=== PATIENT | female | born 1960 | race Caucasian/White ===

== ENCOUNTER → 2017-04-20 08:18 | Outpatient (CLI) | payer OTHER, SELFPAY ==
[2017-04-20 09:20] LABS: Cholesterol 154 mg/dL (200); High Density Lipoprotein 33 mg/dL; Thyroid Stim Hormone (TSH) 1.99 uIU/mL (0.358-3.74); Triglycerides 222 mg/dL; Very Low Density Lipoprotein 44 mg/dL (5-40)
[2017-04-20 10:40] LABS: Vitamin D,25 Hydroxy 49.1 ng/mL (29.95-100.01)
== END ==
DX: E55.9 Vitamin D deficiency, unspecified (principal); Z13.0 Encounter for screening for diseases of the blood and blood-forming organs and certain disorders involving the immune mechanism; Z13.29 Encounter for screening for other suspected endocrine disorder; Z13.228 Encounter for screening for other metabolic disorders
CPT/HCPCS: 36415; 80061; 82306; 84443

== ENCOUNTER → 2017-05-01 13:14 | Outpatient (CLI) | payer OTHER, SELFPAY ==
--- NOTE | 2017-05-01 13:17 | RAD_ITS ---
STUDY: X-RAY CHEST REASON FOR EXAM: Female, 56 years old. COUGH X 4 WKS W/ CLEAR D/C SOMETIMES TECHNIQUE: PA and lateral views of the chest. COMPARISON: None. FINDINGS: The lungs are clear and expanded. There is no demonstrated pleural abnormality. Normal size heart. Normal mediastinum and janet. Normal visualized pulmonary arteries. Normal visualized aortic arch and descending thoracic aorta. Normal visualized thoracic spine. Normal visualized ribs, clavicles, and shoulders. There is no demonstrated abnormality of the visualized soft tissue structures of the upper abdomen. RAD/Chest PA and Lateral IMPRESSION: Normal x-ray examination of the chest. Electronically Signed: Aleah Cohen MD at 23:59 EDT Tel , Service support ,
== END ==
DX: Z12.31 Encounter for screening mammogram for malignant neoplasm of breast (principal)
CPT/HCPCS: 71046

== ENCOUNTER → 2017-06-02 16:09 | Outpatient (CLI) | payer OTHER, SELFPAY ==
--- NOTE | 2017-06-02 16:34 | BI_ITS ---
MAMMOGRAPHY - BILATERAL SCREENING 3-D ERIC SYNTHESIS REASON FOR EXAM: Female, 56 years old. Bilateral Screening 3-D tomosynthesis PERTINENT HISTORY: No significant family history. TECHNIQUE: 2-D mammograms and 3-D Eric synthesis of the breast (s) were performed. CAD was performed. COMPARISON: May 02, 2016. FINDINGS: The breast composition is composed of scattered fibroglandular density. There is a 12 mm nodule within the right breast 6:00 position located 8.7 cm from the nipple base. Recommend further evaluation with sonographic characterization. There are no suspicious clustered calcifications. There are no secondary signs of malignancy. BI/SCREENING MAMM (CAD), BILAT IMPRESSION: 12 mm right breast nodule. ASSESSMENT CATEGORY: BIRADS Category 0: Incomplete. Need additional imaging evaluation as above. A letter regarding these results will be sent to the patient by the facility within 30 days. FOLLOW UP RECOMMENDATION: Yearly follow up mammogram recommended. (A) Approximately 10% of breast cancers are not detected by mammography. A normal mammogram should not delay biopsy of a clinically suspicious abnormality. Electronically Signed: Hernandez Dai MD at 8:14 EDT , Service support ,
== END ==
DX: Z12.31 Encounter for screening mammogram for malignant neoplasm of breast (principal)
CPT/HCPCS: 77063; 77067

== ENCOUNTER → 2017-06-12 16:42 | Outpatient (CLI) | payer OTHER, SELFPAY ==
--- NOTE | 2017-06-12 08:27 | COLBX_PTH ---
PATIENT: BABAK HSIEH LOC: [facility] U#:[id number] AGE/SX: 64/F ROOM: RE06/12/[address]: Dr. Jay Riley MD : 1960 BED: DIS: SPEC #: [id number] RECD: 06/12/17 15:31 STATUS: AUREA ZOFIA #: [id number] DARNELL: 06/12/17 08:[address]: Jay Riley DEPT: SURGICAL PATHOLOGY RECD BY: Regan Jane ENTERED: 06/15/17 12:11 SP TYPE: COLON BX OTHR DR: SHLOMO Tissues: Ileum, NOS Procedures: Surgery Specimen Level IV HEADER OPERATION: Colonoscopy with biopsies PRE-OP DIAGNOSIS: Crohn?s status post ileocolectomy TISSUE SUBMITTED: Neoterminal ileum, rule out active Crohn?s MICROSCOPIC DIAGNOSIS Neoterminal ileum, biopsy: Fragments of small intestinal mucosa with focal mild active inflammation. See microscopic description and comment. SJ:gail 06/16/17 COMMENT Correlation with clinical, endoscopic findings and appropriate follow up are necessary. MICROSCOPIC DESCRIPTION Slides are reviewed. The specimen shows fragments of small intestinal mucosa with acute and chronic inflammatory cells in the lamina propria and focal mild cryptitis. Crypt abscess and granulomas are not seen. No evidence of dysplasia in the submitted specimen. GROSS DESCRIPTION Received in fixative is one container labeled with the patient's name and designated neoterminal ileum. The specimen consists of multiple irregular fragments of light henao soft tissue that in aggregate measure 0.5 x o.5 x 0.1 cm. The specimen is totally submitted in one cassette. / SJ:gail 06/15/17 TC:2 CPT: 43993
== END ==
PROVIDERS: Visit Provider Internal Medicine Gastroenterology
DX: K50.90 Crohn's disease, unspecified, without complications (principal); Z93.2 Ileostomy status
CPT/HCPCS: 88305

== ENCOUNTER → 2017-06-15 13:46 | Outpatient (CLI) | payer OTHER, SELFPAY ==
--- NOTE | 2017-06-15 15:29 | US_ITS ---
STUDY: ULTRASOUND BREAST - RIGHT REASON FOR EXAM: Female, 56 years old. Abnormal screening mammogram. TECHNIQUE: Axial and longitudinal images of the RIGHT breast were performed with a high resolution ultrasound transducer. COMPARISON: Comparison is made with prior mammogram dated June 02, 2017. FINDINGS: RIGHT Breast: There is a 1 cm x 1.2 cm x 0.8 cm slightly lobulated solid nodule of mixed echotexture at the 6:00 position breast at 5 cm from nipple. A biopsy is recommended for further evaluation. US/Breast Limited Unilateral IMPRESSION: 1 cm x 1.2 cm x 0.8 cm lobulated solid nodule at the 6:00 position breast at 5 cm from nipple. Correlation with biopsy is recommended. ASSESSMENT CATEGORY: BIRADS Category 4: Suspicious - Biopsy Should Be Considered. A letter regarding these results will be sent to the patient by the facility within 30 days. Electronically Signed: Bishop Pitts MD at 8:54 EDT Tel [phone], Service support ,
== END ==
DX: R92.8 Other abnormal and inconclusive findings on diagnostic imaging of breast (principal)
CPT/HCPCS: 76642

== ENCOUNTER → 2017-06-18 11:23 | Outpatient (CLI) | payer OTHER, SELFPAY ==
--- NOTE | 2017-06-18 | IMM_PTH ---
PATIENT: BABAK HSIEH LOC: [facility] U#:[id number] AGE/SX: 64/F ROOM: RE06/18/[address]: Dr. Brenden Webster MD : 1960 BED: DIS: SPEC #: [id number] RECD: 06/19/17 10:42 STATUS: AUREA REQ #: [id number] DARNELL: 06/18/17 00:[address]: Brenden Webster DEPT: IMMUNOHISTOCHEMISTRY RECD BY: Page Ford ENTERED: 06/19/17 10:44 SP TYPE: IMMUNO OTHR DR: Dr. Estrellita Bear, Tissues: Right breast, NOS Procedures: Synapto (add) CALPONIN-1 (add) CD56 (add) CHROMO (add) CK5-6 (add) CK8 (add) E-CAD (add) HER2 TISH (add) KI-67 (add) P53 (add) SC (add) IN SITU HYBRIDIZATION P40 (add) ER (initial) PHYSICIAN & INSTITUTION [address] [address] SPECIMEN INFORMATION: Tissue Source: Right breast tissue Clinical Info: Abnormal breast ultrasound, right Specimen Number: [id number] CPT code: 80005, 49188 x9, 26195 x3 METHODOLOGY: Deparaffinized sections of prefer/formalin-fixed tissue or PAP/DQ stained slides are incubated with monoclonal/polyclonal antibodies/oligonucleotide probes. Localization is made via biotin free immunoperoxidase method. Appropriate controls are performed and reacted as expected. Results on target cell population are indicated in the following table: RESULTS: ANTIBODY / CLONE RESULT P53 (DO-7) positive, a few cells Ki-67 (30-9) positive, high CK8 (67kpccT48) positive CK5-6 (D5 & 1684) negative Calponin-1 (ZD407N) negative P40 (BC28) negative E-Cad (ECH-6) positive CD56 (123C3.D5) negative Chromo (LK2H10) negative Synapto (polyclonal) positive, focal MORPHOMETRIC ANALYSIS ER (clone 6F11) >95%, strong SC (clone 16/1E2) 26%, strong Her-2Neu (clone CB11) 2+ The prognostic test for HER2 is performed on formalin-fixed paraffin embedded tissue. A 3+ (positive) staining pattern is defined as intense, homogeneous, complete, circumferential membranous staining in >10% of contiguous tumor cells. A similar weak (2+) staining pattern is interpreted as equivocal. AGUTSIN follow-up testing is recommended for all equivocal cases. Positivity/negativity for ER/SC is reported if > or < 1% of the tumor cells are immuno- reactive, respectively. The ASCO/CAP criteria is used for scoring. Reference: Journal of Clinical Oncology, 2013; 31:4568-6551 & 2010; 16:3353-2946. Duration of fixation: 10 Hrs; Sample Adequate: Yes. These assays have not been validated on decalcified tissues. Results should be interpreted with caution given the likelihood of false negativity on decalcified specimens. These tests were developed and their performance characteristics determined by [facility]. They may not have been cleared or approved by the U.S. Food and Drug Administration. The FDA has determined that such clearance or approval is not necessary. 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 Positive for estrogen receptors (favorable prognostic indicator). Positive for progesterone receptors (favorable prognostic indicator). Equivocal for overexpression of HNH6mft. 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 Interpretative Information: The INFORM HER2 Dual AGUSTIN DNA Probe Cocktail assay is performed on formalin-fixed paraffin embedded tissue and determines HER2 gene status by detecting HER2 copies via silver in situ hybridization (SISH) and Chromosome 17 copies via chromogenic red in situ hybridization on tumor cells. A minimum of 20 cells representing > 10% of contiguous and homogeneous invasive tumor cells were analyzed. HER2 gene status is classified as Non-amplified (HER2/Chr17 ratio < 2.0) or Amplified (HER2/Chr17 ratio greater than or equal to 2.0). If the resulting HER2/Chr17 ratio falls within 1.8 - 2.2 (Borderline), retesting by FISH is recommended. Reference: Alexx AC, Viviana CARNES, Andres DG, et al: Recommendations for Human Epidermal Growth Factor Receptor 2 Testing in Breast Cancer: [place] Society of Clinical Oncology / College of [place] [employer] Clinical Practice Guideline Update. J Clin Oncol 31:1633-1943, 2013.
--- NOTE | 2017-06-18 | BRBX_PTH ---
PATIENT: BABAK HSIEH LOC: [facility] U#:[id number] AGE/SX: 64/F ROOM: RE06/18/[address]: Dr. Brenden Webster MD : 1960 BED: DIS: SPEC #: [id number] RECD: 06/18/17 12:17 STATUS: AUREA ZOFIA #: [id number] DARNELL: 06/18/17 00:[address]: Brenden Webster DEPT: SURGICAL PATHOLOGY RECD BY: Laci Arroyo ENTERED: 06/18/17 12:18 SP TYPE: BREAST BX OTHR DR: Dr. Estrellita Bear, Tissues: Right breast, NOS Procedures: Surgery Specimen Level IV Comments: @ Specimen number changed from to [id number] @ on 06/18/17 at 1409 by RGOOD. HEADER OPERATION: Right breast core biopsy PRE-OP DIAGNOSIS: Abnormal breast ultrasound, right TISSUE SUBMITTED: Right breast tissue ISCHEMIC TIME: 1 minute FIXATION TIME: 10 hours MICROSCOPIC DIAGNOSIS Right breast, ultrasound-guided core biopsy: Invasive ductal carcinoma with focal neuroendocrine features: Maximal length ? 8.5 mm Nuclear grade ? 3 AM:gail 06/19/17 COMMENT Immunohistochemistry ([id number]) supports the above diagnosis. ER/AR/Kmf7ruj studies are being performed on sections of tumor and the results from this study will be reported separately ([id number]). Case has been reviewed in consultation with Dr. Spencer who concurs with the above diagnosis. IDC:SJ MICROSCOPIC DESCRIPTION Slides are reviewed. GROSS DESCRIPTION Received in fixative is one container labeled with the patient's name and designated right breast tissue. The specimen consists of two elongated fragments of henao tissue. Each fragment has an average length of 1.2 cm and maximal diameter of 0.1 cm. The specimen is totally submitted in one cassette. / AM:gail 06/18/17 TC:0 CPT: 35879
== END ==
PROVIDERS: Visit Provider Surgery
DX: R92.8 Other abnormal and inconclusive findings on diagnostic imaging of breast (principal)
CPT/HCPCS: 88305; 88341; 88342; 88368

== ENCOUNTER → 2017-06-19 13:44 | Outpatient (CLI) | payer OTHER, SELFPAY ==
[2017-06-19 14:52] LABS: Homocysteine 8.7 umol/L (3.2-10.7)
[2017-06-24 11:08] LABS: Activated Protein C Resistance 2.7 ratio (2.2-3.5); Antithrombin 3 Function 113 % (75-135); Protein S, Free 89 % (57-157); Protein S, Funtional 100 % (63-140); Protein S, Total 153 % (60-150)
== END ==
DX: I82.409 Acute embolism and thrombosis of unspecified deep veins of unspecified lower extremity (principal)
CPT/HCPCS: 36415; 81241; 83090; 85300; 85305; 85306; 85307

== ENCOUNTER → 2017-07-01 06:41 | Outpatient (CLI) | payer OTHER, SELFPAY ==
--- NOTE | 2017-07-01 11:35 | PFT ---
INTRODUCTION: The patient is a 57-year-old female currently under the care of Dr. Zamorano the presents for pulmonary function testing secondary to a diagnosis of cough. Respiratory therapy reports good patient effort. Bronchodilators were used during testing. INTERPRETATION: Forced expiration spirometry demonstrates the presence of a mild large airways obstructive ventilatory defect. There was no significant response to aerosolized bronchodilators, based upon strict ATS criteria. Spirograms are of good quality and plateau gradually. Body plethysmography was performed and reveals lung volumes to be within normal limits. Diffusing capacity by single breath CO is within normal limits. IMPRESSION: These pulmonary function studies demonstrate the presence of an irreversible mild large airways obstructive ventilatory defect, with preserved lung volumes and diffusing capacity. There are no previous pulmonary function studies available for comparison.
== END ==
PROVIDERS: Visit Provider Otolaryngology Otolaryngology/Facial Plastic Surgery
DX: R05 Cough (principal)
CPT/HCPCS: 94060; 94726; 94729

== ENCOUNTER → 2017-07-15 10:45 | Outpatient (CLI) | payer OTHER, SELFPAY ==
--- NOTE | 2017-07-15 10:45 | MRI_ITS ---
STUDY: BILATERAL BREAST MR WITHOUT AND WITH CONTRAST REASON FOR EXAM: Female, 57 years old. Right breast cancer. Biopsy 2 weeks ago. TECHNIQUE: Multi-sequence multi-echo imaging of both breasts was performed with a dedicated breast coil. T1-weighted and T2-weighted images were performed before the administration of contrast. T1-weighted images were also performed after the administration of 6 mL of Gadavist contrast intravenously without complications. COMPARISON: Mammograms dated June 02, 2017, breast ultrasound dated June 15, 2017 and diagnostic left mammogram dated June 15, 2017. FINDINGS: RIGHT BREAST: The breast tissue is fatty with minimal background enhancement. At the 6:00 position of the right breast approximately 7 cm behind the nipple there are 2 lobular enhancing masses. The most posterior mass measures approximately 1.2 cm x 8 mm and the anterior lobulated mass measures approximately 6 mm x 5 mm. There is a tissue clip metallic artifact projected between the 2 masses. LEFT BREAST: The breast tissue is fatty with minimal background enhancement. There are no abnormal enhancing masses or areas of non-mass enhancement in the left breast. There are no enlarged or abnormal lymph nodes. There is no abnormality in the visualized regions of the chest or liver. MRI/Breast w/o and/or W Cont Bilat IMPRESSION: 2 small enhancing masses at the 6:00 position of the right breast as described above. See discussion above. CATEGORY: BIRADS Category 6: Known Biopsy-Proven Malignancy - Appropriate Action Should Be Taken. A letter regarding these results will be sent to the patient by the facility within 30 days. Electronically Signed: Waldo Gay MD at 13:34 EDT , Service support ,
--- NOTE | 2017-07-15 10:45 | DT_ITS ---
This patient was seen during an EMR downtime July 13, 2017 - July 20, 2017. This patient may have a combination of paper and electronic documentation or all paper documentation. All documentation is viewable within the e-chart portion of [facility] for each patient visit.
== END ==
PROVIDERS: Visit Provider Surgery
DX: C50.919 Malignant neoplasm of unspecified site of unspecified female breast (principal)
CPT/HCPCS: 77059; A9585; A4216; C8908

== ENCOUNTER 2017-07-22 08:49 | Day surgery (SDC) | payer OTHER, SELFPAY ==
--- NOTE | 2017-07-17 15:31 | RAD_ITS ---
STUDY: X-RAY CHEST REASON FOR EXAM: Female, 57 years old. Breast cancer. Preop exam TECHNIQUE: PA and lateral views of the chest. COMPARISON: May 01, 2017 FINDINGS: Stable right lower lung 0.5 cm nodule. There is no demonstrated pleural abnormality. Normal size heart. Normal mediastinum and janet. Normal visualized pulmonary arteries. Normal visualized aortic arch and descending thoracic aorta. Normal visualized thoracic spine. Normal visualized ribs, clavicles, and shoulders. There is no demonstrated abnormality of the visualized soft tissue structures of the upper abdomen. RAD/Chest PA and Lateral IMPRESSION: Stable nodular density in the right lower lung. Electronically Signed: Kike Aponte MD at 17:34 EDT , Service support ,
--- NOTE | 2017-07-17 15:34 | EKG12_ITS ---
Test Reason : PREOP Blood Pressure : / mmHG Vent. Rate : 085 BPM Atrial Rate : 085 BPM P-R Int : 114 ms QRS Dur : 084 ms QT Int : 364 ms P-R-T Axes : 058 019 048 degrees QTc Int : 433 ms Normal sinus rhythm Possible Left atrial enlargement Borderline ECG Confirmed by ARTHUR HOLCOMB, ALDAIR ([id number]), pictures editor DANIEL CARVAJAL ([id number]) on 07/22/2017 5:25:50 PM Referred By: Brenden Webster Confirmed By:ALDAIR GIBSON MD
[2017-07-17 18:38] LABS: Hemoglobin 12.3 g/dl (12.0-15.0); Mean Corp Hgb Conc 31.5 g/gl (32-36); Mean Corpuscular Hgb 26.8 pg (27.0-32.0); Platelet Count 386 K/mm3 (150-450); RBC Distribution Width CV 16.2 % (11.6-14.6); RBC Distribution Width SD 49.8 fl (35.1-43.9); Red Blood Count 4.59 M/mm3 (4.2-5.4); White Blood Count 8.9 K/mm3 (4.4-11.0)
[2017-07-17 18:39] LABS: Mean Platelet Vol. 9.6 fl (6.2-12.0); Scan Indicated on CBC? Y/N NO
[2017-07-18 06:13] LABS: Anion Gap 11 (5-15); BUN 18 mg/dL (7-18); BUN/Creat Ratio 31.6 RATIO (10-20); Chloride 104 mmol/L (98-107); Creatinine, Serum 0.57 mg/dL (0.55-1.02); EST Glomerular Filtration Rate 117 mL/min (>60); Est Glom Filt Rate - Afr Amer 142 mL/min (>60); Glucose 84 mg/dL (74-106); Potassium 3.9 mmol/L (3.5-5.1); Sodium Level 141 mmol/L (136-145)
[2017-07-22] VITALS (7 sets, daily range): BP systolic 107–150; BP diastolic 72–93; PULSE 87–99; RESP 15–16; TEMP 36.3–37.1; O2SAT 92–98; BMI 24.6
--- NOTE | 2017-07-22 | IMM_PTH ---
PATIENT: BABAK HSIEH LOC: [facility] U#:[id number] AGE/SX: 57/F ROOM: RE07/22/[address]: Dr. Brenden Webster MD : 1960 BED: DIS: 07/22/2017 SPEC #: [id number] RECD: 07/27/17 11:33 STATUS: AUREA REQ #: [id number] DARNELL: 07/22/17 00:[address]: Brenden Webster DEPT: IMMUNOHISTOCHEMISTRY RECD BY: Page Ford ENTERED: 07/27/17 11:37 SP TYPE: IMMUNO OTHR DR: Dr. Estrellita Bear, Tissues: A - Axillary lymph node, NOS B - Right breast, NOS Procedures: Calponin-1(initial) CALPONIN-1 (add) CK7 (add) Pankeratin (initial) Pankeratin (add) P40 (add) PHYSICIAN & INSTITUTION [place] [address] SPECIMEN INFORMATION: Tissue Source: A ? Right sentinel lymph node, B ? Right breast, lumpectomy Clinical Info: Malignant neoplasm of right breast Specimen Number: [id number] A1-6, A8, B2, B4 CPT code: 36223 x2, 47289 x16 METHODOLOGY: Deparaffinized sections of prefer/formalin-fixed tissue or PAP/DQ stained slides are incubated with monoclonal/polyclonal antibodies/oligonucleotide probes. Localization is made via biotin free immunoperoxidase method. Appropriate controls are performed and reacted as expected. Results on target cell population are indicated in the following table: RESULTS: ANTIBODY / CLONE RESULT Block A1 AE1-3 (AE1/AE3/PCK26) negative CK7 (OV-TL12/30) negative Block A2 AE1-3 (AE1/AE3/PCK26) negative CK7 (OV-TL12/30) negative Block A3 AE1-3 (AE1/AE3/PCK26) negative CK7 (OV-TL12/30) negative Block A4 AE1-3 (AE1/AE3/PCK26) negative CK7 (OV-TL12/30) negative Block A5 AE1-3 (AE1/AE3/PCK26) negative CK7 (OV-TL12/30) negative Block A6 AE1-3 (AE1/AE3/PCK26) negative CK7 (OV-TL12/30) negative Block A8 AE1-3 (AE1/AE3/PCK26) negative CK7 (OV-TL12/30) negative Block B2 P40 (BC28) positive Calponin-1 (XQ739D) positive Block B4 P40 (BC28) negative Calponin-1 (KU468E) negative These tests were developed and their performance characteristics determined by [facility]. They may not have been cleared or approved by the U.S. Food and Drug Administration. The FDA has determined that such clearance or approval is not necessary. INTERPRETATION: A. Right sentinel lymph node, biopsy: Ten out of ten lymph nodes, negative for metastatic carcinoma. See comment. B. Right breast, lumpectomy: Consistent with adenosis and intraductal hyperplasia without atypia, negative for carcinoma (B2). Invasive ductal carcinoma (B4). Comment: One of the smaller lymph node in block was exhausted during frozen section diagnosis. SJ:gail 07/28/17
--- NOTE | 2017-07-22 | AXNB_PTH ---
PATIENT: BABAK HSIEH [place] [facility] [place][id number] AGE/SX: 57/F ROOM: RE07/22/[address]: Dr. Brenden Webster MD : 1960 BED: DIS: 07/22/2017 SPEC #: [id number] RECD: 07/22/17 11:58 STATUS: AUREA ZOFIA #: [id number] DARNELL: 07/22/17 00:[address]: Brenden Webster DEPT: SURGICAL PATHOLOGY RECD BY: Page Ford ENTERED: 07/22/17 13:19 SP TYPE: AX NODE BX OTHR DR: Dr. Estrellita Bear, DO Tissues: A - Axillary lymph node, NOS B - Right breast, NOS Procedures: Frozen Section (charge) Frozen Section Add'l ([facility]) Surgery Specimen Level V Frozen (no charge) HEADER OPERATION: Breast lumpectomy, sentinel node, NL, ultrasound-guided in OR PRE-OP DIAGNOSIS: Malignant neoplasm of right breast; ER positive TISSUE SUBMITTED: A ? Right sentinel node, FS, B ? Vertical elliptical excision 6 o?clock right breast (wire exiting at 7 o?clock, short suture superior, long suture lateral) FROZEN SECTION DIAGNOSIS A. Right sentinel lymph nodes, biopsy: Eleven out of eleven lymph nodes negative for carcinoma. AM:gail 07/22/17 Case has been reviewed in consultation with Dr. Spencer who concurs with the above diagnosis. IDC:SJ MICROSCOPIC DIAGNOSIS A. Right sentinel lymph nodes, biopsy: Eleven out of eleven lymph nodes negative for metastatic carcinoma. See comment. B. 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 See cancer summary below. INVASIVE BREAST CANCER SUMMARY: Specimen ? partial breast Procedure ? excision with wire-guided localization Lymph node sampling ? sentinel lymph nodes Specimen integrity ? single intact specimen Specimen size ? 8 x 6 x 3 cm Specimen laterality - right Tumor site ? not specified Tumor size ? 1.8 x 1 x 0.7 cm. See comment. Tumor focality ? single focus of invasive carcinoma. Macroscopic and Microscopic extent of tumor: Skin ? invasive carcinoma does not invade into the dermis or epidermis Nipple ? not applicable Skeletal muscle ? 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 Extensive intraductal component (EIC) - negative Estimated size (extent) of DCIS - Number of blocks with DCIS - 1 Number of blocks examined - 10 Architectural patterns - solid Nuclear grade ? 3 (high) Necrosis ? not identified Lobular carcinoma in situ (LCIS) - not identified Histologic type of invasive carcinoma ? invasive ductal carcinoma with focal neuroendocrine features. See comment. Histologic Grade ([place] grade): Glandular/tubular differentiation - score 3 Nuclear pleomorphism - score 3 Mitotic count ? score 2 Overall grade - 3 (score of 8) Margins - Margins uninvolved by invasive carcinoma and ductal carcinoma in situ. The invasive carcinoma is 0.1 cm away from the closest inferior margin and 0.5 cm away from the next closest anterior margin. Ductal carcinoma in situ 0.1 cm away from the closest inferior margin and 0.9 cm away for next closest anterior margin. Treatment effect: Response to presurgical (neoadjuvant) therapy - no known presurgical therapy. Lymph-Vascular invasion ? not identified Dermal lymph-vascular invasion - not identified Lymph nodes: Number of sentinel lymph nodes examined - 11 Total number of lymph nodes examined (sentinel and nonsentinel) - 11 Number of lymph nodes with macrometastases, micrometastases and isolated tumor cells - 0 Method of evaluation of sentinel lymph nodes - H & E, multiple levels and IHC. Distance metastasis ? not applicable Additional pathologic findings ? adenosis and intraductal hyperplasia without atypia. See comment. Ancillary studies - previously performed on section of tumor ([id number] / [id number]). ER ? positive (>95%, strong) SD ? positive (26%, strong) Her2 jeff ? equivocal (2+) Her2 by dual AGUSTIN ? 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 synaptophysin for neuroendocrine marker is positive focal. Microcalcifications ? present in DCIS. Clinical history - Please make reference to previous specimen ([id number]) right breast, ultrasound-guided core biopsy with diagnosis of invasive ductal carcinoma with focal neuroendocrine features. PATHOLOGIC STAGE: pT1c pN0 Mx The above summary is in compliance with [employer] (CAP) Cancer Protocols Checklist and [place] Joint Committee on Cancer (AJCC), Staging Manual, 8th Ed. SJ:gail 07/27/17 COMMENT A. The lymph nodes are negative for metastatic carcinoma on multiple H & E levels and immunohisto-chemical stains for cytokeratins ([id number]). The smaller lymph node in block 1 was exhausted during frozen section diagnosis. B. Invasive tumor is larger in dimension than measured grossly. Neuroendocrine features are confirmed on biopsy specimen by immunohistochemistry. Immunohistochemistry ([id number]) supports the above diagnosis of adenosis and negative for malignancy in block B2 and diagnosis of invasive carcinoma in Block B4.. Case has been reviewed in consultation with Dr. Duong who concurs with the above diagnosis. IDC:AM MICROSCOPIC DESCRIPTION Slides are reviewed. GROSS DESCRIPTION A - Received fresh for frozen section diagnosis labeled with the patient's name is a specimen designated right sentinel node. The specimen consists of a piece of adipose tissue containing multiple nodules consistent with lymph nodes measuring 6 x 4 x 2 cm. Multiple lymph nodes are identified measuring 0.2 to 2 cm in greatest dimension. The entire specimen is submitted in eight cassettes as follows: 1 ? frozen section, two lymph nodes, one lymph node inked black, 2 - frozen section, two lymph nodes, one lymph node inked black, 3 - frozen section, two lymph nodes, one lymph node inked black, 4 - frozen section, one lymph node, 5 - frozen section, three lymph nodes, one lymph node inked blue and one lymph node inked black, 6 - frozen section, one bisected lymph node, 7 & 8 ? rest of the specimen. / SJ:gail 07/22/17 B - Received fresh for intraoperative consultation labeled with the patient's name is a specimen designated right breast. The specimen consists of a piece of fibroadipose tissue with needle localization measuring 8 x 6 x 3 cm. A vertical skin ellipse is noted oriented as vertical ellipse measuring 4.5 x 1 cm. The specimen is oriented as follows: wire exiting at 7 o?clock, short suture superior, long suture lateral. The specimen is inked as follows: anterior ? yellow, posterior ? blue, superior ? black, inferior ? green, medial ? red and lateral ? orange. Serial sections reveal a henao, indurated mass measuring 1 x 1 x 0.7 cm. This mass is 1 cm away from the anterior and inferior margins. This information is conveyed to the surgeon intraoperatively. Sections of the rest of the specimen reveal henao-yellow adipose cut surfaces with scant fibrous areas. Administrative Dietitian sections are submitted in ten cassettes as follows: 1 ? perpendicular medial and lateral margins, 2 ? perpendicular superior and posterior margins, 3 & 4 ? tumor with closest anterior and inferior margins, 5 ? rest of the tumor, 6 & 7 ? inside outside sales representative sections and skin piece adjacent to the tumor, 8-10 - inside outside sales representative sections away from the tumor. Sections will be submitted after infusion cycle. / SJ:rg 07/23/17 TC:0 CPT: 02324 x2, 41923, 47204, 70246 x5 ADDENDUM ADDENDUM ADDENDUM ADDENDUM ADDENDUM ADDENDUM ADDENDUM ADDENDUM 08/10/2017 12:03 ADDENDUM 08/10/2017 12:03 ADDENDUM 08/10/2017 12:03 ADDENDUM 08/10/2017 12:03 ADDENDUM 08/10/2017 12:03 An order for Oncotype testing was received from Dr. Pete Paez. This necessitated case review, block and slide selection by pathologist at [facility]. Breast Cancer Recurrence Score = 27 Results of the complete Oncotype testing ([facility] report) are viewable in EMR under: Reports - Pathology - Lab Pathology Report, Scanned.
--- NOTE | 2017-07-22 10:49 | PCM.DC.BS ---
Discharge Diet: No Restrictions Discharge Activity: May Not Drive - for 2-3 days or while taking narcotic pain meds. May shower in (days): 1 Lifting Restrictions: 10 pounds for 1 week. Call your doctor if your incision/area has: Continuous Slow Oozing, Sudden Increased Bleeding Call your doctor if you observe: Fever of 101 or Higher Suture Line Care: Avoid Pulling/Pushing, Avoid Pinching/Bending Remove Dressing in (days):: 1 - Remove bulky dressing tomorrow. May leave any opsite dressing for 3-4 days. Keep dressing in place until your follow-up appointment. Additional Dressing/Incision Instructions:: Remove bulky dressing tomorrow. May leave any opsite dressing for 3-4 days. You may leave any Steri-Strips on for 1 week after surgery Allergies/Adverse Reactions: Allergies No Known Allergies Allergy (Verified 07/02/17 16:07) Medications to take at Discharge Calcium Carbonate [Calcium] 600 mg PO DAILY 11/20/15 Folic Acid 1 mg PO DAILY@0800 11/20/15 citalopram 10 mg tablet 20 mg PO DAILY tab 06/18/17 loperamide 2 mg capsule 2 mg PO Q1-4H PRN 06/18/17 melatonin 3 mg tablet 3 mg PO HS PRN 06/18/17 methotrexate sodium 2.5 mg tablet 2.5 mg PO QWEEK tab 06/18/17 multivitamin capsule 1 cap PO QDAY 06/18/17 prednisone 20 mg tablet 5 mg PO DAILY tab 06/18/17 Acetaminophen/Codeine #3 [Tylenol#3] 1 tablet PO Q6H PRN PRN 3 Days #10 tablet 07/22/17 The following prescriptions were given: Acetaminophen/Codeine #3 [Tylenol#3] 1 tablet PO Q6H PRN PRN 3 Days #10 tablet PRN Reason: Pain Primary Care Physician: Estrellita Bear DO [Primary Care Provider] - Please Follow Up With: Brenden Webster MD When: [phone] Office appt approximately 10 days please
[2017-07-22] MEDS: Isosulfan Blue 1% 5 ML Vial (11:38)
--- NOTE | 2017-07-22 12:07 | BI_ITS ---
SURGICAL BREAST SPECIMEN RADIOGRAPH CLINICAL: Document presence of mass in biopsy specimen. FINDINGS: Specimen shows presence of mass. Pathology is pending and an addendum to the biopsy report will be performed after the final pathologic diagnosis is rendered. Electronically Signed: Moses Whitt MD at 13:02 EDT Tel , Service support , BI/Breast Biopsy Specimen
[2017-07-22] MEDS: Bupivacaine Mpf 0.5% 30 ML VIAL (12:23)
--- NOTE | 2017-07-22 12:30 | OP.PCM_ITS ---
Problem List (1) Breast cancer, right Status: Acute Qualifiers: Breast location: lower inner quadrant of breast Estrogen receptor status: positive Patient sex: female Qualified Code(s): C50.311 - Malignant neoplasm of lower-inner quadrant of right female breast; Z17.0 - Estrogen receptor positive status [ER+] Report of Operation Date of Procedure: 07/22/17 Pre-Operative Diagnosis: Invasive ductal carcinoma lower mid right breast Post-Operative Diagnosis: Same Surgery/Procedure Performed:: Ultrasound-guided wire localization right breast 6 :00 lesion with wire localized lumpectomy and right axillary blue dye sentinel lymph node biopsy Description of Surgical Findings:: Timeout and informed consent was obtained. 57-year-old female was taken to the operating room. She was placed supine on the table. She underwent general anesthesia. The right arm was carefully wrapped with soft roll and placed at right angles the table. The right breast was prepped at the areola with alcohol. 2 cc of isosulfan blue dye was injected retroareolar massage was performed for 3 minutes. The right breast and axilla were sterilely prepped and draped. A transverse slightly oblique incision was made in the right axilla sharp dissection carried down through the subcu tissue and upon dissecting there were no <4 or 5 lymphatic tracts to a conglomerate of lymph nodes. The vast majority of the lymph nodes had blue dye staining them. I carefully and tediously dissected around this conglomerate packet of lymph nodes which were adherent to each other. Dissected that free with electrocautery hemostasis was intact. Each lymphatic channel feeding this area was secured with hemoclips. Electrocautery was utilized as well. That specimen was sent for analysis. The cavity was inspected there was no evidence any residual disease no palpable disease. FloSeal was eventually placed in the cavity and then the wound was closed with deep layer of interrupted 3-0 Vicryl in a running septic or 4 Monocryl subdermal suture. Attention was drawn to the wire localized site so the right breast 6:00 area had been prepped I used gel I looked with ultrasound inserted a Kopan's needle into the lesion displaces the wire. Then because of the lesion and some retraction of the skin I made a vertical elliptical excision at the 6 o'clock position encompassing the skin with the lesion dissection was then performed down to the chest wall and again very nice circumferential dissection was performed. The MRI had suggested that there were 2 lesions [id number] so I made my incision margin to have to incorporate this area. Having completely released the tissue the wire exited at 7:00 a short suture was placed superiorly and long suture laterally. Palpation of the cavity failed to reveal any residual disease there is no additional secondary nodule. I mobilized the breast tissue off the pectoralis major to allow for an uncle plastic closure and did a deep layer of interrupted 3-0 Vicryl. More superficial layer of interrupted 3-0 Vicryl and then the skin was closed with running subcuticular 4-0 Monocryl. Steri-Strips Telfa OpSite dressings followed by bulky dry dressings were applied. Frozen section suggested that there were actually of 11 lymph nodes submitted from the axilla. This was that all containing conglomerate could not dissect them separately out. The mass itself was felt to be a solitary mass with clear margins by 1 cm. Sponge instrument and needle counts were reported surgical correct. Blood loss was minimal. The fadia-incisional areas anesthetized with 0.5% Marcaine. Total 30 cc was used. No apparent complication she was taken to the recovery or insect condition. Brenden Webster M.D., F.A.C.S. Type of Anesthesia:: General Anesthesiologist: Rubin Chong
== END 2017-07-22 15:36 | disposition home or self-care (01) ==
LOC: SDC 08:49 → AC 08:50
PROVIDERS: Visit Provider Surgery
PROC: (CPT 19301; principal; 2017-07-22 10:45)
DX: D05.11 Intraductal carcinoma in situ of right breast (principal); K50.90 Crohn's disease, unspecified, without complications; M06.9 Rheumatoid arthritis, unspecified; R05 Cough; Z17.0 Estrogen receptor positive status [ER+]; Z86.718 Personal history of other venous thrombosis and embolism; Z87.891 Personal history of nicotine dependence; Z79.52 Long term (current) use of systemic steroids
CPT/HCPCS: 01610; 19301; 38500; 38900; 36415; 71046; 76098; 80048; 85027; 88305; 88307; 88331; 88332; 88341; 88342; 93005; J7120; J2405; Q9968

== ENCOUNTER → 2017-07-29 08:17 | Outpatient (CLI) | payer OTHER, SELFPAY ==
--- NOTE | 2017-07-29 08:18 | CT_ITS ---
STUDY: CT CHEST WITHOUT CONTRAST REASON FOR EXAM: Female, 57 years old. Follow-up lung nodule, newly diagnosed breast cancer with right lumpectomy, cough x6 months RADIATION DOSAGE (If Supplied By Facility): CTDIvol = ( 8.71 ) mGy, DLP = ( 291.58 ) mGycm TECHNIQUE: Transaxial imaging was performed without the administration of intravenous contrast material. Individualized dose optimization techniques were used for this CT. COMPARISON: None. FINDINGS: There is a pleural-based 3 mm nodule of the posterior left lower lobe axial image 61. There is an additional pleural-based 3 mm nodule of the superior segment of the left lower lobe, axial image 41. There is a pleural-based 2 mm nodule of the right upper lobe axial image 29. There is a pleural-based 4 mm nodule of the right upper lobe axial image 34. There is a 4 mm right middle lobe nodule axial image 60. There is no pleural effusion. The heart size is within normal limits. There is a trace pericardial effusion. No pathologically enlarged mediastinal nodes are evident. Hilar areas are difficult to assess on this noncontrast study. There is no obvious hilar mass or adenopathy. Normal unenhanced pulmonary arteries. There are several small calcified plaques of the thoracic aorta. There is an old right-sided rib fracture. There is mild diffuse endplate spondylosis of the visualized thoracolumbar spine. There is no evidence of osseous metastatic disease. There are 2 masses of the right breast, one located in the mid lateral right breast measuring 3.0 x 3.3 cm. This mass contains some central gas consistent with history of recent surgery. There is a second mass containing multiple surgical clips adjacent to the lateral right chest wall measuring 4.3 x 2.5 cm. No pathologically enlarged right axillary nodes are seen. CT/Chest without Contrast IMPRESSION: Bilateral pulmonary nodules as detailed above. Appropriate follow-up using Fleischner Society criteria is recommended. Trace pericardial effusion. Right breast masses as detailed above. These masses may represent focal hematomas/inflammatory process associated with recent surgery. Electronically Signed: Manuel Perla MD at 17:18 EDT , Service support ,
== END ==
PROVIDERS: Visit Provider Surgery
DX: R91.1 Solitary pulmonary nodule (principal); C50.911 Malignant neoplasm of unspecified site of right female breast
CPT/HCPCS: 71250

== ENCOUNTER → 2017-09-01 15:57 | Outpatient (CLI) | payer SELFPAY ==
[2017-08-24 07:55] VITALS: BMI 25.1
--- NOTE | 2017-09-01 16:00 | BD_ITS ---
STUDY: DUAL ENERGY X-RAY ABSORPTIOMETRY / DXA REASON FOR EXAM: Female, 57 years old. Postmenopausal screening TECHNIQUE: Bone Mineral Density (BMD) measurements of lumbar spine and bilateral hips were obtained. COMPARISON: 2008 FINDINGS: Lumbar Spine (L1-L4): g/cm2 (1.092) / T-score (-0.6) / Z-score (0.3) Findings are suggestive of normal bone density with a low fracture risk. Left Femur Total: g/cm2 (0.785) / T-score (-1.8) / Z-score (-1.1) Left Femoral Neck: g/cm2 (0.725) / T-score (-2.3) / Z-score (-1.2) Right Femur Total: g/cm2 (0.782) / T-score (-1.8) / Z-score (-1.1) Right Femoral Neck: g/cm2 (0.730) / T-score (-2.2) / Z-score (-1.2) The T-Scores on the most recent prior examination were: Lumbar Spine (L1-L4): There has been worsening of bone density since the previous examination. BD/Dexa Bone Density Study IMPRESSION: The patient is considered osteopenic as outlined below according to World [place]eb Organization (WHO) criteria with a moderate fracture risk. There has been worsening of bone density since the previous examination. Reference Information: The T-score is the number of standard deviations above or below the standard which is normal for young adults at their peak bone mineral density. The World Health Organization (WHO) interprets the T-scores as follows: Above -1 Normal bone density Between -1 and -2.5 Osteopenia Equal to / or below -2.5 Osteoporosis As a practical clinical guideline, osteopenia may be graded as follows: Mild -1 through -1.5 Moderate -1.6 through -2.0 Severe -2.1 through -2.4 The Z-score is the number of standard deviations above or below age-matched controls. A Z-score of less than -1.5 would be considered abnormal. References: 1. NIH Osteoporosis and Related Bone Diseases http://www.osteo.org 2. International Society for Clinical Densitometry http://www.iscd.org 3. National Osteoporosis Foundation http://www.nof.org Electronically Signed: David Milian MD at 7:56 EDT , Service support ,
== END ==
PROVIDERS: Visit Provider Internal Medicine Medical Oncology
DX: Z78.0 Asymptomatic menopausal state (principal); C50.312 Malignant neoplasm of lower-inner quadrant of left female breast
CPT/HCPCS: 77080; 77412

== ENCOUNTER → 2017-10-15 09:06 | Outpatient (CLI) | payer OTHER, SELFPAY ==
[2017-08-24 07:55] VITALS: BMI 25.1
[2017-10-15 09:26] LABS: Absolute Lymphocyte Count 0.97 X10^3/ul (0.83-4.51); Absolute Neutrophil Count 7.1 X10^3/uL (2.0-7.7); Basophil# 0.02 X10^3/uL; Basophil% 0.2 % (0-1); Eosinophil# 0.08 X10^3/uL; Eosinophils% 0.9 % (0-5); Hematocrit 42.3 % (37-47); Hemoglobin 13.7 g/dl (12.0-15.0); Lymphocyte # 0.97 X10^3/ul (4.0); Lymphocyte % 11.1 % (19-41); Mean Corp Hgb Conc 32.4 g/gl (32-36); Mean Corpuscular Hgb 27.5 pg (27.0-32.0); Mean Corpuscular Volume 84.9 fL (81-99); Mean Platelet Vol. 9.2 fl (6.2-12.0); Monocyte# 0.56 X10^3/uL; Monocyte% 6.4 % (0-10); Neutrophil # 7.05 X10^3/uL (2.7-7.7); Neutrophil % 81.2 % (47-70); Platelet Count 328 K/mm3 (150-450); RBC Distribution Width CV 14.9 % (11.6-14.6); RBC Distribution Width SD 45.8 fl (35.1-43.9); Red Blood Count 4.98 M/mm3 (4.2-5.4); White Blood Count 8.7 K/mm3 (4.4-11.0)
[2017-10-15 09:34] LABS: POSITIVE COUNT NO; POSITIVE DIFFERENTIAL NO; POSITIVE MORPHOLOGY NO
[2017-10-15 09:40] LABS: AST(SGOT) 16 U/L (15-37); Alanine Aminotransfer ALT/SGPT 27 U/L (13-56); Albumin, Serum 3.4 g/dL (3.2-5.0); Alkaline Phosphatase 152 U/L (45-117); Bilirubin, Direct 0.09 mg/dL (0.00-0.30); Creatinine, Serum 0.62 mg/dL (0.55-1.02); EST Glomerular Filtration Rate 107 mL/min (>60); Est Glom Filt Rate - Afr Amer 129 mL/min (>60); Globulin 4.7 g/dL (2.2-4.2); Protein, Total 8.1 g/dL (6.4-8.2)
== END ==
PROVIDERS: Visit Provider Internal Medicine Rheumatology
DX: M05.79 Rheumatoid arthritis with rheumatoid factor of multiple sites without organ or systems involvement (principal); Z79.899 Other long term (current) drug therapy
CPT/HCPCS: 36415; 80076; 82565; 85025

== ENCOUNTER → 2017-11-13 08:13 | Outpatient (CLI) | payer OTHER, SELFPAY ==
[2017-08-24 07:55] VITALS: BMI 25.1
[2017-11-13 08:37] LABS: Absolute Lymphocyte Count 1.04 X10^3/ul (0.83-4.51); Absolute Neutrophil Count 6.7 X10^3/uL (2.0-7.7); Basophil# 0.01 X10^3/uL; Basophil% 0.1 % (0-1); Eosinophil# 0.08 X10^3/uL; Eosinophils% 0.9 % (0-5); Hematocrit 43.2 % (37-47); Hemoglobin 13.8 g/dl (12.0-15.0); Lymphocyte # 1.04 X10^3/ul (4.0); Lymphocyte % 12.3 % (19-41); Mean Corp Hgb Conc 31.9 g/gl (32-36); Mean Corpuscular Hgb 27.5 pg (27.0-32.0); Mean Corpuscular Volume 86.2 fL (81-99); Monocyte# 0.63 X10^3/uL; Monocyte% 7.4 % (0-10); Neutrophil % 79.2 % (47-70); Platelet Count 325 K/mm3 (150-450); RBC Distribution Width SD 47.5 fl (35.1-43.9); Red Blood Count 5.01 M/mm3 (4.2-5.4); White Blood Count 8.5 K/mm3 (4.4-11.0)
[2017-11-13 08:38] LABS: POSITIVE COUNT NO; POSITIVE DIFFERENTIAL NO; POSITIVE MORPHOLOGY NO
[2017-11-13 08:57] LABS: AST(SGOT) 20 U/L (15-37); Alanine Aminotransfer ALT/SGPT 30 U/L (13-56); Albumin, Serum 3.4 g/dL (3.2-5.0); Alkaline Phosphatase 128 U/L (45-117); Bilirubin, Direct 0.12 mg/dL (0.00-0.30); Creatinine, Serum 0.68 mg/dL (0.55-1.02); EST Glomerular Filtration Rate 96 mL/min (>60); Est Glom Filt Rate - Afr Amer 116 mL/min (>60); Globulin 4.5 g/dL (2.2-4.2); Protein, Total 7.9 g/dL (6.4-8.2)
== END ==
PROVIDERS: Visit Provider Internal Medicine Rheumatology
DX: Z79.899 Other long term (current) drug therapy (principal)
CPT/HCPCS: 36415; 80076; 82565; 85025

== ENCOUNTER → 2017-11-13 12:59 | Outpatient (CLI) | payer OTHER, SELFPAY ==
[2017-08-24 07:55] VITALS: BMI 25.1
[2017-11-13 13:12] VITALS: BP 105/67; PULSE 91; RESP 16; TEMP 37.2; O2SAT 97; BMI 27.8
[2017-11-13 14:57] VITALS: BP 107/67; PULSE 86; RESP 16; O2SAT 98
== END ==
PROVIDERS: Referring Provider Internal Medicine Gastroenterology; Visit Provider Internal Medicine Gastroenterology
DX: K50.90 Crohn's disease, unspecified, without complications (principal)
CPT/HCPCS: 96365; 96366; J7050; A4216; J3358

== ENCOUNTER → 2017-11-20 14:47 | Outpatient (CLI) | payer OTHER, SELFPAY ==
[2017-08-24 07:55] VITALS: BMI 25.1
[2017-11-24 03:07] LABS: Alternaria alternata <0.10 kU/L (Class 0); Aspirgillus flavus Negative (Neg:<1:1); Aspirgillus fumigatus Negative (Neg:<1:1); Aspirgillus niger Negative (Neg:<1:1); Bermuda Grass <0.10 kU/L (Class 0); Bluegrass, Kentucky <0.10 kU/L (Class 0); Cat Hair/Dander, Standard <0.10 kU/L (Class 0); D farinae Mite <0.10 kU/L (Class 0); D pteronyssinus <0.10 kU/L (Class 0); Dog Epithelia <0.10 kU/L (Class 0); Elm, American White <0.10 kU/L (Class 0); Oak, White <0.10 kU/L (Class 0); Plantain, English <0.10 kU/L (Class 0); Ragweed, Short/Common <0.10 kU/L (Class 0)
[2017-11-24 11:41] LABS: Immunoglobulin E 8 IU/mL (0-100)
[2017-11-24 11:43] LABS: Mouse Urine <0.10 kU/L (Class 0)
== END ==
PROVIDERS: Referring Provider Nurse Practitioner Acute Care; Visit Provider Nurse Practitioner Acute Care
DX: R05 Cough (principal)
CPT/HCPCS: 36415; 82785; 86003; 86606

== ENCOUNTER → 2018-06-30 | Outpatient (CLI) | payer OTHER, SELFPAY ==
[2017-08-24 07:55] VITALS: BMI 25.1
[2018-02-08 06:47] VITALS: BMI 23.9
[2018-05-11 07:02] VITALS: BMI 24.1
--- NOTE | 2018-06-30 07:12 | BI_ITS ---
MAMMOGRAPHY - BILATERAL SCREENING REASON FOR EXAM: Female, 58 years old. Routine annual screening examination. PERTINENT HISTORY: Personal history of breast cancer. Prior right lumpectomy with radiation treatment. History of mother with breast cancer. TECHNIQUE: Digital bilateral breast tasia (3D mammographic acquisition) in the CC and MLO projections. 2-D mediolateral oblique (MLO) and craniocaudad (CC) views of both breasts were obtained. CAD: Full Field Digital Mammography with Computer Added Detection was performed. COMPARISON: Comparison is made with prior study dated June 02, 2017 and May 02, 2016. FINDINGS: Breast Composition: The breasts are heterogeneously dense, which may obscure small masses. There are no dominant masses or suspicious calcifications. Since prior examination, the patient underwent resection of a nodular density in the deep slightly inferior central aspect of the right breast. Postsurgical changes are seen. Surgical clips are also seen in the right axillary region. No other significant abnormalities are identified. BI/SCREENING MAMM (CAD), BILAT IMPRESSION: Status post lumpectomy in the slightly inferior central aspect of the right breast. Yearly follow-up mammogram recommended. (A) ASSESSMENT CATEGORY: BIRADS Category 2: Benign. A letter regarding these results will be sent to the patient by the facility within 30 days. Approximately 10% of breast cancers are not detected by mammography. A normal mammogram should not delay biopsy of a clinically suspicious abnormality. [id number] Electronically Signed: Bishop Pitts, at 9:24 EDT , Service support ,
== END | disposition home or self-care (01) ==
LOC: OPBI 07:08
DX: Z12.31 Encounter for screening mammogram for malignant neoplasm of breast (principal)
CPT/HCPCS: 77063; 77067

== ENCOUNTER → 2018-08-30 | Outpatient (CLI) | payer OTHER, SELFPAY ==
[2017-08-24 07:55] VITALS: BMI 25.1
[2018-07-16 13:42] VITALS: BMI 24.1
[2018-08-30 08:33] LABS: Hematocrit 42.2 % (37-47); Hemoglobin 13.4 g/dL (12.0-15.0); Mean Corp Hgb Conc 31.8 g/dL (32-36); Mean Corpuscular Hgb 28.6 pg (27.0-32.0); Mean Corpuscular Volume 90.2 fL (81-99); Mean Platelet Vol. 9.2 fl (6.2-12.0); Platelet Count 297 K/mm3 (150-450); RBC Distribution Width CV 13.9 % (11.6-14.6); RBC Distribution Width SD 45.4 fl (35.1-43.9); Red Blood Count 4.68 M/mm3 (4.2-5.4); White Blood Count 10.9 K/mm3 (4.4-11.0)
[2018-08-30 09:16] LABS: Vitamin D,25 Hydroxy 28.8 ng/mL (29.95-100.01)
== END | disposition home or self-care (01) ==
LOC: PAVLAB 07:57
DX: E55.9 Vitamin D deficiency, unspecified (principal); R23.8 Other skin changes
CPT/HCPCS: 36415; 82306; 85027

== ENCOUNTER → 2019-01-10 10:33 | Outpatient (CLI) | payer OTHER, SELFPAY ==
[2017-08-24 07:55] VITALS: BMI 25.1
[2018-11-23 06:38] VITALS: BMI 25.4
[2019-01-10 11:12] LABS: Absolute Lymphocyte Count 1.28 X10^3/uL (0.83-4.51); Absolute Neutrophil Count 6.2 X10^3/uL (2.0-7.7); Basophil# 0.04 X10^3/uL; Basophil% 0.5 % (0-1); Eosinophil# 0.12 X10^3/uL; Eosinophils% 1.4 % (0-5); Hemoglobin 12.9 g/dL (12.0-15.0); Lymphocyte # 1.28 X10^3/ul (4.0); Lymphocyte % 15.3 % (19-41); Mean Corp Hgb Conc 32.3 g/dL (32-36); Mean Corpuscular Hgb 29.6 pg (27.0-32.0); Mean Corpuscular Volume 91.7 fL (81-99); Mean Platelet Vol. 9.4 fl (6.2-12.0); Monocyte# 0.71 X10^3/uL; Monocyte% 8.5 % (0-10); NRBC Flagged by Analyzer 0 % (0-5); Neutrophil # 6.19 X10^3/uL (2.7-7.7); Neutrophil % 73.9 % (47-70); Platelet Count 298 K/mm3 (150-450); RBC Distribution Width CV 13.8 % (11.6-14.6); RBC Distribution Width SD 46.3 fl (35.1-43.9); Red Blood Count 4.36 M/mm3 (4.2-5.4); White Blood Count 8.4 K/mm3 (4.4-11.0)
[2019-01-10 11:27] LABS: AST(SGOT) 15 U/L (15-37); Alanine Aminotransfer ALT/SGPT 22 U/L (13-56); Albumin, Serum 3.2 g/dL (3.2-5.0); Alkaline Phosphatase 83 U/L (45-117); Bilirubin, Direct 0.08 mg/dL (0.00-0.30); Creatinine, Serum 0.64 mg/dL (0.55-1.02); EST Glomerular Filtration Rate 102 mL/min (>60); Est Glom Filt Rate - Afr Amer 124 mL/min (>60); Globulin 3.9 g/dL (2.2-4.2); Protein, Total 7.1 g/dL (6.4-8.2)
== END ==
PROVIDERS: Referring Provider Internal Medicine Rheumatology; Visit Provider Internal Medicine Rheumatology
DX: M05.79 Rheumatoid arthritis with rheumatoid factor of multiple sites without organ or systems involvement (principal); Z79.899 Other long term (current) drug therapy
CPT/HCPCS: 36415; 80076; 82565; 85025

== ENCOUNTER → 2019-07-05 07:00 | Outpatient (CLI) | payer OTHER, SELFPAY ==
[2017-08-24 07:55] VITALS: BMI 25.1
[2018-11-23 06:38] VITALS: BMI 25.4
--- NOTE | 2019-07-05 07:01 | BI_ITS ---
MAMMOGRAPHY - BILATERAL SCREENING REASON FOR EXAM: Female, 59 years old. Routine annual screening examination. PERTINENT HISTORY: Personal history of breast cancer. Prior right lumpectomy and radiation treatment. Mother with breast cancer. TECHNIQUE: Digital bilateral breast eric (3D mammographic acquisition) in the CC and MLO projections. 2-D mediolateral oblique (MLO) and craniocaudad (CC) views of both breasts were obtained. CAD: Full Field Digital Mammography with Computer Added Detection was performed. COMPARISON: Comparison is made with prior examination dated June 30, 2018 and June 02, 2017. FINDINGS: Breast Composition: The breasts are heterogeneously dense, which may obscure small masses. There are no dominant masses or suspicious calcifications. Stable architectural distortion in the deep upper lateral aspect of the right breast in keeping with a prior lumpectomy. Surgical clips are seen in the right axillary region. No other significant abnormalities are identified. There has been no significant change since the prior study. BI/SCREEN MAMM (CAD) W/ERIC BILAT IMPRESSION: Stable bilateral screening mammogram. Yearly follow-up mammogram recommended. (A) ASSESSMENT CATEGORY: BIRADS Category 2: Benign. A letter regarding these results will be sent to the patient by the facility within 30 days. Approximately 10% of breast cancers are not detected by mammography. A normal mammogram should not delay biopsy of a clinically suspicious abnormality. [id number] Electronically Signed: Bishop Pitts, at 13:47 EDT , Service support ,
== END ==
PROVIDERS: Referring Provider Surgery; Visit Provider Surgery
DX: Z12.31 Encounter for screening mammogram for malignant neoplasm of breast (principal); C50.911 Malignant neoplasm of unspecified site of right female breast
CPT/HCPCS: 77063; 77067

== ENCOUNTER → 2019-08-01 06:40 | Outpatient (CLI) | payer OTHER, SELFPAY ==
[2017-08-24 07:55] VITALS: BMI 25.1
[2018-11-23 06:38] VITALS: BMI 25.4
--- NOTE | 2019-08-01 06:41 | CT_ITS ---
STUDY: CT CHEST WITH CONTRAST REASON FOR EXAM: Female, 59 years old. Chest pain, history of breast cancer with lumpectomy and radiation therapy. Previous lung nodules. RADIATION DOSAGE (If Supplied By Facility): CTDIvol = ( 10.28 ) mGy, DLP = ( 251.47 ) mGycm TECHNIQUE: Transaxial imaging was performed following intravenous administration of IV 100mL Isovue-300. Individualized dose optimization techniques were used for this CT. COMPARISON: 07/29/2017 FINDINGS: Lung windows show a stable noncalcified pleural-based 2 mm nodule in the right upper lobe on axial image 37. There is also a stable 4 mm noncalcified pleural-based nodule in the right upper lobe on axial image 43. There is a stable noncalcified 3 mm pleural-based nodule in the left lower lobe on axial image 46. There is a stable 5 mm noncalcified nodule in the right middle lobe on axial image 67 and a stable 3 mm noncalcified nodule in the left lower lobe on axial image 69. No new suspicious noncalcified masses or nodules. There is no organized infiltrate, or groundglass opacifications, there are stable likely postradiation scars in the right middle lobe. Soft tissue windows show normal-appearing thyroid gland. No new suspicious axillary, mediastinal, or perihilar adenopathy. No pleural or pericardial effusions. Normal heart and pericardium. There are calcifications of the coronary arteries. Normal enhanced pulmonary arteries. Normal aorta arch and descending thoracic aorta. There are multi-level degenerative changes of the thoracic spine. Limited cuts to the upper abdomen show a small retrocardiac hiatal hernia and fatty infiltration of the liver. CT/Chest WITH Contrast IMPRESSION: Stable noncalcified nodules in both lung [place]zon unchanged from 07/29/2017. Since they are unchanged over a two-year span, no specific follow-up is needed. No new suspicious noncalcified mass or nodules, no organized infiltrates or groundglass opacifications. Stable fibrotic scarring in the right middle lobe likely related to previous radiation therapy Calcified coronary vessels Degenerative bony changes Stable small retrocardiac hiatal hernia Fatty liver Electronically Signed: David Milian MD at 8:23 EDT , Service support ,
== END ==
PROVIDERS: Referring Provider Internal Medicine Medical Oncology; Visit Provider Internal Medicine Medical Oncology
DX: C50.911 Malignant neoplasm of unspecified site of right female breast (principal); M85.80 Other specified disorders of bone density and structure, unspecified site; R91.8 Other nonspecific abnormal finding of lung field
CPT/HCPCS: 71260; Q9967

== ENCOUNTER → 2019-09-07 | Outpatient (CLI) | payer OTHER, SELFPAY ==
[2017-08-24 07:55] VITALS: BMI 25.1
[2018-11-23 06:38] VITALS: BMI 25.4
--- NOTE | 2019-09-07 08:06 | BD_ITS ---
STUDY: DUAL ENERGY X-RAY ABSORPTIOMETRY / DXA REASON FOR EXAM: Female, 59 years old. STAFF COUNSELOR-EARLY SURGICAL AT 42 -- HX OF BREAST CANCER- ON AROMATASE INHIBITOR x1 YR -- HX OF SMOKING- QUIT 30+ YRS AGO -- TAKES PREDNISONE NEEDED FOR ARTHRITIS -- HX OF TAKING FOSAMAX IN PAST -- DOES HIGH AMOUNT OF EXERCISE -- HX OF PATELLA FX -- GEETA OF 1 INCH TECHNIQUE: Bone Mineral Density (BMD) measurements of lumbar spine and bilateral hips were obtained. COMPARISON: Comparison is made with prior study dated 09/01/2017. FINDINGS: Lumbar Spine (L1-L4): g/cm2 (1.119) / T-score (-0.4) / Z-score (0.7) Findings are suggestive of normal bone density with a low fracture risk. Left Femur Total: g/cm2 (0.808) / T-score (-1.6) / Z-score (-0.8) Left Femoral Neck: g/cm2 (0.771) / T-score (-1.9) / Z-score (-0.8) Right Femur Total: g/cm2 (0.808) / T-score (-1.6) / Z-score (-0.8) Right Femoral Neck: g/cm2 (0.750) / T-score (-2.1) / Z-score (-0.9) The T-Scores on the most recent prior examination were: Lumbar Spine (L1-L4): There has been improvement of bone density since the previous examination. Left Femur Total: which represents an improvement of 2.9%. Right Femur Total: which represents an improvement of 15.3%. BD/Dexa Bone Density Study IMPRESSION: The patient is considered osteopenic as outlined below according to World Jeb Organization (WHO) criteria with a high fracture risk. There has been improvement of bone density since the previous examination. Reference Information: The T-score is the number of standard deviations above or below the standard which is normal for young adults at their peak bone mineral density. The World Health Organization (WHO) interprets the T-scores as follows: Above -1 Normal bone density Between -1 and -2.5 Osteopenia Equal to / or below -2.5 Osteoporosis As a practical clinical guideline, osteopenia may be graded as follows: Mild -1 through -1.5 Moderate -1.6 through -2.0 Severe -2.1 through -2.4 The Z-score is the number of standard deviations above or below age-matched controls. A Z-score of less than -1.5 would be considered abnormal. References: 1. NIH Osteoporosis and Related Bone Diseases http://www.osteo.org 2. International Society for Clinical Densitometry http://www.iscd.org 3. National Osteoporosis Foundation http://www.nof.org Electronically Signed: Bishop Pitts, at 12:52 EDT , Service support ,
== END | disposition home or self-care (01) ==
LOC: OPBD 07:59
PROVIDERS: Referring Provider Internal Medicine Medical Oncology; Visit Provider Internal Medicine Medical Oncology
DX: M85.80 Other specified disorders of bone density and structure, unspecified site (principal); R91.8 Other nonspecific abnormal finding of lung field; C50.911 Malignant neoplasm of unspecified site of right female breast
CPT/HCPCS: 77080

== ENCOUNTER → 2019-09-22 | Outpatient (CLI) | payer OTHER, SELFPAY ==
[2017-08-24 07:55] VITALS: BMI 25.1
[2019-09-12 08:03] VITALS: BMI 25.2
[2019-09-22 15:10] LABS: Absolute Lymphocyte Count 1.56 X10^3/uL (0.83-4.51); Absolute Neutrophil Count 5.9 X10^3/uL (2.0-7.7); Basophil# 0.02 X10^3/uL; Basophil% 0.2 % (0-1); Eosinophil# 0.11 X10^3/uL; Eosinophils% 1.3 % (0-5); Hematocrit 40.4 % (37-47); Hemoglobin 12.8 g/dL (12.0-15.0); Lymphocyte # 1.56 X10^3/ul (4.0); Lymphocyte % 18.7 % (19-41); Mean Corp Hgb Conc 31.7 g/dL (32-36); Mean Corpuscular Volume 91.6 fL (81-99); Mean Platelet Vol. 9.2 fl (6.2-12.0); Monocyte# 0.72 X10^3/uL; Monocyte% 8.6 % (0-10); NRBC Flagged by Analyzer 0 % (0-5); Neutrophil # 5.91 X10^3/uL (2.7-7.7); Neutrophil % 70.7 % (47-70); Platelet Count 310 K/mm3 (150-450); RBC Distribution Width CV 13.3 % (11.6-14.6); RBC Distribution Width SD 44.8 fl (35.1-43.9); Red Blood Count 4.41 M/mm3 (4.2-5.4); White Blood Count 8.4 K/mm3 (4.4-11.0)
[2019-09-22 15:24] LABS: AST(SGOT) 14 U/L (15-37); Alanine Aminotransfer ALT/SGPT 21 U/L (13-56); Albumin, Serum 3.3 g/dL (3.2-5.0); Alkaline Phosphatase 92 U/L (45-117); Bilirubin, Direct 0.09 mg/dL (0.00-0.30); Protein, Total 7.3 g/dL (6.4-8.2)
== END | disposition home or self-care (01) ==
PROVIDERS: Referring Provider Internal Medicine Rheumatology; Visit Provider Internal Medicine Rheumatology
DX: Z79.899 Other long term (current) drug therapy (principal)
CPT/HCPCS: 36415; 80076; 85025

== ENCOUNTER → 2019-11-01 | Outpatient (CLI) | payer OTHER, SELFPAY ==
[2017-08-24 07:55] VITALS: BMI 25.1
[2019-09-12 08:03] VITALS: BMI 25.2
[2019-11-01 08:37] LABS: Vitamin D,25 Hydroxy 43.3 ng/mL
[2019-11-01 08:38] LABS: Cholesterol 129 mg/dL (200); High Density Lipoprotein 43 mg/dL; Triglycerides 162 mg/dL; Very Low Density Lipoprotein 32 mg/dL (5-40)
== END | disposition home or self-care (01) ==
DX: E55.9 Vitamin D deficiency, unspecified (principal); Z13.29 Encounter for screening for other suspected endocrine disorder
CPT/HCPCS: 36415; 80061; 82306

== ENCOUNTER → 2020-01-31 07:36 | Outpatient (CLI) | payer OTHER, SELFPAY ==
[2017-08-24 07:55] VITALS: BMI 25.1
[2019-11-24 08:13] VITALS: BMI 25.2
[2020-01-31 08:26] LABS: Absolute Lymphocyte Count 1.32 X10^3/uL (0.83-4.51); Absolute Neutrophil Count 5.8 X10^3/uL (2.0-7.7); Basophil# 0.02 X10^3/uL; Basophil% 0.3 % (0-1); Eosinophil# 0.11 X10^3/uL; Eosinophils% 1.4 % (0-5); Hematocrit 39.5 % (37-47); Hemoglobin 12.9 g/dL (12.0-15.0); Lymphocyte # 1.32 X10^3/ul (4.0); Mean Corp Hgb Conc 32.7 g/dL (32-36); Mean Corpuscular Hgb 28.9 pg (27.0-32.0); Mean Corpuscular Volume 88.6 fL (81-99); Mean Platelet Vol. 9.3 fl (6.2-12.0); Monocyte# 0.54 X10^3/uL; Monocyte% 6.9 % (0-10); NRBC Flagged by Analyzer 0 % (0-5); Neutrophil # 5.76 X10^3/uL (2.7-7.7); Platelet Count 311 K/mm3 (150-450); RBC Distribution Width CV 13.8 % (11.6-14.6); RBC Distribution Width SD 44.8 fl (35.1-43.9); Red Blood Count 4.46 M/mm3 (4.2-5.4); White Blood Count 7.8 K/mm3 (4.4-11.0)
[2020-01-31 08:39] LABS: AST(SGOT) 14 U/L (15-37); Alanine Aminotransfer ALT/SGPT 22 U/L (13-56); Albumin, Serum 3.3 g/dL (3.2-5.0); Alkaline Phosphatase 94 U/L (45-117); Bilirubin, Direct 0.11 mg/dL (0.00-0.30); Globulin 4.2 g/dL (2.2-4.2); Protein, Total 7.5 g/dL (6.4-8.2)
== END ==
PROVIDERS: Referring Provider Internal Medicine Rheumatology; Visit Provider Internal Medicine Rheumatology
DX: Z79.899 Other long term (current) drug therapy (principal)
CPT/HCPCS: 36415; 80076; 85025

== ENCOUNTER → 2020-07-06 07:23 | Outpatient (CLI) | payer OTHER, SELFPAY ==
[2017-08-24 07:55] VITALS: BMI 25.1
[2020-05-17 08:08] VITALS: BMI 25.0
--- NOTE | 2020-07-06 07:24 | BI_ITS ---
MAMMOGRAPHY - BILATERAL SCREENING REASON FOR EXAM: Female, 60 years old. Routine annual screening examination. PERTINENT HISTORY: Personal history of breast cancer. Patient is status post right lumpectomy with radiation treatment. Mother with breast cancer. TECHNIQUE: Digital bilateral breast eric (3D mammographic acquisition) in the CC and MLO projections. 2-D mediolateral oblique (MLO) and craniocaudad (CC) views of both breasts were obtained. CAD: Full Field Digital Mammography with Computer Added Detection was performed. COMPARISON: Comparison is made with prior study dated 07/05/2019 and 06/30/2018. FINDINGS: Breast Composition: There are scattered areas of fibroglandular density. There are no dominant masses or suspicious calcifications. The patient is status post lumpectomy in the deep upper lateral aspect of the right breast. Stable postoperative architectural distortion. Stable surgical clips are seen in the right axilla. No other significant abnormalities are identified. There has been no significant change since the prior study. BI/SCRN MAMM (CAD)W/ERIC BILAT IMPRESSION: Stable bilateral screening mammogram. Yearly follow-up mammogram recommended. (A) ASSESSMENT CATEGORY: BIRADS Category 2: Benign. A letter regarding these results will be sent to the patient by the facility within 30 days. Approximately 10% of breast cancers are not detected by mammography. A normal mammogram should not delay biopsy of a clinically suspicious abnormality. [id number] Electronically Signed: Bishop Pitts MD at 8:25 EDT , Service support ,
== END ==
PROVIDERS: Referring Provider Nurse Practitioner Family; Visit Provider Nurse Practitioner Family
DX: Z12.31 Encounter for screening mammogram for malignant neoplasm of breast (principal); Z85.3 Personal history of malignant neoplasm of breast
CPT/HCPCS: 77063; 77067

== ENCOUNTER → 2020-09-07 14:04 | Outpatient (CLI) | payer OTHER, SELFPAY ==
[2017-08-24 07:55] VITALS: BMI 25.1
[2020-05-17 08:08] VITALS: BMI 25.0
[2020-09-07 15:06] LABS: Erythrocyte Sedimentation Rate 1 mm/hr (0-30)
[2020-09-07 15:08] LABS: Hematocrit 41.4 % (37-47); Hemoglobin 13.3 g/dL (12.0-15.0); Mean Corp Hgb Conc 32.1 g/dL (32-36); Mean Corpuscular Volume 90.2 fL (81-99); Mean Platelet Vol. 9.6 fl (6.2-12.0); Platelet Count 326 K/mm3 (150-450); RBC Distribution Width CV 13.8 % (11.6-14.6); Red Blood Count 4.59 M/mm3 (4.2-5.4); White Blood Count 8.7 K/mm3 (4.4-11.0)
[2020-09-07 15:31] LABS: Vitamin B12 208 pg/mL (211-911)
== END ==
PROVIDERS: Referring Provider Internal Medicine Gastroenterology; Visit Provider Internal Medicine Gastroenterology
DX: K50.90 Crohn's disease, unspecified, without complications (principal)
CPT/HCPCS: 36415; 82607; 85027; 85652

== ENCOUNTER → 2020-09-13 10:06 | Outpatient (CLI) | payer OTHER, SELFPAY ==
[2017-08-24 07:55] VITALS: BMI 25.1
[2020-05-17 08:08] VITALS: BMI 25.0
[2020-09-13] MEDS: Cyanocobalamin (B12) 1,000 MCG/ML Vial 1000 MCG IM (10:12)
[2020-09-13 10:16] VITALS: BP 122/63; PULSE 85; RESP 16; TEMP 36.8; O2SAT 97
== END ==
PROVIDERS: Referring Provider Internal Medicine Gastroenterology; Visit Provider Internal Medicine Gastroenterology
DX: E53.8 Deficiency of other specified B group vitamins (principal)
CPT/HCPCS: 96372; J3420

== ENCOUNTER → 2020-09-19 10:36 | Outpatient (CLI) | payer OTHER, SELFPAY ==
[2017-08-24 07:55] VITALS: BMI 25.1
[2020-05-17 08:08] VITALS: BMI 25.0
[2020-09-19 11:55] VITALS: BP 112/57; PULSE 79; RESP 16; TEMP 36.6; O2SAT 99
[2020-09-19] MEDS: Cyanocobalamin (B12) 1,000 MCG/ML Vial 1000 MCG IM (12:00)
== END ==
PROVIDERS: Referring Provider Internal Medicine Gastroenterology; Visit Provider Internal Medicine Gastroenterology
DX: E53.8 Deficiency of other specified B group vitamins (principal)
CPT/HCPCS: 96372; J3420

== ENCOUNTER → 2020-09-26 07:54 | Outpatient (CLI) | payer OTHER, SELFPAY ==
[2017-08-24 07:55] VITALS: BMI 25.1
[2020-05-17 08:08] VITALS: BMI 25.0
[2020-09-26 07:55] VITALS: BP 108/70; PULSE 85; RESP 16; TEMP 36.6; O2SAT 96
[2020-09-26] MEDS: Cyanocobalamin (B12) 1,000 MCG/ML Vial 1000 MCG IM (08:01)
== END ==
PROVIDERS: Referring Provider Internal Medicine Gastroenterology; Visit Provider Internal Medicine Gastroenterology
DX: E53.8 Deficiency of other specified B group vitamins (principal)
CPT/HCPCS: 96372; J3420

== ENCOUNTER → 2020-10-03 07:59 | Outpatient (CLI) | payer OTHER, SELFPAY ==
[2017-08-24 07:55] VITALS: BMI 25.1
[2020-05-17 08:08] VITALS: BMI 25.0
[2020-10-03 08:00] VITALS: BP 95/64; PULSE 86; RESP 16; TEMP 36.6; O2SAT 98
[2020-10-03] MEDS: Cyanocobalamin (B12) 1,000 MCG/ML Vial 1000 MCG IM (08:12)
== END ==
PROVIDERS: Referring Provider Internal Medicine Gastroenterology; Visit Provider Internal Medicine Gastroenterology
DX: E53.8 Deficiency of other specified B group vitamins (principal)
CPT/HCPCS: 96372; J3420

== ENCOUNTER → 2020-10-10 08:04 | Outpatient (CLI) | payer OTHER, SELFPAY ==
[2017-08-24 07:55] VITALS: BMI 25.1
[2020-05-17 08:08] VITALS: BMI 25.0
[2020-10-10 08:20] VITALS: BP 115/78; PULSE 83; RESP 16; TEMP 36.6; O2SAT 96
[2020-10-10] MEDS: Cyanocobalamin (B12) 1,000 MCG/ML Vial 1000 MCG IM (08:25)
== END ==
PROVIDERS: Referring Provider Internal Medicine Gastroenterology; Visit Provider Internal Medicine Gastroenterology
DX: E53.8 Deficiency of other specified B group vitamins (principal)
CPT/HCPCS: 96372; J3420

== ENCOUNTER → 2020-10-17 07:49 | Outpatient (CLI) | payer OTHER, SELFPAY ==
[2017-08-24 07:55] VITALS: BMI 25.1
[2020-05-17 08:08] VITALS: BMI 25.0
[2020-10-17 08:01] VITALS: BP 97/60; PULSE 82; RESP 16; TEMP 35.5; O2SAT 94; BMI 25.2
[2020-10-17] MEDS: Cyanocobalamin (B12) 1,000 MCG/ML Vial 1000 MCG IM (08:03)
== END ==
PROVIDERS: Referring Provider Internal Medicine Gastroenterology; Visit Provider Internal Medicine Gastroenterology
DX: E53.8 Deficiency of other specified B group vitamins (principal)
CPT/HCPCS: 96372; J3420

== ENCOUNTER → 2020-10-24 10:59 | Outpatient (CLI) | payer OTHER, SELFPAY ==
[2017-08-24 07:55] VITALS: BMI 25.1
[2020-05-17 08:08] VITALS: BMI 25.0
[2020-10-24 15:37] VITALS: BP 110/67; PULSE 75; RESP 16; TEMP 36.4; O2SAT 98; BMI 25.2
[2020-10-24] MEDS: Cyanocobalamin (B12) 1,000 MCG/ML Vial 1000 MCG IM (15:40)
== END ==
PROVIDERS: Referring Provider Internal Medicine Gastroenterology; Visit Provider Internal Medicine Gastroenterology
DX: E53.8 Deficiency of other specified B group vitamins (principal)
CPT/HCPCS: 96372; J3420

== ENCOUNTER → 2020-10-31 07:38 | Outpatient (CLI) | payer OTHER, SELFPAY ==
[2017-08-24 07:55] VITALS: BMI 25.1
[2020-10-31 07:45] VITALS: BP 113/67; PULSE 93; RESP 16; TEMP 36.4; O2SAT 98
[2020-10-31] MEDS: Cyanocobalamin (B12) 1,000 MCG/ML Vial 1000 MCG IM (07:50)
== END ==
PROVIDERS: Referring Provider Internal Medicine Gastroenterology; Visit Provider Internal Medicine Gastroenterology
DX: E53.8 Deficiency of other specified B group vitamins (principal)
CPT/HCPCS: 96372; J3420

== ENCOUNTER → 2020-11-14 07:41 | Outpatient (CLI) | payer OTHER, SELFPAY ==
[2017-08-24 07:55] VITALS: BMI 25.1
[2020-11-14] MEDS: Cyanocobalamin (B12) 1,000 MCG/ML Vial 1000 MCG IM (07:53)
[2020-11-14 08:01] VITALS: BP 117/68; PULSE 83; RESP 16; TEMP 36.2; O2SAT 96
== END ==
PROVIDERS: Referring Provider Internal Medicine Gastroenterology; Visit Provider Internal Medicine Gastroenterology
DX: E53.0 Riboflavin deficiency (principal)
CPT/HCPCS: 96372; J3420

== ENCOUNTER → 2020-11-21 16:39 | Outpatient (CLI) | payer OTHER, SELFPAY ==
[2017-08-24 07:55] VITALS: BMI 25.1
[2020-11-21 12:01] VITALS: BP 97/62; PULSE 81; RESP 16; O2SAT 94; BMI 25.0
[2020-11-21] MEDS: Cyanocobalamin (B12) 1,000 MCG/ML Vial 1000 MCG IM (12:03)
== END ==
PROVIDERS: Referring Provider Internal Medicine Gastroenterology; Visit Provider Internal Medicine Gastroenterology
DX: E53.8 Deficiency of other specified B group vitamins (principal)
CPT/HCPCS: 96372; J3420

== ENCOUNTER → 2021-06-20 | Outpatient (CLI) | payer OTHER, SELFPAY ==
[2020-12-31 07:49] VITALS: BMI 25.1
[2021-06-20 08:17] LABS: Erythrocyte Sedimentation Rate 13 mm/hr (0-30)
[2021-06-20 08:20] LABS: Hematocrit 41.6 % (37-47); Hemoglobin 13.4 g/dL (12.0-15.0); Mean Corp Hgb Conc 32.2 g/dL (32-36); Mean Corpuscular Hgb 28.8 pg (27.0-32.0); Mean Corpuscular Volume 89.5 fL (81-99); Mean Platelet Vol. 9.2 fl (6.2-12.0); Platelet Count 331 K/mm3 (150-450); RBC Distribution Width CV 13.5 % (11.6-14.6); RBC Distribution Width SD 43.9 fl (35.1-43.9); Red Blood Count 4.65 M/mm3 (4.2-5.4); White Blood Count 8.1 K/mm3 (4.4-11.0)
[2021-06-20 08:37] LABS: Vitamin B12 311 pg/mL (211-911)
[2021-06-20 08:38] LABS: ALB/GLOB Ratio 0.8 RATIO (0.9-2.4); AST(SGOT) 16 U/L (15-37); Alanine Aminotransfer ALT/SGPT 22 U/L (13-56); Albumin, Serum 3.2 g/dL (3.2-5.0); Alkaline Phosphatase 81 U/L (45-117); Anion Gap 8 (5-15); BUN 18 mg/dL (7-18); BUN/Creat Ratio 29.9 RATIO (10-20); CRP 9.66 mg/L (0.0-3.0); Calcium,Total 8.7 mg/dL (8.5-10.1); Chloride 106 mmol/L (98-107); EST Glomerular Filtration Rate 108 mL/min (>60); Est Glom Filt Rate - Afr Amer 131 mL/min (>60); Globulin 4.1 g/dL (2.2-4.2); Glucose 117 mg/dL (74-106); Potassium 3.7 mmol/L (3.5-5.1); Protein, Total 7.3 g/dL (6.4-8.2); Sodium Level 139 mmol/L (136-145)
[2021-06-24 13:41] LABS: Calprotectin, Stool 123 ug/g (0-120)
== END | disposition home or self-care (01) ==
LOC: PAVLAB 07:36
PROVIDERS: Referring Provider Internal Medicine Gastroenterology; Visit Provider Internal Medicine Gastroenterology
DX: K50.90 Crohn's disease, unspecified, without complications (principal)
CPT/HCPCS: 36415; 80053; 82607; 83993; 85027; 85652; 86140

== ENCOUNTER → 2021-07-12 | Outpatient (CLI) | payer OTHER, SELFPAY ==
[2020-12-31 07:49] VITALS: BMI 25.1
--- NOTE | 2021-07-12 07:26 | BI_ITS ---
MAMMOGRAPHY - BILATERAL SCREENING REASON FOR EXAM: Female, 61 years old. Routine annual screening examination. PERTINENT HISTORY: Personal history of breast cancer. Prior right lumpectomy with radiation. Mother with breast cancer. TECHNIQUE: Digital bilateral breast eric (3D mammographic acquisition) in the CC and MLO projections. 2-D mediolateral oblique (MLO) and craniocaudad (CC) views of both breasts were obtained. CAD: Full Field Digital Mammography with Computer Added Detection was performed. COMPARISON: Comparison is made with prior study dated 07/06/2020 and 07/05/2019. FINDINGS: Breast Composition: There are scattered areas of fibroglandular density. There are no dominant masses or suspicious calcifications. Once again, the patient is status post lumpectomy in the deep upper lateral aspect of the right breast. Postoperative scarring with architectural distortion of the breast. Surgical clips are seen in the right axilla. No other significant abnormalities are identified. There has been no significant change since the prior study. BI/SCRN MAMM (CAD)W/ERIC BILAT IMPRESSION: Stable bilateral screening mammogram. Yearly follow-up mammogram recommended. (A) ASSESSMENT CATEGORY: BIRADS Category 2: Benign. A letter regarding these results will be sent to the patient by the facility within 30 days. Approximately 10% of breast cancers are not detected by mammography. A normal mammogram should not delay biopsy of a clinically suspicious abnormality. [id number] Electronically Signed: Bishop Pitts MD at 8:46 EDT ,
== END | disposition home or self-care (01) ==
LOC: OPBI 07:25
PROVIDERS: Referring Provider Internal Medicine Medical Oncology; Visit Provider Internal Medicine Medical Oncology
DX: Z12.31 Encounter for screening mammogram for malignant neoplasm of breast (principal); Z85.3 Personal history of malignant neoplasm of breast
CPT/HCPCS: 77063; 77067

== ENCOUNTER → 2021-11-21 | Outpatient (CLI) | payer OTHER, SELFPAY ==
[2020-12-31 07:49] VITALS: BMI 25.1
--- NOTE | 2021-11-21 08:10 | BD_ITS ---
STUDY: DUAL ENERGY X-RAY ABSORPTIOMETRY / DXA REASON FOR EXAM: Female, 61 years old. Screening for osteoporosis TECHNIQUE: Bone Mineral Density (BMD) measurements of lumbar spine and bilateral hips were obtained. COMPARISON: Comparison is made with prior study dated 09/07/2019. FINDINGS: Lumbar Spine (L1-L4): g/cm2 (1.011) / T-score (-0.1) / Z-score (1.3) Findings are suggestive of normal bone density with a low fracture risk. Left Femur Total: g/cm2 (0.764) / T-score (-1.5) / Z-score (-0.5) Left Femoral Neck: g/cm2 (0.629) / T-score (-2.0) / Z-score (-0.7) Right Femur Total: g/cm2 (0.790) / T-score (-1.2) / Z-score (-0.3) Right Femoral Neck: g/cm2 (0.654) / T-score (-1.8) / Z-score (-0.5) The T-Scores on the most recent prior examination were: Lumbar Spine (L1-L4): There has been worsening of bone density since the previous examination. Left Femur Total: which represents an improvement of 2.2%. Right Femur Total: which represents an improvement of 5.7%. BD/Dexa Bone Density Study IMPRESSION: The patient is considered osteopenic as outlined below according to World Jeb Organization (WHO) criteria with a moderate fracture risk. There has been improvement of bone density since the previous examination. Reference Information: The T-score is the number of standard deviations above or below the standard which is normal for young adults at their peak bone mineral density. The World Health Organization (WHO) interprets the T-scores as follows: Above -1 Normal bone density Between -1 and -2.5 Osteopenia Equal to / or below -2.5 Osteoporosis As a practical clinical guideline, osteopenia may be graded as follows: Mild -1 through -1.5 Moderate -1.6 through -2.0 Severe -2.1 through -2.4 The Z-score is the number of standard deviations above or below age-matched controls. A Z-score of less than -1.5 would be considered abnormal. References: 1. NIH Osteoporosis and Related Bone Diseases www osteo.org 2. International Society for Clinical Densitometry www iscd.org 3. National Osteoporosis Foundation www nof.org Electronically Signed: Bishop Pitts MD at 9:55 EDT ,
== END | disposition home or self-care (01) ==
LOC: OPBD 07:46
PROVIDERS: Referring Provider Nurse Practitioner Family; Visit Provider Nurse Practitioner Family
DX: M85.80 Other specified disorders of bone density and structure, unspecified site (principal); Z13.820 Encounter for screening for osteoporosis
CPT/HCPCS: 77080

== ENCOUNTER → 2021-11-29 | Outpatient (CLI) | payer OTHER, SELFPAY ==
[2020-12-31 07:49] VITALS: BMI 25.1
--- NOTE | 2021-11-29 07:45 | RAD_ITS ---
STUDY: SMALL BOWEL FOLLOW-THROUGH STUDY REASON FOR EXAM: Female, 61 years old. Abdominal pain, history of Crohn''s RADIATION DOSAGE (If Supplied By Facility): CTDIvol = ( ) mGy, DLP = ( ) mGycm. Individualized dose optimization techniques were used for this CT.? FLUOROSCOPY TIME (if supplied): ( 0:18 ) minutes/seconds 7 overhead C-arm films obtained along with 4 AP abdominal studies TECHNIQUE: Patient ingested barium and serial films tracked its progress through the small intestine. COMPARISON: None. FINDINGS: Hooker Machine Tender film shows an unremarkable bowel gas pattern, calcifications overlying the right renal shadow, lucent centered calcifications within the pelvis. Normal distention of the stomach and duodenum noted. No elongation of the duodenal C-loop is noted. Mucosal pattern of the jejunum and ileum is unremarkable, no abnormal separation of bowel loops or submucosal thickening to suspect acute exacerbation of Crohn''s. The initial images showed some persistent possible mucosal irregularity in the terminal ileum, however, a delayed Spot film of the terminal ileum shows normal distention of the terminal ileum and free flow of contrast into the cecum. RAD/Small Bowel Series Only IMPRESSION: Unremarkable study, no plain film evidence of ileus, obstruction, or exacerbation of Crohn''s. Electronically Signed: David Milian MD at 10:12 EDT ,
== END | disposition home or self-care (01) ==
LOC: RAD 07:43
PROVIDERS: Referring Provider Internal Medicine Gastroenterology; Visit Provider Internal Medicine Gastroenterology
DX: K50.90 Crohn's disease, unspecified, without complications (principal)
CPT/HCPCS: 74250

== ENCOUNTER → 2021-11-29 | Outpatient (CLI) | payer OTHER, SELFPAY ==
[2020-12-31 07:49] VITALS: BMI 25.1
== END | disposition home or self-care (01) ==
LOC: LAB 08:36
PROVIDERS: Referring Provider Internal Medicine Gastroenterology; Visit Provider Internal Medicine Gastroenterology
DX: K50.90 Crohn's disease, unspecified, without complications (principal)
CPT/HCPCS: 36415

== ENCOUNTER → 2021-12-16 | Outpatient (CLI) | payer OTHER, SELFPAY ==
[2020-12-31 07:49] VITALS: BMI 25.1
[2021-12-16 08:20] LABS: Vitamin D,25 Hydroxy 45.5 ng/mL
[2021-12-16 08:23] LABS: Cholesterol 137 mg/dL (200); High Density Lipoprotein 43 mg/dL; Triglycerides 188 mg/dL; Very Low Density Lipoprotein 38 mg/dL (5-40)
== END | disposition home or self-care (01) ==
LOC: PAVLAB 07:37
DX: Z00.00 Encounter for general adult medical examination without abnormal findings (principal); E55.9 Vitamin D deficiency, unspecified
CPT/HCPCS: 36415; 80061; 82306

== ENCOUNTER 2022-02-08 16:00 | Inpatient (IN) | payer OTHER, SELFPAY ==
[2020-12-31 07:49] VITALS: BMI 25.1
[2022-02-08] VITALS (16 sets, daily range): BP systolic 112–132; BP diastolic 64–89; PULSE 83–107; RESP 15–28; TEMP 36–36.7; O2SAT 88–97; BMI 23.7
--- NOTE | 2022-02-08 16:13 | EKG12_ITS ---
Test Reason : SOB Blood Pressure : / mmHG Vent. Rate : 094 BPM Atrial Rate : 094 BPM P-R Int : 120 ms QRS Dur : 088 ms QT Int : 382 ms P-R-T Axes : 055 027 040 degrees QTc Int : 477 ms Normal sinus rhythm Nonspecific ST abnormality Abnormal ECG Confirmed by JESI HOLCOMB, OFELIA ([id number]), editorial writer AN CANTU ([id number]) on 02/11/2022 10:38:54 AM Referred By: Confirmed By:OFELIA DENNISON MD
--- NOTE | 2022-02-08 16:21 | EDS_ITS ---
HPI History of Present Illness Chief Complaint: Shortness of Breath Detail of Chief Complaint: Respiratory symptoms with GI symptoms that started February 01 Informant: patient and family Onset/Context/Timing Onset: Weeks (1 week ago) Context: Sudden Onset Timing: Continuous and Waxes and wanes Quality: Respiratory symptoms and GI symptoms initially Location: Predominantly respiratory Current Severity: Mild Maximum Severity: Moderate Worsened by: Exertion Relieved by: Nothing Associated Symptoms Associated Symptoms: Documented HPI narrative Narrative Narrative: Patient is a 61-year-old woman with history of breast cancer diagnosed 5 years ago with no positive nodes, Crohn's disease, rheumatoid arthritis and DVT who presents with flulike symptoms that started last February 01. Patient reports nasal congestion, she has a cough which is minimally productive. She denies fever or chills. She initially had headache. She has no headache recently. She denies photophobia, neck pain or neck stiffness. She denies chest discomfort. She does report fatigue and dyspnea with exertion. Her last emesis was yesterday x1. She has not had diarrhea in the past several days. She denies decreased or increased urine output and has no urinary symptoms. She denies leg pain, swelling discoloration. She denies rash. She denies joint swelling. [facility]. She had an RSV, influenza and COVID test that were all negative. She was prescribed Augmentin. She took her first dose yesterday. Her son informed me that her pulse ox at home was 87%. Her son is a physician. Prior similar symptoms: Yes Recent Illness/Hospitalization: Yes [facility] Medical History Abnormal mammogram of right breast Asthma Asthmatic bronchitis with exacerbation Breast cancer (~06/2017) Breast cancer, right Crohns disease DVT (deep venous thrombosis) Lab test negative for COVID-19 virus Partial bowel obstruction Rheumatoid arthritis Screening for osteoporosis Home Medications citalopram 10 mg tablet 20 mg PO DAILY 06/18/17 [History Last Taken Unknown] loperamide 2 mg capsule 2 mg PO Q1-4H PRN Diarrhea 06/18/17 [History Last Taken Unknown] melatonin 3 mg tablet 3 mg PO HS PRN Insomnia 06/18/17 [History Last Taken Unknown] prednisone 20 mg tablet 5 mg PO DAILY PRN ARTHRITIS 06/18/17 [History Last Taken Unknown] folic acid 1 mg tablet 1 mg PO DAILY 02/08/18 [History Last Taken Unknown] methotrexate sodium 2.5 mg tablet 8 mg PO QWEEK 02/08/18 [History Last Taken Unknown] ustekinumab 90 mg/mL subcutaneous syringe (Stelara) 90 mg subcut Q8W 02/08/18 [History Last Taken Unknown] albuterol sulfate 90 mcg/actuation aerosol inhaler 2 puff inhalation Q4H PRN cough #1 device 11/23/18 [Rx Last Taken Unknown] cholecalciferol (vitamin D3) 10 mcg (400 unit) capsule 10 mcg PO DAILY 11/19/20 [History Last Taken Unknown] tamoxifen 20 mg tablet See Rx Instructions .Route .COMPLEX #90 tabs 09/19/21 [Rx Last Taken Unknown] cyclobenzaprine 5 mg tablet 5 mg PO QHS PRN Muscle Spasm 11/05/21 [History Last Taken Unknown] amoxicillin 875 mg-potassium clavulanate 125 mg tablet 1 tab PO BID #20 tabs 02/07/22 [Rx Last Taken Unknown] prednisone 10 mg tablet 10 mg PO DIRECTED #30 tabs 02/07/22 [Rx Last Taken Unknown] Allergy/AdvReac Type Severity Reaction Status Date / Time No Known Allergies Allergy Verified 02/08/22 16:01 Family History Mother Breast cancer Hypertension CHF (congestive heart failure) Mother No problems noted. Surgical History H/O lymph node biopsy History of carpal tunnel surgery of right wrist History of colectomy History of lumpectomy of right breast S/P complete hysterectomy Social History (Updated 02/08/22 @ 16:[address] Leopoldo Merino MD) household members: none Smoking Status: Former smoker quit date: 02/09/87 pack-years: 10 second hand exposure: No alcohol intake: never substance use type: does not use ROS ROS ED Constitutional Constitutional ED: Reports sweats; Denies chills, fever(s), subjective or weight loss Eyes Eyes: Denies blurry vision, change in vision or diplopia ENT ENT ED: Reports rhinorrhea; Denies ear pain or sore throat Cardiovascular Cardiovascular: Denies chest pain, orthopnea, palpitations, paroxysmal nocturnal dyspnea or racing heartbeat Respiratory/Chest Respiratory/Chest: Reports cough, dyspnea and dyspnea on exertion; Denies orthopnea or paroxysmal nocturnal dyspnea Gastrointestinal Gastrointestinal: Reports abdominal pain, diarrhea and vomiting; Denies constipation, melena or nausea Genitourinary Genitourinary ED: Denies dysuria, hematuria or urinary frequency Musculoskeletal Musculoskeletal: Denies arthralgias or myalgias Integumentary Denies abscess or rash Neurologic Neurologic: Reports headache(s) and weakness; Denies paresthesias Endocrine Endocrinology: Denies cold intolerance, heat intolerance, polydipsia, polyphagia or polyuria EXAM Physical Exam Const Vital Signs: 02/08/22 16:01 02/08/22 16:09 02/08/22 16:10 Temperature 96.8 F L Temperature Source Temporal Pulse Rate 107 H 106 H Respiratory Rate 28 H Respiratory Effort Normal Non-Labored Respiratory Depth Normal Respiratory Pattern Normal Blood Pressure 132/89 H Blood Pressure Mean 103 Pulse Ox 90 91 Oxygen Delivery Method Room Air Room Air Room Air Oxygen Flow Rate (L/min) 02/08/22 16:20 02/08/22 16:23 02/08/22 16:36 Temperature Temperature Source Pulse Rate 98 Respiratory Rate 18 Respiratory Effort Respiratory Depth Respiratory Pattern Blood Pressure Blood Pressure Mean Pulse Ox 88 93 Oxygen Delivery Method Room Air Nasal Cannula Oxygen Flow Rate (L/min) 2 02/08/22 16:36 02/08/22 16:36 02/08/22 17:03 Temperature 98 F Temperature Source Temporal Pulse Rate 101 H Respiratory Rate 16 17 Respiratory Effort Non-Labored Respiratory Depth Respiratory Pattern Blood Pressure 112/67 Blood Pressure Mean 82 Pulse Ox 93 92 93 Oxygen Delivery Method Nasal Cannula Nasal Cannula Nasal Cannula Oxygen Flow Rate (L/min) 2 2 2 02/08/22 17:20 02/08/22 17:20 02/08/22 17:22 Temperature Temperature Source Pulse Rate 96 Respiratory Rate 15 Respiratory Effort Respiratory Depth Respiratory Pattern Blood Pressure Blood Pressure Mean Pulse Ox 89 94 Oxygen Delivery Method Nasal Cannula Nasal Cannula Oxygen Flow Rate (L/min) 2.5 3 02/08/22 17:50 02/08/22 17:54 02/08/22 18:00 Temperature 98 F Temperature Source Temporal Pulse Rate 96 Respiratory Rate 16 Respiratory Effort Respiratory Depth Respiratory Pattern Blood Pressure 114/65 Blood Pressure Mean 81 Pulse Ox 89 92 92 Oxygen Delivery Method Nasal Cannula Nasal Cannula Nasal Cannula Oxygen Flow Rate (L/min) 3 4 4 Positive well nourished and well developed Constitutional Narrative: Patient appears ill. She not appear toxic. She is breathing rapidly. Her breathing is not labored, however. General Appearance ED: well developed and pallor; Negative for cyanotic or diaphoretic HEENT Reports moist mucous membranes HEENT Narrative: Head is atraumatic normocephalic. Ears normal. TMs normal. Uvula midline. No erythema or exudate the posterior pharynx. Patient does have clear drainage noted right and left naris. Eyes PERRL and EOMs intact bilaterally General Eye ED: Negative for pale conjunctiva or scleral icterus Neck no lymphadenopathy, supple and no JVD Neck Narrative: Trachea is midline. Chest Wall inspection of chest normal and palpation of chest normal Resp normal respiratory effort and No clear to auscultation bilaterally Resp Narrative: Patient's pulse ox was 90% on room air at rest. Walking from triage to the examination room, room 7, patient O2 sat dropped to 86%. Auscultation: rhonchi lower bilaterally and wheezes expiratory wheezes and scattered wheezes (With forced expiration.) Cardio regular rhythm, S1 normal heart sound, S2 normal heart sound and no murmurs Rate: tachycardic GI normal to inspection, nondistended, normoactive bowel sounds, non-tender, non- distended and no masses; Negative for hepatosplenomegaly Auscultation: hypoactive bowel sounds Back/Spine no CVA tenderness Extremity normal to inspection Extremity Narrative: There is no asymmetry, swelling, discoloration, leg vein distention, palpable cords or tenderness along the distribution of the deep venous system. General Extremety ED: Negative for edema or tenderness General Extremity: Negative for edema Neuro oriented x3, CN's II-XII intact bilaterally and no sensory deficits noted Sensorium / Orientation: alert Psych mental status grossly normal Skin no rashes or lesions noted, no wounds and skin turgor normal General Skin Exam: pallor; Negative for elasticity normal or jaundice Sepsis Attestation Date exam was performed: 02/08/22 Time exam was performed: 16:11 Possible Source of Sepsis: Pulmonary MDM MDM MDM Narrative Medical decision making narrative: Patient presents with respiratory symptoms and hypoxia. Clinically patient has a left lower lobe pneumonia. Since patient had negative COVID, influenza and RSV tests on we will treat for presumed bacterial pneumonia. Since this is community-acquired pneumonia patient was treated with ceftriaxone and azithromycin. She has 2 sirs criteria based on heart rate and respiratory rate. She is hypoxic with walking. She will require admission. She was informed of this. Chest x-ray was obtained to confirm diagnosis of pneumonia. Appropriate blood work was obtained to determine if patient has severe sepsis with endorgan dysfunction. EKG was obtained since she complained of chest tightness for the past 3 days to rule out cardiac ischemia. And since the EKG does reveal nonspecific changes will add troponin level to the initial test ordered Patient is still rhonchorous and wheezing after 3 aerosols. Patient is presently on 3 L of oxygen. I was informed of and 735. We will con to was for admission. Will await further troponin since the EKG is not normal to determine if patient can safely be admitted to [facility] versus PCU. Lab Data Attestation: I reviewed the patient's lab results. Lab results narrative: CBC is unremarkable. Coags are unremarkable. Lactate is normal at 1.8. Labs: Laboratory Results - last 24 hr 02/08/22 02/08/22 02/08/22 16:35 16:35 16:35 WBC 7.8 RBC 4.59 Hgb 13.1 Hct 40.3 MCV 87.8 MCH 28.5 MCHC 32.5 RDW Std Deviation 45.4 H RDW Coeff of Elva 14.2 Plt Count 262 MPV 9.2 Immature Gran % (Auto) 0.300 Neut % (Auto) 92.3 H Lymph % (Auto) 5.9 L [place] % (Auto) 1.4 Eos % (Auto) 0.0 Baso % (Auto) 0.1 Absolute Neuts (auto) 7.2 Absolute Lymphs (auto) 0.46 L Nucleated RBC % 0 Differential Comment SCANNED PT 14.3 INR 1.1 APTT 25.9 Sodium 138 Potassium 2.7 L* Chloride 104 Carbon Dioxide 25.0 Anion Gap 9 BUN 14 Creatinine 0.63 Estim Creat Clear Calc 75.11 Est GFR (MDRD) Af Amer 123 Est GFR (MDRD) Non-Af 102 BUN/Creatinine Ratio 22.1 H Glucose 266 H Lactic Acid Calcium 8.5 Total Bilirubin 0.30 AST 17 ALT 26 Alkaline Phosphatase 85 Troponin I High Sens 4 Total Protein 7.8 Albumin 3.2 Globulin 4.6 H Albumin/Globulin Ratio 0.7 L 02/08/22 16:35 WBC RBC Hgb Hct MCV MCH MCHC RDW Std Deviation RDW Coeff of Elva Plt Count MPV Immature Gran % (Auto) Neut % (Auto) Lymph % (Auto) [place] % (Auto) Eos % (Auto) Baso % (Auto) Absolute Neuts (auto) Absolute Lymphs (auto) Nucleated RBC % Differential Comment PT INR APTT Sodium Potassium Chloride Carbon Dioxide Anion Gap BUN Creatinine Estim Creat Clear Calc Est GFR (MDRD) Af Amer Est GFR (MDRD) Non-Af BUN/Creatinine Ratio Glucose Lactic Acid 1.8 Calcium Total Bilirubin AST ALT Alkaline Phosphatase Troponin I High Sens Total Protein Albumin Globulin Albumin/Globulin Ratio Radiography Chest X-Ray - ED: 2 View and Read by ED Physician (The chest x-ray is unchanged from yesterday's film. Surgical clips noted upper quadrant of right breast. The cardiac silhouette and size is unremarkable. Perihilar regions unremarkable. There is no effusion. Osseous structures appear unremarkable. This independently reviewed and interpreted by) Diagnostic Testing: Clinical Impression(s) from Imaging Studies Chest X-Ray 02/08/22 17:00 IMPRESSION: No acute cardiopulmonary disease or interval change. Electronically Signed: Jamie Black DO at 17:25 EST Reading Location ID and State: [address] [place] [address] Tel [phone], Service support , EKG Initial EKG: Attestation: I personally reviewed and interpreted this EKG as follows: Interpretation: Sinus Rhythm (Normal sinus rhythm rate of 94. [place] inte rvals 120 ms. QS duration 88 ms. QT duration 182 ms. [place] is normal. There is an ossific ST-T wave changes noted throughout the precordium. Will obtain old EKG for comparison.) Discharge Plan Triage Chief Complaint: Shortness of Breath ED Provider: Leopoldo Merino Dx/Rx/DC Orders Clinical Impression: Acute respiratory failure with hypoxia, Left lower lobe pneumonia, Acute bronchospasm, Hx of Crohn's disease Prescriptions: No Action prednisone 20 mg tablet 5 mg PO DAILY PRN (Reason: ARTHRITIS) Label Comments: prn melatonin 3 mg tablet 3 mg PO HS PRN (Reason: Insomnia) loperamide 2 mg capsule 2 mg PO Q1-4H PRN (Reason: Diarrhea) folic acid 1 mg tablet 1 mg PO DAILY methotrexate sodium 2.5 mg tablet 8 mg PO QWEEK Stelara 90 mg/mL syringe 90 mg SC Q8W albuterol sulfate 90 mcg/actuation HFA aerosol inhaler 2 puff INHALATION Q4H PRN (Reason: cough) Qty: 1 3RF Rx Instructions: administer with spacer cholecalciferol (vitamin D3) 10 mcg (400 unit) capsule 10 mcg PO DAILY cyclobenzaprine 5 mg tablet 5 mg PO QHS PRN (Reason: Muscle Spasm) prednisone 10 mg tablet 10 mg PO DIRECTED Qty: 30 0RF Rx Instructions: 4 tablets daily for 3 days, then 3 tablets daily for 3 days, then 2 tablets daily for 3 days, then 1 tablet daily for 3 days amoxicillin-pot clavulanate 875-125 mg tablet 1 tab PO BID Qty: 20 0RF citalopram 10 mg tablet 20 mg PO DAILY Label Comments: depression/stimulate appetite tamoxifen 20 mg tablet See Rx Instructions .ROUTE .COMPLEX Qty: 90 3RF Dose Instruction: TAKE 1 TABLET BY MOUTH DAILY Rx Instructions: TAKE 1 TABLET BY MOUTH DAILY Primary Care Provider: Estrellita Bear Referrals: Estrellita Bear, [Primary Care Provider] - Disposition Disposition: Acute Care Hospital [facility]
[2022-02-08] MEDS: Albuterol 2.5 MG/3 ML VIAL.NEB. INHALATION ×3 (16:37→17:18)
[2022-02-08 16:49] LABS: Absolute Lymphocyte Count 0.46 X10^3/uL (0.83-4.51); Absolute Neutrophil Count 7.2 X10^3/uL (2.0-7.7); Basophil# 0.01 X10^3/uL; Basophil% 0.1 % (0-1); Hematocrit 40.3 % (37-47); Hemoglobin 13.1 g/dL (12.0-15.0); Lymphocyte # 0.46 X10^3/ul (0.83-4.51); Lymphocyte % 5.9 % (19-41); Mean Corp Hgb Conc 32.5 g/dL (32-36); Mean Corpuscular Hgb 28.5 pg (27.0-32.0); Mean Corpuscular Volume 87.8 fL (81-99); Mean Platelet Vol. 9.2 fl (6.2-12.0); Monocyte# 0.11 X10^3/uL; Monocyte% 1.4 % (0-10); NRBC Flagged by Analyzer 0 % (0-5); Neutrophil # 7.15 X10^3/uL (2.7-7.7); Neutrophil % 92.3 % (47-70); POSITIVE DIFFERENTIAL YES; Platelet Count 262 K/mm3 (150-450); RBC Distribution Width CV 14.2 % (11.6-14.6); RBC Distribution Width SD 45.4 fl (35.1-43.9); Red Blood Count 4.59 M/mm3 (4.2-5.4); White Blood Count 7.8 K/mm3 (4.4-11.0)
--- NOTE | 2022-02-08 17:00 | RAD_ITS ---
STUDY: X-RAY CHEST REASON FOR EXAM: Female, 61 years old. Cough. Dyspnea on exertion. Hypoxia. TECHNIQUE: PA and lateral views of the chest. COMPARISON: February 07, 2022. FINDINGS: The lungs are clear and expanded. There is no demonstrated pleural abnormality. Normal size heart. Normal mediastinum and janet. Normal visualized pulmonary arteries. Normal visualized aortic arch and descending thoracic aorta. No osseous changes. Density and surgical clips along the right lateral chest wall. There is no demonstrated abnormality of the visualized soft tissue structures of the upper abdomen. RAD/Chest PA and Lateral IMPRESSION: No acute cardiopulmonary disease or interval change. Electronically Signed: Jamie Black DO at 17:25 EST ,
[2022-02-08 17:05] LABS: Differential Indicated SCAN CRITERIA MET
[2022-02-08] MEDS: 0.9% Normal Saline 1,000 ML 250 ML IV (17:09)
[2022-02-08 17:14] LABS: International Normalized Ratio 1.1; Prothrombin Time (Protime)PT. 14.3 SECONDS (11.7-14.9)
[2022-02-08 17:15] LABS: Partial Thromboplast Time 25.9 Seconds (24.1-36.2)
[2022-02-08 17:34] LABS: Lactic Acid 1.8 mmol/L (0.4-1.9)
[2022-02-08 17:36] LABS: ALB/GLOB Ratio 0.7 RATIO (0.9-2.4); AST(SGOT) 17 U/L (15-37); Alanine Aminotransfer ALT/SGPT 26 U/L (13-56); Albumin, Serum 3.2 g/dL (3.2-5.0); Alkaline Phosphatase 85 U/L (45-117); Anion Gap 9 (5-15); BUN 14 mg/dL (7-18); BUN/Creat Ratio 22.1 RATIO (10-20); Calcium,Total 8.5 mg/dL (8.5-10.1); Chloride 104 mmol/L (98-107); Creatinine, Serum 0.63 mg/dL (0.55-1.02); EST Glomerular Filtration Rate 102 mL/min (>60); Est Glom Filt Rate - Afr Amer 123 mL/min (>60); Estimated Creatinine Clearance 75.11 ml/min; Globulin 4.6 g/dL (2.2-4.2); Glucose 266 mg/dL (74-106); Potassium 2.7 mmol/L (3.5-5.1); Protein, Total 7.8 g/dL (6.4-8.2); Sodium Level 138 mmol/L (136-145); Troponin-I HS 4 pg/mL (3.0-54.0)
[2022-02-08 17:55] LABS: Differential Comment SCANNED
--- NOTE | 2022-02-08 18:23 | PCM.HP.STD ---
HPI - General General Date of Admission: 02/08/22 Date of Service: 02/08/22 Chief Complaint: Shortness of breath/hypoxia HPI Narrative BABAK HSIEH, is a 61 F who presented to the emergency department at [facility] for worsening hypoxia and shortness of breath. The patient states she started having some coughing last Thursday and her symptoms progressively worsened until she was seen in urgent care on . They tested her for flu, RSV, and COVID all of which were negative at that time and she was placed on Augmentin on Thursday. In the last 24 hours her symptoms had worsened and she was checking her home pulse oximetry. Her pulse ox had dropped at home so she presented to the emergency department. Pulse ox at home was 87% on room air. She states she had associated symptoms of myalgias, headache, cough without significant sputum production, nausea, vomiting, diarrhea, generalized weakness, and decreased p.o. intake with decreased appetite. She denies any fever or chills. She does indicate she was around her grandchildren who were ill approximately 1 week prior to the initiation of her symptoms. She has remote history of tobacco abuse but is not currently a smoker. She is immunosuppressed for Crohn's disease and also takes methotrexate for rheumatoid arthritis. She does take prednisone intermittently and indicates she took a 40 mg p.o. dose this morning. Vital signs at the time of presentation showed temperature of 96.8, heart rate 107, blood pressure 132/89, respiratory rate was 28 and oxygen saturations were 88% on room air. Her CBC shows no significant abnormalities however her differential shows a significant left shift with a neutrophilia of 92.3%. Coags are normal. Her chemistries are unremarkable other than a hypokalemia with a potassium of 2.7. Her glucose was also markedly elevated to 66. Her lactic acid was normal at 1.8. Her liver function was normal. Troponin was 4. Her EKG showed normal sinus rhythm without any ST-T wave changes consistent with ischemia. Her chest x-ray is overall unremarkable. On exam she has extremely coarse breath sounds with tachypnea and intermittent cough. In the emergency department she was treated with azithromycin and ceftriaxone after blood and urine cultures were obtained and given IV fluids. [facility] Medical History Abnormal mammogram of right breast Asthma Asthmatic bronchitis with exacerbation Breast cancer (~06/2017) Breast cancer, right Crohns disease DVT (deep venous thrombosis) Lab test negative for COVID-19 virus Partial bowel obstruction Rheumatoid arthritis Screening for osteoporosis Home Medications citalopram 10 mg tablet 20 mg PO DAILY 06/18/17 [History Last Taken Unknown] loperamide 2 mg capsule 2 mg PO Q1-4H PRN Diarrhea 06/18/17 [History Last Taken Unknown] melatonin 3 mg tablet 3 mg PO HS PRN Insomnia 06/18/17 [History Last Taken Unknown] prednisone 20 mg tablet 5 mg PO DAILY PRN ARTHRITIS 06/18/17 [History Last Taken Unknown] folic acid 1 mg tablet 1 mg PO DAILY 02/08/18 [History Last Taken Unknown] methotrexate sodium 2.5 mg tablet 8 mg PO QWEEK 02/08/18 [History Last Taken Unknown] ustekinumab 90 mg/mL subcutaneous syringe (Stelara) 90 mg subcut Q8W 02/08/18 [History Last Taken Unknown] albuterol sulfate 90 mcg/actuation aerosol inhaler 2 puff inhalation Q4H PRN cough #1 device 11/23/18 [Rx Last Taken Unknown] cholecalciferol (vitamin D3) 10 mcg (400 unit) capsule 10 mcg PO DAILY 11/19/20 [History Last Taken Unknown] tamoxifen 20 mg tablet See Rx Instructions .Route .COMPLEX #90 tabs 09/19/21 [Rx Last Taken Unknown] cyclobenzaprine 5 mg tablet 5 mg PO QHS PRN Muscle Spasm 11/05/21 [History Last Taken Unknown] amoxicillin 875 mg-potassium clavulanate 125 mg tablet 1 tab PO BID #20 tabs 02/07/22 [Rx Last Taken Unknown] prednisone 10 mg tablet 10 mg PO DIRECTED #30 tabs 02/07/22 [Rx Last Taken Unknown] Allergy/AdvReac Type Severity Reaction Status Date / Time No Known Allergies Allergy Verified 02/08/22 16:01 Family History Mother Breast cancer Hypertension CHF (congestive heart failure) Mother No problems noted. Surgical History H/O lymph node biopsy History of carpal tunnel surgery of right wrist History of colectomy History of lumpectomy of right breast S/P complete hysterectomy Social History household members: none Smoking Status: Former smoker quit date: 02/09/87 pack-years: 10 second hand exposure: No alcohol intake: never substance use type: does not use ROS Constitutional Constitutional: Reports anorexia, fatigue, malaise and weakness; Denies change in weight, chills, fever(s), night sweats or other Eyes Eyes: Denies blurry vision, change in eye color, change in vision, discharge from eye(s), double vision, erythema, eye pain, loss of vision or other ENT HEENT: Reports headache(s), nasal congestion and nasal discharge; Denies abnormal hearing, dysphagia, ear pain, epistaxis, hearing loss, post nasal drip, sinus pressure, sore throat or other Cardiovascular Cardiovascular: Reports dyspnea on exertion; Denies chest pain, claudication, edema, lightheadedness, orthopnea, palpitations, paroxysmal nocturnal dyspnea, rapid heart rate, syncope or other Respiratory/Chest Respiratory/Chest: Reports cough, dyspnea, shortness of breath at rest and shortness of breath with exertion; Denies excessive phlegm production, hemoptysis, productive cough, wheezing or other Gastrointestinal Gastrointestinal: Reports diarrhea, nausea and vomiting; Denies abdominal pain, coffee ground emesis, constipation, dyspepsia, hematemesis, hematochezia, loose stools, melena or other Genitourinary Genitourinary: Denies burning urination, difficulty urinating, dysuria, hematuria, nocturia, urinary frequency, urinary hesitancy, urinary incontinence, urinary urgency or other Musculoskeletal Musculoskeletal: Reports arthralgias and myalgias; Denies back pain, joint pain, joint stiffness, joint swelling, neck pain or other Neurologic Neurologic: Denies abnormal gait, abnormal speech, confusion, disequilibrium, dizziness, focal weakness, headache(s), numbness, paresthesias, seizure-like activity, seizures, syncope, tingling, tremor(s) or other Psychiatric Psychiatric: Denies anxiety, depression, homicidal ideation, suicidal ideation or other Endocrine Endocrinology: Denies change in body appearance, cold intolerance, excessive sweating, heat intolerance, polydipsia, polyuria or other Hematologic/Lymphatic Hematologic/Lymphatic: Denies anemia, easy bleeding, easy bruising, lymphadenopathy or other Allergic/Immunologic Allergic/Immunologic: Denies rhinitis, hives, eczemia, asthma or other Vital Signs Vital Signs Vital Signs: 02/08/22 16:01 02/08/22 16:09 02/08/22 16:10 Temperature 96.8 F L Temperature Source Temporal Pulse Rate 107 H 106 H Respiratory Rate 28 H Respiratory Effort Normal Non-Labored Respiratory Depth Normal Respiratory Pattern Normal Blood Pressure 132/89 H Blood Pressure Mean 103 Pulse Ox 90 91 Oxygen Delivery Method Room Air Room Air Room Air Oxygen Flow Rate (L/min) 02/08/22 16:20 02/08/22 16:23 02/08/22 16:36 Temperature Temperature Source Pulse Rate 98 Respiratory Rate 18 Respiratory Effort Respiratory Depth Respiratory Pattern Blood Pressure Blood Pressure Mean Pulse Ox 88 93 Oxygen Delivery Method Room Air Nasal Cannula Oxygen Flow Rate (L/min) 2 02/08/22 16:36 02/08/22 16:36 02/08/22 17:03 Temperature 98 F Temperature Source Temporal Pulse Rate 101 H Respiratory Rate 16 17 Respiratory Effort Non-Labored Respiratory Depth Respiratory Pattern Blood Pressure 112/67 Blood Pressure Mean 82 Pulse Ox 93 92 93 Oxygen Delivery Method Nasal Cannula Nasal Cannula Nasal Cannula Oxygen Flow Rate (L/min) 2 2 2 02/08/22 17:20 02/08/22 17:20 02/08/22 17:22 Temperature Temperature Source Pulse Rate 96 Respiratory Rate 15 Respiratory Effort Respiratory Depth Respiratory Pattern Blood Pressure Blood Pressure Mean Pulse Ox 89 94 Oxygen Delivery Method Nasal Cannula Nasal Cannula Oxygen Flow Rate (L/min) 2.5 3 02/08/22 17:50 02/08/22 17:54 02/08/22 18:00 Temperature 98 F Temperature Source Temporal Pulse Rate 96 Respiratory Rate 16 Respiratory Effort Respiratory Depth Respiratory Pattern Blood Pressure 114/65 Blood Pressure Mean 81 Pulse Ox 89 92 92 Oxygen Delivery Method Nasal Cannula Nasal Cannula Nasal Cannula Oxygen Flow Rate (L/min) 3 4 4 Weight Weight: 58.9 kg Body Mass Index (BMI) 23.7 Physical Exam Const alert, oriented x3, no apparent distress and well nourished Constitutional Narrative: Middle-aged white female sitting up in bed, her son is at the bedside, currently on 3.5 L nasal cannula, mildly tachypneic but does not appear uncomfortable and no signs of respiratory extremis General Appearance: cooperative HEENT normocephalic, head/scalp atraumatic, hearing grossly normal bilaterally and moist oral mucous membranes HEENT Narrative: No thrush, Mallampati 2, dentition is good Eyes PERRL, EOMs intact bilaterally and conjunctivae normal Eyes Narrative: No scleral icterus Neck no lymphadenopathy and supple Neck Narrative: Trachea midline, no thyroid enlargement Resp No normal respiratory effort, no retractions, no use of accessory muscles and No clear to auscultation bilaterally Resp Narrative: Tachypneic, diffuse rhonchi most notably at the bases bilaterally, bronchospastic cough with deep inhalation, no wheeze or rales Auscultation: rhonchi; Negative for crackles or wheezes Cardio regular rate, regular rhythm, S1 normal heart sound, S2 normal heart sound, no murmurs, no rub, no gallops, no clicks and no JVD GI normal to inspection, nondistended, normoactive bowel sounds, soft to palpation and non-tender Extremity no clubbing, cyanosis or edema Extremity Narrative: 2+ pedal pulses bilaterally Skin no rashes or lesions noted, no wounds, skin turgor normal, no jaundice, no petechiae and no mottling Neuro oriented x3, CN's II-XII intact bilaterally, moves all extremities and no focal motor deficits Neuro Narrative: Mild generalized weakness Speech: speech normal Psych Psych Narrative: Appears ill but very pleasant with normal affect Results Lab / Micro Data Result Diagrams: 02/08/22 16:35 02/08/22 16:35 Labs: Laboratory Results - last 24 hr 02/08/22 16:35: WBC 7.8, RBC 4.59, Hgb 13.1, Hct 40.3, MCV 87.8, MCH 28.5, MCHC 32.5, RDW Std Deviation 45.4 H, RDW Coeff of Elva 14.2, Plt Count 262, MPV 9.2, Immature Gran % (Auto) 0.300, Neut % (Auto) 92.3 H, Lymph % (Auto) 5.9 L, [place] % (Auto) 1.4, Eos % (Auto) 0.0, Baso % (Auto) 0.1, Absolute Neuts (auto) 7.2, Absolute Lymphs (auto) 0.46 L, Nucleated RBC % 0, Differential Comment SCANNED 02/08/22 16:35: PT 14.3, INR 1.1, APTT 25.9 02/08/22 16:35: Sodium 138, Potassium 2.7 L*, Chloride 104, Carbon Dioxide 25.0, Anion Gap 9, BUN 14, Creatinine 0.63, Estim Creat Clear Calc 75.11, Est GFR (MDRD) Af Amer 123, Est GFR (MDRD) Non-Af 102, BUN/Creatinine Ratio 22.1 H, Glucose 266 H, Calcium 8.5, Total Bilirubin 0.30, AST 17, ALT 26, Alkaline Phosphatase 85, Troponin I High Sens 4, Total Protein 7.8, Albumin 3.2, Globulin 4.6 H, Albumin/Globulin Ratio 0.7 L 02/08/22 16:35: Lactic Acid 1.8 Radiology Impression Chest X-Ray 02/08/22 17:00 IMPRESSION: No acute cardiopulmonary disease or interval change. Electronically Signed: Jamie Black, at 17:25 EST Reading Location ID and State: [address] [place] [address] Tel [phone], Service support , Assessment & Plan Assessment/Plan (1) Acute respiratory failure with hypoxia: (2) Left lower lobe pneumonia: (3) Acute bronchospasm: (4) Hypokalemia: (5) Hyperglycemia: PLAN: Plan Acute hypoxic respiratory failure secondary to pneumonia/viral illness -Upon presentation patient was tachycardic and tachypneic with a room air pulse oximetry at 88% -Initially placed on 2 L but has since required up titration to 3 L for worsening hypoxia -Troponin and BNP are unremarkable -Cultures and urine culture obtained by the emergency department -UA does not appear infectious -Check COVID and flu -Check respiratory viral panel -Sputum culture if able -Check strep pneumo and Legionella antigens -We will start ceftriaxone and azithromycin -Patient had received outpatient Augmentin that was started yesterday -Aerosols -Incentive spirometry -Mucinex -Pep therapy with Acapella Hyperglycemia -Patient indicates she did take 40 mg of prednisone this morning at home -We will hemoglobin A1c -Patient does not carry a diagnosis of diabetes at baseline Hypokalemia -Potassium 2.7 on admission -60 mill equivalents given orally -Repeat in a.m. -Check a.m. magnesium level History of DVT -Patient is not currently anticoagulated -We will use prophylactic dosing Lovenox while she is hospitalized History of partial small bowel obstruction -No current issues History of breast cancer -Diagnosed 2017 -Currently on hormonal therapy -Continue tamoxifen History of Crohn's disease -Patient on Biologics at baseline -No current issues -Monitor clinically Rheumatoid arthritis -Continue methotrexate -2 patient takes as needed steroids at home Depression -Continue home citalopram DVT prophylaxis -Lovenox 40 mg daily CODE STATUS -Full code as per discussion prior to admission Charges/Coding Visit Charges Inpatient E&M: 42150 Init Hosp L3
[2022-02-08 19:31] LABS: Hemoglobin A1c 5.4 % (3.8-5.6)
[2022-02-08] MEDS: guaiFENesin 1,200 MG Tablet 1200 MG PO (22:29)
[2022-02-08] MEDS: Potassium Chloride Oral Tablet 20 MEQ 60 MEQ PO (22:29)
[2022-02-09] VITALS (10 sets, daily range): BP systolic 117–131; BP diastolic 65–73; PULSE 73–95; RESP 17–20; TEMP 36.5–37.1; O2SAT 95–98
[2022-02-09] MEDS: Ipratropium/Albuterol Sulfate 3 ML AMPUL.NEB INHALATION ×3 (05:36→15:43)
[2022-02-09 07:38] LABS: Absolute Lymphocyte Count 0.72 X10^3/uL (0.83-4.51); Absolute Neutrophil Count 6.6 X10^3/uL (2.0-7.7); Basophil# 0.01 X10^3/uL; Basophil% 0.1 % (0-1); Hematocrit 38.6 % (37-47); Hemoglobin 12.2 g/dL (12.0-15.0); Lymphocyte # 0.72 X10^3/ul (0.83-4.51); Lymphocyte % 9.4 % (19-41); Mean Corp Hgb Conc 31.6 g/dL (32-36); Mean Corpuscular Hgb 28.5 pg (27.0-32.0); Mean Corpuscular Volume 90.2 fL (81-99); Mean Platelet Vol. 9.6 fl (6.2-12.0); Monocyte# 0.26 X10^3/uL; Monocyte% 3.4 % (0-10); NRBC Flagged by Analyzer 0.4 % (0-5); Neutrophil % 86.6 % (47-70); Platelet Count 276 K/mm3 (150-450); RBC Distribution Width CV 14.3 % (11.6-14.6); RBC Distribution Width SD 46.8 fl (35.1-43.9); Red Blood Count 4.28 M/mm3 (4.2-5.4); White Blood Count 7.6 K/mm3 (4.4-11.0)
[2022-02-09 07:42] LABS: ALB/GLOB Ratio 0.6 RATIO (0.9-2.4); AST(SGOT) 12 U/L (15-37); Alanine Aminotransfer ALT/SGPT 21 U/L (13-56); Albumin, Serum 2.6 g/dL (3.2-5.0); Alkaline Phosphatase 65 U/L (45-117); Anion Gap 9 (5-15); BUN 9 mg/dL (7-18); BUN/Creat Ratio 15.7 RATIO (10-20); Calcium,Total 8.2 mg/dL (8.5-10.1); Chloride 108 mmol/L (98-107); Creatinine, Serum 0.58 mg/dL (0.55-1.02); EST Glomerular Filtration Rate 114 mL/min (>60); Est Glom Filt Rate - Afr Amer 137 mL/min (>60); Estimated Creatinine Clearance 81.58 ml/min; Globulin 4.2 g/dL (2.2-4.2); Glucose 139 mg/dL (74-106); Magnesium 2.4 mg/dL (1.6-2.6); Phosphorus 2.9 mg/dL (2.5-4.9); Potassium 3.4 mmol/L (3.5-5.1); Protein, Total 6.8 g/dL (6.4-8.2); Sodium Level 141 mmol/L (136-145)
[2022-02-09] MEDS: Benzonatate 100 MG Capsule PO (09:18)
[2022-02-09] MEDS: Folic Acid 1 MG Tablet PO (09:18)
[2022-02-09] MEDS: guaiFENesin 1,200 MG Tablet 1200 MG PO ×2 (09:18→21:28)
[2022-02-09] MEDS: Enoxaparin 40 MG/0.4 ML Syringe SC (09:18)
[2022-02-09] MEDS: Citalopram 20 MG Tablet PO (09:19)
[2022-02-09] MEDS: Potassium Chloride Oral Tablet 20 MEQ 40 MEQ PO (09:19)
[2022-02-09] MEDS: Acetaminophen 325 MG Tablet 650 MG PO (09:19)
[2022-02-09] MEDS: Tamoxifen 10 MG Tablet 20 MG PO (09:29)
[2022-02-09] MEDS: Oseltamivir Phosphate 75 MG Capsule PO ×2 (11:12→21:36)
[2022-02-09] MEDS: 0.9% Saline Lock 10 ML Syringe IV (13:33)
--- NOTE | 2022-02-09 14:47 | PCM.PN.HOSP ---
Subjective Subjective Patient states she is feeling better today. Still with coarse cough however she states this is how she coughs when she gets ill. I discussed that she is positive for flu a. She would like to go home however she still on 4 L nasal cannula. I discussed with her that we will try to wean her over the next 24 hours and see how she is clinically in the next 24 hours however she may need to go home with supplemental oxygen if she remains stable. I did tell her that she may be able to go home tomorrow as long as she is stable or improved with her oxygen requirements. Objective Data Objective Data Vital Signs: Vital Signs Temp Pulse Resp BP Pulse Ox O2 Del Method O2 Flow Rate 98.3 F 80 18 120/70 96 Nasal Cannula 2 02/09/22 13:35 02/09/22 13:35 02/09/22 13:35 02/09/22 13:35 02/09/22 13:35 02/09/22 13:35 02/09/22 13:35 Oxygen Flow Rate (L/min) 2 Oxygen Delivery Method Nasal Cannula Weight: 58.9 kg Body Mass Index (BMI) 23.7 Intake & Output: Intake and Output for Last 24 Hours 02/07/22 02/08/22 02/09/22 23:59 23:59 23:59 Intake Total 1305 / 1585 1210 / 1210 Balance 1305 / 1585 1210 / 1210 Lab / Micro Data Result Diagrams: 02/09/22 05:40 02/09/22 05:40 Labs: Laboratory Results - last 24 hr 02/08/22 16:35: WBC 7.8, RBC 4.59, Hgb 13.1, Hct 40.3, MCV 87.8, MCH 28.5, MCHC 32.5, RDW Std Deviation 45.4 H, RDW Coeff of Elva 14.2, Plt Count 262, MPV 9.2, Immature Gran % (Auto) 0.300, Neut % (Auto) 92.3 H, Lymph % (Auto) 5.9 L, [place] % (Auto) 1.4, Eos % (Auto) 0.0, Baso % (Auto) 0.1, Absolute Neuts (auto) 7.2, Absolute Lymphs (auto) 0.46 L, Nucleated RBC % 0, Differential Comment SCANNED 02/08/22 16:35: PT 14.3, INR 1.1, APTT 25.9 02/08/22 16:35: Sodium 138, Potassium 2.7 L*, Chloride 104, Carbon Dioxide 25.0, Anion Gap 9, BUN 14, Creatinine 0.63, Estim Creat Clear Calc 75.11, Est GFR (MDRD) Af Amer 123, Est GFR (MDRD) Non-Af 102, BUN/Creatinine Ratio 22.1 H, Glucose 266 H, Calcium 8.5, Total Bilirubin 0.30, AST 17, ALT 26, Alkaline Phosphatase 85, Troponin I High Sens 4, Total Protein 7.8, Albumin 3.2, Globulin 4.6 H, Albumin/Globulin Ratio 0.7 L 02/08/22 16:35: Lactic Acid 1.8 02/08/22 16:35: Hemoglobin A1c 5.4 02/09/22 05:40: WBC 7.6, RBC 4.28, Hgb 12.2, Hct 38.6, MCV 90.2, MCH 28.5, MCHC 31.6 L, RDW Std Deviation 46.8 H, RDW Coeff of Elva 14.3, Plt Count 276, MPV 9.6, Immature Gran % (Auto) 0.500, Neut % (Auto) 86.6 H, Lymph % (Auto) 9.4 L, [place] % (Auto) 3.4, Eos % (Auto) 0.0, Baso % (Auto) 0.1, Absolute Neuts (auto) 6.6, Absolute Lymphs (auto) 0.72 L, Nucleated RBC % 0.4 02/09/22 05:40: Sodium 141, Potassium 3.4 L, Chloride 108 H, Carbon Dioxide 24.0, Anion Gap 9, BUN 9, Creatinine 0.58, Estim Creat Clear Calc 81.58, Est GFR (MDRD) Af Amer 137, Est GFR (MDRD) Non-Af 114, BUN/Creatinine Ratio 15.7, Glucose 139 H, Calcium 8.2 L, Phosphorus 2.9, Magnesium 2.4, Total Bilirubin 0.20, AST 12 L, ALT 21, Alkaline Phosphatase 65, Total Protein 6.8, Albumin 2.6 L, Globulin 4.2, Albumin/Globulin Ratio 0.6 L Micro: Microbiology 02/08/22 16:30 Urine, Clean Catch Urine Culture - Preliminary Culture exhibits no growth. 02/08/22 18:23 Mucosa - Nose Respiratory Panel (PCR) - Final 02/08/22 18:23 Nasal Secretion SARS-CoV-2 & FLU Antigen (Rapid) - Final Influenzae A Radiography Diagnostic Testing: Radiology Impression Chest X-Ray 02/08/22 17:00 IMPRESSION: No acute cardiopulmonary disease or interval change. Electronically Signed: Jamie Black DO at 17:25 EST Reading Location ID and State: [address] [place] [address] Tel [phone], Service support , Physical Exam Const alert, oriented x3, no apparent distress and well nourished Constitutional Narrative: Related white female sitting up in bed, nursing at bedside, patient appears comfortable and nontoxic, currently on 4 L nasal cannula but sats are 96%. No signs of respiratory distress or extremis General Appearance: cooperative HEENT normocephalic, head/scalp atraumatic, hearing grossly normal bilaterally and moist oral mucous membranes HEENT Narrative: No thrush Resp normal respiratory effort, no retractions, no use of accessory muscles and No clear to auscultation bilaterally Resp Narrative: Still with some scattered rhonchi worse in right base but overall improved dramatically since yesterday, tachypnea has resolved Auscultation: rhonchi; Negative for crackles or wheezes Cardio regular rate, regular rhythm, S1 normal heart sound, S2 normal heart sound, no murmurs, no rub, no gallops and no clicks GI normal to inspection, nondistended, normoactive bowel sounds, soft to palpation and non-tender Extremity no clubbing, cyanosis or edema Extremity Narrative: 2+ pedal pulses bilaterally Neuro oriented x3, moves all extremities and no focal motor deficits Speech: speech normal Psych affect normal Psych Narrative: Very pleasant and appropriately interactive Assessment & Plan Assessment/Plan (1) Acute respiratory failure with hypoxia: (2) Left lower lobe pneumonia: (3) Acute bronchospasm: (4) Hypokalemia: (5) Hyperglycemia: PLAN: Plan Acute hypoxic respiratory failure secondary to influenza A -Upon presentation patient was tachycardic and tachypneic with a room air pulse oximetry at 88% -On 4 L nasal cannula with sats at 96% this morning -Wean as able -Rapid flu was positive however PCR for flu is negative given her signs and symptoms and's highly suspicion of viral etiology I suspect that this is most likely influenza -No fever, no leukocytosis -COVID-negative -Start Tamiflu If and continue IV steroids -Aerosols -Incentive spirometry -Mucinex -Pep therapy with Acapella Hyperglycemia -Hemoglobin A1c normal at 5.4 -Suspect related to steroid use and stress response Hypokalemia -Potassium 2.7 on admission -Improved to 3.4 today -Repeat 40 M EQ of potassium -Magnesium level is within normal limits History of DVT -Patient is not currently anticoagulated -Continue prophylactic dose Lovenox History of partial small bowel obstruction -No current issues History of breast cancer -Diagnosed 2017 -Currently on hormonal therapy -Continue tamoxifen History of Crohn's disease -Patient on Biologics at baseline -No current issues -Monitor clinically Rheumatoid arthritis -Continue methotrexate -2 patient takes as needed steroids at home Depression -Continue home citalopram DVT prophylaxis -Lovenox 40 mg daily CODE STATUS -Full code as per discussion prior to admission Charges/Coding Visit Charges Inpatient E&M: 77275 Subs Hosp L2
[2022-02-09] MEDS: Ensure Plus High Protein 120 ML LIQUID PO (17:26)
[2022-02-09] MEDS: MELATONIN 10 MG TABLET PO (21:28)
[2022-02-10] VITALS (11 sets, daily range): BP systolic 119–132; BP diastolic 74–77; PULSE 75–90; RESP 16–21; TEMP 36.5–36.9; O2SAT 91–94
[2022-02-10] MEDS: 0.9% Saline Lock 10 ML Syringe IV ×2 (04:38→14:33)
[2022-02-10] MEDS: Ipratropium/Albuterol Sulfate 3 ML AMPUL.NEB INHALATION ×4 (06:43→20:19)
[2022-02-10 06:52] LABS: Anion Gap 7 (5-15); BUN 17 mg/dL (7-18); BUN/Creat Ratio 33.3 RATIO (10-20); Calcium,Total 8.4 mg/dL (8.5-10.1); Chloride 106 mmol/L (98-107); Creatinine, Serum 0.51 mg/dL (0.55-1.02); EST Glomerular Filtration Rate 130 mL/min (>60); Est Glom Filt Rate - Afr Amer 158 mL/min (>60); Estimated Creatinine Clearance 92.78 ml/min; Glucose 105 mg/dL (74-106); Sodium Level 139 mmol/L (136-145)
[2022-02-10] MEDS: Enoxaparin 40 MG/0.4 ML Syringe SC (08:47)
[2022-02-10] MEDS: guaiFENesin 1,200 MG Tablet 1200 MG PO ×2 (08:48→21:05)
[2022-02-10] MEDS: Citalopram 20 MG Tablet PO (08:48)
[2022-02-10] MEDS: Folic Acid 1 MG Tablet PO (08:48)
[2022-02-10] MEDS: Ensure Plus High Protein 120 ML LIQUID PO ×3 (08:48→17:15)
[2022-02-10] MEDS: Oseltamivir Phosphate 75 MG Capsule PO ×2 (08:48→21:05)
[2022-02-10] MEDS: Tamoxifen 10 MG Tablet 20 MG PO (08:48)
--- NOTE | 2022-02-10 11:16 | PN.HOSP_ITS ---
Subjective Subjective Follow-up on acute hypoxia/acute influenza A: Patient was seen and examined. She was significantly short of breath this morning with sats in the 80s at rest, off oxygen. She is currently on 2 L of oxygen. Denies any fever or chills. Objective Data Objective Data Vital Signs: Vital Signs Temp Pulse Resp BP Pulse Ox O2 Del Method O2 Flow Rate 98.5 F 84 20 H 119/75 94 Nasal Cannula 2 02/10/22 08:51 02/10/22 08:51 02/10/22 11:02 02/10/22 08:51 02/10/22 08:51 02/10/22 11:02 02/10/22 11:02 Oxygen Flow Rate (L/min) 2 Oxygen Delivery Method Nasal Cannula Weight: 58.9 kg Body Mass Index (BMI) 23.7 Intake & Output: Intake and Output for Last 24 Hours 02/08/22 02/09/22 02/10/22 23:59 23:59 23:59 Intake Total 1305 / 1585 2109 Balance 1305 / 1585 2109 Lab / Micro Data Result Diagrams: 02/09/22 05:40 02/10/22 04:59 Labs: Laboratory Results - last 24 hr 02/10/22 04:59: Sodium 139, Potassium 4.0, Chloride 106, Carbon Dioxide 26.0, Anion Gap 7, BUN 17, Creatinine 0.51 L, Estim Creat Clear Calc 92.78, Est GFR (MDRD) Af Amer 158, Est GFR (MDRD) Non-Af 130, BUN/Creatinine Ratio 33.3 H, Glucose 105, Calcium 8.4 L Micro: Microbiology 02/08/22 16:30 Urine, Clean Catch Urine Culture - Preliminary Culture exhibits no growth. 02/08/22 18:23 Mucosa - Nose Respiratory Panel (PCR) - Final 02/08/22 18:23 Nasal Secretion SARS-CoV-2 & FLU Antigen (Rapid) - Final Influenzae A Physical Exam Narrative General: Alert, Oriented x3, Cooperative, on 2 L of oxygen HEENT: Atraumatic, PERRLA, EOMI, Normocephalic Oral: Moist Mucosa Neck: Supple Lungs: Diminished to auscultation, wheezes+ Cardiovascular: Regular rate, Regular Rhythm, Normal S1, Normal S2, No murmurs Abdomen: Bowel Sounds Present, Soft, Non Tender, Non-Distended, No Hepato- splenomegaly Extremities: No edema Skin: No rashes Neurological: Cranial nerves II-XII grossly intact, Neuro grossly intact Psych/Mental Status: Normal Affect, Appropriate Assessment & Plan Assessment/Plan (1) Acute respiratory failure with hypoxia: (2) Left lower lobe pneumonia: (3) Acute bronchospasm: (4) Hypokalemia: (5) Hyperglycemia: PLAN: Plan 1. Acute hypoxic respiratory failure secondary to acute influenza A Patient appears slightly improved and is on 2 L of oxygen Still with significant wheezes Continue on IV Solu-Medrol, breathing treatments, Tamiflu Continue to wean off oxygen for sats were 94%, encourage use of incentive spirometer 2. Hypokalemia, resolved 3. Rest of chronic medical conditions include history of DVT/partial small bowel suction/breast CA, Crohn's disease, rheumatoid arthritis, depression All complicates care 4. DVT PPx- Lovenox SC Charges/Coding Visit Charges Inpatient E&M: 19798 Subs Hosp L2
[2022-02-10] MEDS: MELATONIN 10 MG TABLET PO (21:05)
[2022-02-11] VITALS (11 sets, daily range): BP systolic 134–152; BP diastolic 73–87; PULSE 77–92; RESP 16–21; TEMP 36.4–36.9; O2SAT 87–94
[2022-02-11] MEDS: 0.9% Saline Lock 10 ML Syringe IV ×2 (04:50→14:00)
[2022-02-11 06:18] LABS: Absolute Lymphocyte Count 1.34 X10^3/uL (0.83-4.51); Absolute Neutrophil Count 11.2 X10^3/uL (2.0-7.7); Basophil# 0.03 X10^3/uL; Basophil% 0.2 % (0-1); Hematocrit 37.9 % (37-47); Hemoglobin 12.1 g/dL (12.0-15.0); Lymphocyte # 1.34 X10^3/ul (0.83-4.51); Mean Corp Hgb Conc 31.9 g/dL (32-36); Mean Corpuscular Hgb 28.2 pg (27.0-32.0); Mean Corpuscular Volume 88.3 fL (81-99); Mean Platelet Vol. 9.2 fl (6.2-12.0); Monocyte# 0.58 X10^3/uL; Monocyte% 4.3 % (0-10); NRBC Flagged by Analyzer 0 % (0-5); Neutrophil # 11.19 X10^3/uL (2.7-7.7); Neutrophil % 83.6 % (47-70); Platelet Count 300 K/mm3 (150-450); RBC Distribution Width CV 14.2 % (11.6-14.6); RBC Distribution Width SD 45.4 fl (35.1-43.9); Red Blood Count 4.29 M/mm3 (4.2-5.4); White Blood Count 13.4 K/mm3 (4.4-11.0)
[2022-02-11 06:48] LABS: ALB/GLOB Ratio 0.7 RATIO (0.9-2.4); AST(SGOT) 9 U/L (15-37); Alanine Aminotransfer ALT/SGPT 21 U/L (13-56); Albumin, Serum 2.6 g/dL (3.2-5.0); Alkaline Phosphatase 57 U/L (45-117); Anion Gap 8 (5-15); BUN 20 mg/dL (7-18); Calcium,Total 8.4 mg/dL (8.5-10.1); Chloride 103 mmol/L (98-107); Creatinine, Serum 0.51 mg/dL (0.55-1.02); EST Glomerular Filtration Rate 130 mL/min (>60); Est Glom Filt Rate - Afr Amer 157 mL/min (>60); Estimated Creatinine Clearance 92.78 ml/min; Globulin 3.9 g/dL (2.2-4.2); Glucose 105 mg/dL (74-106); Potassium 3.8 mmol/L (3.5-5.1); Protein, Total 6.5 g/dL (6.4-8.2); Sodium Level 137 mmol/L (136-145)
[2022-02-11] MEDS: Ensure Plus High Protein 120 ML LIQUID PO ×3 (09:04→16:39)
[2022-02-11] MEDS: Enoxaparin 40 MG/0.4 ML Syringe SC (09:04)
[2022-02-11] MEDS: Oseltamivir Phosphate 75 MG Capsule PO ×2 (09:05→21:56)
[2022-02-11] MEDS: guaiFENesin 1,200 MG Tablet 1200 MG PO ×2 (09:05→21:56)
[2022-02-11] MEDS: Methotrexate 2.5 MG Tablet 10 MG PO (09:05)
[2022-02-11] MEDS: Tamoxifen 10 MG Tablet 20 MG PO (09:05)
[2022-02-11] MEDS: Folic Acid 1 MG Tablet PO (09:05)
[2022-02-11] MEDS: Citalopram 20 MG Tablet PO (09:05)
--- NOTE | 2022-02-11 10:12 | CASEMGMT ---
MERLYN MCKNIGHT Assessment: Face to Face with pt for initial transition planning/care coordination assessment. MERLYN MCKNIGHT introduced self and role at [facility], pt voices understanding and consents to assessment. Pt is A/O x4 and answers all questions appropriately at this time. Pt sitting up in bed with oxygen on in no distress. Care providers, pharmacy, and demographics verified/updated. Admitting Dx: hypoxia PCP:Chema Specialists:Rheum, pt to have a new one as hers retired; from [facility] in [place]; MICHAEL Riley Preferred Pharmacy: [facility] Insurance: [employer] Prescription Benefit: yes LNOK: Tiffany Ly, dtr; bennie Bravo Living Arrangements: Pt lives with her elderly father in a mobile home with 4 steps to enter with a rail. Pt reports she is I in ADL's and denies concerns at home. Transportation: Pt drives self and denies concerns with transportation. DME/HHC/SNF: Pt has a bp cuff, pox, and rollator and FWW available to her but does not use. Pt denies hx of HHC or SNF stays. Pt states no concerns with going home at time of dc. Provided pt with a verbal local in network list of DME companies should she need oxygen, pt chose [employer]. Discusssed homegoing process for oxygen. Pt states no further concerns/needs. CM to follow. Advised pt to ask CM if any further question/concerns/needs arise, voices understanding. Pt Goal: Home Plan: Home, follow for oxygen.
[2022-02-11] MEDS: Ipratropium/Albuterol Sulfate 3 ML AMPUL.NEB INHALATION ×3 (11:04→19:47)
--- NOTE | 2022-02-11 13:34 | PN.HOSP_ITS ---
Subjective Subjective Follow-up on acute hypoxia/acute influenza A: Patient was seen and examined.? Patient remains short of breath. She is on 2 L of oxygen. Objective Data Objective Data Vital Signs: Vital Signs Temp Pulse Resp BP Pulse Ox O2 Del Method O2 Flow Rate 98.5 F 88 21 H 136/87 H 90 Nasal Cannula 2 02/11/22 08:55 02/11/22 11:29 02/11/22 11:29 02/11/22 08:55 02/11/22 10:29 02/11/22 09:25 02/11/22 10:29 Oxygen Flow Rate (L/min) [ 2 AMBULATING with Oxygen #1] Oxygen Flow Rate (L/min) 2 Oxygen Delivery Method Nasal Cannula Weight: 58.9 kg Body Mass Index (BMI) 23.7 Intake & Output: Intake and Output for Last 24 Hours 02/09/22 02/10/22 02/11/22 23:59 23:59 23:59 Intake Total 2109 / 2109 1700 / 1700 Balance 2109 / 2109 1700 / 1700 Lab / Micro Data Result Diagrams: 02/11/22 05:55 02/11/22 05:55 Labs: Laboratory Results - last 24 hr 02/11/22 05:55: WBC 13.4 H, RBC 4.29, Hgb 12.1, Hct 37.9, MCV 88.3, MCH 28.2, MCHC 31.9 L, RDW Std Deviation 45.4 H, RDW Coeff of Elva 14.2, Plt Count 300, MPV 9.2, Immature Gran % (Auto) 1.900 H, Neut % (Auto) 83.6 H, Lymph % (Auto) 10.0 L , [place] % (Auto) 4.3, Eos % (Auto) 0.0, Baso % (Auto) 0.2, Absolute Neuts (auto) 11.2 H, Absolute Lymphs (auto) 1.34, Nucleated RBC % 0 02/11/22 05:55: Sodium 137, Potassium 3.8, Chloride 103, Carbon Dioxide 26.0, Anion Gap 8, BUN 20 H, Creatinine 0.51 L, Estim Creat Clear Calc 92.78, Est GFR (MDRD) Af Amer 157, Est GFR (MDRD) Non-Af 130, BUN/Creatinine Ratio 39.0 H, Glucose 105, Calcium 8.4 L, Total Bilirubin 0.20, AST 9 L, ALT 21, Alkaline Phosphatase 57, Total Protein 6.5, Albumin 2.6 L, Globulin 3.9, Albumin/Globulin Ratio 0.7 L Micro: Microbiology 02/08/22 16:30 Urine, Clean Catch Urine Culture - Final Culture exhibits no growth. 02/08/22 18:23 Mucosa - Nose Respiratory Panel (PCR) - Final 02/08/22 18:23 Nasal Secretion SARS-CoV-2 & FLU Antigen (Rapid) - Final Influenzae A Physical Exam Narrative General: Alert, Oriented x3, Cooperative, on 2 L of oxygen HEENT: Atraumatic, PERRLA, EOMI, Normocephalic Oral: Moist Mucosa Neck: Supple Lungs: Diminished to auscultation, coarse rales in left lung bases, wheezes+ Cardiovascular: Regular rate, Regular Rhythm, Normal S1, Normal S2, No murmurs Abdomen: Bowel Sounds Present, Soft, Non Tender, Non-Distended, No Hepato- splenomegaly Extremities: No edema Skin: No rashes Neurological: Cranial nerves II-XII grossly intact, Neuro grossly intact Psych/Mental Status: Normal Affect, Appropriate Assessment & Plan Assessment/Plan (1) Acute respiratory failure with hypoxia: (2) Left lower lobe pneumonia: (3) Acute bronchospasm: (4) Hypokalemia: (5) Hyperglycemia: PLAN: Plan 1. Acute hypoxic respiratory failure secondary to acute influenza A Patient remains on 2 L 2 L of oxygen Still with significant wheezes; will get repeat chest x-ray Continue on IV Solu-Medrol, breathing treatments, Tamiflu Continue to wean off oxygen for sats were 94%, encourage use of incentive spirometer 2. Hypokalemia, resolved 3. Rest of chronic medical conditions include history of DVT/partial small bowel suction/breast CA, Crohn's disease, rheumatoid arthritis, depression All complicates care 4. DVT PPx- Lovenox SC Charges/Coding Visit Charges Inpatient E&M: 21164 Subs Hosp L2
--- NOTE | 2022-02-11 14:40 | RAD_ITS ---
STUDY: X-RAY CHEST REASON FOR EXAM: Female, 61 years old. CHEST PAIN sob, abnormal exam TECHNIQUE: XR Chest 1 View COMPARISON: 02.08.22 FINDINGS: There is no demonstrated pleural abnormality. There are multiple metallic clips in the right axilla. This is consistent for a prior axillary dissection. There are mastectomy changes noted. Normal size heart. Normal mediastinum and janet. Normal visualized pulmonary arteries. Normal visualized aortic arch and descending thoracic aorta. Normal visualized thoracic spine. Normal visualized ribs, clavicles, and shoulders. There is no demonstrated abnormality of the visualized soft tissue structures of the upper abdomen. RAD/Chest 1 View (Portable) IMPRESSION: There are no acute findings. Electronically Signed: Gino Lozano MD at 14:52 EST ,
[2022-02-11] MEDS: MELATONIN 10 MG TABLET PO (21:56)
[2022-02-12 02:35] VITALS: BP 150/82; PULSE 76; RESP 18; TEMP 36.6; O2SAT 96
[2022-02-12] MEDS: 0.9% Saline Lock 10 ML Syringe IV ×2 (05:42→13:21)
[2022-02-12 09:01] VITALS: BP 127/78; PULSE 81; RESP 18; TEMP 36.8; O2SAT 94
[2022-02-12] MEDS: Tamoxifen 10 MG Tablet 20 MG PO (09:06)
[2022-02-12] MEDS: Ensure Plus High Protein 120 ML LIQUID PO ×2 (09:06→11:57)
[2022-02-12] MEDS: guaiFENesin 1,200 MG Tablet 1200 MG PO (09:06)
[2022-02-12] MEDS: Citalopram 20 MG Tablet PO (09:06)
[2022-02-12] MEDS: Oseltamivir Phosphate 75 MG Capsule PO (09:06)
[2022-02-12] MEDS: Folic Acid 1 MG Tablet PO (09:06)
[2022-02-12] MEDS: Enoxaparin 40 MG/0.4 ML Syringe SC (09:07)
[2022-02-12 10:19] VITALS: O2SAT 87; O2SAT 89; O2SAT 93
[2022-02-12] MEDS: Ipratropium/Albuterol Sulfate 3 ML AMPUL.NEB INHALATION ×2 (10:37→14:52)
[2022-02-12 10:38] VITALS: PULSE 75; RESP 16; O2SAT 92
--- NOTE | 2022-02-12 11:40 | DCINST_ITS ---
Discharge Instructions Diet Discharge Diet: No restrictions Activity Discharge Activity: Return to Normal Activity Follow Up Care Test Results: Test results from this visit will be discussed in further detail at your follow- up appointment, if applicable. Discharge Plan Admission Admit Date/Time: 02/08/22 18:06 Primary Reason for Your Visit: Hypoxia/acute COPD exacerbation/acute influenza A Attending Provider: Carline Carey Primary Care Provider: Estrellita Bear Consulting Providers: Angela Bell Instructions Forms: Work Excuse, Work / School Excuse Additional Instructions / Restrictions: You are being discharged with oxygen. Continue to use your oxygen all the time. Continue to use your incentive spirometer. Continue to remain active and eat healthy.Be careful of going near open flames whilst on oxygen. Complete your prednisone taper as prescribed. Follow-up with pulmonology and your primary care doctor to have your oxygen reevaluated. Discharge Orders/Prescriptions Prescriptions: New oseltamivir 75 mg Capsule 75 mg PO BID 1 Days Qty: 3 0RF Rx Instructions: Last dose is 02/13/22 morning Mucus Relief ER 1,200 mg Tablet Extended Release 12hr 1,200 mg PO BID 7 Days Qty: 14 0RF prednisone 10 mg tablet See Taper PO DAILY Qty: 30 0RF Taper: Prednisone Taper 40 mg WITH BREAKFAST for 3 Days and 0 Hour 30 mg WITH BREAKFAST for 3 Days and 0 Hour 20 mg WITH BREAKFAST for 3 Days and 0 Hour 10 mg WITH BREAKFAST for 3 Days and 0 Hour Continued melatonin 3 mg tablet 3 mg PO HS PRN (Reason: Insomnia) loperamide 2 mg capsule 2 mg PO Q1-4H PRN (Reason: Diarrhea) folic acid 1 mg tablet 1 mg PO DAILY methotrexate sodium 2.5 mg tablet 8 mg PO QWEEK Stelara 90 mg/mL syringe 90 mg SC Q8W albuterol sulfate 90 mcg/actuation HFA aerosol inhaler 2 puff INHALATION Q4H PRN (Reason: cough) Qty: 1 3RF Rx Instructions: administer with spacer cholecalciferol (vitamin D3) 10 mcg (400 unit) capsule 10 mcg PO DAILY cyclobenzaprine 5 mg tablet 5 mg PO QHS PRN (Reason: Muscle Spasm) citalopram 10 mg tablet 20 mg PO DAILY Label Comments: depression/stimulate appetite tamoxifen 20 mg tablet See Rx Instructions .ROUTE .COMPLEX Rx Instructions: 1 tablet daily Discontinued prednisone 20 mg tablet 5 mg PO DAILY PRN (Reason: ARTHRITIS) Label Comments: prn prednisone 10 mg tablet 10 mg PO DIRECTED Qty: 30 0RF Rx Instructions: 4 tablets daily for 3 days, then 3 tablets daily for 3 days, then 2 tablets daily for 3 days, then 1 tablet daily for 3 days amoxicillin-pot clavulanate 875-125 mg tablet 1 tab PO BID Qty: 20 0RF Referrals / Follow Up: Dixon Juares DO [Med Staff - Active Staff] - Within 1 Month Estrellita Bear DO [Primary Care Provider] - Within 1 Week Disposition Disposition (needs filled in before D/C Order can be placed): Home, Self Care
--- NOTE | 2022-02-12 11:47 | PCM.DC.SUM ---
Providers Date of Admission: 02/08/22 Date of Discharge: 02/12/22 Primary Care Physician: Dr. Estrellita Bear DO Reason For Visit: HYPOXIA Diagnosis Discharge Diagnosis (1) Acute respiratory failure with hypoxia: Status: Acute Code(s): J96.01 - Acute respiratory failure with hypoxia (2) Left lower lobe pneumonia: Status: Acute Code(s): J18.9 - Pneumonia, unspecified organism (3) Acute bronchospasm: Status: Acute Code(s): J98.01 - Acute bronchospasm (4) Hypokalemia: Status: Acute Code(s): E87.6 - Hypokalemia (5) Hyperglycemia: Status: Acute Code(s): R73.9 - Hyperglycemia, unspecified Plan 1. Acute hypoxic respiratory failure secondary to acute influenza A 2. Hypokalemia 3. History of DVT 4. Partial small bowel obstruction 5. Breast CA 6. Crohn's disease 7. Rheumatoid arthritis 8. Depression Medications at Discharge Home Medications citalopram 10 mg tablet 20 mg PO DAILY 06/18/17 loperamide 2 mg capsule 2 mg PO Q1-4H PRN Diarrhea 06/18/17 melatonin 3 mg tablet 3 mg PO HS PRN Insomnia 06/18/17 folic acid 1 mg tablet 1 mg PO DAILY 02/08/18 methotrexate sodium 2.5 mg tablet 8 mg PO QWEEK 02/08/18 ustekinumab 90 mg/mL subcutaneous syringe (Stelara) 90 mg subcut Q8W 02/08/18 albuterol sulfate 90 mcg/actuation aerosol inhaler 2 puff inhalation Q4H PRN cough #1 device 11/23/18 cholecalciferol (vitamin D3) 10 mcg (400 unit) capsule 10 mcg PO DAILY 11/19/20 cyclobenzaprine 5 mg tablet 5 mg PO QHS PRN Muscle Spasm 11/05/21 tamoxifen 20 mg tablet See Rx Instructions .Route .COMPLEX Check with primary doctor 02/08/22 guaifenesin 1,200 mg tablet, extended release 12 hr (Mucus Relief ER) 1,200 mg PO BID 7 days #14 tabs 02/12/22 oseltamivir 75 mg capsule 75 mg PO BID 1 day #3 caps 02/12/22 prednisone 10 mg tablet See Taper PO DAILY #30 tabs 02/12/22 Hospital Course Operations None Procedures None Summary of Care Provided Minutes Spent on Discharge: 35 Hospital Course: 61-year-old female with past medical history of asthma who comes in with progressive shortness of breath and hypoxia. Patient was tested for flu, RSV and COVID in the outpatient in urgent care and placed on Augmentin. Her symptoms worsen and she was saturating 87% on room air. She presented to the emergency room. She did have sick contact with her grandchildren. Her respiratory panel came back positive for acute influenza A. Patient was admitted to the [facility] floor and managed on breathing treatments, Solu-Medrol, Tamiflu. Patient did remain on 2-3 L of oxygen. She was evaluated for home oxygen and qualified for oxygen with 2L/min with exertion. She will complete her Tamiflu on 3 morning. He was also discharged on a prednisone taper. She will follow-up with pulmonology in the outpatient within 2 weeks. Patient will need to follow-up with her primary care doctor within a week to have oxygen reevaluated. Physical Exam Narrative General: Alert, Oriented x3, Cooperative, on 2 L of oxygen HEENT: Atraumatic, PERRLA, EOMI, Normocephalic Oral: Moist Mucosa Neck: Supple Lungs: Diminished to auscultation, coarse rales in left lung bases, wheezes+ Cardiovascular: Regular rate, Regular Rhythm, Normal S1, Normal S2, No murmurs Abdomen: Bowel Sounds Present, Soft, Non Tender, Non-Distended, No Hepato-splenomegaly Extremities: No edema Skin: No rashes Neurological: Cranial nerves II-XII grossly intact, Neuro grossly intact Psych/Mental Status: Normal Affect, Appropriate Weight / BMI Weight Weight: 58.9 kg Body Mass Index (BMI) 23.7 ABG / Lab / Microbiology Data Result Diagrams: 02/11/22 05:55 02/11/22 05:55 Microbiology: Microbiology 02/11/22 14:30 Sputum, Expectorated/Coughed Gram Stain - Final 02/11/22 14:30 Sputum, Expectorated/Coughed Respiratory Culture - Preliminary Appears to be normal respiratory reji. Further studies to follow. 02/08/22 17:15 Blood Culture (Wb) - Anticubital Left Blood Culture - Preliminary No growth in 48 hours. 02/08/22 16:35 Blood Culture (Wb) - Left Wrist Blood Culture - Preliminary No growth in 48 hours. 02/08/22 16:30 Urine, Clean Catch Urine Culture - Final Culture exhibits no growth. 02/08/22 18:23 Mucosa - Nose Respiratory Panel (PCR) - Final 02/08/22 18:23 Nasal Secretion SARS-CoV-2 & FLU Antigen (Rapid) - Final Influenzae A Radiography Diagnostic Testing: Radiology Impression Chest X-Ray 02/11/22 14:40 IMPRESSION: There are no acute findings. Electronically Signed: Gino Lozano MD at 14:52 EST Reading Location ID and State: [facility] / [place] , Service support , D/C Instructions Discharge Diet: No restrictions Meaningful Use Info Meaningful Use Diagnoses (Choose all that apply): None applicable Discharge Plan Admission Admit Date/Time: 02/08/22 18:06 Primary Reason for Your Visit: Hypoxia/acute COPD exacerbation/acute influenza A Attending Provider: Carline Carey Primary Care Provider: Estrellita Bear Consulting Providers: Angela Bell Instructions Forms: Work Excuse, Work / School Excuse Additional Instructions / Restrictions: You are being discharged with oxygen. Continue to use your oxygen all the time. Continue to use your incentive spirometer. Continue to remain active and eat healthy.Be careful of going near open flames whilst on oxygen. Complete your prednisone taper as prescribed. Follow-up with pulmonology and your primary care doctor to have your oxygen reevaluated. Discharge Orders/Prescriptions Prescriptions: New oseltamivir 75 mg Capsule 75 mg PO BID 1 Days Qty: 3 0RF Rx Instructions: Last dose is 02/13/22 morning Mucus Relief ER 1,200 mg Tablet Extended Release 12hr 1,200 mg PO BID 7 Days Qty: 14 0RF prednisone 10 mg tablet See Taper PO DAILY Qty: 30 0RF Taper: Prednisone Taper 40 mg WITH BREAKFAST for 3 Days and 0 Hour 30 mg WITH BREAKFAST for 3 Days and 0 Hour 20 mg WITH BREAKFAST for 3 Days and 0 Hour 10 mg WITH BREAKFAST for 3 Days and 0 Hour Continued melatonin 3 mg tablet 3 mg PO HS PRN (Reason: Insomnia) loperamide 2 mg capsule 2 mg PO Q1-4H PRN (Reason: Diarrhea) folic acid 1 mg tablet 1 mg PO DAILY methotrexate sodium 2.5 mg tablet 8 mg PO QWEEK Stelara 90 mg/mL syringe 90 mg SC Q8W albuterol sulfate 90 mcg/actuation HFA aerosol inhaler 2 puff INHALATION Q4H PRN (Reason: cough) Qty: 1 3RF Rx Instructions: administer with spacer cholecalciferol (vitamin D3) 10 mcg (400 unit) capsule 10 mcg PO DAILY cyclobenzaprine 5 mg tablet 5 mg PO QHS PRN (Reason: Muscle Spasm) citalopram 10 mg tablet 20 mg PO DAILY Label Comments: depression/stimulate appetite tamoxifen 20 mg tablet See Rx Instructions .ROUTE .COMPLEX Rx Instructions: 1 tablet daily Discontinued prednisone 20 mg tablet 5 mg PO DAILY PRN (Reason: ARTHRITIS) Label Comments: prn prednisone 10 mg tablet 10 mg PO DIRECTED Qty: 30 0RF Rx Instructions: 4 tablets daily for 3 days, then 3 tablets daily for 3 days, then 2 tablets daily for 3 days, then 1 tablet daily for 3 days amoxicillin-pot clavulanate 875-125 mg tablet 1 tab PO BID Qty: 20 0RF Referrals / Follow Up: Dixon Juares DO [Med Staff - Active Staff] - Within 1 Month Estrellita Bear DO [Primary Care Provider] - 02/18/22 1:00 pm Disposition Disposition (needs filled in before D/C Order can be placed): Home, Self Care Charges/Coding Visit Charges Inpatient E&M: 02838 Disch Hosp >30min
--- NOTE | 2022-02-12 12:05 | CASEMGMT ---
MERLYN MCKNIGHT note: Pt discharging today and qualifies for O2 @ 2 l/m w/exertion only. Script obtained from Dr Carey and sent to [employer] via [employer]. [place] to [facility] and she was made aware. Sophia GASCA RN CM
[2022-02-12 13:27] VITALS: BP 121/74; PULSE 80; RESP 18; TEMP 36.8; O2SAT 93
[2022-02-12 14:52] VITALS: PULSE 82; RESP 16
== END 2022-02-12 15:28 | disposition home or self-care (01) | DRG 193 ==
LOC: ED 18:13 → MS3 02-10 07:11
PROVIDERS: Admitting Provider Internal Medicine; Emergency Provider Emergency Medicine; Visit Provider Internal Medicine
DX: J10.00 Influenza due to other identified influenza virus with unspecified type of pneumonia (principal); J96.01 Acute respiratory failure with hypoxia; K50.90 Crohn's disease, unspecified, without complications; M06.9 Rheumatoid arthritis, unspecified; J18.9 Pneumonia, unspecified organism; J98.01 Acute bronchospasm; E87.6 Hypokalemia; Z20.822 Contact with and (suspected) exposure to COVID-19; R73.9 Hyperglycemia, unspecified; F32.A Depression, unspecified; Z79.810 Long term (current) use of selective estrogen receptor modulators (SERMs); Z79.52 Long term (current) use of systemic steroids; Z79.899 Other long term (current) drug therapy; Z85.3 Personal history of malignant neoplasm of breast; Z87.891 Personal history of nicotine dependence
CPT/HCPCS: 36415; 71045; 71046; 80048; 80053; 83036; 83605; 83735; 84100; 84484; 85025; 85610; 85730; 87040; 87070; 87086; 87205; 87428; 87633; 93005; 94640; 94667; 94668; 97802; 99251; 99252; 99285; J7030; A4216; G0463; J0696; J8610

== ENCOUNTER → 2022-02-18 | Outpatient (CLI) | payer OTHER, SELFPAY ==
[2020-12-31 07:49] VITALS: BMI 25.1
[2022-02-18 14:34] LABS: ALB/GLOB Ratio 0.9 RATIO (0.9-2.4); AST(SGOT) 17 U/L (15-37); Alanine Aminotransfer ALT/SGPT 28 U/L (13-56); Albumin, Serum 3.4 g/dL (3.2-5.0); Alkaline Phosphatase 57 U/L (45-117); Anion Gap 8 (5-15); BUN 28 mg/dL (7-18); BUN/Creat Ratio 35.3 RATIO (10-20); Calcium,Total 8.7 mg/dL (8.5-10.1); Chloride 103 mmol/L (98-107); Creatinine, Serum 0.79 mg/dL (0.55-1.02); EST Glomerular Filtration Rate 78 mL/min (>60); Est Glom Filt Rate - Afr Amer 95 mL/min (>60); Globulin 3.6 g/dL (2.2-4.2); Glucose 116 mg/dL (74-106); Potassium 4.3 mmol/L (3.5-5.1); Sodium Level 138 mmol/L (136-145)
== END | disposition home or self-care (01) ==
LOC: PAVLAB 13:54
DX: E87.6 Hypokalemia (principal)
CPT/HCPCS: 36415; 80053

== ENCOUNTER → 2022-07-18 | Outpatient (CLI) | payer OTHER, SELFPAY ==
[2020-12-31 07:49] VITALS: BMI 25.1
--- NOTE | 2022-07-18 11:52 | BI_ITS ---
MAMMOGRAPHY - BILATERAL SCREENING REASON FOR EXAM: Female, 62 years old. Routine annual screening examination. PERTINENT HISTORY: Personal history of breast cancer. Prior right lumpectomy with radiation. Mother with breast cancer. TECHNIQUE: Digital bilateral breast eric (3D mammographic acquisition) in the CC and MLO projections. 2-D mediolateral oblique (MLO) and craniocaudad (CC) views of both breasts were obtained. CAD: Full Field Digital Mammography with Computer Added Detection was performed. COMPARISON: Comparison is made with prior study dated July 12, 2021 and July 07, 2019. FINDINGS: Breast Composition: There are scattered areas of fibroglandular density. There are no dominant masses or suspicious calcifications. Once again, the patient is status post lumpectomy in the deep upper lateral right breast with resultant postoperative scarring and deformity. Surgical clips are seen in the right axilla. Stable fat-containing left axillary lymph nodes. No other significant abnormalities are identified. There has been no significant change since the prior study. BI/SCRN MAMM (CAD)W/ERIC BILAT IMPRESSION: Stable bilateral screening mammogram. Yearly follow-up mammogram recommended. (A) ASSESSMENT CATEGORY: BIRADS Category 2: Benign. A letter regarding these results will be sent to the patient by the facility within 30 days. Approximately 10% of breast cancers are not detected by mammography. A normal mammogram should not delay biopsy of a clinically suspicious abnormality. [id number] Electronically Signed: Bishop Pitts MD at 13:43 EDT ,
== END | disposition home or self-care (01) ==
LOC: OPBI 11:51
PROVIDERS: Referring Provider Internal Medicine Medical Oncology; Visit Provider Internal Medicine Medical Oncology
DX: Z12.31 Encounter for screening mammogram for malignant neoplasm of breast (principal); Z85.3 Personal history of malignant neoplasm of breast; Z80.3 Family history of malignant neoplasm of breast
CPT/HCPCS: 77063; 77067

== ENCOUNTER → 2022-11-07 | Outpatient (CLI) | payer OTHER, SELFPAY ==
[2020-12-31 07:49] VITALS: BMI 25.1
[2022-11-07 10:54] LABS: Erythrocyte Sedimentation Rate 4 mm/hr (0-30)
[2022-11-07 10:56] LABS: Absolute Lymphocyte Count 1.86 X10^3/uL (0.83-4.51); Absolute Neutrophil Count 6.4 X10^3/uL (2.0-7.7); Basophil# 0.03 X10^3/uL; Basophil% 0.3 % (0-1); Eosinophil# 0.09 X10^3/uL; Hematocrit 40.4 % (37-47); Hemoglobin 12.8 g/dL (12.0-15.0); Lymphocyte # 1.86 X10^3/ul (0.83-4.51); Mean Corp Hgb Conc 31.7 g/dL (32-36); Mean Corpuscular Hgb 28.9 pg (27.0-32.0); Mean Corpuscular Volume 91.2 fL (81-99); Mean Platelet Vol. 9.3 fl (6.2-12.0); Monocyte# 0.89 X10^3/uL; Monocyte% 9.6 % (0-10); NRBC Flagged by Analyzer 0 % (0-5); Neutrophil % 68.8 % (47-70); Platelet Count 289 K/mm3 (150-450); RBC Distribution Width CV 13.8 % (11.6-14.6); Red Blood Count 4.43 M/mm3 (4.2-5.4); White Blood Count 9.3 K/mm3 (4.4-11.0)
[2022-11-07 11:11] LABS: ALB/GLOB Ratio 0.9 RATIO (0.9-2.4); AST(SGOT) 14 U/L (15-37); Alanine Aminotransfer ALT/SGPT 22 U/L (13-56); Albumin, Serum 3.2 g/dL (3.2-5.0); Alkaline Phosphatase 84 U/L (45-117); Anion Gap 4 (5-15); BUN 14 mg/dL (7-18); BUN/Creat Ratio 26.2 RATIO (10-20); CRP 7.88 mg/L (0.0-3.0); Calcium,Total 8.3 mg/dL (8.5-10.1); Chloride 108 mmol/L (98-107); Creatinine, Serum 0.53 mg/dL (0.55-1.02); EST Glomerular Filtration Rate 123 mL/min (>60); Est Glom Filt Rate - Afr Amer 149 mL/min (>60); Globulin 3.4 g/dL (2.2-4.2); Glucose 92 mg/dL (74-106); LDH 131 U/L (84-246); Potassium 4.1 mmol/L (3.5-5.1); Protein, Total 6.6 g/dL (6.4-8.2); Sodium Level 139 mmol/L (136-145)
== END | disposition home or self-care (01) ==
LOC: PAVLAB 10:19
PROVIDERS: Internal Medicine Medical Oncology
DX: M05.79 Rheumatoid arthritis with rheumatoid factor of multiple sites without organ or systems involvement (principal); Z79.899 Other long term (current) drug therapy
CPT/HCPCS: 36415; 80053; 82248; 83615; 85025; 85652; 86140

== ENCOUNTER → 2022-12-05 | Outpatient (CLI) | payer OTHER, SELFPAY ==
[2020-12-31 07:49] VITALS: BMI 25.1
[2022-12-05 09:53] LABS: Cholesterol 147 mg/dL (200); High Density Lipoprotein 44 mg/dL; Thyroid Stim Hormone (TSH) 1.85 uIU/mL (0.358-3.74); Triglycerides 178 mg/dL; Very Low Density Lipoprotein 36 mg/dL (5-40)
[2022-12-05 09:55] LABS: Vitamin B12 296 pg/mL (211-911); Vitamin D,25 Hydroxy 40.9 ng/mL
[2022-12-08 20:07] LABS: Calprotectin, Stool 70 ug/g (0-120)
== END | disposition home or self-care (01) ==
DX: E53.8 Deficiency of other specified B group vitamins (principal); K50.90 Crohn's disease, unspecified, without complications
CPT/HCPCS: 36415; 80061; 82306; 82607; 83993; 84443

== ENCOUNTER → 2022-12-29 | Outpatient (CLI) | payer OTHER, SELFPAY ==
[2020-12-31 07:49] VITALS: BMI 25.1
--- NOTE | 2022-12-29 18:30 | CT_ITS ---
EXAM: CT ABDOMEN AND PELVIS WITH INTRAVENOUS CONTRAST CLINICAL INDICATION: Chron''s disease -- Enterography TECHNIQUE: Helically acquired images were obtained of the abdomen and pelvis with intravenous contrast. Enterography with negative oral contrast. This CT exam was performed using one or more of the following dose reduction techniques: automated exposure control, adjustment of the mA and/or kV according to patient size, and/or use of iterative reconstruction technique. CONTRAST: IV 100mL [id number]-300 COMPARISON: CT chest, 08/01/2019 FINDINGS: LOWER THORAX: No significant abnormality. Lung bases are clear. No cardiomegaly. No significant pericardial effusion. ABDOMEN: LIVER: No significant abnormality. Homogeneous. No focal mass. GALLBLADDER AND BILE DUCTS: Cholelithiasis without evidence of acute cholecystitis. No intra- or extrahepatic biliary ductal dilation. PANCREAS: No significant abnormality. No focal cystic or solid mass. SPLEEN: No significant abnormality. Normal size without focal cystic or solid mass. ADRENALS: No significant abnormality. No nodules. KIDNEYS AND URETERS: No significant abnormality. Normal renal size and position. No hydronephrosis. STOMACH AND BOWEL: Evidence of prior cecal resection with enterocolonic anastomosis. Wall thickening of the distal small bowel just proximal to the enterocolonic anastomosis. Associated comblike edema within the adjacent mesentery. No stomach or bowel distention. PELVIS: APPENDIX: No evidence of acute appendicitis. BLADDER: No significant abnormality. REPRODUCTIVE: Status post hysterectomy. ABDOMEN and PELVIS: INTRAPERITONEAL SPACE: No significant abnormality. No acute mesenteric inflammation, free air, or free fluid is otherwise identified. BONES/JOINTS: Degenerative changes in the spine. No suspicious lytic or blastic abnormality. SOFT TISSUES: No significant abnormality. No discrete abdominal or pelvic wall hernia. VASCULATURE: Trace atherosclerosis of the aorta and its branch vessels. Abdominal aorta is non-dilated. LYMPH NODES: No significant abnormality. No enlarged lymph nodes. CT/Abdomen/Pelvis WITH Contrast IMPRESSION: 1. Wall thickening of the distal small bowel just proximal to the enterocolonic anastomosis. Associated comblike edema within the adjacent mesentery. This is likely focal inflammation of the distal small bowel. 2. Cholelithiasis without evidence of acute cholecystitis. Electronically Signed: Jarred Skaggs DO at 20:19 EST ,
[2022-12-29 18:49] LABS: CREATININE FINGERSTICK < 0.9 mg/dL (0.55-1.02); EGFR FINGERSTICK > 60.0000 mL/min (>60)
== END | disposition home or self-care (01) ==
LOC: CT 17:37
PROVIDERS: Visit Provider Internal Medicine Gastroenterology
DX: K50.90 Crohn's disease, unspecified, without complications (principal)
CPT/HCPCS: 74177; Q9967

== ENCOUNTER → 2023-01-30 | Outpatient (CLI) | payer OTHER, SELFPAY ==
[2020-12-31 07:49] VITALS: BMI 25.1
[2023-01-30 12:26] LABS: Absolute Lymphocyte Count 1.49 X10^3/uL (0.83-4.51); Absolute Neutrophil Count 3.7 X10^3/uL (2.0-7.7); Basophil# 0.03 X10^3/uL; Basophil% 0.5 % (0-1); Eosinophil# 0.09 X10^3/uL; Eosinophils% 1.5 % (0-5); Hematocrit 40.5 % (37-47); Hemoglobin 12.6 g/dL (12.0-15.0); Lymphocyte # 1.49 X10^3/ul (0.83-4.51); Lymphocyte % 24.6 % (19-41); Mean Corp Hgb Conc 31.1 g/dL (32-36); Mean Corpuscular Hgb 27.7 pg (27.0-32.0); Mean Platelet Vol. 8.8 fl (6.2-12.0); Monocyte# 0.75 X10^3/uL; Monocyte% 12.4 % (0-10); NRBC Flagged by Analyzer 0 % (0-5); Neutrophil # 3.66 X10^3/uL (2.7-7.7); Neutrophil % 60.5 % (47-70); Platelet Count 277 K/mm3 (150-450); RBC Distribution Width CV 13.6 % (11.6-14.6); Red Blood Count 4.55 M/mm3 (4.2-5.4); White Blood Count 6.1 K/mm3 (4.4-11.0)
[2023-01-30 12:30] LABS: Erythrocyte Sedimentation Rate 3 mm/hr (0-30)
[2023-01-30 12:47] LABS: AST(SGOT) 19 U/L (15-37); Alanine Aminotransfer ALT/SGPT 23 U/L (13-56); Alkaline Phosphatase 91 U/L (45-117); Bilirubin, Direct 0.12 mg/dL (0.00-0.30); Creatinine, Serum 0.48 mg/dL (0.55-1.02); EST Glomerular Filtration Rate 138 mL/min (>60); Est Glom Filt Rate - Afr Amer 167 mL/min (>60); Globulin 4.2 g/dL (2.2-4.2); Protein, Total 7.2 g/dL (6.4-8.2)
== END | disposition home or self-care (01) ==
DX: M05.79 Rheumatoid arthritis with rheumatoid factor of multiple sites without organ or systems involvement (principal); Z79.899 Other long term (current) drug therapy
CPT/HCPCS: 36415; 80076; 82565; 85025; 85652; 86140

== ENCOUNTER → 2023-05-13 | Outpatient (CLI) | payer OTHER, SELFPAY ==
[2020-12-31 07:49] VITALS: BMI 25.1
[2023-05-13 11:41] LABS: Absolute Lymphocyte Count 2.36 X10^3/uL (0.83-4.51); Absolute Neutrophil Count 6.1 X10^3/uL (2.0-7.7); Basophil# 0.04 X10^3/uL; Basophil% 0.4 % (0-1); Hematocrit 37.6 % (37-47); Lymphocyte # 2.36 X10^3/ul (0.83-4.51); Lymphocyte % 24.8 % (19-41); Mean Corp Hgb Conc 31.9 g/dL (32-36); Mean Corpuscular Hgb 27.2 pg (27.0-32.0); Mean Corpuscular Volume 85.3 fL (81-99); Mean Platelet Vol. 8.9 fl (6.2-12.0); Monocyte# 0.87 X10^3/uL; Monocyte% 9.1 % (0-10); NRBC Flagged by Analyzer 0 % (0-5); Neutrophil % 64.1 % (47-70); Platelet Count 299 K/mm3 (150-450); RBC Distribution Width CV 15.1 % (11.6-14.6); Red Blood Count 4.41 M/mm3 (4.2-5.4); White Blood Count 9.5 K/mm3 (4.4-11.0)
[2023-05-13 12:20] LABS: AST(SGOT) 21 U/L (15-37); Alanine Aminotransfer ALT/SGPT 22 U/L (13-56); Albumin, Serum 3.2 g/dL (3.2-5.0); Alkaline Phosphatase 85 U/L (45-117); Bilirubin, Direct < 0.05 mg/dL (0.00-0.30); Creatinine, Serum 0.56 mg/dL (0.55-1.02); EST Glomerular Filtration Rate 117 mL/min (>60); Est Glom Filt Rate - Afr Amer 142 mL/min (>60); Protein, Total 7.2 g/dL (6.4-8.2)
[2023-05-13 12:43] LABS: Erythrocyte Sedimentation Rate 21 mm/hr (0-30)
== END | disposition home or self-care (01) ==
LOC: PAVLAB 11:05
DX: M05.79 Rheumatoid arthritis with rheumatoid factor of multiple sites without organ or systems involvement (principal); Z79.899 Other long term (current) drug therapy
CPT/HCPCS: 36415; 80076; 82565; 85025; 85652; 86140

== ENCOUNTER → 2023-05-29 | Outpatient (CLI) | payer OTHER, SELFPAY ==
[2020-12-31 07:49] VITALS: BMI 25.1
[2023-05-29 15:27] LABS: Absolute Neutrophil Count 5.1 X10^3/uL (2.0-7.7); Basophil# 0.03 X10^3/uL; Basophil% 0.4 % (0-1); Eosinophil# 0.07 X10^3/uL; Eosinophils% 0.9 % (0-5); Hematocrit 40.2 % (37-47); Hemoglobin 12.5 g/dL (12.0-15.0); Lymphocyte % 25.3 % (19-41); Mean Corp Hgb Conc 31.1 g/dL (32-36); Mean Corpuscular Hgb 27.2 pg (27.0-32.0); Mean Corpuscular Volume 87.4 fL (81-99); Mean Platelet Vol. 9.6 fl (6.2-12.0); Monocyte# 0.66 X10^3/uL; Monocyte% 8.4 % (0-10); NRBC Flagged by Analyzer 0 % (0-5); Neutrophil # 5.11 X10^3/uL (2.7-7.7); Neutrophil % 64.7 % (47-70); Platelet Count 323 K/mm3 (150-450); RBC Distribution Width CV 15.4 % (11.6-14.6); RBC Distribution Width SD 48.9 fl (35.1-43.9); White Blood Count 7.9 K/mm3 (4.4-11.0)
[2023-05-29 15:49] LABS: POSITIVE COUNT NO; POSITIVE DIFFERENTIAL NO; POSITIVE MORPHOLOGY NO
[2023-05-29 16:03] LABS: ALB/GLOB Ratio 0.8 RATIO (0.9-2.4); AST(SGOT) 14 U/L (15-37); Alanine Aminotransfer ALT/SGPT 20 U/L (13-56); Albumin, Serum 3.3 g/dL (3.2-5.0); Alkaline Phosphatase 80 U/L (45-117); Anion Gap 5 (5-15); BUN 16 mg/dL (7-18); BUN/Creat Ratio 27.7 RATIO (10-20); Calcium,Total 9.1 mg/dL (8.5-10.1); Chloride 107 mmol/L (98-107); Creatinine, Serum 0.58 mg/dL (0.55-1.02); EST Glomerular Filtration Rate 112 mL/min (>60); Est Glom Filt Rate - Afr Amer 136 mL/min (>60); Globulin 4.2 g/dL (2.2-4.2); Glucose 155 mg/dL (74-106); Potassium 3.2 mmol/L (3.5-5.1); Protein, Total 7.5 g/dL (6.4-8.2); Sodium Level 139 mmol/L (136-145)
[2023-05-29 16:07] LABS: Erythrocyte Sedimentation Rate 12 mm/hr (0-30)
== END | disposition home or self-care (01) ==
LOC: MTLAB 13:38
PROVIDERS: Referring Provider Nurse Practitioner Family; Visit Provider Nurse Practitioner Family
DX: K50.90 Crohn's disease, unspecified, without complications (principal); R19.7 Diarrhea, unspecified
CPT/HCPCS: 36415; 80053; 85025; 85652; 86140

== ENCOUNTER → 2023-06-08 | Outpatient (CLI) | payer OTHER, SELFPAY ==
[2020-12-31 07:49] VITALS: BMI 25.1
--- NOTE | 2023-06-08 14:30 | US_ITS ---
STUDY: ULTRASOUND BREAST - RIGHT REASON FOR EXAM: Female, 62 years old. Palpable lump in the upper outer aspect of the right breast. TECHNIQUE: Axial and longitudinal images of the RIGHT breast were performed with a high resolution ultrasound transducer. # OF IMAGES: 10 COMPARISON: Comparison is made with prior mammogram done earlier in the day as well as prior sonogram of the right breast dated June 15, 2017. FINDINGS: RIGHT Breast: The axillary region of the right breast was examined with ultrasound. There is evidence of a post lumpectomy scar corresponding to the palpable lump. No suspicious abnormality is seen. US/Breast Limited Unilateral IMPRESSION: The palpable lump in the right axillary region corresponds to the scar from prior lumpectomy. ASSESSMENT CATEGORY: BIRADS Category 2: Benign. A letter regarding these results will be sent to the patient by the facility within 30 days. Electronically Signed: Bishop Pitts MD at 10:55 EDT ,
--- NOTE | 2023-06-08 14:30 | BI_ITS ---
MAMMOGRAPHY - BILATERAL DIAGNOSTIC REASON FOR EXAM: Female, 62 years old. Palpable lump in the region of the right lumpectomy. PERTINENT HISTORY: Personal history of breast cancer. Mother with breast cancer. Prior right lumpectomy. TECHNIQUE: Digital bilateral breast tasia (3D mammographic acquisition) in the CC and MLO projections. 2-D mediolateral oblique (MLO) and craniocaudad (CC) views of both breasts were obtained. CAD: Full Field Digital Mammography with Computer Added Detection was performed. COMPARISON: Comparison is made with prior study dated July 18, 2022 and July 12, 2021. FINDINGS: Breast Composition: There are scattered areas of fibroglandular density. There are no dominant masses or suspicious calcifications. Once again, the patient is status post lumpectomy in the deep upper lateral aspect of the right breast with postoperative scarring. Surgical clips are seen in the right axilla. No other significant abnormalities are identified. There has been no significant change since the prior study. BI/DIAG MAMM W/CAD, BILAT IMPRESSION: Stable bilateral diagnostic mammogram. With the patient''s history of a palpable lump in the upper-outer quadrant of the right breast, targeted correlation with ultrasound recommended. ASSESSMENT CATEGORY: BIRADS Category 0: Incomplete. Need additional imaging evaluation. A letter regarding these results will be sent to the patient by the facility within 30 days. Approximately 10% of breast cancers are not detected by mammography. A normal mammogram should not delay biopsy of a clinically suspicious abnormality. Electronically Signed: Bishop iPtts MD at 15:38 EDT ,
== END | disposition home or self-care (01) ==
PROVIDERS: Referring Provider Nurse Practitioner Family; Visit Provider Nurse Practitioner Family
DX: Z12.39 Encounter for other screening for malignant neoplasm of breast (principal); N64.4 Mastodynia
CPT/HCPCS: 76642; 77062; 77066; G0279

== ENCOUNTER → 2023-06-10 | Outpatient (CLI) | payer OTHER, SELFPAY ==
[2020-12-31 07:49] VITALS: BMI 25.1
[2023-06-10 09:59] LABS: Vitamin B12 266 pg/mL (211-911); Vitamin D,25 Hydroxy 30.6 ng/mL
[2023-06-10 10:03] LABS: Hemoglobin A1c 5.3 % (3.8-5.6)
[2023-06-10 10:05] LABS: Free T3 2.3 pg/mL (2.18-3.98); T4 Free Direct 1.16 ng/dL (0.76-1.46); Thyroid Stim Hormone (TSH) 1.22 uIU/mL (0.358-3.74)
== END | disposition home or self-care (01) ==
PROVIDERS: Referring Provider Internal Medicine Gastroenterology; Visit Provider Internal Medicine Gastroenterology
DX: F33.1 Major depressive disorder, recurrent, moderate (principal); K50.90 Crohn's disease, unspecified, without complications; C50.919 Malignant neoplasm of unspecified site of unspecified female breast; E55.9 Vitamin D deficiency, unspecified; E53.8 Deficiency of other specified B group vitamins
CPT/HCPCS: 36415; 82306; 82607; 83036; 84439; 84443; 84481

== ENCOUNTER → 2023-08-28 | Outpatient (CLI) | payer OTHER, SELFPAY ==
[2020-12-31 07:49] VITALS: BMI 25.1
[2023-08-28 16:06] LABS: Absolute Lymphocyte Count 2.19 X10^3/uL (0.83-4.51); Basophil# 0.03 X10^3/uL; Basophil% 0.3 % (0-1); Eosinophil# 0.11 X10^3/uL; Eosinophils% 1.2 % (0-5); Hematocrit 40.9 % (37-47); Hemoglobin 13.3 g/dL (12.0-15.0); Lymphocyte # 2.19 X10^3/ul (0.83-4.51); Lymphocyte % 24.4 % (19-41); Mean Corp Hgb Conc 32.5 g/dL (32-36); Mean Corpuscular Hgb 29.1 pg (27.0-32.0); Mean Corpuscular Volume 89.5 fL (81-99); Mean Platelet Vol. 9.1 fl (6.2-12.0); Monocyte# 0.64 X10^3/uL; Monocyte% 7.1 % (0-10); NRBC Flagged by Analyzer 0 % (0-5); Neutrophil # 5.98 X10^3/uL (2.7-7.7); Neutrophil % 66.6 % (47-70); Platelet Count 304 K/mm3 (150-450); RBC Distribution Width CV 14.5 % (11.6-14.6); RBC Distribution Width SD 46.5 fl (35.1-43.9); Red Blood Count 4.57 M/mm3 (4.2-5.4)
[2023-08-28 16:11] LABS: Erythrocyte Sedimentation Rate 5 mm/hr (0-30)
[2023-08-28 16:40] LABS: AST(SGOT) 19 U/L (15-37); Alanine Aminotransfer ALT/SGPT 21 U/L (13-56); Albumin, Serum 3.3 g/dL (3.2-5.0); Alkaline Phosphatase 86 U/L (45-117); Bilirubin, Direct 0.05 mg/dL (0.00-0.30); CRP 5.54 mg/L (0.0-3.0); Creatinine, Serum 0.62 mg/dL (0.55-1.02); EST Glomerular Filtration Rate 103 mL/min (>60); Est Glom Filt Rate - Afr Amer 124 mL/min (>60); Globulin 4.1 g/dL (2.2-4.2); Protein, Total 7.4 g/dL (6.4-8.2)
== END | disposition home or self-care (01) ==
LOC: LAB 15:36
PROVIDERS: Referring Provider Internal Medicine Rheumatology; Visit Provider Internal Medicine Rheumatology
DX: M05.79 Rheumatoid arthritis with rheumatoid factor of multiple sites without organ or systems involvement (principal); Z79.899 Other long term (current) drug therapy
CPT/HCPCS: 36415; 80076; 82565; 85025; 85652; 86140

== ENCOUNTER → 2024-01-25 | Outpatient (CLI) | payer OTHER, SELFPAY ==
[2020-12-31 07:49] VITALS: BMI 25.1
== END | disposition home or self-care (01) ==
PROVIDERS: Referring Provider Internal Medicine Gastroenterology; Visit Provider Internal Medicine Gastroenterology
DX: K50.90 Crohn's disease, unspecified, without complications (principal)
CPT/HCPCS: 36415

== ENCOUNTER → 2024-05-16 | Outpatient (CLI) | payer OTHER, SELFPAY ==
[2020-12-31 07:49] VITALS: BMI 25.1
[2024-05-16 13:41] LABS: Absolute Lymphocyte Count 1.89 X10^3/uL (0.83-4.51); Absolute Neutrophil Count 8.9 X10^3/uL (2.0-7.7); Basophil# 0.05 X10^3/uL; Basophil% 0.4 % (0-1); Eosinophil# 0.04 X10^3/uL; Eosinophils% 0.3 % (0-5); Hematocrit 40.4 % (37-47); Hemoglobin 13.3 g/dL (12.0-15.0); Lymphocyte # 1.89 X10^3/ul (0.83-4.51); Lymphocyte % 16.4 % (19-41); Mean Corp Hgb Conc 32.9 g/dL (32-36); Mean Corpuscular Hgb 29.8 pg (27.0-32.0); Mean Corpuscular Volume 90.6 fL (81-99); Mean Platelet Vol. 9.2 fl (6.2-12.0); Monocyte# 0.54 X10^3/uL; Monocyte% 4.7 % (0-10); NRBC Flagged by Analyzer 0 % (0-5); Neutrophil # 8.94 X10^3/uL (2.7-7.7); Neutrophil % 77.7 % (47-70); Platelet Count 280 K/mm3 (150-450); RBC Distribution Width CV 14.3 % (11.6-14.6); RBC Distribution Width SD 46.9 fl (35.1-43.9); Red Blood Count 4.46 M/mm3 (4.2-5.4); White Blood Count 11.5 K/mm3 (4.4-11.0)
[2024-05-16 13:44] LABS: Erythrocyte Sedimentation Rate 5 mm/hr (0-30)
[2024-05-16 14:27] LABS: ALB/GLOB Ratio 1.4 RATIO (0.9-2.4); AST(SGOT) 18 U/L (<=31); Alanine Aminotransfer ALT/SGPT 13 U/L (<=34); Albumin, Serum 4.1 g/dL (3.4-4.8); Alkaline Phosphatase 69 U/L (35-104); Anion Gap 15 (5-15); BUN 19 mg/dL (4-19); BUN/Creat Ratio 31.8 RATIO (10-20); Calcium,Total 8.9 mg/dL (7.6-11.0); Carbon Dioxide 22.8 mmol/L (21.0-32.0); Chloride 102 mmol/L (98-108); Creatinine, Serum 0.61 mg/dL (0.70-1.20); EST Glomerular Filtration Rate 101 (>60); Glucose 165 mg/dL (70-99); Potassium 3.8 mmol/L (3.3-5.1); Sodium Level 139 mmol/L (133-145); Total Bilirubin 0.26 mg/dL (0.00-1.30)
[2024-05-16 14:47] LABS: CRP 6.08 mg/L (0.0-3.0); LDH 173 U/L (84-246)
== END | disposition home or self-care (01) ==
LOC: PAVLAB 12:33
PROVIDERS: Internal Medicine Medical Oncology; Referring Provider Internal Medicine Gastroenterology; Visit Provider Internal Medicine Gastroenterology
DX: K50.90 Crohn's disease, unspecified, without complications (principal)
CPT/HCPCS: 36415; 80053; 83615; 85025; 85652; 86140

== ENCOUNTER → 2024-06-24 | Outpatient (CLI) | payer OTHER, SELFPAY ==
[2020-12-31 07:49] VITALS: BMI 25.1
--- NOTE | 2024-06-24 07:30 | BI_ITS ---
EXAM: SCRN MAMM (CAD)W/ERIC BILAT 06/24/2024 CLINICAL HISTORY: F, Age 64 y/o , SCREENING TECHNIQUE: Bilateral screening digital breast tomosynthesis with 2D and 3D images. Computer aided detection. COMPARISON: Prior exam(s) dated 06/08/2023, 07/18/2022, 07/12/2021. FINDINGS: TISSUE DENSITY: The breast tissue is composed of scattered area of fibroglandular density. Bilateral Breast Mammographic Findings: No significant masses, calcifications or other abnormalities are identified. BI/SCRN MAMM (CAD)W/ERIC BILAT IMPRESSION: Right Breast: BIRADS 1 NEGATIVE. Left Breast: BIRADS 1 NEGATIVE. OVERALL FINAL ASSESSMENT: BIRADS 1 NEGATIVE. RECOMMENDATION: Routine annual follow-up in 1 Year A letter with findings and recommendations will be mailed to the patient. Reading Location: [id number]
== END | disposition home or self-care (01) ==
LOC: OPBI 07:25
PROVIDERS: Referring Provider Internal Medicine Medical Oncology; Visit Provider Internal Medicine Medical Oncology
DX: Z12.31 Encounter for screening mammogram for malignant neoplasm of breast (principal); Z85.3 Personal history of malignant neoplasm of breast
CPT/HCPCS: 77063; 77067

== ENCOUNTER → 2024-07-19 | Outpatient (CLI) | payer OTHER, SELFPAY ==
[2020-12-31 07:49] VITALS: BMI 25.1
--- NOTE | 2024-07-19 06:52 | BD_ITS ---
PROCEDURE: DEXA BONE DENSITY STUDY 07/19/2024 REASON FOR EXAM: SCREENING FOR OSTEOPOROSIS F, age 64 y/o . Postmenopausal. TECHNIQUE: DXA scan of sites with data reported below. REFERENCE LINKS: [facility] Position[facility] COMPARISON: Prior study dated November 21, 2021 FINDINGS: BMD and T-SCORES Lumbar spine: 1.037 g/cm2, T-score 0.2 Levels: L1 through L4 Change from prior: Improvement by 2.5%. Left femoral neck: 0.627 g/cm2, T-score -2.0 Femoral neck comparison data not recommended for monitoring change. Left total hip: 0.769 g/cm2, T-score -1.4 Change from prior: Improvement by 0.7%. Right femoral neck: 0.628 g/cm2, T-score -2.0 Femoral neck comparison data not recommended for monitoring change. Right total hip: 0.741 g/cm2, T-score -1.7 Change from prior: Loss of 6.3%. The World Health Organization has defined the following categories based on bone density: Normal bone density: T-score equal to or greater than -1.0 Osteopenia: T-score between -1.0 and -2.5 Osteoporosis: T-score equal to or less than -2.5 The patient does meet the pharmacological treatment recommendations for prevention of osteoporosis. BD/Dexa Bone Density Study IMPRESSION: OSTEOPENIA. Recommend follow-up as clinically warranted. Reading Location: [place] [id number]
--- OUTSIDE RECORDS SUMMARY | 2024-07-19 06:53 | XMS RPT_ITS | CCD ---
Author Organization [facility] Care Team Providers Care Commercial Lease Administrator Name Role Phone Manoj Still MD Unavailable [phone] [employer] Unavailable Roman Hill Unavailable Chanel Tapia LPN Unavailable Unavailab Sergio James Unavailable Unavailable Sergio Reese Unavailable Unavailable Sergio Reese Unavailable Unavailable Jay Isabel Unavailable Unavailable Connie Bray LPN Unavailable Manoj Still MD Unavailable Dr. Estrellita Bear Primary Care Provider 1(05 08) Dr. Estrellita Bear Referring Provider Dr. Pete Paez Attending Provider [phone] Estrellita Bear Primary Care Provider 1(05 08) Dr. Robb Rodriguez Attending Provider [phone] Dr. Estrellita Bear Referring Provider Roberta GLYCERIN SUPERVISOR, GLYCERIN SUPERVISOR-C Yamini Attending Provider Dr. Estrellita Bear Primary Care Provider 1(05 08) Dr. Estrellita Bear Primary Care Provider 1(05 08) Dr. Estrellita Bear Referring Provider Roberta GLYCERIN SUPERVISOR, GLYCERIN SUPERVISOR-C Yamini Attending Provider Gregoria WARREN, BRIANA Griffith Attending Provider Dr. Leopoldo Merino Emergency Provider [phone] Angela Bell Attending Provider Dr. Angela Bell Admit Provider Dr. Angela Bell Other Provider Dr. Carline Carey Attending Provider Dr. Carline Carey Other Provider Dr. Estrellita Bear Primary Care Provider 1(3 30) Dr. Estrellita Bear Referring Provider Gregoria WARREN, [place] Rodriguez Griffith Attending Provider Dr. Robb Rodriguez Attending Provider BRIANA Hill Attending Provider Dr. Pete Paez Attending Provider Roof GLYCERIN SUPERVISOR, GLYCERIN SUPERVISOR-C Ortiz Craig Attending Provider Dr. Orestes Amezquita Attending Provider MD Danial Solano Attending Provider Dr. Estrellita Bear Primary Care Provider 1(3 30) Dr. Estrellita Bear Referring Provider Roberta GLYCERIN SUPERVISOR, GLYCERIN SUPERVISOR-C Yamini Attending Provider Dr. Estrellita Bear Primary Care Provider 1(3 30) Dr. Estrellita Bear Referring Provider Roberta GLYCERIN SUPERVISOR, GLYCERIN SUPERVISOR-C Yamini Attending Provider Dr. Estrellita Bear Primary Care Provider 1(3 30) Dr. Estrellita Bear Referring Provider Roberta GLYCERIN SUPERVISOR, GLYCERIN SUPERVISOR-C Yamini Attending Provider Dr. Estrellita Bear DO Primary Care Provider Dr. Jay Isabel MD Attending Provider Maame HOLCOMB Dr. Vincent Referring Provider Chema WALLIS, Dr. Estrellita Pisano Referring Provider [phone] Jeannine HOLCOMB, Dr. Freeman Attending Provider Chema WALLIS, Dr. Estrellita Pisano Primary Care Provider Maame HOLCOMB, Dr. Thompson Attending Provider Maame HOLCOMB, Dr. Thompson Referring Provider Chema WALLIS, Dr. Estrellita Pisano Referring Provider [phone] Rodriguez Stern Attending Provider Jeannine HOLCOMB, Dr. Freeman Attending Provider Jeannine HOLCOMB, Dr. Freeman Referring Provider Darin HOLCOMB, Dr. Brenden Sousa Referring Provider Pat HOLCOMB, Dr. Gross Other Provider Maame HOLCOMB, Dr. Thompson Other Provider Chema, Estrellita Pisano Primary Care Unavailable Pete Paez Attending Unavailable Pete Paez Referring Unavailable ChemaEstrellita collado Attending Unavailable Chema, Estrellita Pisano Referring Unavailable Chema, Estrellitarandi Pisano Primary Care Unavailable RobertaYamini Attending Unavailable Roberta, Tyra Referring Unavailable Chema, Estrellita Pisano Primary Care Unavailable Pete Paez Attending Unavailable Brenden Webster Referring Unavailable Renato Stewart Consulting Unavailable Chema, Estrellita Pisano Primary Care Unavailable Jay Isabel Consulting Unavailable Mark Guevara Attending Unavailable Mark Guevara Referring Unavailable Chema, Estrellita Pisano Primary Care Unavailable Jay Isabel Referring Unavailable Chema, Estrellita Pisano Primary Care Unavailable Jay Isabel Attending Unavailable Chema, Estrellita Pisano Primary Care Unavailable Jay Isabel Attending Unavailable Jay Isabel Referring Unavailable Orestes Amezquita Attending Unavailable Chema, Estrellita Pisano Referring Unavailable Chema, Estrellita Pisano Primary Care Unavailable Chema, Estrellita Pisano Primary Care Unavailable Rodriguez Stern Attending Unavailable Chema, Estrellita Pisano Referring Unavailable Roberta, Yamini Attending Unavailable Estrellita Bear Referring Unavailable Estrellita Bear Primary Care Unavailable Pete Paez Attending Unavailable Estrellita Bear Primary Care Unavailable Estrellita Bear Referring Unavailable Medications Current Medications Medication Drug Class(es) Dates Sig (Normalized) Sig (Original) budesonide 3 mg delayed release oral capsule (19 sources) Corticosteroid Start: 01-28-2024 take 3 capsules by mouth once daily Budesonide 3 mg capsule,delayed,ex tend.release Active 9 mg PO daily January 28, 2024 1:00am Start: 03-28-2016 End: 06-18-2017 take 3 capsules by mouth once daily Budesonide 3 MG capsule Discontinued 9 mg PO DAILY March 28, 2016 1:00am June 18, 2017 9:34am Start: 03-28-2016 End: 06-18-2017 take 9 mg by mouth once daily Budesonide Discontinued 9 MG PO DAILY March 28, 2016 1:00am June 18, 2017 9:34am citalopram 10 mg oral tablet (20 sources) Serotonin Reuptake Inhibitor Start: 06-18-2017 take 2 tablets by mouth once daily Citalopram 10 mg tablet Active 20 mg PO DAILY June 18, 2017 9:32am Start: 06-18-2017 take 20 mg by mouth once daily Citalopram Active 20 MG PO DAILY June 18, 2017 9:32am Start: 11-21-2016 CITALOPRAM HYD ROBROMIDE TABS as directed CITALOPRAM HYDROBROMIDE TABS [id number] Chanel Tapia LPN Start: 03-28-2016 End: 06-18-2017 take 1 tablet by mouth once daily Citalopram 10 MG tablet Discontinued 10 mg PO DAILY March 28, 2016 1:00am June 18, 2017 9:34am folic acid 1 mg oral tablet (20 sources) Start: 02-08-2018 take 1 tablet by mouth once daily Folic Acid 1 mg tablet Active 1 mg PO DAILY February 08, 2018 1:00am Start: 11-21-2016 FOLIC ACID CAP S as directed FOLIC ACID CAPS [id number] Chanel Tapia LPN loperamide hydrochloride 2 mg oral capsule (17 sources) Opioid Agonist Start: 06-18-2017 Loperamide 2 m g capsule Active 2 mg PO every 1 to 4 hours as needed for Diarrhea June 18, 2017 12:00am melatonin 3 mg oral tablet (17 sources) Start: 06-18-2017 take 1 tablet by mouth at bedtime as needed Melatonin 3 mg tablet Active 3 mg PO BEDTIME as needed for Insomnia June 18, 2017 12:00am methotrexate 2.5 mg oral tablet (20 sources) Folate Analog Metabolic Inhibitor Start: 01-28-2024 take 8 mg by mouth every week Methotrexate Sodium 2.5 mg tablet Active 8 mg PO EVERY WEEK January 28, 2024 8:46am Start: 02-08-2018 End: 01-28-2024 take 4 tablets by mouth every week Methotrexate Sodium 2.5 mg tablet Discontinued 10 mg PO EVERY WEEK February 08, 2018 1:00am January 28, 2024 8:47am Start: 02-08-2018 take 10 mg by mouth every week Methotrexate Sodium Active 10 MG PO EVERY WEEK February 08, 2018 1:00am Start: 02-08-2018 take 8 mg by mouth every week Methotrexate Sodium Active 8 MG PO EVERY WEEK February 08, 2018 12:00am Start: 11-21-2016 METHOTREXATE T ABS as directed METHOTREXATE SODIUM TABS [id number] Chanel Tapia LPN Start: 11-20-2015 End: 06-18-2017 Methotrexate Sodium 2.5 MG t ablet Discontinued 15 mg PO EVERY WEEK November 20, 2015 12:00am June 18, 2017 9:37am Start: 11-20-2015 End: 06-18-2017 take 15 mg by mouth every week Methotrexate Sodium Dis continued 15 MG PO EVERY WEEK November 20, 2015 12:00am June 18, 2017 9:37am 1 ml ustekinumab 90 mg/ml prefilled syringe (17 sources) Interleukin-12 Antagonist, Interleukin-23 Antagonist Start: 02-08-2018 Ustekinumab (Stelara) 90 mg/mL syringe Active 90 mg SC every 8 weeks February 08, 2018 1:00am Completed/Discontinued Medications Medication Drug Class(es) Dates Sig (Normalized) Sig (Original) adalimumab (12 sources) Tumor Necrosis Factor Flakito Start: 03-31-2010 End: 11-21-2016 HUMIRA LIONEL Tapia LPN Start: 03-31-2010 [facility] Start: 03-31-2010 HUMIRA LIONEL WARREN [id number] 200 actuat albuterol 0.09 mg/actuat metered dose inhaler (20 sources) beta2-Adrenergic Agonist Start: 11-23-2018 End: 01-28-2024 Albuterol Sulfate 90 mcg/actuation HFA aerosol inhaler Discontinued 2 NMA INHALATION Q4H as needed for cough November 23, 2018 7:01am January 28, 2024 8:45am administer with spacer Start: 11-23-2018 take 1 puff(s) by in halation every four hours Albuterol Sulfate Active 2 PUFF INHALATION Q4H November 23, 2018 7:01am administer with spacer Start: 05-11-2018 End: 11-23-2018 take 1 puff(s) by inhalation every four hours Albuterol Sulfate Discontinued 2 PUFF INHALATION Q4H May 11, 2018 6:06am November 23, 2018 6:01am administer with spacer Start: 05-11-2018 End: 11-23-2018 take 1 puff(s) by inhalation every four hours Albuterol Sulfate Discontinued 2 PUFF INHALATION Q4H May 11, 2018 7:06am November 23, 2018 7:01am administer with spacer Start: 08-04-2017 End: 05-11-2018 Albuterol Sulfate 90 mcg/act uation HFA aerosol inhaler Discontinued 2 NMA INHALATION Q4H as needed for cough August 04, 2017 12:00am May 11, 2018 7:07am administer with spacer Start: 08-04-2017 End: 05-11-2018 take 1 puff(s) by inhalation every four hours Albuterol Sulfate Discontinued 2 PUFF INHALATION Q4H August 04, 2017 12:00am May 11, 2018 7:07am administer with spacer Albuterol Sulfate 90 mcg/actuation HFA aerosol inhaler (2 sources) Start: 05-11-2018 End: 11-23-2018 Albuterol Sulfate 90 mcg/actuation HFA aerosol inhaler Discontinued 2 NMA INHALATION Q4H as needed for cough May 11, 2018 7:06November 23, 2018 7:01am administer with spacer amoxicillin 875 mg / clavulanate 125 mg oral tablet (12 sources) Penicillin-class Antibacterial Start: 02-07-2022 End: 02-12-2022 Amoxicillin-Pot Clavulanate 875-125 mg tablet Discontinued 1 {tbl} PO TWICE A DAY February 07, 2022 1:00am February 12, 2022 12:42pm Start: 02-07-2022 End: 02-12-2022 take 1 tablet by mouth twice daily Amoxicillin-Pot Clavulanate Discontinued 1 TABLET PO TWICE A DAY February 07, 2022 1:00am February 12, 2022 12:42pm APIXABAN TABS (20 sources) Factor Xa Inhibitor Start: 11-21-2016 KORY BECKER as directed APIXABAN TABS [id number] Chanel Tapia LPN Start: 11-05-2016 End: 06-18-2017 take 2 tablets by mouth once daily Apixaban 5 MG tablet Discontinued 10 mg PO DAILY November 05, 2016 12:00am June 18, 2017 9:34am Start: 11-05-2016 End: 06-18-2017 take 10 mg by mouth once daily Apixaban Discontinued 1 0 MG PO DAILY November 05, 2016 12:00am June 18, 2017 9:34am azelastine hydrochloride 0.137 mg/actuat / fluticasone propionate 0.05 mg/actuat metered dose nasal spray (17 sources) Corticosteroid, Histamine-1 Receptor Antagonist Start: 12-01-2017 End: 01-07-2018 Azelastine-Fluticasone (Dymista) 137-50 mcg/spray spray,non-aerosol Discontinued 1 NMA INTRANASAL TWICE A DAY December 01, 2017 12:00am January 07, 2018 9:32am administer into each nostril Start: 12-01-2017 End: 01-07-2018 take 1 spray(s) nasal route twice daily azelastine-fluticasone 137 mcg-50 mcg/spray nasal spray Discontinued 1 SPRAY INTRANASAL TWICE A DAY December 01, 2017 12:00am January 07, 2018 9:32am administer into each nostril AZITHROMYCIN (12 sources) Macrolide Antimicrobial Start: 11-21-2016 End: 11-26-2016 ZITHROMAX Z-KATE 250 MG TABS Take 2 pills on day 1 then 1 pill days 2 through 5 AZITHROMYCIN [id number] Roman WARREN Start: 03-31-2010 End: 04-05-2010 ZITHROMAX 250 MG TABS Take t wo (2 ) tablets day one, then one (1) tablet a day for four (4) more days ISREAL [id number] Petra WARREN benzonatate 200 mg oral capsule (3 sources) Non-narcotic Antitussive Start: 11-21-2016 End: 12-01-2016 BENZONATATE 200 MG CAPS Take 1 capsule every 8 hours as needed BENZONATATE [id number] Roman WARREN calcium (3 sources) Phosphate Binder, Calcium Start: 11-21-2016 CALCIUM 500+D TABS as directed CALCIUM CARB-CHOLECALCIFER OL TABS [id number] Chanel Tapia LPN calcium carbonate 1500 mg oral tablet (9 sources) Start: 12-02-2022 End: 01-28-2024 take 1 tablet by mouth once daily Calcium Carbonate (Calcium 600) 600 mg calcium (1,500 mg) tablet Discontinued 600 mg PO DAILY December 02, 2022 12:00am January 28, 2024 8:45am 1 ml certolizumab pegol 200 mg/ml prefilled syringe (20 sources) Start: 11-21-2016 CIMZIA STARTER KIT 6 X 200 MG/ML KIT as directed CERTOLIZUMAB PEGOL [id number] Chanel Tapia LPN Start: 11-22-2015 End: 06-18-2017 inject 400 mg by subcutaneous injection every month Cimzia Discontinued 400 MG SQ EVERY MONTH November 22, 2015 7:27am June 18, 2017 9:35am Start: 11-22-2015 End: 06-18-2017 inject 400 mg by subcutaneous injection every month Cimzia Discontinued 400 mg SQ EVERY MONTH November 22, 2015 12:00am June 18, 2017 9:35am Start: 11-22-2015 End: 06-18-2017 inject 400 mg by subcutaneous injection every month Cimzia Discontinued 400 MG SQ EVERY MONTH November 21, 2015 11:00pm June 18, 2017 8:35am Start: 11-22-2015 End: 06-18-2017 inject 400 mg by subcutaneous injection every month Cimzia Discontinued 400 MG SQ EVERY MONTH November 22, 2015 12:00am June 18, 2017 9:35am cholecalciferol 0.01 mg oral capsule (17 sources) Vitamin D Start: 11-19-2020 End: 01-28-2024 take 1 capsule by mouth once daily Cholecalciferol (Vitamin D3) 10 mcg (400 unit) capsule Discontinued 10 ug PO DAILY November 19, 2020 12:00am January 28, 2024 8:45am cyclobenzaprine hydrochloride 5 mg oral tablet (20 sources) Muscle Relaxant Start: 11-05-2021 End: 01-28-2024 take 1 tablet by mouth at bedtime as needed for muscle spasms Cyclobenzaprine 5 mg tablet Discontinued 5 mg PO AT BEDTIME as needed for Muscle Spasm November 05, 2021 8:11am January 28, 2024 8:46am dexamethasone 6 mg oral tablet (10 sources) Corticosteroid Start: 05-19-2022 End: 12-02-2022 take 1 tablet by mouth once daily Dexamethasone 6 mg tablet Discontinued 6 mg PO DAILY May 19, 2022 12:00am December 02, 2022 8:10am Fluticasone Furoate (20 sources) Corticosteroid Start: 11-20-2017 End: 01-07-2018 take 200 ug by inhalation once daily Fluticasone Furoate (Arnuity Ellipta) 200 mcg/actuation blister with device Discontinued 1 INH INHALATION daily November 20, 2017 2:46pm January 07, 2018 9:58am administer at approximately the same time(s) each day Start: 11-20-2017 End: 01-07-2018 take 200 ug by inhalation once daily Fluticasone Furoate (Arnuity Ellipta) 200 mcg/actuation blister with device Discontinued 1 NMA INHALATION daily November 20, 2017 12:00am January 07, 2018 9:58am administer at approximately the same time(s) each day Start: 11-20-2017 End: 01-07-2018 take 200 ug by inhalation once daily Fluticasone Furoate (Arnuity Ellipta) 200 mcg/actuation blister with device Discontinued 1 INH INHALATION daily November 19, 2017 11:00pm January 07, 2018 8:58am administer at approximately the same time(s) each day Start: 11-20-2017 End: 01-07-2018 take 200 ug by inhalation once daily Fluticasone Furoate (Arnuity Ellipta) 200 mcg/actuation blister with device Discontinued 1 INH INHALATION daily November 20, 2017 12:00am January 07, 2018 9:58am administer at approximately the same time(s) each day Start: 10-13-2017 End: 01-07-2018 Fluticasone Propionate 50 mcg/actuation spray,suspension Discontinued 2 NMA INTRANASAL DAILY October 13, 2017 12:00am January 07, 2018 9:32am Start: 10-13-2017 End: 01-07-2018 Fluticasone Propionate Disco ntinued 2 SPRAY INTRANASAL DAILY October 13, 2017 12:00am January 07, 2018 9:32am 30 actuat fluticasone furoate 0.1 mg/actuat / vilanterol 0.025 mg/actuat dry powder inhaler (20 sources) Corticosteroid, beta2-Adrenergic Agonist Start: 11-15-2018 End: 11-23-2018 Fluticasone Furoate-Vilanterol 1 EACH blister with device Discontinued November 15, 2018 12:00am November 23, 2018 6:59am Start: 01-07-2018 End: 05-11-2018 Fluticasone Furoate-Vilanter ol (Breo Ellipta) 200-25 mcg/dose blister with device Discontinued 1 NMA INHALATION DAILY January 07, 2018 1:00am May 11, 2018 7:07am Start: 01-07-2018 End: 05-11-2018 Fluticasone Furoate-Vilanter ol (Breo Ellipta) 200-25 mcg/dose blister with device Discontinued 1 INH INHALATION DAILY January 07, 2018 1:00am May 11, 2018 7:07am 12 hr guaiFENesin 1200 mg extended release oral tablet (11 sources) Start: 02-12-2022 End: 02-27-2022 take 1 tablet by mouth twice daily, then take 1 tablet by mouth every twelve hours Guaifenesin (Mucus Relief Er) 1,200 mg Tablet Extended Release 12hr Discontinued 1200 mg PO TWICE A DAY 14 February 12, 2022 1:00am February 27, 2022 7:43am L.Acidoph, Paracasei,B. Lactis (15 sources) Start: 11-05-2016 End: 06-18-2017 take 1 capsule by mouth once daily L.Acidoph, Paracasei,B. Lactis Discontinued 1 CAP PO DAILY November 05, 2016 9:45pm June 18, 2017 9:35am Start: 11-05-2016 End: 06-18-2017 take 1 capsule by mouth once daily L.Acidoph, Paracasei,B. Lactis Discontinued 1 CAP PO DAILY November 04, 2016 11:00pm June 18, 2017 8:35am Start: 11-05-2016 End: 06-18-2017 take 1 capsule by mouth once daily L.Acidoph, Paracasei,B. Lactis Discontinued 1 CAP PO DAILY November 05, 2016 12:00am June 18, 2017 9:35am L.Acidoph,Paracasei,B.Animal is 1 EACH capsule (2 sources) Start: 11-05-2016 End: 06-18-2017 take 1 capsule by mouth once daily L.Acidoph,Paracasei,B.Animalis 1 EACH capsule Discontinued 1 NMA PO DAILY November 05, 2016 12:00am June 18, 2017 9:35am MULTIPLE VITAMIN (3 sources) Start: 11-21-2016 MULTIVITAMINS CAPS as direct ed MULTIPLE VITAMIN [id number] Chanel Tapia LPN ONDANSETRON HCL TABS (20 sources) Sero leena n-[address] Start: 11-21-2016 ZOFRAN TABS as directed ONDANSETRON HCL TABS [id number] Chanel Tapia LPN Start: 11-05-2016 End: 06-18-2017 Ondansetron Hcl 8 MG tablet Discontinued 8 mg SL EVERY 8 HOURS NEEDED as needed for Nausea November 05, 2016 12:00am June 18, 2017 9:35am oseltamivir 75 mg oral capsule (20 sources) Neuraminidase Inhibitor Start: 02-12-2022 End: 05-08-2022 take 1 capsule by mouth twice daily Oseltamivir 75 mg Capsule Discontinued 75 mg PO TWICE A DAY 3 February 12, 2022 1:00am May 08, 2022 7:14am Last dose is 02/13/22 morning PANTOPRAZOLE SODIUM TBEC (3 sources) Proton Pump Inhibitor Start: 11-21-2016 PANTOPRAZOLE SODIUM TBEC as directed PANTOPRAZOLE SODIUM TBEC [id number] Chanel Tapia LPN predniSONE 10 mg oral tablet (20 sources) Corticosteroid Start: 02-12-2022 End: 02-27-2022 Prednisone 10 mg tablet Discontinued 0 mg PO DAILY February 12, 2022 1:00am February 27, 2022 7:42am Please contact the information source for Taper Schedule details. Start: 02-07-2022 End: 02-27-2022 take 4 tablets by mouth once daily, then take 3 tablets by mouth once daily, then take 2 tablets by mouth once daily, then take 1 tablet by mouth once daily Prednisone 10 mg tablet Discontinued 10 mg PO DAILY February 12, 2022 1:00am February 27, 2022 7:43am 4 tabs daily for 3 days, then 3 tabs daily for 3 days, then 2 tabs daily for 3 days, then 1 tab daily for 3 days Start: 01-07-2018 End: 02-08-2018 take 2 tablets by mouth once daily Prednisone 20 mg tablet Discontinued 40 mg PO DAILY January 07, 2018 1:00am February 08, 2018 7:48am Start: 01-07-2018 End: 02-08-2018 take 40 mg by mouth once daily Prednisone Discontinued 40 MG PO DAILY January 07, 2018 1:00am February 08, 2018 7:48am Start: 06-18-2017 End: 02-12-2022 take 5 mg by mouth once daily as needed for arthritis Prednisone 20 mg tablet Discontinued 5 mg PO DAILY as needed for ARTHRITIS June 18, 2017 9:35am February 12, 2022 12:42pm Start: 06-18-2017 End: 02-12-2022 take 5 mg by mouth once daily Prednisone Discontinued 5 MG PO DAILY June 18, 2017 9:35am February 12, 2022 12:42pm Start: 11-21-2016 PREDNISONE TAB S as directed PREDNISONE TABS [id number] Chanel Tapia LPN Start: 11-07-2016 End: 06-18-2017 take 2 tablets by mouth once daily at mealtime Prednisone 20 MG tablet Discontinued 40 mg PO DAILY November 07, 2016 12:00am June 18, 2017 9:36am With food Start: 11-07-2016 End: 06-18-2017 take 40 mg by mouth once daily at mealtime Prednisone Discontinued 40 MG PO DAILY November 07, 2016 12:00am June 18, 2017 9:36am With food tamoxifen 20 mg oral tablet (20 sources) Estrogen Agonist/Antagonist Start: 10-20-2017 End: 09-21-2023 take 1 tablet by mouth once daily Tamoxifen 20 mg tablet Discontinued 20 mg PO DAILY August 26, 2022 8:59am June 04, 2023 8:15am CHOLECALCIFEROL TABS (3 sources) Start: 11-21-2016 VITAMIN D TABS as directed CHOLECALCIFEROL TABS [id number] Chanel Tapia LPN Problems Active Problems Problem Classification Problem Date Documented Da te Episodic/Chronic Asthma (20 sources) Cough variant asthma; Translations: [Cough variant asthma] Chronic Cancer of breast (20 sources) Malignant tumor of breast ; Translations: [Malignant neoplasm of unspecified site of right female breast] Onset: 06-30-2024 Chronic Comment on above: 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 Tumor measured 1.8cm, Lymph nodes negative. Stage IA(pT1c pN0 M0). ER/AR positive, Her2 negative by FISH. Grade 3. S/P Lumpectomy and Axillary dissection and adjuvant Radiation therapy. Oncotype DX 27, intermediate risk, declined adjuvant chemotherapy. On Tamoxifen since 10/20/2017.Comes for f/u. No evidence of disease clinically. Cardiac dysrhythmias (1 source) Tachycardia, unspecified; Translations: [Tachycardia, unspecified] Onset: 07-06-2024 Episodic Chronic obstructive pulmonary disease and bronchiectasis (17 sources) Bronchitis; Translations: [Bronchitis, not specified as acute or chronic] 04-13-2018 Episodic Diabetes mellitus without complication (20 sources) Acute hyperglycemia; Translations: [Hyperglycemia, unspecified] Episodic Esophageal disorders (1 source) Esophageal disorders Onset: 01-28-2017 Fluid and electrolyte disorders (20 sources) Hypokalemia; Translations: [Hypokalemia] Episodic Immunizations and screening for infectious disease (20 sources) Contact with or exposure to other viral diseases; Translations: [Lab test negative for COVID-19 virus] 10-18-2020 Episodic Intestinal obstruction without hernia (17 sources) Partial obstruction of intestine; Translations: [Partial intestinal obstruction, unspecified as to cause] 04-13-2018 Episodic Mood disorders (1 source) Mood disorders Onset: 01-28-2017 Nonmalignant breast conditions (5 sources) Mastodynia; Translations: [Pain of right breast] 06-04-2023 Episodic Nutritional deficiencies (1 source) Vitamin D deficiency, unspecified; Translations: [Vitamin D deficiency, unspecified] Onset: 06-30-2024 Chronic Osteoporosis (1 source) Age-related osteoporosis without current pathological fracture; Translations: [Age-related osteoporosis without current pathological fracture] Onset: 07-14-2024 Chronic Other bone disease and musculoskeletal deformities (18 sources) Osteopenia; Translations: [Other specified disorders of bone density and structure, unspecified site] 05-17-2020 Episodic Other bone disease and musculoskeletal deformities (17 sources) Other specified disorders of bone density and structure, unspecified site; Translations: [Disorder of bone and cartilage, unspecified] Episodic Other bone disease and musculoskeletal deformities (2 sources) Other specified disorders of bone density and structure, multiple sites; Translations: [Other specified disorders of bone density and structure, multiple sites] Onset: 07-06-2024 Episodic Other connective tissue disease (10 sources) Foot pain; Translations: [Pain in right foot] 06-27-2022 Episodic Other connective tissue disease (1 source) Pain in right foot; Translations: [Pain in limb] 06-27-2022 Episodic Other gastrointestinal disorders (12 sources) History of Crohns disease; Translations: [Personal history of other diseases of the digestive system] 02-08-2022 Episodic Other gastrointestinal disorders (2 sources) Personal history of other diseases of the digestive system; Translations: [Personal history of unspecified digestive disease] Episodic Other lower respiratory disease (20 sources) Cough; Translations: [Cough] 10-18-2020 Episodic Other lower respiratory disease (18 sources) Multiple nodules of lung; Translations: [Other nonspecific abnormal finding of lung field] 10-21-2018 Episodic Other lower respiratory disease (11 sources) Other nonspecific abnormal finding of lung field; Translations: [Other nonspecific abnormal finding of lung field] Episodic Other nervous system disorders (9 sources) Numbness of upper limb; Translations: [Anesthesia of skin] 12-02-2022 Episodic Other nervous system disorders (3 sources) Anesthesia of skin; Translations: [Disturbance of skin sensation] 12-02-2022 Episodic Other screening for suspected conditions (not mental disorders or infectious disease) (20 sources) Mammography abnormal; Translations: [Other abnormal and inconclusive findings on diagnostic imaging of breast] Onset: 06-28-2024 11-05-2021 Episodic Other upper respiratory disease (12 sources) Acute bronchospasm; Translations: [Acute bronchospasm] 02-08-2022 Episodic Other upper respiratory disease (2 sources) Acute bronchospasm; Translations: [Acute bronchospasm] Episodic Other upper respiratory infections (17 sources) Sinusitis; Translations: [Chronic sinusitis, unspecified] 04-13-2018 Chronic Other upper respiratory infections (20 sources) Acute upper respiratory infection; Translations: [Acute upper respiratory infection, unspecified] 12-31-2020 Episodic Phlebitis; thrombophlebitis and thromboembolism (17 sources) Deep venous thrombosis; Translations: [Acute embolism and thrombosis of unspecified deep veins of unspecified lower extremity] 04-13-2018 Episodic Pneumonia (except that caused by tuberculosis or sexually transmitted disease) (14 sources) Left lower zone pneumonia; Translations: [Pneumonia, unspecified organism] Episodic Regional enteritis and ulcerative colitis (20 sources) Crohn's disease; Translations: [Crohn's disease, unspecified, without complications] Onset: 01-06-2017 03-31-2010 Chronic Residual codes; unclassified (2 sources) Asymptomatic menopausal state; Translations: [Asymptomatic menopausal state] Onset: 07-06-2024 Episodic Residual codes; unclassified (2 sources) Estrogen receptor positive status [ER+]; Translations: [Estrogen receptor positive status [ER+]] Onset: 06-30-2024 Episodic Residual codes; unclassified (1 source) Family history of ischemic heart disease and other diseases of the circulatory system; Translations: [Family history of ischemic heart disease and other diseases of the circulatory system] Onset: 06-30-2024 Episodic Respiratory failure; insufficiency; arrest (adult) (14 sources) Acute respiratory failure; Translations: [Acute respiratory failure with hypoxia] Episodic Rheumatoid arthritis and related disease (20 sources) Rheumatoid arthritis; Translations: [Rheumatoid arthritis, unspecified] Onset: 09-16-2023 04-13-2018 Chronic Unclassified (2 sources) Crohn's disease of small intestine w intestinal obstruction / K50.012(ICD-10) Onset: 01-28-2017 Unclassified (1 source) Rheumatoid arthritis, unspecified / M06.9(ICD-10) Onset: 01-28-2017 Unclassified (1 source) Personal history of other venous thrombosis and embolism / Z86.718(ICD-10) Onset: 01-28-2017 Unclassified (1 source) Personal history of nicotine dependence / Z87.891(ICD-10) Onset: 01-28-2017 Unclassified (1 source) Crohn's disease, unspecified, without complications / K50.90(ICD-10) Onset: 01-06-2017 Unclassified (1 source) Vomiting, unspecified / R11.10(ICD-10) Onset: 01-28-2017 Viral infection (11 sources) Disease caused by 2019-nCoV; Translations: [COVID-19] 05-19-2022 Episodic Past or Other Problems Problem Classification Problem Date Documented Da te Episodic/Chronic Acute bronchitis (12 sources) Acute bronchitis; Translations: [Acute bronchitis, unspecified] Onset: 03-31-2010 Resolved: 04-30-2010 03-31-2010 Episodic Unclassified (1 source) Crohn's disease of small intestine w intestinal obstruction; Translations: [Crohn's disease of small intestine w intestinal obstruction] Onset: 01-19-2017 Results Test Name Value Interpretation Reference Range Facility Coronary Angiography CTon Coronary Angiography [facility] Imaging Services [address] [place] [id number] 06/30/24 0947 MR#: [id number] Acct: [id number] Name: BABAK HSIEH Rep #: [id number] : 1960 64 From: Orestes Amezquita MD PCP: Dr. Estrellita Bear, Status:REG REF Y Location: CT Calcium Scoring Date of Study:: 06/30/24 Indications Indications: Family history Coronary Calcium Scoring: High-resolution Computed Tomographic imaging of the chest was performed on [06/30/2024], with particular attention paid to the coronary arteries. Images from the examination were analyzed for the presence and extent of coronary artery calcification , using coronary calcium quantification software. The patient tolerated the procedure well and there were no complications. The results of the coronary calcification analysis are provided below. Findings Coronary Artery Left Main (LM): 0 Left Anterior Descending (LAD): 0 Left Circumflex (LCX): 0 Right Coronary Artery (RCA): 0 Total Agatston Score: 0 Percentile Rankin Calcium Scoring Interpretation: Different methods to categorize the overall amount of coronary plaque. Overall amount CAC SIS Visual of coronary plaque P1 Mild -100 <2 1-2 vessels with mild amount of plaque P2 Moderate 101-300 3-4 1-2 vessels with moderate amount, 3 vessels with mild amount of plaque P3 Severe 301-999 5-7 3 vessels with moderate amount, 1 vessel with severe amount of plaque P4 Extensive >1000 >8 2-3 vessels with severe amount of plaque Conclusion: No atherosclerotic plaque noted 06/30/24 0948 Date Orestes Amezquita MD Cosigner Signature (if applicable): Date CC: Dr. Orestes Amezquita MD; Dr. Estrellita Bear DO Signed Normal [facility] Limited Chest CT Cardiac Onl yon 06-30-[address] Cardiac Only [facility] Imaging Services [address] [place] [id number] Cardiac Only MR#: [id number] Acct: [id number] Name: BABAK HSIEH Rep #: [id number] : 1960 F 64 From: Bishop lundberg MD PCP: Dr. Estrellita Bear DO Status: REG REF Study: Limited Chest CT Cardiac Only Date of Exam: Exam# [id number] Ordering Dr: Estrellita Bear DO PROCEDURE: LIMITED CHEST CT CARDIAC ONLY REASON FOR EXAM: FAM HX OF EARLY CAD TECHNIQUE: Supine chest CT without contrast. One or more dose reduction techniques were used (e.g., Automated exposure control, adjustment of the mA and/or kV according to patient size, use of iterative reconstruction technique). COMPARISON: None FINDINGS: Hardware: None Lymph nodes: Small benign-appearing mediastinal lymph nodes. Heart and Vasculature: Normal heart size. No pericardial effusion. Coronary Artery Calcifications: Minimal coronary artery calcification. Lungs and Airways: Minimal increased linear markings in the inferior aspect of the right middle lobe suggestive of linear scarring. Pleura: No evidence of pleural effusion. Upper Abdomen: Mild fatty infiltration of the liver. Bones: Degenerative changes of the thoracic spine. CT/Limited Chest CT Cardiac Only IMPRESSION: Coronary artery calcification (CAC) is is present Reading Location: [place] [address] CC: Dr. Estrellita Bear DO [employer] Commerce Architect: Signed Normal [facility] Oncology Visit Reporton 06-10 Oncology Visit Report [facility] [address] [place] [address] OFFICE VISIT Date of Service: 06/30/24 0808 MR#: [id number] Acct: [id number] Name: BABAK HSIEH Rep #: [id number] : 1960 From: Yamini Granados NP GLYCERIN SUPERVISOR -C Age/Sex: 64/F Location: [facility] [place] Status: Signed HPI Subjective Date of Service 06/30/24 Chief Complaint F/u for R breast cancer. History of Present Illness 64 y.o.woman was found to have abnormal mammogram 2018. US on 06/15/2017 showed R breast mass 6:00 position. 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 ER/AR positive, Her2 2+ by IHC, Negative by FISH. She had lumpectomy and sentinel lymph node biopsy on 07/22/2017, pathology showed Invasive ductal ca, tumor size 18mm, margins negative, grade 3, lymph nodes 10 negative. She had BSO + RONNIE in 2005. Oncotype DX showed recurrence score of 27, intermediate risk. CT on 07/29/2017 showed small non-specific lung nodules. She elected to not to do adjuvant chemotherapy, received adjuvant Radiation therapy from 09/08/2017 to 10/06/2017. Started Tamoxifen on 10/20/2017. Interval History The patient is presenting to clinic today for routine 6-month follow-up. Confirms good adherence and tolerance to tamoxifen. Taking calcium and vitamin D as advised. Vitamin D level and cholesterol were requested this week per pcp. Also underwent a calcium scoring test recently per her pcp. Reports intermittent episodes of heart racing x 7 months. Occurs on average once per week. Lasts approx 5 min. Notes she can be resting when it begins. Denies CP, diaphoresis, or SOB during episodes. Strong family h/o cardiovascular disease. Denies any changes noted during breast self exam. +Cough, typical for this time of year. Further denies weight loss, headache, bone pain/neck back pain, abdominal pain, swelling or pain of her extremities. [facility] Medical History (Updated 06/30/24 @ 09:24 by Yamini Granados GLYCERIN SUPERVISOR, GLYCERIN SUPERVISOR-C) Tachycardia Screening for breast cancer Breast pain, right LUE numbness Rheumatoid arthritis of foot Contact with and (suspected) exposure to other viral communicable diseases Asthmatic bronchitis with exacerbation Screening for osteoporosis Lab test negative for COVID-19 virus Asthma Breast cancer, right Breast cancer ( 06/2017) Abnormal mammogram of right breast Partial bowel obstruction DVT (deep venous thrombosis) Rheumatoid arthritis Crohns disease Surgical History History of carpal tunnel surgery of right wrist S/P complete hysterectomy H/O lymph node biopsy History of lumpectomy of right breast History of colectomy Family History Mother Breast cancer Hypertension CHF (congestive heart failure) Mother No problems noted. Social History household members: none Smoking Status: Former smoker quit date: 02/09/87 pack-years: 10 second hand exposure: No alcohol intake: never substance use type: does not use ROS ROS Narrative Negative except as documented in the interval HPI Intake Vital Signs 01/28/24 07:50 06/30/24 08:11 06/30/24 08:13 Height 5 ft 2 in 5 ft 2 in 5 ft 2 in Weight: 140 lb BMI 25.6 BP 100/67 Blood Pressure Location Lt brachial Position Sitting Respiration 16 Pulse 80 Pulse Source Monitor Temp 98.1 F Temperature Source Temporal Artery Pulse Oximetry (%) 95 Oxygen Delivery Method room air Intake Is patient in pain?: No Allergies No Known Allergies Allergy (Verified 06/30/24 08:09) Medications ???Medication ???Instructions ???Recorded ???Confirmed ???Type citalopram 10 mg tablet 20 mg PO DAILY 06/18/17 06/30/24 H istory loperamide 2 mg capsule 2 mg PO Q1-4H PRN Diarrhea 8 06/30/24 History melatonin 3 mg tablet 3 mg PO HS PRN Insomnia 06/18/17 0 06/30/24 History folic acid 1 mg tablet 1 mg PO DAILY 02/08/18 06/30/24 Hi story ustekinumab 90 mg/mL subcutaneous 90 mg subcut Q8W 02/08/18 5 History syringe (Stelara) tamoxifen 20 mg tablet 20 mg PO DAILY #90 TABLETS 4 06/30/24 Rx methotrexate sodium 2.5 mg tablet 8 mg PO QWEEK Check with primary 01/28/24 06/30/24 History doctor budesonide 3 mg 9 mg PO QDAY PRN 06/30/24 06/30/24 History capsule,delayed,extended release Have you fallen in the past year?: No Central Venous Access Central Venous Access: No Laboratory Tests 06/27/24 07:47 WBC 9.2 Hgb 13.6 Hct 41.2 Plt Count 306 Sodium 139 Potassium 3.9 Chloride 105 BUN 16 Creatinine 0.54 L Glucose 98 Calcium 9.0 Total Bilirubin 0.34 AST 21 ALT 12 Alkaline Phosphatase 76 (more content not included)... Normal [facility] CA 15-3on 06-28-2024 CA 15-3 15.2 U/mL Normal 0.0-25.0 [facility] Comment on above: Result Comment: [employer] Electrochemiluminescence Immunoassay (ECLIA) Values obtained with different assay methods or kits cannot be used interchangeably. Results cannot be interpreted as absolute evidence of the presence or absence of malignant disease. Performed at: [address] [id number] [employer] Specialist: Jay Henderson PhD, Phone: [phone] Performed By: #### L 3100.5040, L3483.5030 ####[facility] [address] [place], [address] CA 27.29on 06-28-2024 CA 27.29 20.3 U/mL Normal 0.0-38.6 [facility] Comment on above: Result Comment: [employer] Immunochemiluminometric Methodology (ICMA) Values obtained with different assay methods or kits cannot be used interchangeably. Results cannot be interpreted as absolute evidence of the presence or absence of malignant disease. Performed By: #### L 3100.5040, L3100.5030 ####[facility] [address] [facility] [place], [place], [id number] Anion gap in Serum or Plasma Ordered By: Estrellita Bear on 06-27-2024 Anion gap [Moles/Vol] 13 mmol/L 06-23 [facility] BUN/creatinine ratioOrdered By: Estrellita Bear on 06-27-2024 Urea nitrogen/Creatinine [Mass ratio] 28.9 mg/mg High 11-28 [facility] Bilirubin, totalOrdered By: Estrellita Bear on 06-27-2024 Bilirubin [Mass/Vol] 0.34 mg/dL 0.00-1.30 [facility] CA 15-3Ordered By: Pete sepulveda on 06-27-2024 CA 15-3 15.2 U/mL 0.0-25.0 [facility] Comment on above: [employer] El ectrochemiluminescence Immunoassay(ECLIA)Values obtained with different assay methods or kits cannotbe used interchangeably. Results cannot be interpreted asabsolute evidence of the presence or absence of malignantdisease.Performed at: [address] [id number] Director: Jay Henderson PhD, Phone: [phone] CA 27.29Ordered By: Pete sanchez on 06-27-2024 CA 27.29 20.3 U/mL 0.0-38.6 [facility] Comment on above: [employer] Immu nochemiluminometric Methodology (ICMA)Values obtained with different assay methods or kits cannotbe used interchangeably. Results cannot be interpreted asabsolute evidence of the presence or absence of malignantdisease. CBC-Complete Blood Cnt No Di ffon 06-27-2024 Erythrocyte distribution width (RBC) [Ratio] 13.9 % Normal 11.6-14.6 [facility] Comment on above: Performed By: #### L 100.0500, L500.4100, L503.0106, L500.4050, L506.1001 ####[facility] [address] [place], [address] Hematocrit (Bld) [Volume fraction] 41.2 % Normal 37-47 [facility] Comment on above: Performed By: #### L 100.0500, L500.4100, L503.0106, L500.4050, L506.1001 ####[facility] [address] [place], [address] Hemoglobin (Bld) [Mass/Vol] 13.6 g/dL Normal 12.0-15.0 [facility] Comment on above: Performed By: #### L 100.0500, L500.4100, L503.0106, L500.4050, L506.1001 ####[facility] [address] [place], [address] MCH (RBC) [Entitic mass] 29.4 pg Normal 27.0-32.0 [facility] Comment on above: Performed By: #### L 100.0500, L500.4100, L503.0106, L500.4050, L506.1001 ####[facility] [address] [place], [address] MCHC (RBC) [Mass/Vol] 33.0 g/dL Normal 32-36 [facility] Comment on above: Performed By: #### L 100.0500, L500.4100, L503.0106, L500.4050, L506.1001 ####[facility] [address] [place], [address] MCV (RBC) [Entitic vol] 89.0 fL Normal 81-99 [facility] Comment on above: Performed By: #### L 100.0500, L500.4100, L503.0106, L500.4050, L506.1001 ####[facility] [address] [place], [address] Platelet mean volume (Bld) [Entitic vol] 9.3 fL Normal 6.2-12.0 [facility] Comment on above: Performed By: #### L 100.0500, L500.4100, L503.0106, L500.4050, L506.1001 ####[facility] [address] [place], [address] Platelets (Bld) [#/Vol] 306 10*3/uL Normal 150-450 [facility] Comment on above: Performed By: #### L 100.0500, L500.4100, L503.0106, L500.4050, L506.1001 ####[facility] [address] [place], [address] RBC (Bld) [#/Vol] 4.63 10*6/uL Normal 4.2-5.4 [facility] Comment on above: Performed By: #### L 100.0500, L500.4100, L503.0106, L500.4050, L506.1001 ####[facility] [address] [place], [address] RDW SD 45.4 fl High 35.1-43.9 [facility] Comment on above: Performed By: #### L 100.0500, L500.4100, L503.0106, L500.4050, L506.1001 ####[facility] [address] [place], [address] WBC (Bld) [#/Vol] 9.2 10*3/uL Normal 4.4-11.0 [facility] Comment on above: Performed By: #### L 100.0500, L500.4100, L503.0106, L500.4050, L506.1001 ####[facility] [address] [place], [address] Calculated very low density lipoprotein (VLDL) cholesterol measurementOrdered By: Estrellita Bear on 06-27-2024 Calculated very low density lipoprotein (VLDL) cholesterol measurement 35 mg/dL 5-40 [facility] Carbon dioxide, total [Moles /volume] in Central venous bloodOrdered By: Estrellita Bear on 06-27-2024 CO2 [Moles/Vol] 20.9 mmol/L Low 21.0-32.0 [facility] Chloride assayOrdered By: Laura Bear on 06-27-2024 Chloride [Moles/Vol] 105 mmol/L 98-108 [facility] Comprehensive Metabolic Prof ilon 06-27-2024 Albumin [Mass/Vol] 4.0 g/dL Normal 3.4-4.8 [facility] Comment on above: Performed By: #### L 100.0500, L500.4100, L503.0106, L500.4050, L506.1001 ####[facility] [address] [place], [address] Albumin/Globulin [Mass ratio] 1.3 {ratio} Normal 0.9-2.4 [facility] Comment on above: Performed By: #### L 100.0500, L500.4100, L503.0106, L500.4050, L506.1001 ####[facility] [address] [place], [address] ALK PHOS 76 U/L Normal 35-104 [facility] Comment on above: Performed By: #### L 100.0500, L500.4100, L503.0106, L500.4050, L506.1001 ####[facility] [address] [place], [address] ALT [Catalytic activity/Vol] 12 U/L Normal <=34 [facility] Comment on above: Performed By: #### L 100.0500, L500.4100, L503.0106, L500.4050, L506.1001 ####[facility] [address] [place], [address] AST [Catalytic activity/Vol] 21 U/L Normal <=31 [facility] Comment on above: Performed By: #### L 100.0500, L500.4100, L503.0106, L500.4050, L506.1001 ####[facility] [address] [place], [address] Bilirubin [Mass/Vol] 0.34 mg/dL Normal 0.00-1.30 [facility] Comment on above: Performed By: #### L 100.0500, L500.4100, L503.0106, L500.4050, L506.1001 ####[facility] [address] [place], [address] BUN/CRE 28.9 RATIO High 10-20 [facility] Comment on above: Performed By: #### L 100.0500, L500.4100, L503.0106, L500.4050, L506.1001 ####[facility] [address] [place], [address] Calcium [Mass/Vol] 9.0 mg/dL Normal 7.6-11.0 [facility] Comment on above: Performed By: #### L 100.0500, L500.4100, L503.0106, L500.4050, L506.1001 ####[facility] [address] [place], [address] Chloride [Moles/Vol] 105 mmol/L Normal 98-108 [facility] Comment on above: Performed By: #### L 100.0500, L500.4100, L503.0106, L500.4050, L506.1001 ####[facility] [address] [place], [address] CO2 [Moles/Vol] 20.9 mmol/L Low 21.0-32.0 [facility] Comment on above: Performed By: #### L 100.0500, L500.4100, L503.0106, L500.4050, L506.1001 ####[facility] [address] [place], [address] Creatinine [Mass/Vol] 0.54 mg/dL Low 0.70-1.20 [facility] Comment on above: Performed By: #### L 100.0500, L500.4100, L503.0106, L500.4050, L506.1001 ####[facility] [address] [place], [address] ECRCL 92.20 ml/min Normal 50-250 [facility] Comment on above: Performed By: #### L 100.0500, L500.4100, L503.0106, L500.4050, L506.1001 ####[facility] [address] [place], [address] GAP 13 Normal 5-15 [facility] Comment on above: Performed By: #### L 100.0500, L500.4100, L503.0106, L500.4050, L506.1001 ####[facility] [address] [place], [address] GFR/1.73 sq M.predicted among non-blacks MDRD (S/P/Bld) [Vol rate/Area] 103 mL/min/{1.73_m2} Normal >60 [facility] Comment on above: Result Comment: mL/m in/1.73m2 CKD-EPI Creatinine Equation (2020) Performed By: #### L 100.0500, L500.4100, L503.0106, L500.4050, L506.1001 ####[facility] [address] [place], [address] Globulin (S) [Mass/Vol] 3.0 g/dL Normal 2.2-4.2 [facility] Comment on above: Performed By: #### L 100.0500, L500.4100, L503.0106, L500.4050, L506.1001 ####[facility] [address] [place], [address] Glucose [Mass/Vol] 98 mg/dL Normal 70-99 [facility] Comment on above: Performed By: #### L 100.0500, L500.4100, L503.0106, L500.4050, L506.1001 ####[facility] [address] [place], [address] Potassium [Moles/Vol] 3.9 mmol/L Normal 3.3-5.1 [facility] Comment on above: Performed By: #### L 100.0500, L500.4100, L503.0106, L500.4050, L506.1001 ####[facility] [address] [place], [address] Sodium [Moles/Vol] 139 mmol/L Normal 133-145 [facility] Comment on above: Performed By: #### L 100.0500, L500.4100, L503.0106, L500.4050, L506.1001 ####[facility] [address] [place], [address] T PROT 7.0 g/dL Normal 5.9-8.4 [facility] Comment on above: Performed By: #### L 100.0500, L500.4100, L503.0106, L500.4050, L506.1001 ####[facility] [address] [place], [address] Urea nitrogen [Mass/Vol] 16 mg/dL Normal 05-28 [facility] Comment on above: Performed By: #### L 100.0500, L500.4100, L503.0106, L500.4050, L506.1001 ####[facility] [address] [place], [address] Erythrocyte distribution wid th ratioOrdered By: Estrellita Bear on 06-27-2024 Erythrocyte distribution width (RBC) [Ratio] 13.9 % 11.6-14.6 [facility] Erythrocyte distribution wid th standard deviationOrdered By: Estrellita Bear on 06-27-2024 Erythrocyte distribution width (RBC) [Ratio] 45.4 fl High 35.1-43.9 [facility] Glomerular filtration rate ( GFR) estimation/1.73 sq m using serum, plasma, or whole bOrdered By: Estrellita Bear on 06-27-2024 GFR/1.73 sq M.predicted among non-blacks MDRD (S/P/Bld) [Vol rate/Area] 103 mL/min/{1.73_m2} >60 [facility] Comment on above: mL/min/1.73m2 CKD-EP I Creatinine Equation (2020) Hematocrit Auto (Bld) [Volum e fraction]Ordered By: Estrellita Bear on 06-27-2024 Hematocrit (Bld) [Volume fraction] 41.2 % 37-47 [facility] Hemoglobin measurementOrdere d By: Estrellita Bear on 06-27-2024 Hemoglobin (Bld) [Mass/Vol] 13.6 g/dL 12.0-15.0 [facility] LDL calc ser/plasOrdered By: Estrellita Bear on 06-27-2024 Cholesterol in LDL [Mass/Vol] 60 mg/dL [facility] Comment on above: Aqnbyqbnkv=126-207 m g/dL & Higher Oodx=597 mg/dL or greater Laboratory - Chemistry and C hemistry - challengeOrdered By: Estrellita Bear on 06-27-2024 AST [Catalytic activity/Vol] 21 U/L <32 [facility] Lipid Profileon 06-27-2024 CHOL:HDL 3.07 Normal [facility] Comment on above: Performed By: #### L 100.0500, L500.4100, L503.0106, L500.4050, L506.1001 ####[facility] [address] [place], [address] Cholesterol [Mass/Vol] 141 mg/dL Normal <=200 [facility] Comment on above: Result Comment: Chol esterol level, Desirable <200 mg/dL Borderline high cholesterol 200-239 mg/dL High cholesterol >=240 mg/dL Recommendations of the NCEP Adult Treatment Panel for the following risk-cutoff thresholds for the [place] population. Performed By: #### L 100.0500, L500.4100, L503.0106, L500.4050, L506.1001 ####[facility] [address] [place], [address] Cholesterol in HDL [Mass/Vol] 46 mg/dL Normal [facility] Comment on above: Result Comment: Maci onal Cholesterol Education Program (NCEP) guidelines: <40 mg/dL: Low HDL-cholesterol (major risk factor for CHD) >= 60 mg/dL: High HDL-cholesterol (negative risk factor for CHD) HDL-cholesterol is affected by a number of factors, e.g. smoking, exercise, hormones, sex and age. Performed By: #### L 100.0500, L500.4100, L503.0106, L500.4050, L506.1001 ####[facility] [address] [place], [address] Cholesterol in LDL [Mass/Vol] 60 mg/dL Normal [facility] Comment on above: Result Comment: Bord igqyex=521-789 mg/dL Higher Snwu=799 mg/dL or greater Performed By: #### L 100.0500, L500.4100, L503.0106, L500.4050, L506.1001 ####[facility] [address] [place], [address] Cholesterol in VLDL [Mass/Vol] 35 mg/dL Normal 5-40 [facility] Comment on above: Performed By: #### L 100.0500, L500.4100, L503.0106, L500.4050, L506.1001 ####[facility] [address] [place], [address] Triglyceride [Mass/Vol] 173 mg/dL Normal [facility] Comment on above: Result Comment: The drugs N-Acetylcysteine and Metamizole may falsely depress this assay. Normal range: <150 mg/dL Borderline High: 150-199 mg/dL High: 200-499 mg/dL Very High: >500 mg/dL Performed By: #### L 100.0500, L500.4100, L503.0106, L500.4050, L506.1001 ####[facility] [address] [place], [address] MCV (mean corpuscular volume ) determinationOrdered By: Estrellita Bear on 06-27-2024 MCV (RBC) [Entitic vol] 89.0 fL 81-99 [facility] Mean corpuscular hemoglobin (MCH) determinationOrdered By: Estrellita Bear on 06-27-2024 MCH (RBC) [Entitic mass] 29.4 pg 27.0-32.0 [facility] Mean corpuscular hemoglobin concentration (MCHC) determinationOrdered By: Estrellita Bear on 06-27-2024 MCHC (RBC) [Mass/Vol] 33.0 g/dL 32-36 [facility] Mean platelet volume determi nationOrdered By: Estrellita Bear on 06-27-2024 Platelet mean volume (Bld) [Entitic vol] 9.3 fL 6.2-12.0 [facility] Platelet countOrdered By: Laura Bear on 06-27-2024 Platelets (Bld) [#/Vol] 306 10*3/uL 150-450 [facility] Potassium measurement (mass/ volume)Ordered By: Estrellita Bear on 06-27-2024 Potassium (Unsp spec) [Mass/Vol] 3.9 mmol/L 3.3-5.1 [facility] RBC Auto (Bld) [#/Vol]Ordere d By: Estrellita Bear on 06-27-2024 RBC (Bld) [#/Vol] 4.63 10*6/uL 4.2-5.4 [facility] Screening total cholesterol/ high density lipoprotein (HDL) cholesterol ratioOrdered By: Estrellita Bear on 06-27-2024 Cholesterol.total/Chol esterol in HDL [Mass ratio] 3.07 {ratio} [facility] Serum creatinine measurement (mass/volume)Ordered By: Estrellita Bear on 06-27-2024 Creatinine [Mass/Vol] 0.54 mg/dL Low 0.70-1.20 [facility] Serum globulin measurementOr dered By: Estrellita Bear on 06-27-2024 Globulin (S) [Mass/Vol] 3.0 g/dL 2.2-4.2 [facility] Serum glucose measurement (m ass/volume)Ordered By: Estrellita Bear on 06-27-2024 Glucose [Mass/Vol] 98 mg/dL 70-99 [facility] Serum or plasma alanine norman otransferase (ALT) measurementOrdered By: Estrellita Bear on 06-27-2024 ALT [Catalytic activity/Vol] 12 U/L <35 [facility] Serum or plasma albumin michel urement (mass/volume)Ordered By: Estrellita Bear on 06-27-2024 Albumin [Mass/Vol] 4.0 g/dL 3.4-4.8 [facility] Serum or plasma albumin/glob ulin mass ratioOrdered By: Estrellita Bear on 06-27-2024 Albumin/Globulin [Mass ratio] 1.3 {ratio} 0.9-2.4 [facility] Serum or plasma alkaline marlin sphatase measurementOrdered By: Estrellita Bear on 06-27-2024 ALP [Catalytic activity/Vol] 76 U/L 35-104 [facility] Serum or plasma calcium michel urement (mass/volume)Ordered By: Estrellita Bear on 06-27-2024 Calcium [Mass/Vol] 9.0 mg/dL 7.6-11.0 [facility] Serum or plasma cholesterol in HDL measurement (mass/volume)Ordered By: Estrellita Bear on 06-27-2024 Cholesterol in HDL [Mass/Vol] 46 mg/dL >40 [facility] Comment on above: National Cholesterol Education Program (NCEP) guidelines:<40 mg/dL: Low HDL-cholesterol (major risk factor for CHD)>= 60 mg/dL: High HDL-cholesterol (negative risk factor for CHD)HDL-cholesterol is affected by a number of factors, e.g. smoking, exercise, hormones, sex and age. Serum or plasma cholesterol measurement (mass/volume)Ordered By: Estrellita Bear on 06-27-2024 Cholesterol [Mass/Vol] 141 mg/dL <201 [facility] Comment on above: Cholesterol level, D esirable <200 mg/dLBorderline high cholesterol 200-239 mg/dLHigh cholesterol >=240 mg/dLRecommendations of the NCEP Adult Treatment Panel for the following risk-cutoff thresholds for the [place] population. Serum or plasma urea nitroge n measurement (mass/volume)Ordered By: Estrellita Bear on 06-27-2024 Urea nitrogen [Mass/Vol] 16 mg/dL - [facility] Sodium levelOrdered By: Allyson Bear on 06-27-2024 Sodium [Moles/Vol] 139 mmol/L 133-145 [facility] Total proteinOrdered By: Kasey Bear on 06-27-2024 Protein [Mass/Vol] 7.0 g/dL 5.9-8.4 [facility] Triglycerides measurementOrd ered By: Estrellita Bear on 06-27-2024 Triglyceride [Mass/Vol] 173 mg/dL <199 [facility] Comment on above: The drugs N-Acetylcy steine and Metamizole may falsely depress this assay. Normal range: <150 mg/dLBorderline High: 150-199 mg/dLHigh: 200-499 mg/dLVery High: >500 mg/dL Vitamin B12on 06-27-2024 Cobalamin (Vitamin B12) [Mass/Vol] 232 pg/mL Normal 180-914 [facility] Comment on above: Performed By: #### L 100.0500, L500.4100, L503.0106, L500.4050, L506.1001 ####[facility] [address] [place], [address] Vitamin B12 ser/plasOrdered By: Estrellita Bear on 06-27-2024 Cobalamin (Vitamin B12) [Mass/Vol] 232 pg/mL 180-914 [facility] Vitamin D,25 Hydroxyon 06-27 Vitamin D 25-OH 18.9 ng/mL Low 30-100 [facility] Comment on above: Result Comment: Ethel min D Status Deficiency: <20 ng/mL (50nmol/L) Insufficiency: 20-30 ng/mL (50-75 nmol/L) Sufficiency: 30-100 ng/mL (75-250 nmol/L) Toxicity: >100 ng/mL (>250 nmol/L) Performed By: #### L 100.0500, L500.4100, L503.0106, L500.4050, L506.1001 ####[facility] [address] [place], [address] White blood cell (WBC) count Ordered By: Estrellita Bear on 06-27-2024 WBC (Bld) [#/Vol] 9.2 10*3/uL 4.4-11.0 [facility] Breast imaging reportOrdered By: Heather Martinez on 06-24-2024 Study report [facility] Services [address] [place], [place] [id number] SCRN MAMM (CAD)W/ERIC HANLEY MR#: [id number] Acct: [id number] Name: BABAK HSIEH Rep #: [id number] : 1960 F 64 From: Reyna Martinez MD PCP: Dr. Estrellita Bear, DO Status: REG CLI Study:SCRN MAMM (CAD)W/ERIC BILAT Date of Exa m: 06/24/24 Exam# [id number] Ordering Dr: Sunny Paez MD EXAM: SCRN MAMM (CAD)W/ERIC BILAT 06/24/2024 CLINICAL HISTORY: F, Age 64 y/o , SCREENING TECHNIQUE: Bilateral screening digital breast tomosynthesis with 2D and 3D images. Computeraided detection. COMPARISON: Prior exam(s) dated 06/08/2023, 07/18/2022, 07/12/2021. FINDINGS: TISSUE DENSITY: The breast tissue is composed of scattered area of fibroglandular density. Bilateral Breast Mammographic Findings: No significant masses, calcifications or other abnormalities are identified. BI/SCRN MAMM (CAD)W/ERIC BILAT IMPRESSION: Right Breast: BIRADS 1 NEGATIVE. Left Breast: BIRADS 1 NEGATIVE. OVERALL FINAL ASSESSMENT: BIRADS 1 NEGATIVE. RECOMMENDATION: Routine annual follow-up in 1 Year A letter with findings and recommendations will be mailed to the patient. Reading [facility] CC: Dr. Pete Paez MD; Dr. Estrellita Bear DO ~ [employer] Architect: Signed [facility] SCRN MAMM (CAD)W/ERIC BILATo n 06-24-2024 SCRN MAMM (CAD)W/ERIC BILAT [facility] Imaging Services [address] [place] [id number] SCRN MAMM (CAD)W/ERIC BILAT MR#: [id number] Acct: [id number] Name: BABAK HSIEH Rep #: [id number] : 1960 F 64 From: Heather Martinez MD PCP: Dr. Estrellita Bear DO Status: REG CLI Study: SCRN MAMM (CAD)W/ERIC BILAT Date of Exam: 06/09 08/03 Exam# [id number] Ordering Dr: Pete Paez MD EXAM: SCRN MAMM (CAD)W/ERIC BILAT 06/24/2024 CLINICAL HISTORY: F, Age 64 y/o , SCREENING TECHNIQUE: Bilateral screening digital breast tomosynthesis with 2D and 3D images. Computer aided detection. COMPARISON: Prior exam(s) dated 06/08/2023, 07/18/2022, 07/12/2021. FINDINGS: TISSUE DENSITY: The breast tissue is composed of scattered area of fibroglandular density. Bilateral Breast Mammographic Findings: No significant masses, calcifications or other abnormalities are identified. BI/SCRN MAMM (CAD)W/ERIC BILAT IMPRESSION: Right Breast: BIRADS 1 NEGATIVE. Left Breast: BIRADS 1 NEGATIVE. OVERALL FINAL ASSESSMENT: BIRADS 1 NEGATIVE. RECOMMENDATION: Routine annual follow-up in 1 Year A letter with findings and recommendations will be mailed to the patient. Reading [facility] CC: Dr. Pete Paez MD; Dr. Estrellita Bear, [employer] Architect: Signed Normal [facility] Laboratory - Microbiology an d Antimicrobial susceptibilityOrdered By: Rodriguez Kinney on 06-07-2024 SARS-CoV-2 (COVID-19) RNA ROMANA+probe Ql (Unsp spec) Not detected [facility] No Panel InformationOrdered By: Rodriguez Kinney on 06-07-2024 POC Nasal Swab Influenza A,B Not detected [facility] POC Nasal Swab RSV Not detected [facility] Office Visit Reporton 2024 Office Visit Report [facility] [address] [place] [address] OFFICE VISIT Date of Service: 06/07/24 MR#: [id number] Acct: [id number] Patient: BABAK HSIEH Rep #: [id number] : 1960 Provider: BRIANA Monique Age/Sex: 63/F Location: [facility] Status: Signed Intake Vital Signs 01/28/24 07:50 Height 5 ft 2 in Weight: 136 lb 3 oz BMI 24.9 BP 111/74 Blood Pressure Location Lt brachial Position Sitting Respiration 18 Pulse 89 Pulse Source Monitor Temp 98.8 F Pulse Oximetry (%) 94 Oxygen Delivery Method room air Intake Visit Reasons: COVID-19 Chief Complaint: F/u for R breast cancer. Allergies No Known Allergies Allergy (Verified 01/28/24 07:44) Nurse's Note: Patient here for a Cepheid test per her employer. Assessment and Plan Assessment and Plan Orders: Orders POC Cepheid Covid, FluAB, RSV Today 06/07/24 1225 Date Rodriguez Colbert Signature: Date (if applicable) CC: Normal [facility] Misc.on 05-26-2024 [facility] Misc. COMMENT Normal . [facility] Comment on above: Order Comment: [id number] FROZEN Result Comment: Test Ordered: [id number] Ustekinumab Drug + Antibody Ustekinumab 0.9 ug/mL ES Reference Range: . Quantitation Limit: <0.1 ug/mL Results of 0.1 ug/mL or higher indicate detection of ustekinumab. COMMENTS: - Induction levels in Crohn's Disease: - Patients who received IV 130 mg or 6 mg/kg had median trough concentrations of 2.1 ug/mL and 6.4 ug/mL, respectively, at week 8 in UNITI trials.(1) - Maintenance levels: - Of UNITI patients with trough levels greater than 1.1 ug/mL, about 80% achieved clinical remission (HBI < 5) and about 50% attained CRP normalization.(2) - Higher maintenance concentrations, greater than 4.5 ug/mL (achieved with q8wk or q4wk dosing after SQ induction), may be necessary for endoscopic response (SES-CD score reduction >=50%).(3) - Trough levels predictive of mucosal healing and fistula healing have yet to be determined. - In plaque psoriasis, median trough ustekinumab concentrations were 0.4 ug/mL at weeks 14 and 28 (ranging from undetectable to 3.6 ug/mL).(4) Although PASI50 responders had higher trough concentrations than non- responders in a study of 76 patients, a definitive therapeutic target range for psoriasis has yet to be established.(5) - As with other biologics, the optimal drug concentration depends upon patient-specific factors including co- morbidities, disease and desired therapeutic endpoint - This ustekinumab drug assay measures the free fraction of ustekinumab (antibody-unbound ustekinumab) when serum anti-ustekinumab antibodies are present. Anti-Ustekinumab Antibody <40 ng/mL ES Reference Range: . Quantitation Limit: < 40 ng/mL Results of 40 ng/mL or higher indicate detection of anti- ustekinumab antibodies. COMMENTS: - This anti-ustekinumab antibody assay is drug-tolerant, i.e. the detection of anti-ustekinumab antibodies is not impeded by the presence of ustekinumab in serum. - All positive anti-ustekinumab antibody results are verified by a confirmatory test. - The concomitant free ustekinumab drug concentration (reported above) is the pharmacodynamically active drug when anti-ustekinumab antibodies are present. - Serial measurements over time may be helpful to assess the impact of immunogenicity on the free drug level. - In the IM-UNITI trial, the incidence of anti-ustekinumab antibodies in Crohn's Disease at 1 year was 2.3%.(1) - In psoriasis, anti-ustekinumab antibodies occurred in 4-6% of patients.(6) References: 1. Felicia WALKER, et al. Gastroenterology 2016;150(4):S408. 2. Felicia Bhatt et al. P007 Exposure-Response to SC Ustekinumab in Moderate - Severe Crohn's Disease: Results from the IM-UNITI Maintenance Study. Advances in AIBD. November 2016. 3. Kyrie R, et al. Clin Gastroenterol Hepatol 2017;15: 3337-0731. 4. Marian SP, et al. Br J Dermatol;2015:173;855-857. 5. Kaelyn H, et al. PLOS ONE DOI;10:1371/journal.pone.3538574. 6. Yulia L, et al. Br J Dermatol 2014;170:261-273. These tests were developed and their performance characteristics determined by [employer]. They have not been cleared or approved by the Food and Drug Administration. However, both drug and anti-drug antibody assays have been developed and validated in accordance with FDA Guidance for Industry documents: Bioanalytical Method Validation (2013) and Assay Development and Validation for Immunogenicity Testing of Therapeutic Protein Products (2016). Performed at: [facility] [address] [place], [place] [id number] Relocation Services Specialist: Maykel Martines MD, Phone: [phone] Performed at: [facility] [id number] Relocation Services Specialist: Jay Henderson PhD, Phone: [phone] Performed By: #### L 504.2610, L100.0100, L101.9900, L501.6710, L500.4050, L3410.9998 ####[facility] [address] [place], [address] Absolute lymphocyte countOrd ered By: Pete Paez on 05-16-2024 Lymphocytes Auto (Unsp spec) [#/Vol] 1.89 10*3/uL 0.83-4.51 [facility] Absolute neutrophil countOrd ered By: Pete Paez on 05-16-2024 Neutrophils (Bld) [#/Vol] 8.9 10*3/uL High 2.0-7.7 [facility] Anion gap in Serum or Plasma Ordered By: Pete Paez on 05-16-2024 Anion gap [Moles/Vol] 15 mmol/L 5-15 [facility] Automated lymphocyte count a s percentage of total leukocytesOrdered By: Pete Paez on 05-16-2024 Lymphocytes/100 WBC Auto (Unsp spec) 16.4 % Low 19-41 [facility] BUN/creatinine ratioOrdered By: Pete Paez on 05-16-2024 Urea nitrogen/Creatinine [Mass ratio] 31.8 mg/mg High 10-20 [facility] Basophil percentageOrdered B y: Pete Paez on 05-16-2024 Basophils/100 WBC (Bld) 0.4 % 0-1 [facility] Bilirubin, totalOrdered By: Pete Paez on 05-16-2024 Bilirubin [Mass/Vol] 0.26 mg/dL 0.00-1.30 [facility] CBC W/Diff, Automatedon 04-0 7-2024 Absolute Lymph 1.89 X10 3/uL Normal 0.83-4.51 [facility] Comment on above: Performed By: #### L 504.2610, L100.0100, L101.9900, L501.6710, L500.4050, L3410.9998 #### [facility] [address] [place], [address] Absolute Neut 8.9 X10 3/uL High 2.0-7.7 [facility] Comment on above: Performed By: #### L 504.2610, L100.0100, L101.9900, L501.6710, L500.4050, L3410.9998 #### [facility] [address] [place], [address] Basophils/100 WBC (Bld) 0.4 % Normal 0-1 [facility] Comment on above: Performed By: #### L 504.2610, L100.0100, L101.9900, L501.6710, L500.4050, L3410.9998 #### [facility] [address] [place], [address] Eosinophils/100 WBC (Bld) 0.3 % Normal 0-5 [facility] Comment on above: Performed By: #### L 504.2610, L100.0100, L101.9900, L501.6710, L500.4050, L3410.9998 #### [facility] [address] [place], [address] Erythrocyte distribution width (RBC) [Ratio] 14.3 % Normal 11.6-14.6 [facility] Comment on above: Performed By: #### L 504.2610, L100.0100, L101.9900, L501.6710, L500.4050, L3410.9998 #### [facility] [address] [place], [address] Hematocrit (Bld) [Volume fraction] 40.4 % Normal 37-47 [facility] Comment on above: Performed By: #### L 504.2610, L100.0100, L101.9900, L501.6710, L500.4050, L3410.9998 #### [facility] [address] [place], [address] Hemoglobin (Bld) [Mass/Vol] 13.3 g/dL Normal 12.0-15.0 [facility] Comment on above: Performed By: #### L 504.2610, L100.0100, L101.9900, L501.6710, L500.4050, L3410.9998 #### [facility] [address] [place], [address] IG% 0.500 Normal 0.0-0.9 [facility] Comment on above: Result Comment: IG% - Immature Granulocytes (promyelocytes, myelocytes and metamyelocytes) > 1% indicates that a LEFT SHIFT is Present. Performed By: #### L 504.2610, L100.0100, L101.9900, L501.6710, L500.4050, L3410.9998 #### [facility] [address] [place], [address] Lymphocytes/100 WBC (Bld) 16.4 % Low 19-41 [facility] Comment on above: Performed By: #### L 504.2610, L100.0100, L101.9900, L501.6710, L500.4050, L3410.9998 #### [facility] [address] [place], [address] MCH (RBC) [Entitic mass] 29.8 pg Normal 27.0-32.0 [facility] Comment on above: Performed By: #### L 504.2610, L100.0100, L101.9900, L501.6710, L500.4050, L3410.9998 #### [facility] [address] [place], [address] MCHC (RBC) [Mass/Vol] 32.9 g/dL Normal 32-36 [facility] Comment on above: Performed By: #### L 504.2610, L100.0100, L101.9900, L501.6710, L500.4050, L3410.9998 #### [facility] [address] [place], [address] MCV (RBC) [Entitic vol] 90.6 fL Normal 81-99 [facility] Comment on above: Performed By: #### L 504.2610, L100.0100, L101.9900, L501.6710, L500.4050, L3410.9998 #### [facility] [address] [place], [address] Monocytes/100 WBC (Bld) 4.7 % Normal 0-10 [facility] Comment on above: Performed By: #### L 504.2610, L100.0100, L101.9900, L501.6710, L500.4050, L3410.9998 #### [facility] [address] [place], [address] Neutrophils/100 WBC (Bld) 77.7 % High 47-70 [facility] Comment on above: Performed By: #### L 504.2610, L100.0100, L101.9900, L501.6710, L500.4050, L3410.9998 #### [facility] [address] [place], [address] Nucleated RBC (Bld) [#/Vol] 0 10*3/uL Normal 0-5 [facility] Comment on above: Performed By: #### L 504.2610, L100.0100, L101.9900, L501.6710, L500.4050, L3410.9998 #### [facility] [address] [place], [address] Platelet mean volume (Bld) [Entitic vol] 9.2 fL Normal 6.2-12.0 [facility] Comment on above: Performed By: #### L 504.2610, L100.0100, L101.9900, L501.6710, L500.4050, L3410.9998 #### [facility] [address] [place], [address] Platelets (Bld) [#/Vol] 280 10*3/uL Normal 150-450 [facility] Comment on above: Performed By: #### L 504.2610, L100.0100, L101.9900, L501.6710, L500.4050, L3410.9998 #### [facility] [address] [place], [address] RBC (Bld) [#/Vol] 4.46 10*6/uL Normal 4.2-5.4 [facility] Comment on above: Performed By: #### L 504.2610, L100.0100, L101.9900, L501.6710, L500.4050, L3410.9998 #### [facility] [address] [place], [address] RDW SD 46.9 fl High 35.1-43.9 [facility] Comment on above: Performed By: #### L 504.2610, L100.0100, L101.9900, L501.6710, L500.4050, L3410.9998 #### [facility] [address] [place], [address] WBC (Bld) [#/Vol] 11.5 10*3/uL High 4.4-11.0 [facility] Comment on above: Performed By: #### L 504.2610, L100.0100, L101.9900, L501.6710, L500.4050, L3410.9998 #### [facility] [address] [place], [address] CRPon 05-16-2024 C-REACTIVE PROT 6.08 mg/L High 0.0-3.0 [facility] Comment on above: Performed By: #### L 504.2610, L100.0100, L101.9900, L501.6710, L500.4050, L3410.9998 #### [facility] [address] [facility] [place], [address] CRP [Mass/Vol]Ordered By: Kandice Paez on 05-16-2024 C-Reactive Protein Extended Range 6.08 mg/L High 0.0-3.0 [facility] Carbon dioxide, total [Moles /volume] in Central venous bloodOrdered By: Pete Paez on 05-16-2024 CO2 [Moles/Vol] 22.8 mmol/L 21.0-32.0 [facility] Chloride assayOrdered By: Kandice Paez on 05-16-2024 Chloride [Moles/Vol] 102 mmol/L 98-108 [facility] Comprehensive Metabolic Prof ilon 05-16-2024 Albumin [Mass/Vol] 4.1 g/dL Normal 3.4-4.8 [facility] Comment on above: Performed By: #### L 504.2610, L100.0100, L101.9900, L501.6710, L500.4050, L3410.9998 #### [facility] [address] [place], [address] Albumin/Globulin [Mass ratio] 1.4 {ratio} Normal 0.9-2.4 [facility] Comment on above: Performed By: #### L 504.2610, L100.0100, L101.9900, L501.6710, L500.4050, L3410.9998 #### [facility] [address] [place], [address] ALK PHOS 69 U/L Normal 35-104 [facility] Comment on above: Performed By: #### L 504.2610, L100.0100, L101.9900, L501.6710, L500.4050, L3410.9998 #### [facility] [address] [place], [address] ALT [Catalytic activity/Vol] 13 U/L Normal <=34 [facility] Comment on above: Performed By: #### L 504.2610, L100.0100, L101.9900, L501.6710, L500.4050, L3410.9998 #### [facility] [address] [place], [address] AST [Catalytic activity/Vol] 18 U/L Normal <=31 [facility] Comment on above: Performed By: #### L 504.2610, L100.0100, L101.9900, L501.6710, L500.4050, L3410.9998 #### [facility] [address] [place], [address] Bilirubin [Mass/Vol] 0.26 mg/dL Normal 0.00-1.30 [facility] Comment on above: Performed By: #### L 504.2610, L100.0100, L101.9900, L501.6710, L500.4050, L3410.9998 #### [facility] [address] [place], [address] BUN/CRE 31.8 RATIO High 10-20 [facility] Comment on above: Performed By: #### L 504.2610, L100.0100, L101.9900, L501.6710, L500.4050, L3410.9998 #### [facility] [address] [place], [address] Calcium [Mass/Vol] 8.9 mg/dL Normal 7.6-11.0 [facility] Comment on above: Performed By: #### L 504.2610, L100.0100, L101.9900, L501.6710, L500.4050, L3410.9998 #### [facility] [address] [place], [address] Chloride [Moles/Vol] 102 mmol/L Normal 98-108 [facility] Comment on above: Performed By: #### L 504.2610, L100.0100, L101.9900, L501.6710, L500.4050, L3410.9998 #### [facility] [address] [place], [address] CO2 [Moles/Vol] 22.8 mmol/L Normal 21.0-32.0 [facility] Comment on above: Performed By: #### L 504.2610, L100.0100, L101.9900, L501.6710, L500.4050, L3410.9998 #### [facility] [address] [place], [address] Creatinine [Mass/Vol] 0.61 mg/dL Low 0.70-1.20 [facility] Comment on above: Performed By: #### L 504.2610, L100.0100, L101.9900, L501.6710, L500.4050, L3410.9998 #### [facility] [address] [place], [address] GAP 15 Normal 5-15 [facility] Comment on above: Performed By: #### L 504.2610, L100.0100, L101.9900, L501.6710, L500.4050, L3410.9998 #### [facility] [address] [place], [address] GFR/1.73 sq M.predicted among non-blacks MDRD (S/P/Bld) [Vol rate/Area] 101 mL/min/{1.73_m2} Normal >60 [facility] Comment on above: Result Comment: mL/m in/1.73m2 CKD-EPI Creatinine Equation (2020) Performed By: #### L 504.2610, L100.0100, L101.9900, L501.6710, L500.4050, L3410.9998 #### [facility] [address] [place], [address] Globulin (S) [Mass/Vol] 3.0 g/dL Normal 2.2-4.2 [facility] Comment on above: Performed By: #### L 504.2610, L100.0100, L101.9900, L501.6710, L500.4050, L3410.9998 #### [facility] [address] [place], [address] Glucose [Mass/Vol] 165 mg/dL High 70-99 [facility] Comment on above: Performed By: #### L 504.2610, L100.0100, L101.9900, L501.6710, L500.4050, L3410.9998 #### [facility] [address] [place], [address] Potassium [Moles/Vol] 3.8 mmol/L Normal 3.3-5.1 [facility] Comment on above: Performed By: #### L 504.2610, L100.0100, L101.9900, L501.6710, L500.4050, L3410.9998 #### [facility] [address] [place], [address] Sodium [Moles/Vol] 139 mmol/L Normal 133-145 [facility] Comment on above: Performed By: #### L 504.2610, L100.0100, L101.9900, L501.6710, L500.4050, L3410.9998 #### [facility] [address] [place], [address] T PROT 7.0 g/dL Normal 5.9-8.4 [facility] Comment on above: Performed By: #### L 504.2610, L100.0100, L101.9900, L501.6710, L500.4050, L3410.9998 #### [facility] [address] [place], [address] Urea nitrogen [Mass/Vol] 19 mg/dL Normal 4-19 [facility] Comment on above: Performed By: #### L 504.2610, L100.0100, L101.9900, L501.6710, L500.4050, L3410.9998 #### [facility] [address] [place], [address] Eosinophil percentageOrdered By: Pete Paez on 05-16-2024 Eosinophils/100 WBC (Bld) 0.3 % 0-5 [facility] Erythrocyte Sed Rateon 05-16 SED RATE 5 mm/hr Normal 0-30 [facility] Comment on above: Performed By: #### L 504.2610, L100.0100, L101.9900, L501.6710, L500.4050, L3410.9998 #### [facility] [address] [place], [address] Erythrocyte distribution wid th (RBC) [Ratio]Ordered By: Pete Paez on 05-16-2024 Erythrocyte distribution width (RBC) [Entitic vol] 46.9 fL High 35.1-43.9 [facility] Erythrocyte distribution wid th ratioOrdered By: Pete Paez on 05-16-2024 Erythrocyte distribution width (RBC) [Ratio] 14.3 % 11.6-14.6 [facility] Erythrocyte distribution wid th standard deviationOrdered By: Pete Paez on 05-16-2024 Erythrocyte distribution width (RBC) [Ratio] 46.9 fl High 35.1-43.9 [facility] Erythrocyte sedimentation ra teOrdered By: Pete Paez on 05-16-2024 ESR (Bld) [Velocity] 5 mm/h 0-30 [facility] GFR/1.73 sq M.predicted carmencita g non-blacks MDRD (S/P/Bld) [Vol rate/Area]Ordered By: Pete Paez on 05-16-2024 Estimated GFR (MDRD) Non-Af Amer 101 >60 [facility] Comment on above: mL/min/1.73m2 CKD-EP I Creatinine Equation (2020) Glomerular filtration rate ( GFR) estimation/1.73 sq m using serum, plasma, or whole bOrdered By: Pete Paez on 05-16-2024 GFR/1.73 sq M.predicted among non-blacks MDRD (S/P/Bld) [Vol rate/Area] 101 mL/min/{1.73_m2} >60 [facility] Comment on above: mL/min/1.73m2 CKD-EP I Creatinine Equation (2020) Hematocrit Auto (Bld) [Volum e fraction]Ordered By: Pete Paez on 05-16-2024 Hematocrit (Bld) [Volume fraction] 40.4 % 37-47 [facility] Hemoglobin measurementOrdere d By: Pete Paez on 05-16-2024 Hemoglobin (Bld) [Mass/Vol] 13.3 g/dL 12.0-15.0 [facility] Immature granulocytes/100 WB C Auto (Bld)Ordered By: Pete Paez on 05-16-2024 Immature granulocytes/100 WBC (Bld) 0.500 % 0.0-0.9 [facility] Comment on above: IG% - Immature Granu locytes (promyelocytes, myelocytes and metamyelocytes) > 1% indicates that a LEFT SHIFT is Present. LDHon 05-16-2024 LDH 173 U/L Normal 84-246 [facility] Comment on above: Order Comment: 1 Performed By: #### L 504.2610, L100.0100, L101.9900, L501.6710, L500.4050, L3410.9998 ####[facility] [id number] [place], [address] Laboratory - Chemistry and C hemistry - challengeOrdered By: Pete Paez on 05-16-2024 AST [Catalytic activity/Vol] 18 U/L <32 [facility] Lactate dehydrogenase (LDH) measurementOrdered By: Pete Paez on 05-16-2024 LDH [Catalytic activity/Vol] 173 U/L 84-246 [facility] Lymphocytes Auto (Unsp spec) [#/Vol]Ordered By: Pete Paez on 05-16-2024 Lymphocytes (Bld) [#/Vol] 1.89 10*3/uL 0.83-4.51 [facility] Lymphocytes/100 WBC Auto (Un sp spec)Ordered By: Pete Paez on 05-16-2024 Lymphocytes/100 WBC (Bld) 16.4 % Low 19-41 [facility] MCV (mean corpuscular volume ) determinationOrdered By: Pete Paez on 05-16-2024 MCV (RBC) [Entitic vol] 90.6 fL 81-99 [facility] Mean corpuscular hemoglobin (MCH) determinationOrdered By: [facility] MCH (RBC) [Entitic mass] 29.8 pg 27.0-32.0 [facility] Mean corpuscular hemoglobin concentration (MCHC) determinationOrdered By: [facility]-16[facility]2024 MCHC (RBC) [Mass/Vol] 32.9 g/dL 32-36 [facility] Mean platelet volume determi nationOrdered By: Pete Paez on 05-16-2024 Platelet mean volume (Bld) [Entitic vol] 9.2 fL 6.2-12.0 [facility] Monocyte percentageOrdered B y: Pete Paez on 05-16-2024 Monocytes/100 WBC (Bld) 4.7 % 0-10 [facility] Neutrophil percentageOrdered By: [facility]-16-[facility]24 Neutrophils/100 WBC (Bld) 77.7 % High 47-70 [facility] No Panel InformationOrdered By: Pete Paez on 05-16-2024 Miscellaneous Test COMMENT . [facility] Comment on above: Test Ordered: [id number] Ustekinumab Drug + AntibodyUstekinumab 0.9 ug/mL ES Reference Range: .Quantitation Limit: <0.1 ug/mLResults of 0.1 ug/mL or higher indicate detection ofustekinumab.COMMENTS: - Induction levels in Crohn's Disease: - Patients who received IV 130 mg or 6 mg/kg had median trough concentrations of 2.1 ug/mL and 6.4 ug/mL, respectively, at week 8 in UNITI trials.(1)- Maintenance levels: - Of UNITI patients with trough levels greater than 1.1 ug/mL, about 80% achieved clinical remission (HBI < 5) and about 50% attained CRP normalization.(2) - Higher maintenance concentrations, greater than 4.5 ug/mL (achieved with q8wk or q4wk dosing after SQ induction), may be necessary for endoscopic response (SES-CD score reduction >=50%).(3) - Trough levels predictive of mucosal healing and fistula healing have yet to be determined.- In plaque psoriasis, median trough ustekinumab concentrations were 0.4 ug/mL at weeks 14 and 28 (ranging from undetectable to 3.6 ug/mL).(4) Although PASI50 responders had higher trough concentrations than non- responders in a study of 76 patients, a definitive therapeutic target range for psoriasis has yet to be established.(5)- As with other biologics, the optimal drug concentration depends upon patient-specific factors including co- morbidities, disease and desired therapeutic endpoint- This ustekinumab drug assay measures the free fraction of ustekinumab (antibody-unbound ustekinumab) when serum anti-ustekinumab antibodies are present.Anti-Ustekinumab Antibody <40 ng/mL ES Reference Range: .Quantitation Limit: < 40 ng/mLResults of 40 ng/mL or higher indicate detection of anti-ustekinumab antibodies.COMMENTS:- This anti-ustekinumab antibody assay is drug-tolerant, i.e. the detection of anti-ustekinumab antibodies is not impeded by the presence of ustekinumab in serum.- All positive anti-ustekinumab antibody results are verified by a confirmatory test.- The concomitant free ustekinumab drug concentration (reported above) is the pharmacodynamically active drug when anti-ustekinumab antibodies are present.- Serial measurements over time may be helpful to assess the impact of immunogenicity on the free drug level.- In the IM-UNITI trial, the incidence of anti-ustekinumab antibodies in Crohn's Disease at 1 year was 2.3%.(1)- In psoriasis, anti-ustekinumab antibodies occurred in 4-6% of patients.(6)References:1. Felicia WALKER, et al. Gastroenterology 2016;150(4):S408.2. Felicia Bhatt et al. P007 Exposure-Response to SC Ustekinumab in Moderate - Severe Crohn's Disease: Results from the IM-UNITI Maintenance Study. Advances in AIBD. November 2016.3. Kyrie R, et al. Clin Gastroenterol Hepatol 2017;15: 7857-9418.4. Marian CAMEJO et al. Br J Dermatol;2015:173;855-857.5. Kaelyn H, et al. PLOS ONE DOI;10:1371/journal.pone.2544649.6. Yulia L, et al. Br J Dermatol 2014;170:261-273.These tests were developed and their performancecharacteristics determined by [employer]. They have not beencleared or approved by the Food and Drug Administration.However, both drug and anti-drug antibody assays have beendeveloped and validated in accordance with FDA Guidance forIndustry documents: Bioanalytical Method Validation (2013)and Assay Development and Validation for ImmunogenicityTesting of Therapeutic Protein Products (2016).Performed at: [facility] [id number] [place], [place] [id number] Director: Maykel Martines MD, Phone: [phone] at: [facility] [id number] Director: Jay Henderson PhD, Phone: [phone] Nucleated red blood cell per centageOrdered By: Pete Paez on 05-16-2024 Nucleated RBC/100 WBC (Bld) [Ratio] 0 % 0-5 [facility] Platelet countOrdered By: Kandice Paez on 05-16-2024 Platelets (Bld) [#/Vol] 280 10*3/uL 150-450 [facility] Potassium (Unsp spec) [Mass/ Vol]Ordered By: Pete Paez on 05-16-2024 Potassium [Moles/Vol] 3.8 mmol/L 3.3-5.1 [facility] Potassium measurement (mass/ volume)Ordered By: Pete Paez on 05-16-2024 Potassium (Unsp spec) [Mass/Vol] 3.8 mmol/L 3.3-5.1 [facility] RBC Auto (Bld) [#/Vol]Ordere d By: Pete Paez on 05-16-2024 RBC (Bld) [#/Vol] 4.46 10*6/uL 4.2-5.4 [facility] Serum creatinine measurement (mass/volume)Ordered By: Pete Paez on 05-16-2024 Creatinine [Mass/Vol] 0.61 mg/dL Low 0.70-1.20 [facility] Serum globulin measurementOr dered By: Pete Paez on 05-16-2024 Globulin (S) [Mass/Vol] 3.0 g/dL 2.2-4.2 [facility] Serum glucose measurement (m ass/volume)Ordered By: Pete Paez on 05-16-2024 Glucose [Mass/Vol] 165 mg/dL High 70-99 [facility] Serum or plasma C reactive p rotein measurement (mass/volume)Ordered By: Pete Paez on 05-16-2024 CRP [Mass/Vol] 6.08 mg/L High 0.0-3.0 [facility] Serum or plasma alanine norman otransferase (ALT) measurementOrdered By: Pete Paez on 05-16-2024 ALT [Catalytic activity/Vol] 13 U/L <35 [facility] Serum or plasma albumin michel urement (mass/volume)Ordered By: Pete Paez on 05-16-2024 Albumin [Mass/Vol] 4.1 g/dL 3.4-4.8 [facility] Serum or plasma albumin/glob ulin mass ratioOrdered By: Pete Paez on 05-16-2024 Albumin/Globulin [Mass ratio] 1.4 {ratio} 0.9-2.4 [facility] Serum or plasma alkaline marlin sphatase measurementOrdered By: Pete Paez on 05-16-2024 ALP [Catalytic activity/Vol] 69 U/L 35-104 [facility] Serum or plasma calcium michel urement (mass/volume)Ordered By: Pete Paez on 05-16-2024 Calcium [Mass/Vol] 8.9 mg/dL 7.6-11.0 [facility] Serum or plasma urea nitroge n measurement (mass/volume)Ordered By: Pete Paez on 05-16-2024 Urea nitrogen [Mass/Vol] 19 mg/dL 4-19 [facility] Sodium levelOrdered By: Jaylen Paez on 05-16-2024 Sodium [Moles/Vol] 139 mmol/L 133-145 [facility] Total proteinOrdered By: Sunny Paez on 05-16-2024 Protein [Mass/Vol] 7.0 g/dL 5.9-8.4 [facility] White blood cell (WBC) count Ordered By: Pete Paez on 05-16-2024 WBC (Bld) [#/Vol] 11.5 10*3/uL High 4.4-11.0 [facility] Miscellaneous Lab Procedureo n 02-19-2024 MISC LAB TEST Normal [facility] Comment on above: Order Comment: lc [id number] USTEKINUMAB AND ANTI DOSEASSURE SERUM RED FRZ lc [id number] USTEKINUMAB AND ANTI DOSEASSURE SERUM RED FRZ Result Comment: Scan anastacio image report available in EMR Performed By: #### L 801.1541 #### [facility] [address] [place], [address] Oncology Visit Reporton 01-09 Oncology Visit Report [facility] [address] [place] [address] OFFICE VISIT Date of Service: 01/28/24 0744 MR#: [id number] Acct: [id number] Name: BABAK HSIEH Rep #: [id number] : 1960 From: Pete Paez MD Age/Sex: 63/F Location: [facility] Status: Signed HPI Subjective Date of Service 01/28/24 Chief Complaint F/u for R breast cancer. History of Present Illness 63 y.o.woman was found to have abnormal mammogram 2017. US on 06/15/2017 showed R breast mass 6:00 position. 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 ER/AR positive, Her2 2+ by IHC, Negative by FISH. She had lumpectomy and sentinel lymph node biopsy on 07/22/2017, pathology showed Invasive ductal ca, tumor size 18mm, margins negative, grade 3, lymph nodes 10 negative. She had BSO + RONNIE in 2004. Oncotype DX showed recurrence score of 27, intermediate risk. CT on 07/29/2017 showed small non-specific lung nodules. She elected to not to do adjuvant chemotherapy, received adjuvant Radiation therapy from 09/08/2017 to 10/06/2017. Started Tamoxifen on 10/20/2017. Comes for follow up. Feels well. [facility] Medical History Screening for breast cancer Breast pain, right LUE numbness Rheumatoid arthritis of foot Contact with and (suspected) exposure to other viral communicable diseases Asthmatic bronchitis with exacerbation Screening for osteoporosis Lab test negative for COVID-19 virus Asthma Breast cancer, right Breast cancer ( 06/2017) Abnormal mammogram of right breast Partial bowel obstruction DVT (deep venous thrombosis) Rheumatoid arthritis Crohns disease Surgical History History of carpal tunnel surgery of right wrist S/P complete hysterectomy H/O lymph node biopsy History of lumpectomy of right breast History of colectomy Family History Mother Breast cancer Hypertension CHF (congestive heart failure) Mother No problems noted. Social History household members: none Smoking Status: Former smoker quit date: 02/09/87 pack-years: 10 second hand exposure: No alcohol intake: never substance use type: does not use Intake Vital Signs 06/04/23 07:54 01/28/24 07:49 01/28/24 07:50 Height 5 ft 2 in 5 ft 2 in 5 ft 2 in Weight: 61.774 kg BMI 24.9 BP 111/74 Blood Pressure Location Lt brachial Position Sitting Respiration 18 Pulse 89 Pulse Source Monitor Temp 98.8 F Temperature Source Temporal Artery Pulse Oximetry (%) 94 Oxygen Delivery Method room air Intake Is patient in pain?: No Allergies No Known Allergies Allergy (Verified 01/28/24 07:44) Medications ???Medication ???Instructions ???Recorded ???Confirmed ???Type citalopram 10 mg tablet 20 mg PO DAILY 06/18/17 01/28/24 History loperamide 2 mg capsule 2 mg PO Q1-4H PRN Diarrhea 06/18/17 01/28/24 History melatonin 3 mg tablet 3 mg PO HS PRN Insomnia 06/18/17 01/28/24 History folic acid 1 mg tablet 1 mg PO DAILY 02/08/18 01/28/24 History ustekinumab 90 mg/mL subcutaneous 90 mg subcut Q8W 02/08/18 01/28/24 History syringe (Stelara) tamoxifen 20 mg tablet 20 mg PO DAILY #90 TABLETS 09/21/23 01/28/24 Rx budesonide 3 mg 9 mg PO QDAY 01/28/24 01/28/24 History capsule,delayed,extended release methotrexate sodium 2.5 mg tablet 8 mg PO QWEEK Check with primary 01/28/24 01/28/24 History doctor Central Venous Access Central Venous Access: No Exam Physical Exam Const alert, oriented x3 and no apparent distress General Appearance: cooperative and comfortable HEENT normocephalic, external ears normal and external nose normal Eyes PERRL, EOMs intact bilaterally, conjunctivae normal and no scleral icterus Neck supple Lymph Lymphatic: no lymphadenopathy noted Resp normal respiratory effort, no use of accessory muscles and clear to auscultation bilaterally Cardio regular rate, regular rhythm, S1 normal heart sound and S2 normal heart sound GI normal to inspection, nondistended, normoactive bowel sounds no CVA tenderness Back/Spine thoracic and lumbar spine normal to inspection Extremity normal to inspection and no clubbing, cyanosis or edema Neuro oriented x3, CN's II-XII intact bilaterally, moves all extremities and no focal motor deficits Psych mental status grossly normal Coding Level of Care Code Off vis,est,level 3 Exam Problem Focused Diagnoses Malignant neoplasm of lower-inner quadrant of right breast of female, estrogen receptor positive C50.311; Z17.0 Breast location: lower inner quadrant of breast Estrogen receptor status: positive Patient (more content not included)... Normal [facility] Miscellaneous procedureOrder ed By: Jay Isabel on 01-25-2024 Miscellaneous Test See comment [facility] Comment on above: Scanned image report available in EMR Absolute lymphocyte countOrd ered By: Pete Wei on 12-30-2023 Lymphocytes Auto (Unsp spec) [#/Vol] 1.76 10*3/uL 0.83-4.51 [facility] Absolute neutrophil countOrd ered By: [facility] on 12-30-2023 Neutrophils (Bld) [#/Vol] 4.9 10*3/uL 2.0-7.7 [facility] Automated lymphocyte count a s percentage of total leukocytesOrdered By: Pete Paez on 12-30-2023 Lymphocytes/100 WBC Auto (Unsp spec) 23.6 % 19-41 [facility] Basophil percentageOrdered B y: Pete [facility] on 12-30-2023 Basophils/100 WBC (Bld) 0.3 % 0-1 [facility] C-reactive protein measureme nt by high sensitivity methodOrdered By: [facility] on 12-30-2023 C-reactive protein measurement by high sensitivity method 32.80 mg/L High 0.0-3.0 [facility] Comment on above: C-Reactive Protein ( CRP) provides useful information for thediagnosis, therapy and monitoring of inflammatory processesand associated diseases. For the evaluation of Relative Riskfor Cardiovascular Disease, a High Sensitivity CRP (HSCRP)should be ordered. CBC W/Diff, Automatedon 12-11 Absolute Lymph 1.76 X10 3/uL Normal 0.83-4.51 [facility] Comment on above: Order Comment: DR SALVADOR SEPULVEDA ORDERED CBCD, GONZALES ISABEL ORDERED CRP, B12, CBCDDR CHEMA B12, VITD, TSH Performed By: #### L 506.1000, L501.9520, L500.4050, L501.6710, L100.0100, L503.0105 ####[facility] [id number] [place], [address] Absolute Neut 4.9 X10 3/uL Normal 2.0-7.7 [facility] Comment on above: Order Comment: DR SALVADOR SEPULVEDA ORDERED CBCD, GONZALES ISABEL ORDERED CRP, B12, CBCDDR CHEMA B12, VITD, TSH Performed By: #### L 506.1000, L501.9520, L500.4050, L501.6710, L100.0100, L503.0105 ####[facility] [address] [place], [address] Basophils/100 WBC (Bld) 0.3 % Normal 0-1 [facility] Comment on above: Order Comment: DR SALVADOR SEPULVEDA ORDERED CBCD, GONZALES ISABEL ORDERED CRP, B12, CBCDDR CHEMA B12, VITD, TSH Performed By: #### L 506.1000, L501.9520, L500.4050, L501.6710, L100.0100, L503.0105 ####[facility] [address] [place], [address] Eosinophils/100 WBC (Bld) 0.9 % Normal 0-5 [facility] Comment on above: Order Comment: DR SALVADOR SEPULVEDA ORDERED CBCD, GONZALES ISABEL ORDERED CRP, B12, CBCDDR CHEMA B12, VITD, TSH Performed By: #### L 506.1000, L501.9520, L500.4050, L501.6710, L100.0100, L503.0105 ####[facility] [address] [place], [address] Erythrocyte distribution width (RBC) [Ratio] 14.1 % Normal 11.6-14.6 [facility] Comment on above: Order Comment: DR SALVADOR SEPULVEDA ORDERED CBCD, GONZALES ISABEL ORDERED CRP, B12, CBCDDR CHEMA B12, VITD, TSH Performed By: #### L 506.1000, L501.9520, L500.4050, L501.6710, L100.0100, L503.0105 ####[facility] [address] [place], [address] Hematocrit (Bld) [Volume fraction] 39.7 % Normal 37-47 [facility] [facility] Comment on above: Order Comment: DR SALVADOR SEPULVEDA ORDERED CBCD, GONZALES ISABEL ORDERED CRP, B12, CBCDDR CHEMA B12, VITD, TSH Performed By: #### L 506.1000, L501.9520, L500.4050, L501.6710, L100.0100, L503.0105 ####[facility] [address] [place], [address] Hemoglobin (Bld) [Mass/Vol] 13.1 g/dL Normal 12.0-15.0 [facility] Comment on above: Order Comment: DR SALVADOR SEPULVEDA ORDERED CBCD, GONZALES ISABEL ORDERED CRP, B12, CBCDDR CHEMA B12, VITD, TSH Performed By: #### L 506.1000, L501.9520, L500.4050, L501.6710, L100.0100, L503.0105 ####[facility] [address] [place], [address] IG% 0.400 Normal 0.0-0.9 [facility] Comment on above: Order Comment: DR SALVADOR SEPULVEDA ORDERED CBCD, GONZALES ISABEL ORDERED CRP, B12, CBCDDR CHEMA B12, VITD, TSH Result Comment: IG% - Immature Granulocytes (promyelocytes, myelocytes and metamyelocytes) > 1% indicates that a LEFT SHIFT is Present. Performed By: #### L 506.1000, L501.9520, L500.4050, L501.6710, L100.0100, L503.0105 ####[facility] [address] [place], [address] Lymphocytes/100 WBC (Bld) 23.6 % Normal 19-41 [facility] Comment on above: Order Comment: DR SALVADOR SEPULVEDA ORDERED CBCD, GONZALES ISABEL ORDERED CRP, B12, CBCDDR CHEMA B12, VITD, TSH Performed By: #### L 506.1000, L501.9520, L500.4050, L501.6710, L100.0100, L503.0105 ####[facility] [address] [place], [address] MCH (RBC) [Entitic mass] 29.6 pg Normal 27.0-32.0 [facility] Comment on above: Order Comment: DR SALVADOR SEPULVEDA ORDERED CBCDGONZALES ORDERED CRP, B12, CBCDDR CHEMA B12, VITD, TSH Performed By: #### L 506.1000, L501.9520, L500.4050, L501.6710, L100.0100, L503.0105 ####[facility] [address] [place], [address] MCHC (RBC) [Mass/Vol] 33.0 g/dL Normal 32-36 [facility] Comment on above: Order Comment: DR SALVADOR SEPULVEDA ORDERED CBCDGONZALES ORDERED CRP, B12, CBCDDR CHEMA B12, VITD, TSH Performed By: #### L 506.1000, L501.9520, L500.4050, L501.6710, L100.0100, L503.0105 ####[facility] [address] [place], [address] MCV (RBC) [Entitic vol] 89.6 fL Normal 81-99 [facility] Comment on above: Order Comment: DR SALVADOR SEPULVEDA ORDERED CBCDGONZALES ORDERED CRP, B12, CBCDDR CHEMA B12, VITD, TSH Performed By: #### L 506.1000, L501.9520, L500.4050, L501.6710, L100.0100, L503.0105 ####[facility] [address] [place], [address] Monocytes/100 WBC (Bld) 9.0 % Normal 0-10 [facility] Comment on above: Order Comment: DR SALVADOR SEPULVEDA ORDERED CBCDGONZALES ORDERED CRP, B12, CBCDDR CHEMA B12, VITD, TSH Performed By: #### L 506.1000, L501.9520, L500.4050, L501.6710, L100.0100, L503.0105 ####[facility] [address] [place], [address] Neutrophils/100 WBC (Bld) 65.8 % Normal 47-70 [facility] Comment on above: Order Comment: DR SALVADOR SEPULVEDA ORDERED CBCD, GONZALES ISABEL ORDERED CRP, B12, CBCDDR CHEMA B12, VITD, TSH Performed By: #### L 506.1000, L501.9520, L500.4050, L501.6710, L100.0100, L503.0105 ####[facility] [address] [place], [address] Nucleated RBC (Bld) [#/Vol] 0 10*3/uL Normal 0-5 [facility] Comment on above: Order Comment: DR SALVADOR SEPULVEDA ORDERED CBCD, GONZALES ISABEL ORDERED CRP, B12, CBCDDR CHEMA B12, VITD, TSH Performed By: #### L 506.1000, L501.9520, L500.4050, L501.6710, L100.0100, L503.0105 ####[facility] [address] [place], [address] Platelet mean volume (Bld) [Entitic vol] 9.6 fL Normal 6.2-12.0 [facility] Comment on above: Order Comment: DR SALVADOR SEPULVEDA ORDERED CBCD, GONZALES ISABEL ORDERED CRP, B12, CBCDDR CHEMA B12, VITD, TSH Performed By: #### L 506.1000, L501.9520, L500.4050, L501.6710, L100.0100, L503.0105 ####[facility] [address] [place], [address] Platelets (Bld) [#/Vol] 293 10*3/uL Normal 150-450 [facility] Comment on above: Order Comment: DR SALVADOR SEPULVEDA ORDERED CBCD, GONZALES ISABEL ORDERED CRP, B12, CBCDDR CHEMA B12, VITD, TSH Performed By: #### L 506.1000, L501.9520, L500.4050, L501.6710, L100.0100, L503.0105 ####[facility] [address] [place], [address] RBC (Bld) [#/Vol] 4.43 10*6/uL Normal 4.2-5.4 [facility] Comment on above: Order Comment: DR SALVADOR SEPULVEDA ORDERED CBCD, GONZALES ISABEL ORDERED CRP, B12, CBCDDR CHEMA B12, VITD, TSH Performed By: #### L 506.1000, L501.9520, L500.4050, L501.6710, L100.0100, L503.0105 ####[facility] [address] [place], [address] RDW SD 45.9 fl High 35.1-43.9 [facility] Comment on above: Order Comment: DR SALVADOR SEPULVEDA ORDERED CBCD, GONZALES ISABEL ORDERED CRP, B12, CBCDDR CHEMA B12, VITD, TSH Performed By: #### L 506.1000, L501.9520, L500.4050, L501.6710, L100.0100, L503.0105 ####[facility] [address] [place], [address] WBC (Bld) [#/Vol] 7.5 10*3/uL Normal 4.4-11.0 [facility] Comment on above: Order Comment: DR SALVADOR SEPULVEDA ORDERED CBCD, GONZALES ISABEL ORDERED CRP, B12, CBCDDR CHEMA B12, VITD, TSH Performed By: #### L 506.1000, L501.9520, L500.4050, L501.6710, L100.0100, L503.0105 ####[facility] [address] [place], [address] CRPon 12-30-2023 C-REACTIVE PROT 32.80 mg/L High 0.0-3.0 [facility] Comment on above: Order Comment: DR SALVADOR SEPULVEDA ORDERED CBCDGONZALES ORDERED CRP, B12, CBCDDR CHEMA B12, VITD, TSH Result Comment: C-Re active Protein (CRP) provides useful information for the diagnosis, therapy and monitoring of inflammatory processes and associated diseases. For the evaluation of Relative Risk for Cardiovascular Disease, a High Sensitivity CRP (HSCRP) should be ordered. Performed By: #### L 506.1000, L501.9520, L500.4050, L501.6710, L100.0100, L503.0105 ####[facility] [address] [place], [address] Comprehensive Metabolic Prof ilon 12-30-2023 Albumin [Mass/Vol] 3.1 g/dL Low 3.2-5.0 [facility] Comment on above: Order Comment: DR SALVADOR SEPULVEDA ORDERED CBCDGONZALES ORDERED CRP, B12, CBCDDR CHEMA B12, VITD, TSH Performed By: #### L 506.1000, L501.9520, L500.4050, L501.6710, L100.0100, L503.0105 ####[facility] [address] [place], [address] Albumin/Globulin [Mass ratio] 0.8 {ratio} Low 0.9-2.4 [facility] Comment on above: Order Comment: DR SALVADOR SEPULVEDA ORDERED CBCDGONZALES ORDERED CRP, B12, CBCDDR CHEMA B12, VITD, TSH Performed By: #### L 506.1000, L501.9520, L500.4050, L501.6710, L100.0100, L503.0105 ####[facility] [address] [place], [place], [address] ALK P 70 U/L Normal 45-117 [facility] Comment on above: Order Comment: DR SALVADOR SEPULVEDA ORDERED CBCDGONZALES ORDERED CRP, B12, CBCDDR CHEMA B12, VITD, TSH Performed By: #### L 506.1000, L501.9520, L500.4050, L501.6710, L100.0100, L503.0105 ####[facility] [address] [place], [address] ALT [Catalytic activity/Vol] 16 U/L Normal 13-56 [facility] Comment on above: Order Comment: DR SALVADOR SEPULVEDA ORDERED CBCD, GONZALES ISABEL ORDERED CRP, B12, CBCDDR CHEMA B12, VITD, TSH Performed By: #### L 506.1000, L501.9520, L500.4050, L501.6710, L100.0100, L503.0105 ####[facility] [address] [place], [address] AST [Catalytic activity/Vol] 12 U/L Low 15-37 [facility] Comment on above: Order Comment: DR SALVADOR SEPULVEDA ORDERED CBCD, GONZALES ISABEL ORDERED CRP, B12, CBCDDR CHEMA B12, VITD, TSH Performed By: #### L 506.1000, L501.9520, L500.4050, L501.6710, L100.0100, L503.0105 ####[facility] [address] [place], [address] Bilirubin [Mass/Vol] 0.50 mg/dL Normal 0.20-1.00 [facility] Comment on above: Order Comment: DR SALVADOR SEPULVEDA ORDERED CBCD, GONZALES ISABEL ORDERED CRP, B12, CBCDDR CHEMA B12, VITD, TSH Result Comment: For patients on eltrombopag therapy, use of Dimension Exline TBIL is not recommended. Performed By: #### L 506.1000, L501.9520, L500.4050, L501.6710, L100.0100, L503.0105 ####[facility] [address] [place], [address] BUN/CRE 22.7 RATIO High 10-20 [facility] Comment on above: Order Comment: DR SALVAODR SEPULVEDA ORDERED CBCD, GONZALES ISABEL ORDERED CRP, B12, CBCDDR CHEMA B12, VITD, TSH Performed By: #### L 506.1000, L501.9520, L500.4050, L501.6710, L100.0100, L503.0105 ####[facility] [address] [place], [address] CA,Total 8.5 mg/dL Normal 8.5-10.1 [facility] Comment on above: Order Comment: DR SALVADOR SEPULVEDA ORDERED CBCD, GONZALES ISABEL ORDERED CRP, B12, CBCDDR CHEMA B12, VITD, TSH Performed By: #### L 506.1000, L501.9520, L500.4050, L501.6710, L100.0100, L503.0105 ####[facility] [address] [place], [address] Chloride [Moles/Vol] 109 mmol/L High 98-107 [facility] Comment on above: Order Comment: DR SALVADOR SEPULVEDA ORDERED CBCD, GONZALES ISABEL ORDERED CRP, B12, CBCDDR CHEMA B12, VITD, TSH Performed By: #### L 506.1000, L501.9520, L500.4050, L501.6710, L100.0100, L503.0105 ####[facility] [address] [place], [address] CO2 [Moles/Vol] 22.0 mmol/L Normal 21.0-32.0 [facility] Comment on above: Order Comment: DR SALVADOR SEPULVEDA ORDERED CBCD, GONZALES ISABEL ORDERED CRP, B12, CBCDDR CHEMA B12, VITD, TSH Performed By: #### L 506.1000, L501.9520, L500.4050, L501.6710, L100.0100, L503.0105 ####[facility] [address] [place], [address] Creatinine [Mass/Vol] 0.70 mg/dL Normal 0.55-1.02 [facility] Comment on above: Order Comment: DR SALVADOR SEPULVEDA ORDERED CBCD, GONZALES ISABEL ORDERED CRP, B12, CBCDDR CHEMA B12, VITD, TSH Result Comment: The validity of the calculated GFR GFRAA in patients over 70 years has not been determined. Clinical correlation is essential. Performed By: #### L 506.1000, L501.9520, L500.4050, L501.6710, L100.0100, L503.0105 ####[facility] [address] [place], [address] ECRCL 72.53 ml/min Normal [facility] Comment on above: Order Comment: DR SALVADOR SEPULVEDA ORDERED CBCD, GONZALES ISABEL ORDERED CRP, B12, CBCDDR CHEMA B12, VITD, TSH Performed By: #### L 506.1000, L501.9520, L500.4050, L501.6710, L100.0100, L503.0105 ####[facility] [address] [place], [address] EST GFR - AA 108 mL/min Normal >60 [facility] Comment on above: Order Comment: DR SALVADOR SEPULVEDA ORDERED CBCD, GONZALES ISABEL ORDERED CRP, B12, CBCDDR CHEMA B12, VITD, TSH Result Comment: Afri can [place] GFR Calc Performed By: #### L 506.1000, L501.9520, L500.4050, L501.6710, L100.0100, L503.0105 ####[facility] [address] [place], [address] GAP 8 Normal 5-15 [facility] Comment on above: Order Comment: DR SALVADOR SEPULVEDA ORDERED CBCD, GONZALES ISABEL ORDERED CRP, B12, CBCDDR CHEMA B12, VITD, TSH Performed By: #### L 506.1000, L501.9520, L500.4050, L501.6710, L100.0100, L503.0105 ####[facility] [address] [place], [address] GFR/1.73 sq M.predicted among non-blacks MDRD (S/P/Bld) [Vol rate/Area] 89 mL/min/{1.73_m2} Normal >60 [facility] Comment on above: Order Comment: DR SALVADOR SEPULVEDA ORDERED CBCD, GONZALES ISABEL ORDERED CRP, B12, CBCDDR CHEMA B12, VITD, TSH Result Comment: Non- GFR Calc Performed By: #### L 506.1000, L501.9520, L500.4050, L501.6710, L100.0100, L503.0105 ####[facility] [address] [place], [address] Globulin (S) [Mass/Vol] 3.8 g/dL Normal 2.2-4.2 [facility] Comment on above: Order Comment: DR SALVADOR SEPULVEDA ORDERED CBCD, GONZALES ISABEL ORDERED CRP, B12, CBCDDR CHEMA B12, VITD, TSH Performed By: #### L 506.1000, L501.9520, L500.4050, L501.6710, L100.0100, L503.0105 ####[facility] [address] [place], [address] Glucose [Mass/Vol] 129 mg/dL High 74-106 [facility] Comment on above: Order Comment: DR SALVADOR SEPULVEDA ORDERED CBCD, GONZALES ISABEL ORDERED CRP, B12, CBCDDR CHEMA B12, VITD, TSH Result Comment: Fast ing Glucose result greater than or equal to 126 mg/dL suggests DIABETES MELLITUS per A.D.A. criteria. Performed By: #### L 506.1000, L501.9520, L500.4050, L501.6710, L100.0100, L503.0105 ####[facility] [address] [place], [address] Potassium [Moles/Vol] 3.3 mmol/L Low 3.5-5.1 [facility] Comment on above: Order Comment: DR SALVADOR SEPULVEDA ORDERED CBCD, GONZALES ISABEL ORDERED CRP, B12, CBCDDR CHEMA B12, VITD, TSH Performed By: #### L 506.1000, L501.9520, L500.4050, L501.6710, L100.0100, L503.0105 ####[facility] [address] [place], [address] Sodium [Moles/Vol] 139 mmol/L Normal 136-145 [facility] Comment on above: Order Comment: DR SALVADOR SEPULVEDA ORDERED CBCD, GONZALES ISABEL ORDERED CRP, B12, CBCDDR CHEMA B12, VITD, TSH Performed By: #### L 506.1000, L501.9520, L500.4050, L501.6710, L100.0100, L503.0105 ####[facility] [address] [place], [address] T PROT 6.9 g/dL Normal 6.4-8.2 [facility] Comment on above: Order Comment: DR SALVADOR SEPULVEDA ORDERED CBCD, GONZALES ISABEL ORDERED CRP, B12, CBCDDR CHEMA B12, VITD, TSH Performed By: #### L 506.1000, L501.9520, L500.4050, L501.6710, L100.0100, L503.0105 ####[facility] [address] [place], [address] Urea nitrogen [Mass/Vol] 16 mg/dL Normal 7-18 [facility] Comment on above: Order Comment: DR SALVADOR SEPULVEDA ORDERED CBCD, GONZALES ISABEL ORDERED CRP, B12, CBCDDR CHEMA B12, VITD, TSH Performed By: #### L 506.1000, L501.9520, L500.4050, L501.6710, L100.0100, L503.0105 ####[facility] [address] [place], [address] Eosinophil percentageOrdered By: Pete Paez on 12-30-2023 Eosinophils/100 WBC (Bld) 0.9 % 0-5 [facility] Immature granulocytes/100 WB C Auto (Bld)Ordered By: Pete Paez on 12-30-2023 Immature granulocytes/100 WBC (Bld) 0.400 % 0.0-0.9 [facility] Comment on above: IG% - Immature Granu locytes (promyelocytes, myelocytes and metamyelocytes) > 1% indicates that a LEFT SHIFT is Present. Monocyte percentageOrdered B y: Pete Paez on 12-30-2023 Monocytes/100 WBC (Bld) 9.0 % 0-10 [facility] Neutrophil percentageOrdered By: [facility] on 12-30-2023 Neutrophils/100 WBC (Bld) 65.8 % 47-70 [facility] Nucleated red blood cell per centageOrdered By: Pete Paez on 12-30-2023 Nucleated RBC/100 WBC (Bld) [Ratio] 0 % 0- [facility] Serum or plasma thyroid stim ulating hormone (TSH) measurement (units/volume)Ordered By: Pete Paez on 12-30-2023 TSH Qn 1.310 uIU/mL 0.358-3.74 0 [facility] Thyroid Stim Hormone (TSH)on 12-30-2023 TSH 1.310 uIU/mL Normal 0.358-3.74 0 [facility] Comment on above: Order Comment: DR SALVADOR SEPULVEDA ORDERED CBCD, GONZALES ISABEL ORDERED CRP, B12, CBCDDR CHEMA B12, VITD, TSH Performed By: #### L 506.1000, L501.9520, L500.4050, L501.6710, L100.0100, L503.0105 ####[facility] [address] [place], [place], [id number] Vitamin B12on 12-30-2023 Cobalamin (Vitamin B12) [Mass/Vol] 252 pg/mL Normal 211-911 [facility] Comment on above: Order Comment: DR SALVADOR SEPULVEDA ORDERED CBCD, GONZALES ISABEL ORDERED CRP, B12, CBCDDR CHEMA B12, VITD, TSH Performed By: #### L 506.1000, L501.9520, L500.4050, L501.6710, L100.0100, L503.0105 ####[facility] [address] [place], [address] Vitamin D,25 Hydroxyon 12-29 Vitamin D 25-OH 24.5 ng/mL Normal [facility] Comment on above: Order Comment: DR SALVADOR SEPULVEDA ORDERED CBCD, CMPDR MAAME ORDERED CRP, B12, CBCDDR CHEMA B12, VITD, TSH Result Comment: Ethel min D 25(OH) Status Range Deficiency <20 ng/mL (50nmol/L) Insufficiency 20 - 30 ng/mL (50 - 75 nmol/L) Sufficiency 30 - 100 ng/mL (75 - 250 nmol/L) Toxicity >100 ng/mL (>250 nmol/L) Performed By: #### L 506.1000, L501.9520, L500.4050, L501.6710, L100.0100, L503.0105 ####[facility] [address] [place], [address] CBC W/Diff, Automatedon 07- Absolute Lymph 2.19 X10 3/uL Normal 0.83-4.51 [facility] Comment on above: Performed By: #### L 500.3400, L501.1105, L101.9900, L100.0100, L501.6710 ####[facility] [address] [place], [address] Absolute Neut 6.0 X10 3/uL Normal 2.0-7.7 [facility] Comment on above: Performed By: #### L 500.3400, L501.1105, L101.9900, L100.0100, L501.6710 ####[facility] [address] [place], [address] Basophils/100 WBC (Bld) 0.3 % Normal 0-1 [facility] Comment on above: Performed By: #### L 500.3400, L501.1105, L101.9900, L100.0100, L501.6710 ####[facility] [address] [place], [address] Eosinophils/100 WBC (Bld) 1.2 % Normal 0-5 [facility] Comment on above: Performed By: #### L 500.3400, L501.1105, L101.9900, L100.0100, L501.6710 ####[facility] [address] [place], [address] Erythrocyte distribution width (RBC) [Ratio] 14.5 % Normal 11.6-14.6 [facility] Comment on above: Performed By: #### L 500.3400, L501.1105, L101.9900, L100.0100, L501.6710 ####[facility] [address] [place], [address] Hematocrit (Bld) [Volume fraction] 40.9 % Normal 37-47 [facility] Comment on above: Performed By: #### L 500.3400, L501.1105, L101.9900, L100.0100, L501.6710 ####[facility] [address] [place], [address] Hemoglobin (Bld) [Mass/Vol] 13.3 g/dL Normal 12.0-15.0 [facility] Comment on above: Performed By: #### L 500.3400, L501.1105, L101.9900, L100.0100, L501.6710 ####[facility] [address] [place], [address] IG% 0.400 Normal 0.0-0.9 [facility] Comment on above: Result Comment: IG% - Immature Granulocytes (promyelocytes, myelocytes and metamyelocytes) > 1% indicates that a LEFT SHIFT is Present. Performed By: #### L 500.3400, L501.1105, L101.9900, L100.0100, L501.6710 ####[facility] [address] [place], [address] Lymphocytes/100 WBC (Bld) 24.4 % Normal 19-41 [facility] Comment on above: Performed By: #### L 500.3400, L501.1105, L101.9900, L100.0100, L501.6710 ####[facility] [address] [place], [address] MCH (RBC) [Entitic mass] 29.1 pg Normal 27.0-32.0 [facility] Comment on above: Performed By: #### L 500.3400, L501.1105, L101.9900, L100.0100, L501.6710 ####[facility] [address] [place], [address] MCHC (RBC) [Mass/Vol] 32.5 g/dL Normal 32-36 [facility] Comment on above: Performed By: #### L 500.3400, L501.1105, L101.9900, L100.0100, L501.6710 ####[facility] [address] [place], [address] MCV (RBC) [Entitic vol] 89.5 fL Normal 81-99 [facility] Comment on above: Performed By: #### L 500.3400, L501.1105, L101.9900, L100.0100, L501.6710 ####[facility] [address] [place], [address] Monocytes/100 WBC (Bld) 7.1 % Normal 0-10 [facility] Comment on above: Performed By: #### L 500.3400, L501.1105, L101.9900, L100.0100, L501.6710 ####[facility] [address] [place], [address] Neutrophils/100 WBC (Bld) 66.6 % Normal 47-70 [facility] Comment on above: Performed By: #### L 500.3400, L501.1105, L101.9900, L100.0100, L501.6710 ####[facility] [address] [place], [address] Nucleated RBC (Bld) [#/Vol] 0 10*3/uL Normal 0-5 [facility] Comment on above: Performed By: #### L 500.3400, L501.1105, L101.9900, L100.0100, L501.6710 ####[facility] [address] [place], [address] Platelet mean volume (Bld) [Entitic vol] 9.1 fL Normal 6.2-12.0 [facility] Comment on above: Performed By: #### L 500.3400, L501.1105, L101.9900, L100.0100, L501.6710 ####[facility] [address] [place], [address] Platelets (Bld) [#/Vol] 304 10*3/uL Normal 150-450 [facility] Comment on above: Performed By: #### L 500.3400, L501.1105, L101.9900, L100.0100, L501.6710 ####[facility] [address] [place], [address] RBC (Bld) [#/Vol] 4.57 10*6/uL Normal 4.2-5.4 [facility] Comment on above: Performed By: #### L 500.3400, L501.1105, L101.9900, L100.0100, L501.6710 ####[facility] [address] [place], [address] RDW SD 46.5 fl High 35.1-43.9 [facility] Comment on above: Performed By: #### L 500.3400, L501.1105, L101.9900, L100.0100, L501.6710 ####[facility] [id number] [place], [address] WBC (Bld) [#/Vol] 9.0 10*3/uL Normal 4.4-11.0 [facility] Comment on above: Performed By: #### L 500.3400, L501.1105, L101.9900, L100.0100, L501.6710 ####[facility] [address] [place], [address] CRPon 08-28-2023 C-REACTIVE PROT 5.54 mg/L High 0.0-3.0 [facility] Comment on above: Result Comment: C-Re active Protein (CRP) provides useful information for the diagnosis, therapy and monitoring of inflammatory processes and associated diseases. For the evaluation of Relative Risk for Cardiovascular Disease, a High Sensitivity CRP (HSCRP) should be ordered. Performed By: #### L 500.3400, L501.1105, L101.9900, L100.0100, L501.6710 ####[facility] [address] [place], [address] Erythrocyte Sed Rateon 08-27 SED RATE 5 mm/hr Normal 0-30 [facility] Comment on above: Performed By: #### L 500.3400, L501.1105, L101.9900, L100.0100, L501.6710 ####[facility] [address] [place], [address] Liver Profileon 08-28-2023 Albumin [Mass/Vol] 3.3 g/dL Normal 3.2-5.0 [facility] Comment on above: Performed By: #### L 500.3400, L501.1105, L101.9900, L100.0100, L501.6710 ####[facility] [id number] [place], [address] ALK P 86 U/L Normal 45-117 [facility] Comment on above: Performed By: #### L 500.3400, L501.1105, L101.9900, L100.0100, L501.6710 ####[facility] [address] [place], [address] ALT [Catalytic activity/Vol] 21 U/L Normal 13-56 [facility] Comment on above: Performed By: #### L 500.3400, L501.1105, L101.9900, L100.0100, L501.6710 ####[facility] [address] [place], [address] AST [Catalytic activity/Vol] 19 U/L Normal 15-37 [facility] Comment on above: Performed By: #### L 500.3400, L501.1105, L101.9900, L100.0100, L501.6710 ####[facility] [address] [place], [address] Bilirubin [Mass/Vol] 0.20 mg/dL Normal 0.20-1.00 [facility] Comment on above: Result Comment: For patients on eltrombopag therapy, use of Dimension Exline TBIL is not recommended. Performed By: #### L 500.3400, L501.1105, L101.9900, L100.0100, L501.6710 ####[facility] [address] [place], [address] Bilirubin.direct [Mass/Vol] 0.05 mg/dL Normal 0.00-0.30 [facility] Comment on above: Performed By: #### L 500.3400, L501.1105, L101.9900, L100.0100, L501.6710 ####[facility] [address] [place], [address] Globulin (S) [Mass/Vol] 4.1 g/dL Normal 2.2-4.2 [facility] Comment on above: Performed By: #### L 500.3400, L501.1105, L101.9900, L100.0100, L501.6710 ####[facility] [address] [place], [address] T PROT 7.4 g/dL Normal 6.4-8.2 [facility] Comment on above: Performed By: #### L 500.3400, L501.1105, L101.9900, L100.0100, L501.6710 ####[facility] [address] [place], [address] Serum Creatinine AND GFRon 0 - Creatinine [Mass/Vol] 0.62 mg/dL Normal 0.55-1.02 [facility] Comment on above: Result Comment: The validity of the calculated GFR GFRAA in patients over 70 years has not been determined. Clinical correlation is essential. Performed By: #### L 500.3400, L501.1105, L101.9900, L100.0100, L501.6710 ####[facility] [address] [place], [address] EST GFR - AA 124 mL/min Normal >60 [facility] Comment on above: Result Comment: Afri can [place] GFR Calc Performed By: #### L 500.3400, L501.1105, L101.9900, L100.0100, L501.6710 ####[facility] [address] [place], [address] GFR/1.73 sq M.predicted among non-blacks MDRD (S/P/Bld) [Vol rate/Area] 103 mL/min/{1.73_m2} Normal >60 [facility] Comment on above: Result Comment: Non- GFR Calc Performed By: #### L 500.3400, L501.1105, L101.9900, L100.0100, L501.6710 ####[facility] [address] [place], [address] Laboratory - Chemistry and C hemistry - challengeOrdered By: Estrellita Bear on 06-10-2023 Cobalamin (Vitamin B12) [Mass/Vol] 266 pg/mL 211-911 [facility] No Panel InformationOrdered By: Estrellita Bear on 06-10-2023 Free Triiodothyronine (T3) pg/dL 2.3 pg/mL 2.18-3.98 [facility] Vitamin D 25-Hydroxy 30.6 ng/mL [facility] Comment on above: Vitamin D 25(OH) Sta tus Range Deficiency <20 ng/mL (50nmol/L) Insufficiency 20 - 30 ng/mL (50 - 75 nmol/L) Sufficiency 30 - 100 ng/mL (75 - 250 nmol/L) Toxicity >100 ng/mL (>250 nmol/L) Serum or plasma thyroid stim ulating hormone (TSH) measurement (units/volume)Ordered By: Estrellita Bear on 06-10-2023 TSH Qn 1.22 uIU/mL 0.358-3.74 [facility] Thin prep Papanicolaou smear with manual screeningOrdered By: Estrellita Bear on 06-10-2023 Thin prep Papanicolaou smear with manual screening 1.16 ng/dL 0.76-1.46 [facility] Whole blood hemoglobin A1c/t otal hemoglobin ratio (mass fraction)Ordered By: Estrellita Bear on 06-10-2023 HbA1c (Bld) [Mass fraction] 5.3 % 3.8-5.6 [facility] Comment on above: Normal < 5.7 % Predi abetic 5.7 - 6.4 % Diabetic >or= 6.5 % Please note range changes. Basophil percentageOrdered B y: Yamini Granados on 06-04-2023 Potassium [Moles/Vol] 3.5 mmol/L 3.5-5.1 [facility] Absolute lymphocyte countOrd ered By: Yamini Granados on 05-29-2023 Lymphocytes Auto (Unsp spec) [#/Vol] 2.00 10*3/uL 0.83-4.51 [facility] Automated lymphocyte count a s percentage of total leukocytesOrdered By: Yamini Granados on 05-29-2023 Lymphocytes/100 WBC Auto (Unsp spec) 25.3 % 19-41 [facility] Basophil percentageOrdered B y: Yamini Granados on 05-29-2023 Basophils/100 WBC (Bld) 0.4 % 0-1 [facility] Bilirubin [Mass/Vol] 0.40 mg/dL 0.20-1.00 [facility] Comment on above: For patients on eltr ombopag therapy, use of Dimension Exline TBIL is not recommended. Chloride [Moles/Vol] 107 mmol/L 98-107 [facility] Eosinophils/100 WBC (Bld) 0.9 % 0-5 [facility] Glucose [Mass/Vol] 155 mg/dL 74-106 [facility] Comment on above: Fasting Glucose resu lt greater than or equal to 126 mg/dL suggests DIABETES MELLITUS per A.D.A. criteria. Hemoglobin (Bld) [Mass/Vol] 12.5 g/dL 12.0-15.0 [facility] Monocytes/100 WBC (Bld) 8.4 % 0-10 [facility] Neutrophils (Bld) [#/Vol] 5.1 10*3/uL 2.0-7.7 [facility] Neutrophils/100 WBC (Bld) 64.7 % 47-70 [facility] Potassium [Moles/Vol] 3.2 mmol/L 3.5-5.1 [facility] Protein [Mass/Vol] 7.5 g/dL 6.4-8.2 [facility] Sodium [Moles/Vol] 139 mmol/L 136-145 [facility] WBC (Bld) [#/Vol] 7.9 10*3/uL 4.4-11.0 [facility] Determination of erythrocyte mean corpuscular volume (MCV)Ordered By: Yamini Granados on 05-29-2023 MCV (RBC) [Entitic vol] 87.4 fL 81-99 [facility] Erythrocyte distribution wid th ratioOrdered By: Yamini Granados on 05-29-2023 Erythrocyte distribution width (RBC) [Ratio] 15.4 % 11.6-14.6 [facility] Erythrocyte distribution wid th standard deviationOrdered By: Yamini Roberta on 05-29-2023 Erythrocyte distribution width (RBC) [Entitic vol] 48.9 fL 35.1-43.9 [facility] Erythrocyte sedimentation ra teOrdered By: Yamini Roberta on 05-29-2023 ESR (Bld) [Velocity] 12 mm/h 0-30 [facility] Hematocrit Auto (Bld) [Volum e fraction]Ordered By: [facility] on 05-29-2023 Hematocrit (Bld) [Volume fraction] 40.2 % 37-47 [facility] Immature granulocytes/100 WB C Auto (Bld)Or[facility] Immature granulocytes/100 WBC (Bld) 0.300 % 0.0-0.9 [facility] Comment on above: IG% - Immature Granu locytes (promyelocytes, myelocytes and metamyelocytes) > 1% indicates that a LEFT SHIFT is Present. Laboratory - Chemistry and C hemistry - challengeOrdered By: [facility] Roberta on 05-29-2023 Albumin/Globulin [Mass ratio] 0.8 {ratio} 0.9-2.4 [facility] ALP [Catalytic activity/Vol] 80 U/L 45-117 [facility] ALT [Catalytic activity/Vol] 20 U/L 13-56 [facility] CO2 [Moles/Vol] 27.0 mmol/L 21.0-32.0 [facility] Globulin (S) [Mass/Vol] 4.2 g/dL 2.2-4.2 [facility] Urea nitrogen/Creatinine [Mass ratio] 27.7 mg/mg 10-20 [facility] Laboratory - Hematology and Cell countsOrdered By: Yamini Granados on 05-29-2023 MCH (RBC) [Entitic mass] 27.2 pg 27.0-32.0 [facility] MCHC (RBC) [Mass/Vol] 31.1 g/dL 32-36 [facility] Nucleated RBC/100 WBC (Bld) [Ratio] 0 % 0-5 [facility] Platelet mean volume (Bld) [Entitic vol] 9.6 fL 6.2-12.0 [facility] Platelets (Bld) [#/Vol] 323 10*3/uL 150-450 [facility] No Panel InformationOrdered By: Yamini Granados on 05-29-2023 C-Reactive Protein Extended Range 16.80 mg/L 0.0-3.0 [facility] Comment on above: C-Reactive Protein ( CRP) provides useful information for thediagnosis, therapy and monitoring of inflammatory processesand associated diseases. For the evaluation of Relative Riskfor Cardiovascular Disease, a High Sensitivity CRP (HSCRP)should be ordered. Estimated GFR (MDRD) Amer 136 mL/min >60 [facility] Comment on above: GFR Calc Estimated GFR (MDRD) Non-Af Amer 112 mL/min >60 [facility] Comment on above: Non- GFR Calc RBC Auto (Bld) [#/Vol]Ordere d By: Yamini Granados on 05-29-2023 RBC (Bld) [#/Vol] 4.60 10*6/uL 4.2-5.4 [facility] Serum or plasma calcium michel urement (mass/volume)Ordered By: Yamini Granados on 05-29-2023 Calcium [Mass/Vol] 9.1 mg/dL 8.5-10.1 [facility] Serum or plasma creatinine m easurement (mass/volume)Ordered By: Yamini Granados on 05-29-2023 Creatinine [Mass/Vol] 0.58 mg/dL 0.55-1.02 [facility] Comment on above: The validity of the calculated GFR & GFRAA in patients over 70 years has not been determined. Clinical correlation is essential. Serum or plasma urea nitroge n measurement (mass/volume)Ordered By: Yamini Granados on 05-29-2023 Urea nitrogen [Mass/Vol] 16 mg/dL 7-18 [facility] Thin prep Papanicolaou smear with manual screeningOrdered By: Yamini Granados on 05-29-2023 Thin prep Papanicolaou smear with manual screening 3.3 g/dL 3.2-5.0 [facility] Thin prep Papanicolaou smear with manual screening 14 U/L 15-37 [facility] Thin prep Papanicolaou smear with manual screening 5 5-15 [facility] Absolute lymphocyte counton 05-13-2023 Lymphocytes Auto (Unsp spec) [#/Vol] 2.36 10*3/uL 0.83-4.51 [facility] Automated lymphocyte count a s percentage of total leukocyteson 05-13-2023 Lymphocytes/100 WBC Auto (Unsp spec) 24.8 % 19-41 [facility] Basophil percentageon 2023 Basophils/100 WBC (Bld) 0.4 % 0-1 [facility] Bilirubin [Mass/Vol] 0.30 mg/dL 0.20-1.00 [facility] Comment on above: For patients on eltr ombopag therapy, use of Dimension Exline TBIL is not recommended. Eosinophils/100 WBC (Bld) 1.0 % 0-5 [facility] Hemoglobin (Bld) [Mass/Vol] 12.0 g/dL 12.0-15.0 [facility] Monocytes/100 WBC (Bld) 9.1 % 0-10 [facility] Neutrophils (Bld) [#/Vol] 6.1 10*3/uL 2.0-7.7 [facility] Neutrophils/100 WBC (Bld) 64.1 % 47-70 [facility] Protein [Mass/Vol] 7.2 g/dL 6.4-8.2 [facility] WBC (Bld) [#/Vol] 9.5 10*3/uL 4.4-11.0 [facility] Determination of erythrocyte mean corpuscular volume (MCV)on 05-13-2023 MCV (RBC) [Entitic vol] 85.3 fL 81-99 [facility] Direct bilirubinon Bilirubin.direct [Mass/Vol] mg/dL 0.00-0.30 [facility] Erythrocyte distribution wid th ratioon 05-13-2023 Erythrocyte distribution width (RBC) [Ratio] 15.1 % 11.6-14.6 [facility] Erythrocyte distribution wid th standard deviationon 05-13-2023 Erythrocyte distribution width (RBC) [Entitic vol] 47.0 fL 35.1-43.9 [facility] Erythrocyte sedimentation ra carlitos 05-13-2023 ESR (Bld) [Velocity] 21 mm/h 0-30 [facility] Hematocrit Auto (Bld) [Volum e fraction]on 05-13-2023 Hematocrit (Bld) [Volume fraction] 37.6 % 37-47 [facility] Immature granulocytes/100 WB C Auto (Bld)on 05-13-2023 Immature granulocytes/100 WBC (Bld) 0.600 % 0.0-0.9 [facility] Comment on above: IG% - Immature Granu locytes (promyelocytes, myelocytes and metamyelocytes) > 1% indicates that a LEFT SHIFT is Present. Laboratory - Chemistry and C hemistry - challengeon 05-13-2023 ALP [Catalytic activity/Vol] 85 U/L 45-117 [facility] ALT [Catalytic activity/Vol] 22 U/L 13-56 [facility] Globulin (S) [Mass/Vol] 4.0 g/dL 2.2-4.2 [facility] Laboratory - Hematology and Cell countson 05-13-2023 MCH (RBC) [Entitic mass] 27.2 pg 27.0-32.0 [facility] MCHC (RBC) [Mass/Vol] 31.9 g/dL 32-36 [facility] Nucleated RBC/100 WBC (Bld) [Ratio] 0 % 0-5 [facility] Platelet mean volume (Bld) [Entitic vol] 8.9 fL 6.2-12.0 [facility] Platelets (Bld) [#/Vol] 299 10*3/uL 150-450 [facility] No Panel Informationon 05-12 C-Reactive Protein Extended Range 12.70 mg/L 0.0-3.0 [facility] Comment on above: C-Reactive Protein ( CRP) provides useful information for thediagnosis, therapy and monitoring of inflammatory processesand associated diseases. For the evaluation of Relative Riskfor Cardiovascular Disease, a High Sensitivity CRP (HSCRP)should be ordered. Estimated GFR (MDRD) Amer 142 mL/min >60 [facility] Comment on above: GFR Calc Estimated GFR (MDRD) Non-Af Amer 117 mL/min >60 [facility] Comment on above: Non- GFR Calc RBC Auto (Bld) [#/Vol]on RBC (Bld) [#/Vol] 4.41 10*6/uL 4.2-5.4 [facility] Serum or plasma creatinine m easurement (mass/volume)on 05-13-2023 Creatinine [Mass/Vol] 0.56 mg/dL 0.55-1.02 [facility] Comment on above: The validity of the calculated GFR & GFRAA in patients over 70 years has not been determined. Clinical correlation is essential. Thin prep Papanicolaou smear with manual screeningon 05-13-2023 Thin prep Papanicolaou smear with manual screening 3.2 g/dL 3.2-5.0 [facility] Thin prep Papanicolaou smear with manual screening 21 U/L 15-37 [facility] Absolute lymphocyte counton 01-30-2023 Lymphocytes Auto (Unsp spec) [#/Vol] 1.49 10*3/uL 0.83-4.51 [facility] Basophil percentageon 2022 Basophils/100 WBC (Bld) 0.5 % 0-1 [facility] Bilirubin [Mass/Vol] 0.30 mg/dL 0.20-1.00 [facility] Comment on above: For patients on eltr ombopag therapy, use of Dimension Exline TBIL is not recommended. Eosinophils/100 WBC (Bld) 1.5 % 0-5 [facility] Neutrophils (Bld) [#/Vol] 3.7 10*3/uL 2.0-7.7 [facility] Neutrophils/100 WBC (Bld) 60.5 % 47-70 [facility] Protein [Mass/Vol] 7.2 g/dL 6.4-8.2 [facility] WBC (Bld) [#/Vol] 6.1 10*3/uL 4.4-11.0 [facility] Blood erythrocytes count (nu mber/volume)on 01-30-2023 RBC (Bld) [#/Vol] 4.55 10*6/uL 4.2-5.4 [facility] Blood hemoglobin measurement (mass/volume)on 01-30-2023 Hemoglobin (Bld) [Mass/Vol] 12.6 g/dL 12.0-15.0 [facility] Blood lymphocytes/100 leukoc yteson 01-30-2023 Lymphocytes/100 WBC (Bld) 24.6 % 19-41 [facility] Blood monocytes/100 leukocyt eson 01-30-2023 Monocytes/100 WBC (Bld) 12.4 % 0-10 [facility] Blood platelet mean volumeon 01-30-2023 Platelet mean volume (Bld) [Entitic vol] 8.8 fL 6.2-12.0 [facility] Determination of erythrocyte mean corpuscular volume (MCV)on 01-30-2023 MCV (RBC) [Entitic vol] 89.0 fL 81-99 [facility] Direct bilirubinon Bilirubin.direct [Mass/Vol] 0.12 mg/dL 0.00-0.30 [facility] Erythrocyte sedimentation ra carlitos 01-30-2023 ESR (Bld) [Velocity] 3 mm/h 0-30 [facility] Hematocrit Auto (Bld) [Volum e fraction]on 01-30-2023 Hematocrit (Bld) [Volume fraction] 40.5 % 37-47 [facility] Laboratory - Chemistry and C hemistry - challengeon 01-30-2023 ALP [Catalytic activity/Vol] 91 U/L 45-117 [facility] ALT [Catalytic activity/Vol] 23 U/L 13-56 [facility] Globulin (S) [Mass/Vol] 4.2 g/dL 2.2-4.2 [facility] Laboratory - Hematology and Cell countson 01-30-2023 Erythrocyte distribution width (RBC) [Entitic vol] 44.0 fL 35.1-43.9 [facility] Erythrocyte distribution width (RBC) [Ratio] 13.6 % 11.6-14.6 [facility] Immature granulocytes/100 WBC (Bld) 0.500 % 0.0-0.9 [facility] Comment on above: IG% - Immature Granu locytes (promyelocytes, myelocytes and metamyelocytes) > 1% indicates that a LEFT SHIFT is Present. MCH (RBC) [Entitic mass] 27.7 pg 27.0-32.0 [facility] Nucleated RBC/100 WBC (Bld) [Ratio] 0 % 0-[facility] [Mass/Vol]on 01-30-2023 MCHC (RBC) [Mass/Vol] 31.1 g/dL 32-36 [facility] No Panel Informationon 01-30 Estimated GFR (MDRD) Amer 167 mL/min >60 [facility] Comment on above: GFR Calc Estimated GFR (MDRD) Non-Af Amer 138 mL/min >60 [facility] Comment on above: Non- GFR Calc Platelets bldon 01-30-2023 Platelets (Bld) [#/Vol] 277 10*3/uL 150-450 [facility] Serum or plasma C reactive p rotein measurement (mass/volume)on 01-30-2023 CRP [Mass/Vol] 10.40 mg/L 0.0-3.0 [facility] Comment on above: C-Reactive Protein ( CRP) provides useful information for thediagnosis, therapy and monitoring of inflammatory processesand associated diseases. For the evaluation of Relative Riskfor Cardiovascular Disease, a High Sensitivity CRP (HSCRP)should be ordered. Serum or plasma albumin michel urement (mass/volume)on 01-30-2023 Albumin [Mass/Vol] 3.0 g/dL 3.2-5.0 [facility] Serum or plasma creatinine m easurement (mass/volume)on 01-30-2023 Creatinine [Mass/Vol] 0.48 mg/dL 0.55-1.02 [facility] Comment on above: The validity of the calculated GFR & GFRAA in patients over 70 years has not been determined. Clinical correlation is essential. Thin prep Papanicolaou smear with manual screeningon 01-30-2023 Thin prep Papanicolaou smear with manual screening 19 U/L 15-37 [facility] Basophil percentageOrdered B y: Jay Isabel on 12-29-2022 Basophil percentage < 0.9 mg/dL 0.55-1.02 [facility] No Panel InformationOrdered By: Jay Isabel on 12-29-2022 Bedside Estimated GFR (eGFR) > 60.0000 mL/min >60 [facility] Basophil percentageOrdered B y: Estrellita Bear on 12-05-2022 Cholesterol [Mass/Vol] 147 mg/dL <200 [facility] Comment on above: <200 mg/dL Desirable 200-240 mg/dL Borderline >240 mg/dL High Risk Triglyceride [Mass/Vol] 178 mg/dL <199 [facility] Comment on above: The drugs N-Acetylcy steine and Metamizole may falsely depress this assay.Serum Triglycerides Reference Interval Normal <150 mg/dL Borderline high 150 - 199 mg/dL High 200 - 499 mg/dL Very High > or = 500 mg/dL Laboratory - Chemistry and C hemistry - challengeOrdered By: Estrellita Bear on 12-05-2022 Cobalamin (Vitamin B12) [Mass/Vol] 296 pg/mL 211-911 [facility] No Panel InformationOrdered By: Estrellita Bear on 12-05-2022 Stool Calprotectin 70 ug/g 0-120 [facility] Comment on above: Concentration Interp retation Follow-Up< 5 - 50 ug/g Normal None>50 -120 ug/g Borderline Re-evaluate in 4-6 weeks >120 ug/g Abnormal Repeat as clinically indicatedPerformed at: - [facility] [address] [id number] Director: Marcus Darling MD, Phone: [phone] Thyroid Stimulating Hormone (TSH) 1.85 uIU/mL 0.358-3.74 [facility] Vitamin D 25-Hydroxy 40.9 ng/mL [facility] Comment on above: Vitamin D 25(OH) Sta tus Range Deficiency <20 ng/mL (50nmol/L) Insufficiency 20 - 30 ng/mL (50 - 75 nmol/L) Sufficiency 30 - 100 ng/mL (75 - 250 nmol/L) Toxicity >100 ng/mL (>250 nmol/L) Serum or plasma cholesterol in HDL measurement (mass/volume)Ordered By: Estrellita Bear on 12-05-2022 Cholesterol in HDL [Mass/Vol] 44 mg/dL >40 [facility] Comment on above: The drugs N-Acetylcy steine and Metamizole may falsely depress this assay. Reference Range HDL <40 mg/dL Low HDL Cholesterol HDL >or= 60 mg/dL High HDL Cholesterol Serum or plasma cholesterol in VLDL measurement (mass/volume)Ordered By: Estrellita Bear on 12-05-2022 Cholesterol in VLDL [Mass/Vol] 36 mg/dL 5-40 [facility] Serum or plasma low density lipoprotein (LDL) cholesterol measurement (mass/volume)Ordered By: Estrellita Bear on 12-05-2022 Cholesterol in LDL [Mass/Vol] 67 mg/dL 0-130 [facility] Absolute lymphocyte countOrd ered By: Pete Paez on 11-07-2022 Lymphocytes Auto (Unsp spec) [#/Vol] 1.86 10*3/uL 0.83-4.51 [facility] Basophil percentageOrdered B y: Pete Paez on 11-07-2022 Basophils/100 WBC (Bld) 0.3 % 0-1 [facility] Bilirubin [Mass/Vol] 0.30 mg/dL 0.20-1.00 [facility] Comment on above: For patients on eltr ombopag therapy, use of Dimension Exline TBIL is not recommended. Chloride [Moles/Vol] 108 mmol/L 98-107 [facility] Eosinophils/100 WBC (Bld) 1.0 % 0-5 [facility] Glucose [Mass/Vol] 92 mg/dL 74-106 [facility] LDH [Catalytic activity/Vol] 131 U/L 84-246 [facility] Neutrophils (Bld) [#/Vol] 6.4 10*3/uL 2.0-7.7 [facility] Neutrophils/100 WBC (Bld) 68.8 % 47-70 [facility] Potassium [Moles/Vol] 4.1 mmol/L 3.5-5.1 [facility] Protein [Mass/Vol] 6.6 g/dL 6.4-8.2 [facility] Sodium [Moles/Vol] 139 mmol/L 136-145 [facility] WBC (Bld) [#/Vol] 9.3 10*3/uL 4.4-11.0 [facility] Blood erythrocytes count (nu mber/volume)Ordered By: Pete Paez on 11-07-2022 RBC (Bld) [#/Vol] 4.43 10*6/uL 4.2-5.4 [facility] Blood hemoglobin measurement (mass/volume)Ordered By: Pete Paez on 11-07-2022 Hemoglobin (Bld) [Mass/Vol] 12.8 g/dL 12.0-15.0 [facility] Blood lymphocytes/100 leukoc ytesOrdered By: Pete Paez on 11-07-2022 Lymphocytes/100 WBC (Bld) 20.0 % 19-41 [facility] Blood monocytes/100 leukocyt esOrdered By: Pete Paez on 11-07-2022 Monocytes/100 WBC (Bld) 9.6 % 0-10 [facility] Blood platelet mean volumeOr dered By: Pete Paez on 11-07-2022 Platelet mean volume (Bld) [Entitic vol] 9.3 fL 6.2-12.0 [facility] Determination of erythrocyte mean corpuscular volume (MCV)Ordered By: Pete Paez on 11-07-2022 MCV (RBC) [Entitic vol] 91.2 fL 81-99 [facility] Direct bilirubinOrdered By: Pete Paez on 11-07-2022 Bilirubin.direct [Mass/Vol] 0.10 mg/dL 0.00-0.30 [facility] Erythrocyte sedimentation ra teOrdered By: Pete Paez on 11-07-2022 ESR (Bld) [Velocity] 4 mm/h 0-30 [facility] Hematocrit Auto (Bld) [Volum e fraction]Ordered By: Pete Paez on 11-07-2022 Hematocrit (Bld) [Volume fraction] 40.4 % 37-47 [facility] Laboratory - Chemistry and C hemistry - challengeOrdered By: Pete Paez on 11-07-2022 ALP [Catalytic activity/Vol] 84 U/L 45-117 [facility] ALT [Catalytic activity/Vol] 22 U/L 13-56 [facility] CO2 [Moles/Vol] 27.0 mmol/L 21.0-32.0 [facility] Globulin (S) [Mass/Vol] 3.4 g/dL 2.2-4.2 [facility] Urea nitrogen/Creatinine [Mass ratio] 26.2 mg/mg 10-20 [facility] Laboratory - Hematology and Cell countsOrdered By: Pete Paez on 11-07-2022 Erythrocyte distribution width (RBC) [Entitic vol] 46.0 fL 35.1-43.9 [facility] Erythrocyte distribution width (RBC) [Ratio] 13.8 % 11.6-14.6 [facility] Immature granulocytes/100 WBC (Bld) 0.300 % 0.0-0.9 [facility] Comment on above: IG% - Immature Granu locytes (promyelocytes, myelocytes and metamyelocytes) > 1% indicates that a LEFT SHIFT is Present. MCH (RBC) [Entitic mass] 28.9 pg 27.0-32.0 [facility] Nucleated RBC/100 WBC (Bld) [Ratio] 0 % 0-5 [facility] MCHC Auto (RBC) [Mass/Vol]Or dered By: Pete Paez on 11-07-2022 MCHC (RBC) [Mass/Vol] 31.7 g/dL 32-36 [facility] No Panel InformationOrdered By: Pete Paez on 11-07-2022 Estimated GFR (MDRD) Amer 149 mL/min >60 [facility] Comment on above: GFR Calc Estimated GFR (MDRD) Non-Af Amer 123 mL/min >60 [facility] Comment on above: Non- GFR Calc Platelets bldOrdered By: Sunny Paez on 11-07-2022 Platelets (Bld) [#/Vol] 289 10*3/uL 150-450 [facility] Serum or plasma C reactive p rotein measurement (mass/volume)Ordered By: Pete Paez on 11-07-2022 CRP [Mass/Vol] 7.88 mg/L 0.0-3.0 [facility] Comment on above: C-Reactive Protein ( CRP) provides useful information for thediagnosis, therapy and monitoring of inflammatory processesand associated diseases. For the evaluation of Relative Riskfor Cardiovascular Disease, a High Sensitivity CRP (HSCRP)should be ordered. Serum or plasma albumin michel urement (mass/volume)Ordered By: Pete Paez on 11-07-2022 Albumin [Mass/Vol] 3.2 g/dL 3.2-5.0 [facility] Serum or plasma albumin/glob ulin mass ratioOrdered By: Pete Paez on 11-07-2022 Albumin/Globulin [Mass ratio] 0.9 {ratio} 0.9-2.4 [facility] Serum or plasma calcium michel urement (mass/volume)Ordered By: Pete Paez on 11-07-2022 Calcium [Mass/Vol] 8.3 mg/dL 8.5-10.1 [facility] Serum or plasma creatinine m easurement (mass/volume)Ordered By: Pete Paez on 11-07-2022 Creatinine [Mass/Vol] 0.53 mg/dL 0.55-1.02 [facility] Comment on above: The validity of the calculated GFR & GFRAA in patients over 70 years has not been determined. Clinical correlation is essential. Serum or plasma urea nitroge n measurement (mass/volume)Ordered By: Pete Paez on 11-07-2022 Urea nitrogen [Mass/Vol] 14 mg/dL 7-18 [facility] Thin prep Papanicolaou smear with manual screeningOrdered By: Pete Paez on 11-07-2022 Thin prep Papanicolaou smear with manual screening 14 U/L 15-37 [facility] Thin prep Papanicolaou smear with manual screening 4 5-15 [facility] Absolute lymphocyte countOrd ered By: Yamini Granados on 05-23-2022 Lymphocytes Auto (Unsp spec) [#/Vol] 1.05 10*3/uL 0.83-4.51 [facility] Basophil percentageOrdered B y: Yamini Granados on 05-23-2022 Basophils/100 WBC (Bld) 0.2 % 0-1 [facility] Bilirubin [Mass/Vol] 0.30 mg/dL 0.20-1.00 [facility] Comment on above: For patients on eltr ombopag therapy, use of Dimension Exline TBIL is not recommended. Chloride [Moles/Vol] 105 mmol/L 98-107 [facility] Eosinophils/100 WBC (Bld) 0.1 % 0-5 [facility] Glucose [Mass/Vol] 110 mg/dL 74-106 [facility] Comment on above: Fasting Glucose resu lt from 100 to 125 mg/dL suggests IMPAIRED HOMEOSTASIS per A.D.A. criteria. Neutrophils (Bld) [#/Vol] 7.8 10*3/uL 2.0-7.7 [facility] Neutrophils/100 WBC (Bld) 85.5 % 47-70 [facility] Potassium [Moles/Vol] 3.6 mmol/L 3.5-5.1 [facility] Protein [Mass/Vol] 7.1 g/dL 6.4-8.2 [facility] Sodium [Moles/Vol] 137 mmol/L 136-145 [facility] WBC (Bld) [#/Vol] 9.1 10*3/uL 4.4-11.0 [facility] Blood erythrocytes count (nu mber/volume)Ordered By: Yamini Granados on 05-23-2022 RBC (Bld) [#/Vol] 4.67 10*6/uL 4.2-5.4 [facility] Blood hemoglobin measurement (mass/volume)Ordered By: Yamini Granados on 05-23-2022 Hemoglobin (Bld) [Mass/Vol] 13.3 g/dL 12.0-15.0 [facility] Blood lymphocytes/100 leukoc ytesOrdered By: Yamini Granados on 05-23-2022 Lymphocytes/100 WBC (Bld) 11.5 % 19-41 [facility] Blood monocytes/100 leukocyt esOrdered By: Yamini Granados on 05-23-2022 Monocytes/100 WBC (Bld) 2.2 % 0-10 [facility] Blood platelet mean volumeOr dered By: Yamini Granados on 05-23-2022 Platelet mean volume (Bld) [Entitic vol] 9.0 fL 6.2-12.0 [facility] Determination of erythrocyte mean corpuscular volume (MCV)Ordered By: Yamini Granados on 05-23-2022 MCV (RBC) [Entitic vol] 88.2 fL 81-99 [facility] Hematocrit Auto (Bld) [Volum e fraction]Ordered By: Yamini Granados on 05-23-2022 Hematocrit (Bld) [Volume fraction] 41.2 % 37-47 [facility] Laboratory - Chemistry and C hemistry - challengeOrdered By: Yaimni Granados on 05-23-2022 ALP [Catalytic activity/Vol] 74 U/L 45-117 [facility] ALT [Catalytic activity/Vol] 23 U/L 13-56 [facility] CO2 [Moles/Vol] 26.0 mmol/L 21.0-32.0 [facility] Globulin (S) [Mass/Vol] 3.9 g/dL 2.2-4.2 [facility] Urea nitrogen/Creatinine [Mass ratio] 36.7 mg/mg 10-20 [facility] Laboratory - Hematology and Cell countsOrdered By: Yamini Granados on 05-23-2022 Erythrocyte distribution width (RBC) [Entitic vol] 45.0 fL 35.1-43.9 [facility] Erythrocyte distribution width (RBC) [Ratio] 14.0 % 11.6-14.6 [facility] Immature granulocytes/100 WBC (Bld) 0.500 % 0.0-0.9 [facility] Comment on above: IG% - Immature Granu locytes (promyelocytes, myelocytes and metamyelocytes) > 1% indicates that a LEFT SHIFT is Present. MCH (RBC) [Entitic mass] 28.5 pg 27.0-32.0 [facility] Nucleated RBC/100 WBC (Bld) [Ratio] 0 % 0-5 [facility] MCHC Auto (RBC) [Mass/Vol]Or dered By: Yamini Granados on 05-23-2022 MCHC (RBC) [Mass/Vol] 32.3 g/dL 32-36 [facility] No Panel InformationOrdered By: Yamini Granados on 05-23-2022 Estimated Creatinine Clearance Calc 78.86 ml/min [facility] Estimated GFR (MDRD) Amer 131 mL/min >60 [facility] Comment on above: GFR Calc Estimated GFR (MDRD) Non-Af Amer 108 mL/min >60 [facility] Comment on above: Non- GFR Calc Stool Calprotectin 52 ug/g 0-120 [facility] Comment on above: Concentration Interp retation Follow-Up<16 - 50 ug/g Normal None>50 -120 ug/g Borderline Re-evaluate in 4-6 weeks >120 ug/g Abnormal Repeat as clinically indicatedPerformed at: - [facility] [address] [id number] Director: Marcus Darling MD, Phone: [phone] Platelets bldOrdered By: Teto Granados on 05-23-2022 Platelets (Bld) [#/Vol] 294 10*3/uL 150-450 [facility] Serum or plasma C reactive p rotein measurement (mass/volume)Ordered By: Yamini Granados on 05-23-2022 CRP [Mass/Vol] 5.39 mg/L 0.0-3.0 [facility] Comment on above: C-Reactive Protein ( CRP) provides useful information for thediagnosis, therapy and monitoring of inflammatory processesand associated diseases. For the evaluation of Relative Riskfor Cardiovascular Disease, a High Sensitivity CRP (HSCRP)should be ordered. Serum or plasma albumin michel urement (mass/volume)Ordered By: Yamini Granados on 05-23-2022 Albumin [Mass/Vol] 3.2 g/dL 3.2-5.0 [facility] Serum or plasma albumin/glob ulin mass ratioOrdered By: [facility] on 05-23-2022 Albumin/Globulin [Mass ratio] 0.8 {ratio} 0.9-2.4 [facility] Serum or plasma calcium michel urement (mass/volume)Ordered By: Yamini Granados on 05-23-2022 Calcium [Mass/Vol] 8.8 mg/dL 8.5-10.1 [facility] Serum or plasma creatinine m easurement (mass/volume)Ordered By: Yamini Roberta on 05-23-2022 Creatinine [Mass/Vol] 0.60 mg/dL 0.55-1.02 [facility] Comment on above: The validity of the calculated GFR & GFRAA in patients over 70 years has not been determined. Clinical correlation is essential. Serum or plasma urea nitroge n measurement (mass/volume)Ordered By: Yamini Granados on 05-23-2022 Urea nitrogen [Mass/Vol] 22 mg/dL 7-18 [facility] Thin prep Papanicolaou smear with manual screeningOrdered By: Yamini Granados on 05-23-2022 Thin prep Papanicolaou smear with manual screening 18 U/L 15-37 [facility] Thin prep Papanicolaou smear with manual screening 6 5-15 [facility] Laboratory - Microbiology an d Antimicrobial susceptibilityon 05-19-2022 SARS-CoV-2 (COVID-19) RNA ROMANA+probe Ql (Unsp spec) Detected [facility] Laboratory - Microbiology an d Antimicrobial susceptibilityon 05-08-2022 SARS-CoV-2 (COVID-19) RNA ROMANA+probe Ql (Unsp spec) Not detected [facility] Comment on above: POC ABDI CoV-2 PCR pr eviously reported as Detected Absolute lymphocyte counton 02-11-2022 Lymphocytes Auto (Unsp spec) [#/Vol] 1.34 10*3/uL 0.83-4.51 [facility] Work Phone: Basophil percentageon 2022 Basophils/100 WBC (Bld) 0.2 % 0-1 [facility] Work Phone: Bilirubin [Mass/Vol] 0.20 mg/dL 0.20-1.00 [facility] Work Phone: Comment on above: For patients on eltr ombopag therapy, use of Dimension Exline TBIL is not recommended. Chloride [Moles/Vol] 103 mmol/L 98-107 [facility] Work Phone: Eosinophils/100 WBC (Bld) 0.0 % 0-5 [facility] Work Phone: Glucose [Mass/Vol] 105 mg/dL 74-106 [facility] Work Phone: Comment on above: Fasting Glucose resu lt from 100 to 125 mg/dL suggests IMPAIRED HOMEOSTASIS per A.D.A. criteria. Neutrophils (Bld) [#/Vol] 11.2 10*3/uL 2.0-7.7 [facility] Work Phone: Neutrophils/100 WBC (Bld) 83.6 % 47-70 [facility] Work Phone: Potassium [Moles/Vol] 3.8 mmol/L 3.5-5.1 [facility] Work Phone: Protein [Mass/Vol] 6.5 g/dL 6.4-8.2 [facility] Work Phone: Sodium [Moles/Vol] 137 mmol/L 136-145 [facility] Work Phone: WBC (Bld) [#/Vol] 13.4 10*3/uL 4.4-11.0 [facility] Work Phone: [phone] Blood erythrocytes count (nu mber/volume)on 02-11-2022 RBC (Bld) [#/Vol] 4.29 10*6/uL 4.2-5.4 [facility] Work Phone: [phone] Blood hemoglobin measurement (mass/volume)on 02-11-2022 Hemoglobin (Bld) [Mass/Vol] 12.1 g/dL 12.0-15.0 [facility] Work Phone: [phone] Blood lymphocytes/100 leukoc yteson 02-11-2022 Lymphocytes/100 WBC (Bld) 10.0 % 19-41 [facility] Work Phone: [phone] Blood monocytes/100 leukocyt eson 02-11-2022 Monocytes/100 WBC (Bld) 4.3 % 0-10 [facility] Work Phone: [phone] Blood platelet mean volumeon 02-11-2022 Platelet mean volume (Bld) [Entitic vol] 9.2 fL 6.2-12.0 [facility] Work Phone: [phone] Determination of erythrocyte mean corpuscular volume (MCV)on 02-11-2022 MCV (RBC) [Entitic vol] 88.3 fL 81-99 [facility] Work Phone: [phone] Hematocrit Auto (Bld) [Volum e fraction]on 02-11-2022 Hematocrit (Bld) [Volume fraction] 37.9 % 37-47 [facility] Work Phone: [phone] Laboratory - Chemistry and C hemistry - challengeon 02-11-2022 ALP [Catalytic activity/Vol] 57 U/L 45-117 [facility] Work Phone: [phone] ALT [Catalytic activity/Vol] 21 U/L 13-56 [facility] Work Phone: [phone] CO2 [Moles/Vol] 26.0 mmol/L 21.0-32.0 [facility] Work Phone: [phone] Globulin (S) [Mass/Vol] 3.9 g/dL 2.2-4.2 [facility] Work Phone: [phone] Urea nitrogen/Creatinine [Mass ratio] 39.0 mg/mg 10-20 [facility] Work Phone: [phone] Laboratory - Hematology and Cell countson 02-11-2022 Erythrocyte distribution width (RBC) [Entitic vol] 45.4 fL 35.1-43.9 [facility] Work Phone: [phone] Erythrocyte distribution width (RBC) [Ratio] 14.2 % 11.6-14.6 [facility] Work Phone: [phone] Immature granulocytes/100 WBC (Bld) 1.900 % 0.0-0.9 [facility] Work Phone: [phone] Comment on above: IG% - Immature Granu locytes (promyelocytes, myelocytes and metamyelocytes) > 1% indicates that a LEFT SHIFT is Present. MCH (RBC) [Entitic mass] 28.2 pg 27.0-32.0 [facility] Work Phone: [phone] Nucleated RBC/100 WBC (Bld) [Ratio] 0 % 0-5 [facility] Work Phone: [phone] MCHC Auto (RBC) [Mass/Vol]on 02-11-2022 MCHC (RBC) [Mass/Vol] 31.9 g/dL 32-36 [facility] Work Phone: [phone] Panel Informationon 02-11 Estimated Creatinine Clearance Calc 92.78 ml/min [facility] Work Phone: [phone] Estimated GFR (MDRD) Amer 157 mL/min >60 [facility] Work Phone: [phone] Comment on above: GFR Calc Estimated GFR (MDRD) Non-Af Amer 130 mL/min >60 [facility] Work Phone: [phone] Comment on above: Non- GFR Calc Platelets bldon 02-11-2022 Platelets (Bld) [#/Vol] 300 10*3/uL 150-450 [facility] Work Phone: Serum or plasma albumin michel urement (mass/volume)on 02-11-2022 Albumin [Mass/Vol] 2.6 g/dL 3.2-5.0 [facility] Work Phone: Serum or plasma albumin/glob ulin mass ratioon 02-11-2022 Albumin/Globulin [Mass ratio] 0.7 {ratio} 0.9-2.4 [facility] Work Phone: [phone] Serum or plasma calcium michel urement (mass/volume)on 02-11-2022 Calcium [Mass/Vol] 8.4 mg/dL 8.5-10.1 [facility] Work Phone: [phone] Serum or plasma creatinine m easurement (mass/volume)on 02-11-2022 Creatinine [Mass/Vol] 0.51 mg/dL 0.55-1.02 [facility] Work Phone: Comment on above: The validity of the calculated GFR & GFRAA in patients over 70 years has not been determined. Clinical correlation is essential. Serum or plasma urea nitroge n measurement (mass/volume)on 02-11-2022 Urea nitrogen [Mass/Vol] 20 mg/dL 7-18 [facility] Work Phone: Thin prep Papanicolaou smear with manual screeningon 02-11-2022 Thin prep Papanicolaou smear with manual screening 9 U/L 15-37 [facility] Work Phone: [phone] Thin prep Papanicolaou smear with manual screening 8 5-15 [facility] Work Phone: Basophil percentageon 2022 Basophil percentage 2.9 mg/dL 2.5-4.9 [facility] Work Phone: [phone] Laboratory - Chemistry and C hemistry - challengeon 02-09-2022 Magnesium [Mass/Vol] 2.4 mg/dL 1.6-2.6 [facility] Work Phone: Absolute lymphocyte counton 02-08-2022 Lymphocytes Auto (Unsp spec) [#/Vol] 0.46 10*3/uL 0.83-4.51 [facility] Work Phone: Basophil percentageon 2021 Basophils/100 WBC (Bld) 0.1 % 0-1 [facility] Work Phone: [phone] Bilirubin [Mass/Vol] 0.30 mg/dL 0.20-1.00 [facility] Work Phone: [phone] Comment on above: For patients on eltr ombopag therapy, use of Dimension Exline TBIL is not recommended. Chloride [Moles/Vol] 104 mmol/L 98-107 [facility] Work Phone: [phone] Eosinophils/100 WBC (Bld) 0.0 % 0-5 [facility] Work Phone: [phone] Glucose [Mass/Vol] 266 mg/dL 74-106 [facility] Work Phone: [phone] Comment on above: Glucose result great er than or equal to 200 mg/dLsuggests DIABETES MELLITUS per A.D.A. criteria. Lactate [Moles/Vol] 1.8 mmol/L 0.4-2.0 [facility]: [phone] Neutrophils (Bld) [#/Vol] 7.2 10*3/uL 2.0-7.7 [facility] Work Phone: [phone] Neutrophils/100 WBC (Bld) 92.3 % 47-70 [facility] Work Phone: [phone] Potassium [Moles/Vol] 2.7 mmol/L 3.5-5.1 [facility] Work Phone: Comment on above: Critical Result(s) C alled at: 17:42:04 02/08/2022 by: AQUILINO CERVANTES TO AQUILINO MCGRAW. Results read back by same. Protein [Mass/Vol] 7.8 g/dL 6.4-8.2 [facility] Work Phone: [phone] Sodium [Moles/Vol] 138 mmol/L 136-145 [facility] Work Phone: [phone] WBC (Bld) [#/Vol] 7.8 10*3/uL 4.4-11.0 [facility] Work Phone: Blood erythrocytes count (nu mber/volume)on 02-08-2022 RBC (Bld) [#/Vol] 4.59 10*6/uL 4.2-5.4 [facility] Work Phone: Blood hemoglobin measurement (mass/volume)on 02-08-2022 Hemoglobin (Bld) [Mass/Vol] 13.1 g/dL 12.0-15.0 [facility] Work Phone: Blood lymphocytes/100 leukoc yteson 02-08-2022 Lymphocytes/100 WBC (Bld) 5.9 % 19-41 [facility] Work Phone: Blood manual differential co mment interpretation (narrative result)on 02-08-2022 Manual differential comment Christopher (Bld) [Interp] SCANNED [facility] Work Phone: Comment on above: LYMPHOPENIA NOTED Blood monocytes/100 leukocyt eson 02-08-2022 Monocytes/100 WBC (Bld) 1.4 % 0-10 [facility] Work Phone: Blood platelet mean volumeon 02-08-2022 Platelet mean volume (Bld) [Entitic vol] 9.2 fL 6.2-12.0 [facility] Work Phone: Determination of erythrocyte mean corpuscular volume (MCV)on 02-08-2022 MCV (RBC) [Entitic vol] 87.8 fL 81-99 [facility] Work Phone: Hematocrit Auto (Bld) [Volum e fraction]on 02-08-2022 Hematocrit (Bld) [Volume fraction] 40.3 % 37-47 [facility] Work Phone: INR in Blood by Coagulation assayon 02-08-2022 INR Coag (Bld) [Relative time] 1.1 {INR} [facility] Work Phone: Laboratory - Chemistry and C hemistry - challengeon 02-08-2022 ALP [Catalytic activity/Vol] 85 U/L 45-117 [facility] Work Phone: ALT [Catalytic activity/Vol] 26 U/L 13-56 [facility] Work Phone: CO2 [Moles/Vol] 25.0 mmol/L 21.0-32.0 [facility] Work Phone: Globulin (S) [Mass/Vol] 4.6 g/dL 2.2-4.2 [facility] Work Phone: Urea nitrogen/Creatinine [Mass ratio] 22.1 mg/mg 10-20 [facility] Work Phone: Laboratory - Coagulationon 1 aPTT Coag (Bld) [Time] 25.9 s 24.1-36.2 [facility] Work Phone: PT Coag (PPP) [Time] 14.3 s 11.7-14.9 [facility] Work Phone: Laboratory - Hematology and Cell countson 02-08-2022 Erythrocyte distribution width (RBC) [Entitic vol] 45.4 fL 35.1-43.9 [facility] Work Phone: Erythrocyte distribution width (RBC) [Ratio] 14.2 % 11.6-14.6 [facility] Work Phone: Immature granulocytes/100 WBC (Bld) 0.300 % 0.0-0.9 [facility] Work Phone: Comment on above: IG% - Immature Granu locytes (promyelocytes, myelocytes and metamyelocytes) > 1% indicates that a LEFT SHIFT is Present. MCH (RBC) [Entitic mass] 28.5 pg 27.0-32.0 [facility] Work Phone: Nucleated RBC/100 WBC (Bld) [Ratio] 0 % 0-5 [facility] Work Phone: MCHC Auto (RBC) [Mass/Vol]on 02-08-2022 MCHC (RBC) [Mass/Vol] 32.5 g/dL 32-36 [facility] Work Phone: No Panel Informationon 02-08 Estimated Creatinine Clearance Calc 75.11 ml/min [facility] Work Phone: Estimated GFR (MDRD) Amer 123 mL/min >60 [facility] Work Phone: Comment on above: GFR Calc Estimated GFR (MDRD) Non-Af Amer 102 mL/min >60 [facility] Work Phone: Comment on above: Non- GFR Calc Troponin I High Sensitivity 4 pg/mL 3.0-54.0 [facility] Work Phone: Comment on above: Please Note: New [place] t Units and Gender Specific Reference Ranges. For more information see Policy Stat Procedure Exline High Sensitivity Troponin (TNIH) and attachments. Platelets bldon 02-08-2022 Platelets (Bld) [#/Vol] 262 10*3/uL 150-450 [facility] Work Phone: [phone] Serum or plasma albumin michel urement (mass/volume)on 02-08-2022 Albumin [Mass/Vol] 3.2 g/dL 3.2-5.0 [facility] Work Phone: [phone] Serum or plasma albumin/glob ulin mass ratioon 02-08-2022 Albumin/Globulin [Mass ratio] 0.7 {ratio} 0.9-2.4 [facility] Work Phone: [phone] Serum or plasma calcium michel urement (mass/volume)on 02-08-2022 Calcium [Mass/Vol] 8.5 mg/dL 8.5-10.1 [facility] Work Phone: [phone] Serum or plasma creatinine m easurement (mass/volume)on 02-08-2022 Creatinine [Mass/Vol] 0.63 mg/dL 0.55-1.02 [facility] Work Phone: Comment on above: The validity of the calculated GFR & GFRAA in patients over 70 years has not been determined. Clinical correlation is essential. Serum or plasma urea nitroge n measurement (mass/volume)on 12-31-2022 Urea nitrogen [Mass/Vol] 14 mg/dL 7-18 [facility] Work Phone: Thin prep Papanicolaou smear with manual screeningon 02-08-2022 Thin prep Papanicolaou smear with manual screening 17 U/L 15-37 [facility] Work Phone: [phone] Thin prep Papanicolaou smear with manual screening 9 5-15 [facility] Work Phone: [phone] Whole blood hemoglobin A1c/t otal hemoglobin ratio (mass fraction)on 02-08-2022 HbA1c (Bld) [Mass fraction] 5.4 % 3.8-5.6 [facility] Work Phone: [phone] Comment on above: Normal < 5.7 % Predi abetic 5.7 - 6.4 % Diabetic >or= 6.5 % Please note range changes. Laboratory - Microbiology an d Antimicrobial susceptibilityon 02-06-2022 SARS-CoV-2 (COVID-19) RNA ROMANA+probe Ql (Unsp spec) Not detected [facility] Work Phone: No Panel Informationon 02-06 POC Nasal Swab Influenza A,B Not detected [facility] Work Phone: POC Nasal Swab RSV Not detected [facility] Work Phone: Basophil percentageon 2021 Cholesterol [Mass/Vol] 137 mg/dL <200 [facility] Work Phone: Comment on above: <200 mg/dL Desirable 200-240 mg/dL Borderline >240 mg/dL High Risk Triglyceride [Mass/Vol] 188 mg/dL <199 [facility] Work Phone: [phone] Comment on above: The drugs N-Acetylcy steine and Metamizole may falsely depress this assay.Serum Triglycerides Reference Interval Normal <150 mg/dL Borderline high 150 - 199 mg/dL High 200 - 499 mg/dL Very High > or = 500 mg/dL No Panel Informationon 12-16 Vitamin D 25-Hydroxy 45.5 ng/mL [facility] Work Phone: [phone] Comment on above: Vitamin D 25(OH) Sta tus Range Deficiency <20 ng/mL (50nmol/L) Insufficiency 20 - 30 ng/mL (50 - 75 nmol/L) Sufficiency 30 - 100 ng/mL (75 - 250 nmol/L) Toxicity >100 ng/mL (>250 nmol/L) Serum or plasma cholesterol in HDL measurement (mass/volume)on 12-16-2021 Cholesterol in HDL [Mass/Vol] 43 mg/dL >40 [facility] Work Phone: Comment on above: The drugs N-Acetylcy steine and Metamizole may falsely depress this assay. Reference Range HDL <40 mg/dL Low HDL Cholesterol HDL >or= 60 mg/dL High HDL Cholesterol Serum or plasma cholesterol in VLDL measurement (mass/volume)on 12-16-2021 Cholesterol in VLDL [Mass/Vol] 38 mg/dL 5-40 [facility] Work Phone: Serum or plasma low density lipoprotein (LDL) cholesterol measurement (mass/volume)on 12-16-2021 Cholesterol in LDL [Mass/Vol] 56 mg/dL 0-130 [facility] Work Phone: No Panel Informationon 11-29 Miscellaneous Test See comment [facility] Work Phone: Comment on above: Scanned image report available in EMR Absolute lymphocyte counton 11-04-2021 Lymphocytes Auto (Unsp spec) [#/Vol] 1.85 10*3/uL 0.83-4.51 [facility] Work Phone: Basophil percentageon 2021 Basophils/100 WBC (Bld) 0.4 % 0-1 [facility] Work Phone: Bilirubin [Mass/Vol] 0.30 mg/dL 0.20-1.00 [facility] Work Phone: Comment on above: For patients on eltr ombopag therapy, use of Dimension Exline TBIL is not recommended. Chloride [Moles/Vol] 105 mmol/L 98-107 [facility] Work Phone: Eosinophils/100 WBC (Bld) 1.3 % 0-5 [facility] Work Phone: Glucose [Mass/Vol] 96 mg/dL 74-106 [facility] Work Phone: Neutrophils (Bld) [#/Vol] 7.6 10*3/uL 2.0-7.7 [facility] Work Phone: Neutrophils/100 WBC (Bld) 72.3 % 47-70 [facility] Work Phone: Potassium [Moles/Vol] 4.3 mmol/L 3.5-5.1 [facility] Work Phone: [phone] Protein [Mass/Vol] 7.5 g/dL 6.4-8.2 [facility] Work Phone: [phone] Sodium [Moles/Vol] 141 mmol/L 136-145 [facility] Work Phone: [phone] WBC (Bld) [#/Vol] 10.5 10*3/uL 4.4-11.0 [facility] Work Phone: Blood erythrocytes count (nu mber/volume)on 11-04-2021 RBC (Bld) [#/Vol] 4.71 10*6/uL 4.2-5.4 [facility] Work Phone: Blood hemoglobin measurement (mass/volume)on 11-04-2021 Hemoglobin (Bld) [Mass/Vol] 13.4 g/dL 12.0-15.0 [facility] Work Phone: [phone] Blood lymphocytes/100 leukoc yteson 11-04-2021 Lymphocytes/100 WBC (Bld) 17.6 % 19-41 [facility] Work Phone: Blood monocytes/100 leukocyt eson 11-04-2021 Monocytes/100 WBC (Bld) 7.8 % 0-10 [facility] Work Phone: Blood platelet mean volumeon 11-04-2021 Platelet mean volume (Bld) [Entitic vol] 9.1 fL 6.2-12.0 [facility] Work Phone: Determination of erythrocyte mean corpuscular volume (MCV)on 11-04-2021 MCV (RBC) [Entitic vol] 90.9 fL 81-99 [facility] Work Phone: [phone] [employer] mix RAST testO rdered By: Pete Paez on 11-04-2021 LDH [Catalytic activity/Vol] 121 U/L 84-246 [facility] Hematocrit Auto (Bld) [Volum e fraction]on 11-04-2021 Hematocrit (Bld) [Volume fraction] 42.8 % 37-47 [facility] Work Phone: [phone] Laboratory - Chemistry and C hemistry - challengeon 11-04-2021 ALP [Catalytic activity/Vol] 87 U/L 45-117 [facility] Work Phone: [phone] [Catalytic activity/Vol] 17 U/L 13-56 [facility] Work Phone: [phone] CO2 [Moles/Vol] 29.0 mmol/L 21.0-32.0 [facility] Work Phone: [phone] Globulin (S) [Mass/Vol] 4.2 g/dL 2.2-4.2 [facility] Work Phone: [phone] Urea nitrogen/Creatinine [Mass ratio] 29.6 mg/mg 10-20 [facility] Work Phone: [phone] Laboratory - Hematology and Cell countson 11-04-2021 Erythrocyte distribution width (RBC) [Entitic vol] 46.2 fL 35.1-43.9 [facility] Work Phone: [phone] Erythrocyte distribution width (RBC) [Ratio] 13.8 % 11.6-14.6 [facility] Work Phone: [phone] Immature granulocytes/100 WBC (Bld) 0.600 % 0.0-0.9 [facility] Work Phone: [phone] Comment on above: IG% - Immature Granu locytes (promyelocytes, myelocytes and metamyelocytes) > 1% indicates that a LEFT SHIFT is Present. MCH (RBC) [Entitic mass] 28.5 pg 27.0-32.0 [facility] Work Phone: [phone] Nucleated RBC/100 WBC (Bld) [Ratio] 0 % 0-5 [facility] Work Phone: [phone] MCHC Auto (RBC) [Mass/Vol]on 11-04-2021 MCHC (RBC) [Mass/Vol] 31.3 g/dL 32-36 [facility] Work Phone: No Panel Informationon 11-04 Estimated Creatinine Clearance Calc 83.01 ml/min [facility] Work Phone: [phone] Estimated GFR (MDRD) Amer 138 mL/min >60 [facility] Work Phone: [phone] Comment on above: GFR Calc Estimated GFR (MDRD) Non-Af Amer 114 mL/min >60 [facility] Work Phone: [phone] Comment on above: Non- GFR Calc Platelets bldon 11-04-2021 Platelets (Bld) [#/Vol] 336 10*3/uL 150-450 [facility] Work Phone: [phone] Serum or plasma albumin michel urement (mass/volume)on 11-04-2021 Albumin [Mass/Vol] 3.3 g/dL 3.2-5.0 [facility] Work Phone: [phone] Serum or plasma albumin/glob ulin mass ratioon 11-04-2021 Albumin/Globulin [Mass ratio] 0.8 {ratio} 0.9-2.4 [facility] Work Phone: [phone] Serum or plasma calcium michel urement (mass/volume)on 11-04-2021 Calcium [Mass/Vol] 9.3 mg/dL 8.5-10.1 [facility] Work Phone: [phone] Serum or plasma creatinine m easurement (mass/volume)on 11-04-2021 Creatinine [Mass/Vol] 0.57 mg/dL 0.55-1.02 [facility] Work Phone: Comment on above: The validity of the calculated GFR & GFRAA in patients over 70 years has not been determined. Clinical correlation is essential. Serum or plasma urea nitroge n measurement (mass/volume)on 11-04-2021 Urea nitrogen [Mass/Vol] 17 mg/dL 7-18 [facility] Work Phone: Thin prep Papanicolaou smear with manual screeningon 11-04-2021 Thin prep Papanicolaou smear with manual screening 11 U/L 15-37 [facility] Work Phone: Thin prep Papanicolaou smear with manual screening 7 5-15 [facility] Work Phone: [phone] Thin prep Papanicolaou smear with manual screeningOrdered By: Dr. Paez on 11-04-2021 Thin prep Papanicolaou smear with manual screening 121 U/L 84-246 [facility] Basophil percentageon 2021 Bilirubin [Mass/Vol] 0.40 mg/dL 0.20-1.00 [facility] Work Phone: Comment on above: For patients on eltr ombopag therapy, use of Dimension Exline TBIL is not recommended. Chloride [Moles/Vol] 106 mmol/L 98-107 [facility] Work Phone: Glucose [Mass/Vol] 117 mg/dL 74-106 [facility] Work Phone: Comment on above: Fasting Glucose resu lt from 100 to 125 mg/dL suggests IMPAIRED HOMEOSTASIS per A.D.A. criteria. Potassium [Moles/Vol] 3.7 mmol/L 3.5-5.1 [facility] Work Phone: [phone] Protein [Mass/Vol] 7.3 g/dL 6.4-8.2 [facility] Work Phone: [phone] Sodium [Moles/Vol] 139 mmol/L 136-145 [facility] Work Phone: [phone] WBC (Bld) [#/Vol] 8.1 10*3/uL 4.4-11.0 [facility] Work Phone: Blood erythrocytes count (nu mber/volume)on 06-20-2021 RBC (Bld) [#/Vol] 4.65 10*6/uL 4.2-5.4 [facility] Work Phone: Blood hemoglobin measurement (mass/volume)on 06-20-2021 Hemoglobin (Bld) [Mass/Vol] 13.4 g/dL 12.0-15.0 [facility] Work Phone: Blood platelet mean volumeon 06-20-2021 Platelet mean volume (Bld) [Entitic vol] 9.2 fL 6.2-12.0 [facility] Work Phone: Determination of erythrocyte mean corpuscular volume (MCV)on 06-20-2021 MCV (RBC) [Entitic vol] 89.5 fL 81-99 [facility] Work Phone: Erythrocyte sedimentation ra carlitos 06-20-2021 ESR (Bld) [Velocity] 13 mm/h 0-30 [facility] Work Phone: Hematocrit Auto (Bld) [Volum e fraction]on 06-20-2021 Hematocrit (Bld) [Volume fraction] 41.6 % 37-47 [facility] Work Phone: Laboratory - Chemistry and C hemistry - challengeon 06-20-2021 ALP [Catalytic activity/Vol] 81 U/L 45-117 [facility] Work Phone: ALT [Catalytic activity/Vol] 22 U/L 13-56 [facility] Work Phone: CO2 [Moles/Vol] 25.0 mmol/L 21.0-32.0 [facility] Work Phone: Cobalamin (Vitamin B12) [Mass/Vol] 311 pg/mL 211-911 [facility] Work Phone: Globulin (S) [Mass/Vol] 4.1 g/dL 2.2-4.2 [facility] Work Phone: Urea nitrogen/Creatinine [Mass ratio] 29.9 mg/mg 10-20 [facility] Work Phone: Laboratory - Hematology and Cell countson 06-20-2021 Erythrocyte distribution width (RBC) [Entitic vol] 43.9 fL 35.1-43.9 [facility] Work Phone: Erythrocyte distribution width (RBC) [Ratio] 13.5 % 11.6-14.6 [facility] Work Phone: MCH (RBC) [Entitic mass] 28.8 pg 27.0-32.0 [facility] Work Phone: MCHC Auto (RBC) [Mass/Vol]on 06-20-2021 MCHC (RBC) [Mass/Vol] 32.2 g/dL 32-36 [facility] Work Phone: No Panel Informationon 06-20 Estimated GFR (MDRD) Amer 131 mL/min >60 [facility] Work Phone: Comment on above: GFR Calc Estimated GFR (MDRD) Non-Af Amer 108 mL/min >60 [facility] Work Phone: Comment on above: Non- GFR Calc Stool Calprotectin 123 ug/g [facility] Work Phone: Comment on above: Concentration Interp retation Follow-Up<16 - 50 ug/g Normal None>50 -120 ug/g Borderline Re-evaluate in 4-6 weeks >120 ug/g Abnormal Repeat as clinically indicatedPerformed at: [facility] - [facility] [address] [id number] Director: Marcus Darling MD, Phone: [phone] Platelets bldon 06-20-2021 Platelets (Bld) [#/Vol] 331 10*3/uL 150-450 [facility] Work Phone: Serum or plasma C reactive p rotein measurement (mass/volume)on 06-20-2021 CRP [Mass/Vol] 9.66 mg/L 0.0-3.0 [facility] Work Phone: Comment on above: C-Reactive Protein ( CRP) provides useful information for thediagnosis, therapy and monitoring of inflammatory processesand associated diseases. For the evaluation of Relative Riskfor Cardiovascular Disease, a High Sensitivity CRP (HSCRP)should be ordered. Serum or plasma albumin michel urement (mass/volume)on 06-20-2021 Albumin [Mass/Vol] 3.2 g/dL 3.2-5.0 [facility] Work Phone: [phone] Serum or plasma albumin/glob ulin mass ratioon 06-20-2021 Albumin/Globulin [Mass ratio] 0.8 {ratio} 0.9-2.4 [facility] Work Phone: [phone] Serum or plasma calcium michel urement (mass/volume)on 06-20-2021 Calcium [Mass/Vol] 8.7 mg/dL 8.5-10.1 [facility] Work Phone: [phone] Serum or plasma creatinine m easurement (mass/volume)on 06-20-2021 Creatinine [Mass/Vol] 0.60 mg/dL 0.55-1.02 [facility] Work Phone: Comment on above: The validity of the calculated GFR & GFRAA in patients over 70 years has not been determined. Clinical correlation is essential. Serum or plasma urea nitroge n measurement (mass/volume)on 06-20-2021 Urea nitrogen [Mass/Vol] 18 mg/dL 7-18 [facility] Work Phone: [phone] Thin prep Papanicolaou smear with manual screeningon 06-20-2021 Thin prep Papanicolaou smear with manual screening 16 U/L 15-37 [facility] Work Phone: [phone] Thin prep Papanicolaou smear with manual screening 8 5-15 [facility] Work Phone: [phone] Absolute lymphocyte counton 05-13-2021 Lymphocytes Auto (Unsp spec) [#/Vol] 1.47 10*3/uL 0.83-4.51 [facility] Work Phone: [phone] Basophil percentageon 2021 Basophils/100 WBC (Bld) 0.3 % 0-1 [facility] Work Phone: [phone] Bilirubin [Mass/Vol] 0.40 mg/dL 0.20-1.00 [facility] Work Phone: [phone] Comment on above: For patients on eltr ombopag therapy, use of Dimension Exline TBIL is not recommended. Chloride [Moles/Vol] 107 mmol/L 98-107 [facility] Work Phone: Eosinophils/100 WBC (Bld) 1.0 % 0-5 [facility] Work Phone: Glucose [Mass/Vol] 106 mg/dL 74-106 [facility] Work Phone: Comment on above: Fasting Glucose resu lt from 100 to 125 mg/dL suggests IMPAIRED HOMEOSTASIS per A.D.A. criteria. Neutrophils (Bld) [#/Vol] 6.5 10*3/uL 2.0-7.7 [facility] Work Phone: Neutrophils/100 WBC (Bld) 73.6 % 47-70 [facility] Work Phone: Potassium [Moles/Vol] 4.0 mmol/L 3.5-5.1 [facility] Work Phone: Protein [Mass/Vol] 7.4 g/dL 6.4-8.2 [facility] Work Phone: Sodium [Moles/Vol] 139 mmol/L 136-145 [facility] Work Phone: WBC (Bld) [#/Vol] 8.8 10*3/uL 4.4-11.0 [facility] Work Phone: Blood erythrocytes count (nu mber/volume)on 05-13-2021 RBC (Bld) [#/Vol] 4.68 10*6/uL 4.2-5.4 [facility] Work Phone: Blood hemoglobin measurement (mass/volume)on 05-13-2021 Hemoglobin (Bld) [Mass/Vol] 13.7 g/dL 12.0-15.0 [facility] Work Phone: Blood lymphocytes/100 leukoc yteson 05-13-2021 Lymphocytes/100 WBC (Bld) 16.6 % 19-41 [facility] Work Phone: Blood monocytes/100 leukocyt eson 05-13-2021 Monocytes/100 WBC (Bld) 7.9 % 0-10 [facility] Work Phone: [phone] Blood platelet mean volumeon 05-13-2021 Platelet mean volume (Bld) [Entitic vol] 9.2 fL 6.2-12.0 [facility] Work Phone: Determination of erythrocyte mean corpuscular volume (MCV)on 05-13-2021 MCV (RBC) [Entitic vol] 89.7 fL 81-99 [facility] Work Phone: Hematocrit Auto (Bld) [Volum e fraction]on 05-13-2021 Hematocrit (Bld) [Volume fraction] 42.0 % 37-47 [facility] Work Phone: Laboratory - Chemistry and C hemistry - challengeon 05-13-2021 ALP [Catalytic activity/Vol] 91 U/L 45-117 [facility] Work Phone: [phone] ALT [Catalytic activity/Vol] 21 U/L 13-56 [facility] Work Phone: CO2 [Moles/Vol] 26.0 mmol/L 21.0-32.0 [facility] Work Phone: [phone] Cobalamin (Vitamin B12) [Mass/Vol] 262 pg/mL 211-911 [facility] Globulin (S) [Mass/Vol] 4.1 g/dL 2.2-4.2 [facility] Work Phone: [phone] Magnesium [Mass/Vol] 1.7 mg/dL 1.6-2.6 [facility] Urea nitrogen/Creatinine [Mass ratio] 26.0 mg/mg 10-20 [facility] Work Phone: [phone] Laboratory - Hematology and Cell countson 05-13-2021 Erythrocyte distribution width (RBC) [Entitic vol] 45.3 fL 35.1-43.9 [facility] Work Phone: [phone] Erythrocyte distribution width (RBC) [Ratio] 13.9 % 11.6-14.6 [facility] Work Phone: Immature granulocytes/100 WBC (Bld) 0.600 % 0.0-0.9 [facility] Work Phone: Comment on above: IG% - Immature Granu locytes (promyelocytes, myelocytes and metamyelocytes) > 1% indicates that a LEFT SHIFT is Present. MCH (RBC) [Entitic mass] 29.3 pg 27.0-32.0 [facility] Work Phone: Nucleated RBC/100 WBC (Bld) [Ratio] 0 % 0-5 [facility] Work Phone: MCHC Auto (RBC) [Mass/Vol]on 05-13-2021 MCHC (RBC) [Mass/Vol] 32.6 g/dL 32-36 [facility] Work Phone: No Panel Informationon 05-13 Estimated Creatinine Clearance Calc 73.70 ml/min [facility] Work Phone: Estimated GFR (MDRD) Amer 119 mL/min >60 [facility] Work Phone: Comment on above: GFR Calc Estimated GFR (MDRD) Non-Af Amer 98 mL/min >60 [facility] Work Phone: Comment on above: Non- GFR Calc Thyroid Stimulating Hormone (TSH) 2.15 uIU/mL 0.358-3.74 [facility] Vitamin D 25-Hydroxy 46.5 ng/mL [facility] Comment on above: Vitamin D 25(OH) Sta tus Range Deficiency <20 ng/mL (50nmol/L) Insufficiency 20 - 30 ng/mL (50 - 75 nmol/L) Sufficiency 30 - 100 ng/mL (75 - 250 nmol/L) Toxicity >100 ng/mL (>250 nmol/L) Platelets bldon 05-13-2021 Platelets (Bld) [#/Vol] 332 10*3/uL 150-450 [facility] Work Phone: Serum or plasma albumin michel urement (mass/volume)on 05-13-2021 Albumin [Mass/Vol] 3.3 g/dL 3.2-5.0 [facility] Work Phone: Serum or plasma albumin/glob ulin mass ratioon 05-13-2021 Albumin/Globulin [Mass ratio] 0.8 {ratio} 0.9-2.4 [facility] Work Phone: Serum or plasma calcium michel urement (mass/volume)on 05-13-2021 Calcium [Mass/Vol] 8.6 mg/dL 8.5-10.1 [facility] Work Phone: Serum or plasma creatinine m easurement (mass/volume)on 05-13-2021 Creatinine [Mass/Vol] 0.65 mg/dL 0.55-1.02 [facility] Work Phone: Comment on above: The validity of the calculated GFR & GFRAA in patients over 70 years has not been determined. Clinical correlation is essential. Serum or plasma urea nitroge n measurement (mass/volume)on 05-13-2021 Urea nitrogen [Mass/Vol] 17 mg/dL 7-18 [facility] Work Phone: Thin prep Papanicolaou smear with manual screeningon 05-13-2021 Thin prep Papanicolaou smear with manual screening 14 U/L 15-37 [facility] Work Phone: Thin prep Papanicolaou smear with manual screening 6 5-15 [facility] Work Phone: Thin prep Papanicolaou smear with manual screening 121 U/L 84-246 [facility] Work Phone: Direct bilirubinon 0 Bilirubin.direct [Mass/Vol] 0.12 mg/dL 0.00-0.30 [facility] Laboratory - Coagulationon 0 04-28-2019 aPTT Coag (Bld) [Time] 25.7 s 24.1-36.2 [facility] Iron measurement (mass/mass) on 09-07-2018 Iron (Unsp spec) [Mass/Mass] 60 ug/dL 50-170 [facility] No Panel Informationon 09-07 Total Iron Binding Capacity 383 ug/dL 250-450 [facility] Serum or plasma ferritin marla surement (mass/volume)on 09-07-2018 Ferritin [Mass/Vol] 117 ng/mL 8-252 [facility] Serum or plasma iron saturat ion measurement (mass fraction)on 09-07-2018 Iron saturation [Mass fraction] 15.7 % 15.0-55.0 [facility] Erythrocyte distribution wid th standard deviationon 04-13-2018 Erythrocyte distribution width (RBC) [Entitic vol] 49.7 fL High 35.1-43.9 [facility] Laboratory - Hematology and Cell countson 04-13-2018 Erythrocyte distribution width (RBC) [Ratio] 15.2 % High 11.6-14.6 [facility] Total cell counton 9 Cells counted Molgen (Bld/Tiss) [#] Not Reportable [facility] BASIC METABOLIC PANELon 01-10 Anion gap 10 mmol/L Normal 10 - 20 [facility] Comment on above: Order Comment: GLU C ALLED RB TO PRATIK RISIAN, 01/28/2017 07:40 Performed By: #### U A ####[facility] [place] [address] Bicarbonate (HCO3) 26 mmol/L Normal 21 - 32 [facility] Comment on above: Order Comment: GLU C ALLED RB TO PRATIK RISIAN, 01/28/2017 07:40 Performed By: #### U A ####[facility] [place] [address] Calcium 7.8 mg/dL Low 8.6 - 10.6 [facility] Comment on above: Order Comment: GLU C ALLED RB TO PRATIK RISIAN, 01/28/2017 07:40 Performed By: #### U A ####[facility] [place] [address] Chloride 100 mmol/L Normal 98 - 107 [facility] Comment on above: Order Comment: GLU C ALLED RB TO PRATIK RISIAN, 01/28/2017 07:40 Performed By: #### U A ####[facility] [place] [address] Creatinine 0.55 mg/dL Normal 0.50 - 1.05 [facility] Comment on above: Order Comment: GLU C ALLED RB TO PRATIK METRISIAN, 01/28/2017 07:40 Performed By: #### U A ####[facility] [place] [address] eGFR (non-black) mL/min/{1.73_m2} Normal >60 [facility] Comment on above: Order Comment: GLU C ALLED RB TO PRATIK METRISIAN, 01/28/2017 07:40 Performed By: #### U A ####[facility] [place] [address] Result Comment: CALC ULATIONS OF ESTIMATED GFR ARE PERFORMED USING THE MDRD STUDY EQUATION FOR THE IDMS-TRACEABLE CREATININE METHODS. CLIN CHEM 2007;53:766-72 Glucose mass conc 546 mg/dL Critically high 74 - 99 [facility] Comment on above: Order Comment: GLU C ALLED RB TO PRATIK METRISIAN, 01/28/2017 07:40 Result Comment: GLU CALLED RB TO PRATIK METRISIAN, 01/28/2017 07:40 Performed By: #### U A ####[facility] [place] [address] Potassium molar conc 3.0 mmol/L Low 3.5 - 5.3 [facility] Comment on above: Order Comment: GLU C ALLED RB TO PRATIK METRISIAN, 01/28/2017 07:40 Performed By: #### U A ####[facility] [place] [address] Sodium 133 mmol/L Low 136 - 145 [facility] Comment on above: Order Comment: GLU C ALLED RB TO PRATIK METRISIAN, 01/28/2017 07:40 Performed By: #### U A ####[facility] [place] [address] Urea nitrogen 4 mg/dL Low 6 - 23 [facility] Comment on above: Order Comment: GLU C ALLED RB TO PRATIK METRISIAN, 01/28/2017 07:40 Performed By: #### U A ####[facility] [place] [address] Discharge Summaryon 01-29-20 17 Discharge Summary Send Summary:Dischar ge Summary Providers:Provider Role Provider Name? Referring Jay Isabel? Attending Sergio Reese? Primary Estrellita Bear Recipients: Estrellita Bear DO - [id number] []Jay Isabel MD - [id number] []Discharge:Summary:Admiss ion Date: .19-Jan-2017 06:54:00Discharge Date: [id number] Physician at Discharge: Sergio ReeseAdmission Reason: Crohn's diseaseFinal Discharge Diagnoses: Crohn's diseaseProcedures: Date: 19-Jan-2017 11:15:00Procedure Name: Open Ileocecectomy.Condition at Discharge: SatisfactoryDisposition at Discharge: .HomeVital Signs: T P R BP EpO3Iburp 37 79 16 126/82 98%Date/Time 01/28 8:23 01/28 8:23 01/28 8:23 01/28 8:23 208:23Range (36.2C - 37C ) (68 - 81 ) (16 - 18 ) (126 - 146 )/ (76- 85 ) (95% -98% )Highest temp of 37 C was recorded at 01/28 8:23Physical Exam:Constitutional: Looks well today, conversive, no distressPulmonary: unlabored breathing, clear all lobesCardiac: RegularAbdominal: abdomen soft, appropriately tender, bc to midline incisionintake without erythemaGU: VoidingExtremities: PISANO, no edemaPsychological: appropriate mood and behaviorHospital Course:56 y/o female with a history of ileocolic Crohn's disease for 20 years. She hadbeen weaned to 10 mg prednisone daily prior to surgery. She presented withworsening obstructive symptoms over the last couple years and was planned forelective ileocecectomy.PMH: Crohn's, DVT, carpal tunnel, RA, endometriosisPSH: hysterectomyHospital course: On 01/19She presented for surgery and underwent an openIleocecectomy After surgery she was transferred to a regular nursing floor witha [employer] pump for pain control and steroids IV. Her pain was well controlled andshe was converted to oral pain medications. Her diet was slowly advanced astolerated and she was able to void after her indwelling catheter was removed.Her diet was advanced to a soft diet, however over night afterwords she hadmultiple episodes of emesis. Her NG was deferred, however as she stated thatshe felt much better and she was noted to have return of bowel function withBM. Over the next several days, her diet would advance and she would haveemesis resulting in backing down diet. This occured intermittently over thenext several days. Her abdomen was soft and she continued to pass stool. OnHospital day 9 she was able to tolerate a soft diet with adequate oral intake.She had no emesis in over 24 hours. She continued to have BM and pass flatus.She was deemed ready for discharge. At the time of discharge, she wastolerating diet without emesis, pain was well controlled and she continued withbowel function. She will follow up in approximately 2 weeks in outpatientclinicDischarge Information:and Continuing Care:Discharge Instructions:Activity: activity as tolerated. May shower.. May not drive while taking narcotics. No pushing, pulling, or lifting objects greater than 20 pounds for 4week(s). Weight-bearing Instructions: full weight bearing. slowly increase activity as toleratedNutrition/Diet: resume normal diet Diet Consistency/Texture: soft, soft diet x 4 weeks, Avoid rawfruits and vegetables for couple weeks and slowly advance into diet astolerated. Appetitie will return slowly, eat smaller more frequent meals atfirst, push away from table once full. Encourage Fluids: Drink plenty of a variety of fluids to preventdehydration. Signs of dehydration are: dry mouth, dark yellow urine in smallamounts, and dizziness with change in position or increased feeling ofweakness/tiredness.Wound Care: Wound Site: abdomen Wound Type: surgical incision Change Dressing: as needed Cleanse With: soap and water Cover With: no dressing, leave open to air, unless you wish toprotect your clothing Instructions: no lotions, creams, or tub soaks Other Instructions: You have bc remaining in your incision.These will come out in 1-2 weeks at the outpatient clinic. An appointment willbe made for you prior to your discharge. This incision may get wet, pat dry andcover as needed to protect your clothing, otherwise you may leave this incisionopen to air.Additional Orders: Additional Instructions: Bowel function will be irregular at first.You may experience some loose stool alternating with constipation. This isnormal. As your diet advances and you begin to eat more regularly, your stoolpattern will also become more regular.Colace is a stool softener that you can take twice per day to prevent hardstool or constipation. You will be instructed to use a stool softener while onnarcotics, as they may cause constipation. You should not take the Colace forloose watery stool. This is an over the counter medication.Follow Up Appointments:Follow-Up Appointment 01: Physician/Dept/Service: Daniela Nava, Nurse Practitioner for Princess Scheduled Date/Time: 06-Feb-2017 10:00 Location: [address] [place], [address],[facility] [address] [id number] Medications: Home Medication apixaban 5 mg oral tablet - 1 tab(s) orally once a day methotrexate 10 mg oral tablet - 1 tab(s) orally once a week folic acid 1 mg oral tablet - 1 tab(s) orally once a day citalopram 20 mg oral tablet - 1 tab(s) orally once a day pantoprazole 40 mg oral delayed release tablet - 1 tab(s) orally once a day cholecalciferol 50,000 intl units oral capsule - 1 cap(s) orally once a week escitalopram 20 mg oral tablet - 1 tab(s) orally once a day acetaminophen 325 mg oral tablet - 2 tab(s) orally every 6 hours predniSONE 5 mg oral tablet - 1 tab(s) orally: taper: 20mg oral daily x 7 daysthen 15mg x 7 days then 10mg x 7 days then 5mg x 7 days then off72 PRN Medication traMADol 50 mg oral tablet - 1 tab(s) orally every 4 hours, As Needed -Pain -Mod (4-6)ondansetron 8 mg oral tablet - 1 tab(s) orally , As Needed - for nauseaLab Results - Pending: NoneRadiology Results - Pending: NoneElectronic Signatures:Jimena Damian (CABINETMAKER APPRENTICE-ENGINEERING TEAM SUPERVISOR) (Signed 28-Jan-2017 16:09) Authored: Send Summary, Summary Content, Ongoing Care,Signature/Cosignature /AttestationLast Updated: 28-Jan-2017 16:09 by Jimena Damian (CABINETMAKER APPRENTICE-ENGINEERING TEAM SUPERVISOR) Normal [facility] GLUCOSE-POCTon 01-28-2017 Glucose mass conc 95 mg/dL Normal 74 - 99 [facility] Comment on above: Performed By: #### U A ####[facility] [place] [address] MAGNESIUMon 01-28-2017 Magnesium 1.65 mg/dL Normal 1.60 - 2.40 [facility] Comment on above: Performed By: #### U A ####[facility] [place] [address] RENAL FUNCTION PANELon 01-28 Albumin 3.1 g/dL Low 3.4 - 5.0 [facility] Comment on above: Performed By: #### U A ####[facility] [place] [address] Anion gap 15 mmol/L Normal 10 - 20 [facility] Comment on above: Performed By: #### U A ####[facility] [place] [address] Bicarbonate (HCO3) 26 mmol/L Normal 21 - 32 [facility] Comment on above: Performed By: #### U A ####[facility] [place] [address] Calcium 8.8 mg/dL Normal 8.6 - 10.6 [facility] Comment on above: Performed By: #### U A ####[facility] [place] [address] Chloride 99 mmol/L Normal 98 - 107 [facility] Comment on above: Performed By: #### U A ####[facility] [place] [address] Creatinine 0.47 mg/dL Low 0.50 - 1.05 [facility] Comment on above: Performed By: #### U A ####[facility] [place] [address] eGFR (non-black) mL/min/{1.73_m2} Normal >60 [facility] Comment on above: Result Comment: CALC ULATIONS OF ESTIMATED GFR ARE PERFORMED USING THE MDRD STUDY EQUATION FOR THE IDMS-TRACEABLE CREATININE METHODS. CLIN CHEM 2007;53:766-72 Performed By: #### U A ####[facility] [place] [address] Glucose mass conc 88 mg/dL Normal 74 - 99 [facility] Comment on above: Performed By: #### U A ####[facility] [place] [address] Phosphate 3.6 mg/dL Normal 2.5 - 4.9 [facility] Comment on above: Result Comment: The performance characteristics of phosphorus testing in heparinized plasma have been validated by the individual laboratory site where testing is performed. Testing on heparinized plasma is not approved by the FDA; however, such approval is not necessary. Performed By: #### U A ####[facility] [place] [address] Potassium molar conc 3.2 mmol/L Low 3.5 - 5.3 [facility] Comment on above: Performed By: #### U A ####[facility] [place] [address] Sodium 137 mmol/L Normal 136 - 145 [facility] Comment on above: Performed By: #### U A ####[facility] [place] [address] Urea nitrogen 4 mg/dL Low 6 - 23 [facility] Comment on above: Performed By: #### U A ####[facility] [place] [address] CBCon 01-27-2017 Erythrocyte distribution width Auto Ratio (RBC) 17.2 % High 11.5 - 14.5 [facility] Comment on above: Performed By: #### U A ####[facility] [place] [address] Erythrocytes (RBC) 4.47 x10E12/L Normal 4.00 - 5.20 [facility] Comment on above: Performed By: #### U A ####[facility] [place] [address] Hematocrit (HCT) 37.3 % Normal 36.0 - 46.0 [facility] Comment on above: Performed By: #### U A ####[facility] [place] [address] Hemoglobin mass conc (Bld) 11.3 g/dL Low 12.0 - 16.0 [facility] Comment on above: Performed By: #### U A ####[facility] [place] [address] MCHC mass conc (RBC) 30.3 g/dL Low 32.0 - 36.0 [facility] Comment on above: Performed By: #### U A ####[facility] [place] [address] MCV 83 fL Normal 80 - 100 [facility] Comment on above: Performed By: #### U A ####[facility] [place] [address] Nucleated erythrocytes 0.0 /100 WBC Normal 0.0-0.0 [facility] Comment on above: Performed By: #### U A ####[facility] [place] [address] Platelets 431 10*3/uL Normal 150 - 450 [facility] Comment on above: Performed By: #### U A ####[facility] [place] [address] WBC (Leukocytes) 8.8 10*3/uL Normal 4.4 - 11.3 [facility] Comment on above: Performed By: #### U A ####[facility] [place] [address] MAGNESIUMon 01-27-2017 Magnesium 1.82 mg/dL Normal 1.60 - 2.40 [facility] Comment on above: Performed By: #### U A ####[facility] [place] [address] RENAL FUNCTION PANELon 01-27 Albumin 2.9 g/dL Low 3.4 - 5.0 [facility] Comment on above: Performed By: #### U A ####[facility] [place] [address] Anion gap 11 mmol/L Normal 10 - 20 [facility] Comment on above: Performed By: #### U A ####[facility] [place] [address] Bicarbonate (HCO3) 30 mmol/L Normal 21 - 32 [facility] Comment on above: Performed By: #### U A ####[facility] [place] [address] Calcium 9.1 mg/dL Normal 8.6 - 10.6 [facility] Comment on above: Performed By: #### U A ####[facility] [place] [address] Chloride 101 mmol/L Normal 98 - 107 [facility] Comment on above: Performed By: #### U A ####[facility] [place] [address] Creatinine 0.55 mg/dL Normal 0.50 - 1.05 [facility] Comment on above: Performed By: #### U A ####[facility] [place] [address] eGFR (non-black) mL/min/{1.73_m2} Normal >60 [facility] Comment on above: Performed By: #### U A ####[facility] [place] [address] Result Comment: CALC ULATIONS OF ESTIMATED GFR ARE PERFORMED USING THE MDRD STUDY EQUATION FOR THE IDMS-TRACEABLE CREATININE METHODS. CLIN CHEM 2007;53:766-72 Glucose mass conc 87 mg/dL Normal 74 - 99 [facility] Comment on above: Performed By: #### U A ####[facility] [place] [address] Phosphate 3.9 mg/dL Normal 2.5 - 4.9 [facility] Comment on above: Result Comment: The performance characteristics of phosphorus testing in heparinized plasma have been validated by the individual laboratory site where testing is performed. Testing on heparinized plasma is not approved by the FDA; however, such approval is not necessary. Performed By: #### U A ####[facility] [place] [address] Potassium molar conc 3.8 mmol/L Normal 3.5 - 5.3 [facility] Comment on above: Performed By: #### U A ####[facility] [place] [address] Sodium 138 mmol/L Normal 136 - 145 [facility] Comment on above: Performed By: #### U A ####[facility] [place] [address] Urea nitrogen 6 mg/dL Normal 6 - 23 [facility] Comment on above: Performed By: #### U A ####[facility] [place] [address] ABDOMEN AND PELVIS WIT H CONTRASTon 01-26-[address] ABDOMEN AND PELVIS WITH CONTRAST Name: BABAK HSIEH STUDY:BD CT ABDOMEN AND PELVIS WITH CONTRAST; 01/26/2017 12:19 pm INDICATION:56 y/o F with Signs/Symptoms: pod # 7 ileocectomy with intermittentnausea and emesis. 56-year-old female with history of ileocolicCrohn's disease for 20 years, DVT, endometriosis, rheumatoidarthritis, iron deficiency anemia, and status post hysterectomy. COMPARISON:None. ORDERING CLINICIAN:JIMENA DAMIAN TECHNIQUE:Helical CT was performed following the intravenous administration of88 ml IV (Optiray 350) with oral contrast material. Reformats wereperformed in the coronal and sagittal plane. FINDINGS:LIMITATIONS/LINES :None. GREAT VESSELS/RETROPERITONEUM:Mi ld atherosclerotic calcifications are visualized in the abdominalaorta. Otherwise the vasculature is unremarkable and appears patent.There is mild mesenteric edema noted, likely postsurgical.There are multiple subcentimeter retroperitoneal mesenteric lymphnodes of likely reactive nature. LUNG BASES:Small region of atelectasis in the inferior left lobe. Otherwiselungs are clear. No evidence of pleural effusion or focalconsolidative lesion. PERITONEUM:No free air. Midline surgical scar is visualized, without evidence ofherniation. Fluid is visualized in the pelvis, presumed postsurgical. BOWEL:The esophagus is unremarkable.The gastric body is dilated with layering radiopacity in the gastricbody. No evidence of gastric wall thickening or intraluminal mass.The small bowel is diffusely dilated with a focal area of relativenarrowing in the right lower quadrant adjacent to the neoterminalileum, (coronal image 61/109 and axial image 109/163, and sagittalimage 45/122). Distally there is fluid and gas with relativelynarrowed bowel caliber. These findings likely represent ileus howeveran element of partial small-bowel obstruction cannot be excluded.Postsurgical changes consistent with ileocecectomy are visualized,with intact anastomotic bc. Appendix: Surgically removed LIVER:The liver is of normal size and characteristics. There is no borderirregularity or nodularity. No focal hepatic lesions are identified. BILE DUCTS:The intra and extrahepatic bile ducts are unremarkable and nondilated. GALLBLADDER:The gallbladder is dilated without evidence of gallbladder wallthickening or pericholecystic fluid. There is layering radiopacity inthe gallbladder lumen consistent with biliary sludge, and there are 2calcifications in the gallbladder lumen consistent with gallstones. SPLEEN:Small hypoattenuating well-circumscribed focus in the spleen isidentified, representing simple splenic cyst. Otherwise the spleen isunremarkable. PANCREAS:The pancreas enhances uniformly, and is unremarkable in appearance. KIDNEYS/ADRENALS:The kidneys enhance symmetrically. The left kidney is unremarkable.The right kidney demonstrates 3 hypoattenuating well-circumscribedlesions in the superior pole, the largest measuring 1.4 x 1.3 cm. Thelargest lesion is septated. These findings likely represent renalcysts. There is no hydroureteronephrosis or nephrolithiasis. BLADDER/PELVIS:The bladder is decompressed.The uterus is surgically absent. BONES:The ribs are unremarkable. The visualized spine demonstratesmultilevel discogenic degeneration with osteophytosis. Schmorl's nodeis visualized on the superior aspect of the L3 vertebrae. The osseouspelvis is unremarkable. No osteolytic or osteoblastic lesions arevisualized in the imaged portions of the axial skeleton. SOFT TISSUE/OTHER:Mild inflammation and edema about the surgical scar, however noevidence of infection or abscess. IMPRESSION:1. Diffusely dilated small bowel likely representing postoperativeileus. However, focal narrowing in the right lower quadrant isidentified as described above, an element of partial small bowelobstruction at this level is not excluded.2. Postsurgical changes consistent with ileocecectomy.3. Left lower lobe atelectasis4. 3 superior right pole renal cysts.I personally reviewed the image(s) / study and resident, 's interpretation. I agree with the findings as stated. Thisstudy has been [facility] in [place], [place].Electronically signed by: TANK STEPHENS MD Normal [facility] CBCon 01-25-2017 Erythrocyte distribution width Auto Ratio (RBC) 17.2 % High 11.5 - 14.5 [facility] Comment on above: Performed By: #### U A ####[facility] [place] [address] Erythrocytes (RBC) 4.39 x10E12/L Normal 4.00 - 5.20 [facility] Comment on above: Performed By: #### U A ####[facility] [place] [address] Hematocrit (HCT) 36.9 % Normal 36.0 - 46.0 [facility] Comment on above: Performed By: #### U A ####[facility] [place] [address] Hemoglobin mass conc (Bld) 11.1 g/dL Low 12.0 - 16.0 [facility] Comment on above: Performed By: #### U A ####[facility] [place] [address] MCHC mass conc (RBC) 30.1 g/dL Low 32.0 - 36.0 [facility] Comment on above: Performed By: #### U A ####[facility] [place] [address] MCV 84 fL Normal 80 - 100 [facility] Comment on above: Performed By: #### U A ####[facility] [place] [address] Nucleated erythrocytes 0.0 /100 WBC Normal 0.0-0.0 [facility] Comment on above: Performed By: #### U A ####[facility] [place] [address] Platelets 443 10*3/uL Normal 150 - 450 [facility] Comment on above: Performed By: #### U A ####[facility] [place] [address] WBC (Leukocytes) 7.4 10*3/uL Normal 4.4 - 11.3 [facility] Comment on above: Performed By: #### U A ####[facility] [place] [address] RENAL FUNCTION PANELon 01-25 Albumin 2.8 g/dL Low 3.4 - 5.0 [facility] Comment on above: Performed By: #### U A ####[facility] [place] [address] Anion gap 10 mmol/L Normal 10 - 20 [facility] Comment on above: Performed By: #### U A ####[facility] [place] [address] Bicarbonate (HCO3) 25 mmol/L Normal 21 - 32 [facility] Comment on above: Performed By: #### U A ####[facility] [place] [address] Calcium 8.5 mg/dL Low 8.6 - 10.6 [facility] Comment on above: Performed By: #### U A ####[facility] [place] [address] Chloride 103 mmol/L Normal 98 - 107 [facility] Comment on above: Performed By: #### U A ####[facility] [place] [address] Creatinine 0.51 mg/dL Normal 0.50 - 1.05 [facility] Comment on above: Performed By: #### U A ####[facility] [place] [address] eGFR (non-black) mL/min/{1.73_m2} Normal >60 [facility] Comment on above: Result Comment: CALC ULATIONS OF ESTIMATED GFR ARE PERFORMED USING THE MDRD STUDY EQUATION FOR THE IDMS-TRACEABLE CREATININE METHODS. CLIN CHEM 2007;53:766-72 Performed By: #### U A ####[facility] [place] [address] Glucose mass conc 101 mg/dL High 74 - 99 [facility] Comment on above: Performed By: #### U A ####[facility] [place] [address] Phosphate 3.3 mg/dL Normal 2.5 - 4.9 [facility] Comment on above: Result Comment: The performance characteristics of phosphorus testing in heparinized plasma have been validated by the individual laboratory site where testing is performed. Testing on heparinized plasma is not approved by the FDA; however, such approval is not necessary. Performed By: #### U A ####[facility] [place] [address] Potassium molar conc 3.4 mmol/L Low 3.5 - 5.3 [facility] Comment on above: Performed By: #### U A ####[facility] [place] [address] Sodium 135 mmol/L Low 136 - 145 [facility] Comment on above: Performed By: #### U A ####[facility] [place] [address] Urea nitrogen 10 mg/dL Normal 6 - 23 [facility] Comment on above: Performed By: #### U A ####[facility] [place] [address] CBC AND DIFFERENTIALon 01-23 % AUTOMATED IMMATURE GRAN 1.1 % High 0.0 - 0.9 [facility] Comment on above: Result Comment: Perc ent differential counts (%) should be interpreted in the context of the absolute cell counts (cells/L). Performed By: #### C BC ####[facility] [place] [address] % NEUTROPHIL 83.9 % Normal 40.0 - 80.0 [facility] Comment on above: Performed By: #### C BC ####[facility] [place] [address] Basophils/100 WBC Auto (Bld) 0.03 x10E9/L Normal 0.00 - 0.10 [facility] Comment on above: Performed By: #### C BC ####[facility] [place] [address] Basophils/100 WBC Auto (Bld) 0.2 % Normal 0.0 - 2.0 [facility] Comment on above: Performed By: #### C BC ####[facility] [place] [address] Eosinophils 0.04 10*3/uL Normal 0.00 - 0.70 [facility] Comment on above: Performed By: #### C BC ####[facility] [place] [address] Eosinophils/100 leukocytes 0.3 % Normal 0.0 - 6.0 [facility] Comment on above: Performed By: #### C BC ####[facility] [place] [address] Erythrocyte distribution width Auto Ratio (RBC) 17.7 % High 11.5 - 14.5 [facility] Comment on above: Performed By: #### C BC ####[facility] [place] [address] Erythrocytes (RBC) 4.90 x10E12/L Normal 4.00 - 5.20 [facility] Comment on above: Performed By: #### C BC ####[facility] [place] [address] Hematocrit (HCT) 40.6 % Normal 36.0 - 46.0 [facility] Comment on above: Performed By: #### C BC ####[facility] [place] [address] Hemoglobin mass conc (Bld) 12.3 g/dL Normal 12.0 - 16.0 [facility] Comment on above: Performed By: #### C BC ####[facility] [place] [address] Lymphocytes 1.12 10*3/uL Low 1.20 - 4.80 [facility] Comment on above: Performed By: #### C BC ####[facility] [place] [address] Lymphocytes/100 leukocytes 7.0 % Low 13.0 - 44.0 [facility] Comment on above: Performed By: #### C BC ####[facility] [place] [address] MCHC mass conc (RBC) 30.3 g/dL Low 32.0 - 36.0 [facility] Comment on above: Performed By: #### C BC ####[facility] [place] [address] MCV 83 fL Normal 80 - 100 [facility] Comment on above: Performed By: #### C BC ####[facility] [place] [address] Monocytes 1.20 10*3/uL High 0.10 - 1.00 [facility] Comment on above: Performed By: #### C BC ####[facility] [place] [address] Monocytes/100 leukocytes 7.5 % Normal 2.0 - 10.0 [facility] Comment on above: Performed By: #### C BC ####[facility] [place] [address] Neutrophils 13.34 10*3/uL High 1.20 - 7.70 [facility] Comment on above: Performed By: #### C BC ####[facility] [place] [address] Nucleated erythrocytes 0.0 /100 WBC Normal 0.0-0.0 [facility] Comment on above: Performed By: #### C BC ####[facility] [place] [address] Platelets 509 10*3/uL High 150 - 450 [facility] Comment on above: Performed By: #### C BC ####[facility] [place] [address] WBC (Leukocytes) 15.9 10*3/uL High 4.4 - 11.3 [facility] Comment on above: Performed By: #### C BC ####[facility] [place] [address] MAGNESIUMon 01-23-2017 Magnesium 2.10 mg/dL Normal 1.60 - 2.40 [facility] Comment on above: Performed By: #### C BC ####[facility] [place] [address] RENAL FUNCTION PANELon 01-23 Albumin 2.8 g/dL Low 3.4 - 5.0 [facility] Comment on above: Performed By: #### C BC ####[facility] [place] [address] Anion gap 16 mmol/L Normal 10 - 20 [facility] Comment on above: Performed By: #### C BC ####[facility] [place] [address] Bicarbonate (HCO3) 27 mmol/L Normal 21 - 32 [facility] Comment on above: Performed By: #### C BC ####[facility] [place] [address] Calcium 9.1 mg/dL Normal 8.6 - 10.6 [facility] Comment on above: Performed By: #### C BC ####[facility] [place] [address] Chloride 101 mmol/L Normal 98 - 107 [facility] Comment on above: Performed By: #### C BC ####[facility] [place] [address] Creatinine 0.72 mg/dL Normal 0.50 - 1.05 [facility] Comment on above: Performed By: #### C BC ####[facility] [place] [address] eGFR (non-black) mL/min/{1.73_m2} Normal >60 [facility] Comment on above: Result Comment: CALC ULATIONS OF ESTIMATED GFR ARE PERFORMED USING THE MDRD STUDY EQUATION FOR THE IDMS-TRACEABLE CREATININE METHODS. CLIN CHEM 2007;53:766-72 Performed By: #### C BC ####[facility] [place] [address] Glucose mass conc 127 mg/dL High 74 - 99 [facility] Comment on above: Performed By: #### C BC ####[facility] [place] [address] Phosphate 5.5 mg/dL High 2.5 - 4.9 [facility] Comment on above: Result Comment: The performance characteristics of phosphorus testing in heparinized plasma have been validated by the individual laboratory site where testing is performed. Testing on heparinized plasma is not approved by the FDA; however, such approval is not necessary. Performed By: #### C BC ####[facility] [place] [address] Potassium molar conc 4.3 mmol/L Normal 3.5 - 5.3 [facility] Comment on above: Performed By: #### C BC ####[facility] [place] [address] Sodium 140 mmol/L Normal 136 - 145 [facility] Comment on above: Performed By: #### C BC ####[facility] [place] [address] Urea nitrogen 19 mg/dL Normal 6 - 23 [facility] Comment on above: Performed By: #### C BC ####[facility] [place] [address] BASIC METABOLIC PANELon 12-1 4-2017 Anion gap 14 mmol/L Normal 10 - 20 [facility] Comment on above: Performed By: #### C BC ####[facility] [place] [address] Bicarbonate (HCO3) 29 mmol/L Normal 21 - 32 [facility] Comment on above: Performed By: #### C BC ####[facility] [place] [address] Calcium 8.7 mg/dL Normal 8.6 - 10.6 [facility] Comment on above: Performed By: #### C BC ####[facility] [place] [address] Chloride 100 mmol/L Normal 98 - 107 [facility] Comment on above: Performed By: #### C BC ####[facility] [place] [address] Creatinine 0.60 mg/dL Normal 0.50 - 1.05 [facility] Comment on above: Performed By: #### C BC ####[facility] [place] [address] eGFR (non-black) mL/min/{1.73_m2} Normal >60 [facility] Comment on above: Result Comment: CALC ULATIONS OF ESTIMATED GFR ARE PERFORMED USING THE MDRD STUDY EQUATION FOR THE IDMS-TRACEABLE CREATININE METHODS. CLIN CHEM 2007;53:766-72 Performed By: #### C BC ####[facility] [place] [address] Glucose mass conc 95 mg/dL Normal 74 - 99 [facility] Comment on above: Performed By: #### C BC ####[facility] [place] [address] Potassium molar conc 3.4 mmol/L Low 3.5 - 5.3 [facility] Comment on above: Performed By: #### C BC ####[facility] [place] [address] Sodium 140 mmol/L Normal 136 - 145 [facility] Comment on above: Performed By: #### C BC ####[facility] [place] [address] Urea nitrogen 11 mg/dL Normal 6 - 23 [facility] Comment on above: Performed By: #### C BC ####[facility] [place] [address] CBCon 01-22-2017 Erythrocyte distribution width Auto Ratio (RBC) 17.4 % High 11.5 - 14.5 [facility] Comment on above: Performed By: #### C BC ####[facility] [place] [address] Erythrocytes (RBC) 4.63 x10E12/L Normal 4.00 - 5.20 [facility] Comment on above: Performed By: #### C BC ####[facility] [place] [address] Hematocrit (HCT) 38.6 % Normal 36.0 - 46.0 [facility] Comment on above: Performed By: #### C BC ####[facility] [place] [address] Hemoglobin mass conc (Bld) 11.9 g/dL Low 12.0 - 16.0 [facility] Comment on above: Performed By: #### C BC ####[facility] [place] [address] MCHC mass conc (RBC) 30.8 g/dL Low 32.0 - 36.0 [facility] Comment on above: Performed By: #### C BC ####[facility] [place] [address] MCV 83 fL Normal 80 - 100 [facility] Comment on above: Performed By: #### C BC ####[facility] [place] [address] Nucleated erythrocytes 0.0 /100 WBC Normal 0.0-0.0 [facility] Comment on above: Performed By: #### C BC ####[facility] [place] [address] Platelets 409 10*3/uL Normal 150 - 450 [facility] Comment on above: Performed By: #### C BC ####[facility] [place] [address] WBC (Leukocytes) 16.7 10*3/uL High 4.4 - 11.3 [facility] Comment on above: Performed By: #### C BC ####[facility] [place] [address] UA MICROSCOPICon 01-22-2017 Erythrocytes (RBC) 2 /HPF Normal 0-5 [facility] Comment on above: Performed By: #### C BC ####[facility] [place] [address] SQUAMOUS EPITH. CELLS 7 /HPF Normal [facility] Comment on above: Performed By: #### C BC ####[facility] [place] [address] Urine, bacteria in sediment 4+ /HPF Abnormal [facility] Comment on above: Performed By: #### C BC ####[facility] [place] [address] Urine, mucus presence in sediment 1+ /LPF Normal [facility] Comment on above: Performed By: #### C BC ####[facility] [place] [address] WBC (Leukocytes) 1 /HPF Normal 0-5 [facility] Comment on above: Performed By: #### C BC ####[facility] [place] [address] URINALYSISon 01-22-2017 Bilirubin (total) Negative Normal NEGATIVE [facility] Comment on above: Performed By: #### C BC ####[facility] [place] [address] BLOOD SMALL (1+) Abnormal NEGATIVE [facility] Comment on above: Performed By: #### C BC ####[facility] [place] [address] Glucose mass conc Negative Normal NEGATIVE [facility] Comment on above: Performed By: #### C BC ####[facility] [place] [address] pH of blood 7.0 [pH] Normal 5.0 - 8.0 [facility] Comment on above: Performed By: #### C BC ####[facility] [place] [address] Protein Negative Normal NEGATIVE [facility] Comment on above: Performed By: #### C BC ####[facility] [place] [address] Urine, appearance CLEAR Normal CLEAR [facility] Comment on above: Performed By: #### C BC ####[facility] [place] [address] Urine, color YELLOW Normal STRAW,YELL OW [facility] Comment on above: Performed By: #### C BC ####[facility] [place] [address] Urine, ketones presence Negative Normal NEGATIVE [facility] Comment on above: Performed By: #### C BC ####[facility] [place] [address] Urine, leukocyte esterase presence Negative Normal NEGATIVE [facility] Comment on above: Performed By: #### C BC ####[facility] [place] [address] Urine, nitrite presence Negative Normal NEGATIVE [facility] Comment on above: Performed By: #### C BC ####[facility] [place] [address] Urine, specific gravity 1.009 Normal 1.005 - 1.035 [facility] Comment on above: Performed By: #### C BC ####[facility] [place] [address] Urine, urobilinogen <2.0 Normal 0.0 - 1.9 [facility] Comment on above: Performed By: #### C BC ####[facility] [place] [address] BASIC METABOLIC PANELon 12- Anion gap 15 mmol/L Normal 10 - 20 [facility] Comment on above: Performed By: #### C BC ####[facility] [place] [address] Bicarbonate (HCO3) 30 mmol/L Normal 21 - 32 [facility] Comment on above: Performed By: #### C BC ####[facility] [place] [address] Calcium 9.0 mg/dL Normal 8.6 - 10.6 [facility] Comment on above: Performed By: #### C BC ####[facility] [place] [address] Chloride 95 mmol/L Low 98 - 107 [facility] Comment on above: Performed By: #### C BC ####[facility] [place] [address] Creatinine 0.48 mg/dL Low 0.50 - 1.05 [facility] Comment on above: Performed By: #### C BC ####[facility] [place] [address] eGFR (non-black) mL/min/{1.73_m2} Normal >60 [facility] Comment on above: Performed By: #### C BC ####[facility] [place] [address] Result Comment: CALC ULATIONS OF ESTIMATED GFR ARE PERFORMED USING THE MDRD STUDY EQUATION FOR THE IDMS-TRACEABLE CREATININE METHODS. CLIN CHEM 2007;53:766-72 Glucose mass conc 92 mg/dL Normal 74 - 99 [facility] Comment on above: Performed By: #### C BC ####[facility] [place] [address] Potassium molar conc 4.6 mmol/L Normal 3.5 - 5.3 [facility] Comment on above: Performed By: #### C BC ####[facility] [place] [address] Sodium 135 mmol/L Low 136 - 145 [facility] Comment on above: Performed By: #### C BC ####[facility] [place] [address] Urea nitrogen 9 mg/dL Normal 6 - 23 [facility] Comment on above: Performed By: #### C BC ####[facility] [place] [address] CBCon 01-20-2017 Erythrocyte distribution width Auto Ratio (RBC) 17.1 % High 11.5 - 14.5 [facility] Comment on above: Performed By: #### C BC ####[facility] [place] [address] Erythrocytes (RBC) 4.72 x10E12/L Normal 4.00 - 5.20 [facility] Comment on above: Performed By: #### C BC ####[facility] [place] [address] Hematocrit (HCT) 39.2 % Normal 36.0 - 46.0 [facility] Comment on above: Performed By: #### C BC ####[facility] [place] [address] Hemoglobin mass conc (Bld) 11.9 g/dL Low 12.0 - 16.0 [facility] Comment on above: Performed By: #### C BC ####[facility] [place] [address] MCHC mass conc (RBC) 30.4 g/dL Low 32.0 - 36.0 [facility] Comment on above: Performed By: #### C BC ####[facility] [place] [address] MCV 83 fL Normal 80 - 100 [facility] Comment on above: Performed By: #### C BC ####[facility] [place] [address] Nucleated erythrocytes 0.0 /100 WBC Normal 0.0-0.0 [facility] Comment on above: Performed By: #### C BC ####[facility] [place] [address] Platelets 474 10*3/uL High 150 - 450 [facility] Comment on above: Performed By: #### C BC ####[facility] [place] [address] WBC (Leukocytes) 17.4 10*3/uL High 4.4 - 11.3 [facility] Comment on above: Performed By: #### C BC ####[facility] [place] [address] ABO/RH GROUP TESTon 01-20-20 17 ABO TYPE O Normal [facility] Comment on above: Performed By: #### V ERAB ####[facility] [place] [address] RH TYPE Positive Normal [facility] Comment on above: Performed By: #### V ERAB ####[facility] [place] [address] COAGULATION SCREENon 017 aPTT 25 s Normal 25 - 36 [facility] Comment on above: Result Comment: THE APTT IS NO LONGER USED FOR MONITORING UNFRACTIONATED HEPARIN THERAPY. FOR MONITORING HEPARIN THERAPY, USE THE HEPARIN ASSAY. Performed By: #### C OAGS ####[facility] [place] [address] INR Coag RelTime (PPP) 1.1 {INR} Normal 0.9 - 1.1 [facility] Comment on above: Performed By: #### C OAGS ####[facility] [place] [address] Prothrombin time (PT) Coag time (PPP) 12.1 s Normal 9.8 - 12.7 [facility] Comment on above: Performed By: #### C OAGS ####[facility] [place] [address] [facility] Surgical Pathology Depar tmenton 01-19-2017 [facility] Surgical Pathology Department Name [facility] Pathologist: ADRIAN AJ M.D., PhD.Date of Procedure: 01/19/2017Date Received: 01/19/2017Date Reported 01/23/2017Submitting Physician: SERGIO REESE MDLocation: TMOR Other External # FINAL DIAGNOSISA. TERMINAL ILEUM AND CECUM, RESECTION:--SMALL BOWEL WITH CHANGES CONSISTENT WITH CROHN'S DISEASE--NEGATIVE FOR DYSPLASIA--COLON, NO SIGNIFICANT PATHOLOGIC FINDINGS--FIVE LYMPH NODES, NO SIGNIFICANT PATHOLOGIC FINDINGSNote: The terminal ileum shows segmental areas of ulcer, chronic activeileitis, transmural lymphoid aggregates, and inflammatory pseudopolyps,features diagnostic of Crohn's disease. Granulomas are not seen. Electronically Signed Out By ADRIAN AJ M.D., PhD./Prisca the signature on this report, the individual or group listed as making theFinal Interpretation/Diagnosis certifies that they have reviewed this case. Clinical History:Crohn's DiseaseSpecimens Submitted As:A: TERMINAL ILEUM AND CECUM Gross Description:A. Received fresh, labeled with the patient's name and hospital number andterminal ileum + cecum A. , is a segment of colon, including the cecum, 34.5cm in length. A 8.2 cm length of terminal ileum is attached. There is attachedmesentery and fibrofatty tissue. No appendix is identified. The serosal surfaceis segmentally involved and appears thickened, pink-long, with prominentvascularity. The bowel wall shows irregular thickening, up to 0.3 cm. Astricture is not present. The mucosal surface reveals areas of longitudinalulcer, cobblestoning, friable mucosa, inflammatory polyps. The process issegmental, 22 x 5.0 x 4 0.0 cm and is located 5.3 cm from distal resectionmargin, and 4.2 cm from the proximal resection margin. Normal islands of mucosacan be distinguished among the ulcers. Photographs have been taken. [facility]been [facility]. Watch Repair Technician sections are submitted in 10 cassettes.HXRSummary of Cassettes:Specimen Label SiteA 1-2 distal margin, bisected 3 proximal margin 4 area of ileocecal valve 5 colon, paper sales representative section 6 cecum, paper sales representative section (2 sections in the cassette) 7?9 ascending colon, area with abnormalities (sections fromproximal to distal/ 2 sections in each cassette) 10 area of adjacent uninvolved mucosa (2 sections in thecassette) 11 terminal ileum, paper sales representative section 12 7 possible lymph nodes hxr/01/20/2017 Normal [facility] Comment on above: Performed By: #### C BC ####[facility] [place] [address] C-REACTIVE PROTEINon 017 C reactive protein (CRP) 11.00 mg/dL Abnormal [facility] Comment on above: Result Comment: REF VALUE< 1.00 Performed By: #### C RP ####[facility] [place] [address] TYPE + SCREENon 01-07-2017 ABO TYPE O Normal [facility] Comment on above: Performed By: #### T +S ####[facility] [place] [address] RH TYPE Positive Normal [facility] Comment on above: Performed By: #### T +S ####[facility] [place] [address] ANTIBODY SCREEN Negative Normal [facility] Comment on above: Performed By: #### T +S ####[facility] [place] [address] CBCon 01-06-2017 Erythrocyte distribution width Auto Ratio (RBC) 18.3 % High 11.5 - 14.5 [facility] Comment on above: Performed By: #### C BC ####[facility] [place] [address] Erythrocytes (RBC) 4.53 x10E12/L Normal 4.00 - 5.20 [facility] Comment on above: Performed By: #### C BC ####[facility] [place] [address] Hematocrit (HCT) 38.6 % Normal 36.0 - 46.0 [facility] Comment on above: Performed By: #### C BC ####[facility] [place] [address] Hemoglobin mass conc (Bld) 12.0 g/dL Normal 12.0 - 16.0 [facility] Comment on above: Performed By: #### C BC ####[facility] [place] [address] MCHC mass conc (RBC) 31.1 g/dL Low 32.0 - 36.0 [facility] Comment on above: Performed By: #### C BC ####[facility] [place] [address] MCV 85 fL Normal 80 - 100 [facility] Comment on above: Performed By: #### C BC ####[facility] [place] [address] Nucleated erythrocytes 0.0 /100 WBC Normal 0.0-0.0 [facility] Comment on above: Performed By: #### C BC ####[facility] [place] [address] Platelets 431 10*3/uL Normal 150 - 450 [facility] Comment on above: Performed By: #### C BC ####[facility] [place] [address] WBC (Leukocytes) 14.7 10*3/uL High 4.4 - 11.3 [facility] Comment on above: Performed By: #### C BC ####[facility] [place] [address] COAGULATION SCREENon 01-06-2 017 aPTT 29 s Normal 25 - 36 [facility] Comment on above: Result Comment: THE APTT IS NO LONGER USED FOR MONITORING UNFRACTIONATED HEPARIN THERAPY. FOR MONITORING HEPARIN THERAPY, USE THE HEPARIN ASSAY. Performed By: #### C OAGS ####[facility] [place] [address] INR Coag RelTime (PPP) 1.4 {INR} High 0.9 - 1.1 [facility] Comment on above: Performed By: #### C OAGS ####[facility] [place] [address] Prothrombin time (PT) Coag time (PPP) 15.6 s High 9.8 - 12.7 [facility] Comment on above: Performed By: #### C OAGS ####[facility] [place] [address] COMPREHENSIVE PANELon 2016 Alanine aminotransferase (ALT) 10 U/L Normal 7 - 45 [facility] Comment on above: Result Comment: Yesi ents treated with Sulfasalazine may generate falsely decreased results for ALT. Performed By: #### C MP ####[facility] [place] [address] Albumin 3.3 g/dL Low 3.4 - 5.0 [facility] Comment on above: Performed By: #### C MP ####[facility] [place] [address] Alkaline phosphatase (ALP) 77 U/L Normal 33 - 110 [facility] Comment on above: Performed By: #### C MP ####[facility] [place] [address] Anion gap 17 mmol/L Normal 10 - 20 [facility] Comment on above: Performed By: #### C MP ####[facility] [place] [address] Aspartate aminotransferase (AST) 8 U/L Low 9 - 39 [facility] Comment on above: Performed By: #### C MP ####[facility] [place] [address] Bicarbonate (HCO3) 25 mmol/L Normal 21 - 32 [facility] Comment on above: Performed By: #### C MP ####[facility] [place] [address] Bilirubin (total) 0.3 mg/dL Normal 0.0 - 1.2 [facility] Comment on above: Performed By: #### C MP ####[facility] [place] [address] Calcium 8.8 mg/dL Normal 8.6 - 10.6 [facility] Comment on above: Performed By: #### C MP ####[facility] [place] [address] Chloride 100 mmol/L Normal 98 - 107 [facility] Comment on above: Performed By: #### C MP ####[facility] [place] [address] Creatinine 0.52 mg/dL Normal 0.50 - 1.05 [facility] Comment on above: Performed By: #### C MP ####[facility] [place] [address] eGFR (non-black) mL/min/{1.73_m2} Normal >60 [facility] Comment on above: Performed By: #### C MP ####[facility] [place] [address] Result Comment: CALC ULATIONS OF ESTIMATED GFR ARE PERFORMED USING THE MDRD STUDY EQUATION FOR THE IDMS-TRACEABLE CREATININE METHODS. CLIN CHEM 2007;53:766-72 Glucose mass conc 138 mg/dL High 74 - 99 [facility] Comment on above: Performed By: #### C MP ####[facility] [place] [address] Potassium molar conc 4.3 mmol/L Normal 3.5 - 5.3 [facility] [facility] Comment on above: Performed By: #### C MP ####[facility] [place] [address] Protein 6.2 g/dL Low 6.4 - 8.2 [facility] Comment on above: Performed By: #### C MP ####[facility] [place] [address] Sodium 138 mmol/L Normal 136 - 145 [facility] Comment on above: Performed By: #### C MP ####[facility] [place] [address] Urea nitrogen 15 mg/dL Normal 6 - 23 [facility] Comment on above: Performed By: #### C MP ####[facility] [place] [address] UA MICROSCOPICon 01-06-2017 Erythrocytes (RBC) None Normal 0-5 [facility] Comment on above: Performed By: #### U AMIC ####[facility] [place] [address] WBC (Leukocytes) 10*3/uL Normal 0-5 [facility] Comment on above: Performed By: #### U AMIC ####[facility] [place] [address] URINALYSISon 01-06-2017 Bilirubin (total) Negative Normal NEGATIVE [facility] Comment on above: Performed By: #### U A ####[facility] [place] [address] BLOOD MODERATE (2+) Abnormal NEGATIVE [facility] Comment on above: Performed By: #### U A ####[facility] [place] [address] Glucose mass conc Negative Normal NEGATIVE [facility] Comment on above: Performed By: #### U A ####[facility] [place] [address] pH of blood 5.0 [pH] Normal 5.0 - 8.0 [facility] Comment on above: Performed By: #### U A ####[facility] [place] [address] Protein Negative Normal NEGATIVE [facility] Comment on above: Performed By: #### U A ####[facility] [place] [address] Urine, appearance CLEAR Normal CLEAR [facility] Comment on above: Performed By: #### U A ####[facility] [place] [address] Urine, color YELLOW Normal STRAW,YELL OW [facility] Comment on above: Performed By: #### U A ####[facility] [place] [address] Urine, ketones presence Negative Normal NEGATIVE [facility] Comment on above: Performed By: #### U A ####[facility] [place] [address] Urine, leukocyte esterase presence Negative Normal NEGATIVE [facility] Comment on above: Performed By: #### U A ####[facility] [place] [address] Urine, nitrite presence Negative Normal NEGATIVE [facility] Comment on above: Performed By: #### U A ####[facility] [place] [address] Urine, specific gravity 1.012 Normal 1.005 - 1.035 [facility] Comment on above: Performed By: #### U A ####[facility] [place] [address] Urine, urobilinogen <2.0 Normal 0.0 - 1.9 [facility] Comment on above: Performed By: #### U A ####[facility] [place] [address] URINE CULTURE,BACTERIALon URINE CULTURE,BACTERIAL PATIENT: BABAK HSIEH LOCATION: [facility] HOOKS#: [id number] : 62 AGE: SEX: F ORDERED BY: SILVA REESE: URINE COLLECTED: 01/06/17 13:20ANTIBIOTICS AT [place].: RECEIVED : 01/06/17 17:39SITE: Clean Catch/Voided R E S U L T S URINE CULTURE,BACTERIAL FINAL 01/07/17 10:04 NO SIGNIFICANT GROWTH. Normal [facility] Comment on above: Performed By: #### U RINC ####[facility] [place] [address] Lab Report: Miscellaneous La b Procedureon 11-26-2016 [facility] [place] LAB TEST . Invalid Interpretation Code [facility] Work Phone: Office Visit: UC: coughon Documentation of current medications (procedure) Done Invalid Interpretation Code [facility] Work Phone: Fall risk assessment No Invalid Interpretation Code [facility] Work Phone: Protein mass conc Done Invalid Interpretation Code [facility] Work Phone: Tobacco smoking status NHIS Former smoker Invalid Interpretation Code [facility] Work Phone: Tobacco use CPHS Former smoker Invalid Interpretation Code [facility] Work Phone: Lab Report: Basic Metabolic Profile (BMP)on 11-06-2016 Anion gap 10 mmol/L Invalid Interpretation Code 5-15 [place] [employer] Work Phone: [phone] Anion gap molar conc 10 mmol/L 5-15 [facility] Work Phone: [phone] Calcium mass conc 8.4 mg/dL Low 8.5-10.1 [facility] Work Phone: [phone] Chloride molar conc 101 mmol/L Invalid Interpretation Code 98-107 [facility] Work Phone: [phone] CO2 26.0 mmol/L Invalid Interpretation Code 21.0-32.0 [employer] [facility] Work Phone: [phone] Creatinine 109.29 mL/min Invalid Interpretation Code [employer] [facility] Work Phone: [phone] Creatinine mass conc 0.46 mg/dL Low 0.55-1.02 [facility] [employer] Work Phone: [phone] eGFR (non-black) 183 mL/min/{1.73_m2} Invalid Interpretation Code >60 [place] [facility] Work Phone: [phone] GFR/1.73 sq M predicted among non-blacks MDRD vol rate/area (S/P/Bld) 151 mL/min/{1.73_m2} Invalid Interpretation Code >60 [facility] Work Phone: [phone] Glucose 129 mg/dL High 70-110 [employer] Work Phone: [phone] Potassium molar conc 3.8 mmol/L Invalid Interpretation Code 3.5-5.1 [facility] Work Phone: Sodium molar conc 137 mmol/L Invalid Interpretation Code 136-145 [facility] Work Phone: [phone] Urea nitrogen mass conc 6 mg/dL Low 7-18 [facility] Work Phone: [phone] Urea nitrogen/Creatinine mass ratio 13.2 RATIO Invalid Interpretation Code 10-20 [facility] [employer] Work Phone: [phone] Lab Report: CBC W/Diff, Auto matedon 11-06-2016 Basophils/100 leukocytes 0.1 % Invalid Interpretation Code 0-1 [place] [employer] [facility] Work Phone: [phone] Basophils/100 WBC (Bld) 0.1 % 0-1 [facility] [employer] Work Phone: [phone] Eosinophils/100 leukocytes 0.0 % Invalid Interpretation Code 0-5 [place] [employer] [facility] Work Phone: [phone] Eosinophils/100 WBC (Bld) 0.0 % 0-5 [facility] [employer] Work Phone: [phone] Erythrocyte distribution width Ratio (RBC) 49.9 fL High 35.1-43.9 [facility] [employer] [facility] Work Phone: [phone] Erythrocyte distribution width Ratio (RBC) 17.4 % High 11.6-14.6 [facility] [employer] [facility] Work Phone: [phone] Erythrocytes (RBC) 4.30 10*6/uL Invalid Interpretation Code 4.2-5.4 [place] [employer] [facility] Work Phone: [phone] Hematocrit (HCT) 34.8 % Low 37-47 [facility] Work Phone: [phone] Hematocrit Volume Fraction (Bld) 34.8 % Low 37-47 [facility] [employer] [facility] Work Phone: Hemoglobin mass conc (Bld) 10.8 g/dL Low 12.0-15.0 [facility] [employer] [facility] Work Phone: [phone] immature granulocytes, percentage of total cells, blood 0.700 % Invalid Interpretation Code 0.0-0.9 [place] [employer] [facility] Work Phone: [phone] Lymphocytes 0.65 X10 3/UL Low 0.83-4.51 [facility] Work Phone: [phone] Lymphocytes #/vol (Bld) 0.65 X10 3/UL Low 0.83-4.51 [facility] [employer] Work Phone: [phone] Lymphocytes/100 leukocytes 8.8 % Low 19-41 [place] [employer] [facility] Work Phone: [phone] Lymphocytes/100 WBC (Bld) 8.8 % Low 19-41 [facility] Work Phone: [phone] MCH 25.1 pg Low 27.0-32.0 [place] [employer] [facility] Work Phone: [phone] MCH Entitic mass (RBC) 25.1 pg Low 27.0-32.0 [facility] Work Phone: [phone] MCHC 31.0 G/GL Low 32-36 [place] [employer] [facility] Work Phone: [phone] MCHC mass conc (RBC) 31.0 G/GL Low 32-36 [facility] Work Phone: [phone] MCV 80.9 fL Low 81-99 [place] [employer] [facility] Work Phone: [phone] MCV Entitic volume (RBC) 80.9 fL Low 81-99 [facility] Work Phone: [phone] Monocytes/100 leukocytes 0.5 % Invalid Interpretation Code 0-10 [place] [employer] [facility] Work Phone: [phone] Monocytes/100 WBC (Bld) 0.5 % 0-10 [facility] Work Phone: [phone] neutrophil count, blood 6.7 X10 3/UL Invalid Interpretation Code 2.0-7.7 [place] [employer] [facility] Work Phone: [phone] Neutrophils #/vol (Bld) 6.7 X10 3/UL 2.0-7.7 [facility] Surgical [facility] Work Phone: [phone] Neutrophils/100 leukocytes 89.9 % High 47-70 [place] [employer] [facility] Work Phone: [phone] Neutrophils/100 WBC (Bld) 89.9 % High 47-70 [facility] Work Phone: [phone] Platelet mean volume Entitic volume (Bld) 8.1 fL 6.2-12.0 [facility] Work Phone: [phone] Platelets 536 10*3/mm3 High 150-450 [place] [employer] [facility] [employer] [facility] Work Phone: [phone] Platelets #/vol (Bld) 536 10*3/mm3 High 150-450 [facility] Work Phone: PMV by Terell 8.1 fL Invalid Interpretation Code 6.2-12.0 [facility] Work Phone: RBC #/vol (Bld) 4.30 10*6/uL 4.2-5.4 [facility] Work Phone: RDW-CA 17.4 % High 11.6-14.6 [facility] Work Phone: red blood cell distribution width, size density 49.9 fL High 35.1-43.9 [facility] Work Phone: WBC #/vol (Bld) 7.4 10*3/uL 4.4-11.0 [facility] Work Phone: WBC (Leukocytes) 7.4 10*3/uL Invalid Interpretation Code 4.4-11.0 [facility] Work Phone: Replaced Document: Basic Met abolic Profile (BMP)on 11-06-2016 Anion gap 4 molar conc 10 Invalid Interpretation Code 5-15 [facility] Work Phone: CO2 ppres (BldV) 26.0 mmol/L Invalid Interpretation Code 21.0-32.0 [facility] Work Phone: EST GFR - AA 183 mL/min Invalid Interpretation Code >60 [facility] Work Phone: Glucose mass conc 129 mg/dL High 70-110 [facility] Work Phone: Replaced Document: CBC W/Dif f, Automatedon 11-06-2016 Absolute Neut 6.7 X10 3/UL Invalid Interpretation Code 2.0-7.7 [facility] Work Phone: Erythrocyte distribution width Auto Ratio (RBC) 49.9 fL High 35.1-43.9 [facility] Surgical [facility] Work Phone: Immature granulocytes #/vol (Bld) 0.700 % Invalid Interpretation Code 0.0-0.9 [facility] Work Phone: Immature granulocytes/100 WBC (Bld) 0.700 % Invalid Interpretation Code 0.0-0.9 [facility] Work Phone: Neutrophils Auto #/vol (Bld) 6.7 X10 3/UL Invalid Interpretation Code 2.0-7.7 [facility] Surgical [facility] Work Phone: RDW SD 49.9 fL High 35.1-43.9 [facility] Work Phone: Lab Report: (P) Urinalysis, Completeon 11-05-2016 Albumin Ql (U) Negative Invalid Interpretation Code Negative [facility] Work Phone: [phone] Bilirubin Ql (U) Negative Invalid Interpretation Code Negative [facility] Work Phone: [phone] Clarity Nom (U) Clear Invalid Interpretation Code Clear [facility] Work Phone: [phone] Color Nom (U) Straw Invalid Interpretation Code Yellow [facility] Work Phone: Glucose Ql (U) Normal mg/dl Invalid Interpretation Code Normal [facility] Work Phone: [phone] Ketones mass conc (U) Negative Invalid Interpretation Code Negative [facility] Work Phone: Leukocyte esterase Test strip Ql (U) Negative Invalid Interpretation Code Negative [facility] Work Phone: NITRITE UR Negative Invalid Interpretation Code Negative [facility] Work Phone: OCCULT BLOOD-UR 10 High Negative [facility] Work Phone: pH (U) 7.0 [pH] 5.0 - 8.0 [facility] Work Phone: pH Test strip (U) 7.0 [pH] Invalid Interpretation Code 5.0 - 8.0 [facility] Work Phone: Specific gravity Refractometry Relative Density (U) 1.005 Invalid Interpretation Code 1.002-1.03 0 [facility] Work Phone: Urine, ketones presence Negative Invalid Interpretation Code Negative [facility] Work Phone: Urine, protein Negative Invalid Interpretation Code Negative [facility] Work Phone: [phone] UROBILI Normal mg/dl Invalid Interpretation Code Normal [facility] Work Phone: [phone] Lab Report: Comprehensive Me tabolic Profilon 11-05-2016 Albumin mass conc 2.3 g/dL Low 3.4-5.0 [facility] Work Phone: [phone] Albumin/Globulin mass ratio 0.5 {ratio} Low 0.9-2.4 [facility] Work Phone: [phone] Alkaline phosphatase (ALP) 76 U/L Invalid Interpretation Code 45-117 [facility] Work Phone: [phone] ALP enzyme act/vol (Bld) 76 U/L Invalid Interpretation Code 45-117 [facility] Work Phone: [phone] ALT enzyme act/vol 18 U/L Invalid Interpretation Code 12-78 [facility] Work Phone: [phone] AST enzyme act/vol 9 U/L Low 15-37 [facility] Work Phone: [phone] Bilirubin mass conc 0.50 mg/dL Invalid Interpretation Code 0.20-1.00 [facility] Work Phone: [phone] Globulin Calculated mass conc (S) 4.5 g/dL High 2.3-3.5 [facility] Work Phone: [phone] Globulin mass conc (S) 4.5 g/dL High 2.3-3.5 [facility] Work Phone: [phone] Protein mass conc 6.8 g/dL Invalid Interpretation Code 6.4-8.2 [facility] Work Phone: Lab Report: Lipaseon 017 LIPASE 67 U/L Low 73-393 [facility] Work Phone: [phone] Lab Report: Troponin-Ion Troponin I.cardiac mass conc ng/mL Invalid Interpretation Code <0.06 [facility] Work Phone: Lab Report: Urinalysis, Comp leteon 11-05-2016 Bacteria LM.HPF #/area (Urine sed) 0 SEEN /hpf None Seen [facility] Work Phone: Epithelial cells LM.HPF #/area (Urine sed) 0-5 SEEN Invalid Interpretation Code 5-10 [facility] Work Phone: Mucus LM Ql (Urine sed) 0 SEEN Invalid Interpretation Code [facility] Work Phone: Mucus Ql (Urine sed) 0 SEEN [facility] Work Phone: RBC LM.HPF #/vol (Urine sed) 0 SEEN Invalid Interpretation Code 0-5 [facility] Work Phone: Urine, bacteria in sediment 0 /[HPF] Invalid Interpretation Code None Seen [facility] Work Phone: WBC 0 SEEN Invalid Interpretation Code 0-5 [facility] Work Phone: WBC #/vol (Bld) 0 SEEN 0-5 [facility] Work Phone: WBC (Leukocytes) 0 SEEN Invalid Interpretation Code 0-5 [facility] Work Phone: Lab Report: Patience 2 B. burgdorferi Ab IA Qn (S) < 0.91 Normal 0.00-0.90 [facility] Work Phone: Office Visit: bronchitison 0 03-31-2010 Tobacco smoking status NHIS never Invalid Interpretation Code [facility] Work Phone: Tobacco use [facility] never Invalid Interpretation Code [facility] Work Phone: Culture, urine Bacteria identified Cx Nom (U) Culture exhibits no growth. [facility] Work Phone: Gram stain for investigation of transfusion reaction Microscopic observation Gram stain Nom (Unsp spec) [facility] Work Phone: Influenza virus A and B and SARS-CoV-2 (COVID-19) Ag panel - Upper respiratory specim SARS-CoV-2 & FLU Antigen (Rapid) Influenzae A [facility] Work Phone: Vital Signs Date Time Vital Sign Value Performing Clinician Facility 01-28-2024 07:50-0500 Body height 157.[address] Estrellita Bear DO Work Phone: [facility] 01-28-2024 07:50-0500 Body mass index (BMI) [Ratio] 24.9 kg/m2 Dr. Estrellita Bear DO Work Phone: [facility] 01-28-2024 07:50-0500 Body temperature 98.8 [degF] Dr. Estrellita Bear DO Work Phone: [facility] 01-28-2024 07:50-0500 Body weight 61.[address] Estrellita Bear DO Work Phone: [facility] 01-28-2024 07:50-0500 Diastolic blood pressure 74 mm[Hg] Dr. Estrellita Bear DO Work Phone: [facility] 01-28-2024 07:50-0500 Heart rate 89 /min Dr. Estrellita Bear DO Work Phone: [facility] 01-28-2024 07:50-0500 Respiratory rate 18 /min Dr. Estrellita Bear DO Work Phone: [facility] 01-28-2024 07:50-0500 SaO2% (BldA) [Mass fraction] 94 % Dr. Estrellita Bear DO Work Phone: [facility] 01-28-2024 07:50-0500 Systolic blood pressure 111 mm[Hg] Dr. Estrellita Bear DO Work Phone: [facility] 06-04-2023 07:54-0400 Body height 157.[address] Estrellita Bear Work Phone: [facility] 06-04-2023 07:53-0400 Body temperature 97.3 [degF] Dr. Estrellita Bear Work Phone: [facility] 06-04-2023 07:53-0400 Diastolic blood pressure 61 mm[Hg] Dr. Estrellita Bear Work Phone: [facility] 06-04-2023 07:53-0400 Heart rate 87 /min Dr. Estrellita Bear Work Phone: [facility] 06-04-2023 07:53-0400 Respiratory rate 18 /min Dr. Estrellita Bear Work Phone: [facility] 06-04-2023 07:53-0400 SaO2% (BldA) [Mass fraction] 97 % Dr. Estrellita Bear Work Phone: [facility] 06-04-2023 07:53-0400 Systolic blood pressure 121 mm[Hg] Dr. Estrellita Bear Work Phone: [facility] 12-02-2022 07:38-0400 Body height 157.[address] Estrellita Bear Work Phone: [facility] 12-02-2022 07:38-0400 Body mass index (BMI) [Ratio] 25.2 kg/m2 Dr. Estrellita Bear Work Phone: [facility] 12-02-2022 07:38-0400 Body temperature 99.5 [degF] Dr. Estrellita Bear Work Phone: [facility] 12-02-2022 07:38-0400 Body weight 62.[address] Estrellita Bear Work Phone: [facility] 12-02-2022 07:38-0400 Diastolic blood pressure 79 mm[Hg] Dr. Estrellita Bear Work Phone: [facility] 12-02-2022 07:38-0400 Heart rate 89 /min Dr. Estrellita Bear Work Phone: [facility] 12-02-2022 07:38-0400 Respiratory rate 16 /min Dr. Estrellita Bear Work Phone: [facility] 12-02-2022 07:38-0400 SaO2% (BldA) [Mass fraction] 95 % Dr. Estrellita Bear Work Phone: [facility] 12-02-2022 07:38-0400 Systolic blood pressure 115 mm[Hg] Dr. Estrellita Bear Work Phone: [facility] 06-27-2022 08:09-0400 Body temperature 97.5 [degF] Dr. Estrellita Bear Work Phone: [facility] 06-27-2022 08:09-0400 Diastolic blood pressure 68 mm[Hg] Dr. Estrellita Bear Work Phone: [facility] 06-27-2022 08:09-0400 Heart rate 96 /min Dr. Estrellita Bear Work Phone: [facility] 06-27-2022 08:09-0400 Respiratory rate 12 /min Dr. Estrellita Bear Work Phone: [facility] 06-27-2022 08:09-0400 SaO2% (BldA) [Mass fraction] 96 % Dr. Estrellita Bear Work Phone: [facility] 06-27-2022 08:09-0400 Systolic blood pressure 118 mm[Hg] Dr. Estrellita Bear Work Phone: [facility] 06-05-2022 13:01-0400 Body height 157.[address] Estrellita Bear Work Phone: [facility] 06-05-2022 12:47-0400 Body mass index (BMI) [Ratio] 25.6 kg/m2 Dr. Estrellita Bear Work Phone: [facility] 06-05-2022 12:47-0400 Body temperature 98.2 [degF] Dr. Estrellita Bear Work Phone: [facility] 06-05-2022 12:47-0400 Body weight 63.[address] Estrellita Bear Work Phone: [facility] 06-05-2022 12:47-0400 Diastolic blood pressure 83 mm[Hg] Dr. Estrellita Bear Work Phone: [facility] 06-05-2022 12:47-0400 Heart rate 87 /min Dr. Estrellita Bear Work Phone: [facility] 06-05-2022 12:47-0400 Respiratory rate 16 /min Dr. Estrellita Bear Work Phone: [facility] 06-05-2022 12:47-0400 SaO2% (BldA) [Mass fraction] 97 % Dr. Estrellita Bear Work Phone: [facility] 06-05-2022 12:47-0400 Systolic blood pressure 128 mm[Hg] Dr. Estrellita Bear Work Phone: [facility] 05-19-2022 10:18-0400 Body temperature 99.1 [degF] Dr. Estrellita Bear Work Phone: [facility] 05-19-2022 10:18-0400 Diastolic blood pressure 56 mm[Hg] Dr. Estrellita Bear Work Phone: [facility] 05-19-2022 10:18-0400 Heart rate 97 /min Dr. Estrellita Bear Work Phone: [facility] 05-19-2022 10:18-0400 Respiratory rate 17 /min Dr. Estrellita Bear Work Phone: [facility] 05-19-2022 10:18-0400 SaO2% (BldA) [Mass fraction] 96 % Dr. Estrellita Bear Work Phone: [facility] 05-19-2022 10:18-0400 Systolic blood pressure 105 mm[Hg] Dr. Estrellita Bear Work Phone: [facility] 05-09-2022 11:16-0400 Body mass index (BMI) [Ratio] 25.2 kg/m2 Dr. Estrellita Bear Work Phone: [facility] 05-09-2022 11:16-0400 Body temperature 97.4 [degF] Dr. Estrellita Bear Work Phone: [facility] 05-09-2022 11:16-0400 Body weight 62.[address] Estrellita Bear Work Phone: [facility] 05-09-2022 11:16-0400 Diastolic blood pressure 81 mm[Hg] Dr. Estrellita Bear Work Phone: [facility] 05-09-2022 11:16-0400 Heart rate 88 /min Dr. Estrellita Bear Work Phone: [facility] 05-09-2022 11:16-0400 Respiratory rate 16 /min Dr. Estrellita Bear Work Phone: [facility] 05-09-2022 11:16-0400 SaO2% (BldA) [Mass fraction] 94 % Dr. Estrellita Bear Work Phone: [facility] 05-09-2022 11:16-0400 Systolic blood pressure 128 mm[Hg] Dr. Estrellita Bear Work Phone: [facility] 05-08-2022 07:11-0400 Body mass index (BMI) [Ratio] 25.2 kg/m2 Dr. Estrellita Bear Work Phone: [facility] 05-08-2022 07:11-0400 Body temperature 98 [degF] Dr. Estrellita Bear Work Phone: [facility] 05-08-2022 07:11-0400 Body weight 62.[address] Estrellita Bear Work Phone: [facility] 05-08-2022 07:11-0400 Diastolic blood pressure 72 mm[Hg] Dr. Estrellita Bear Work Phone: [facility] 05-08-2022 07:11-0400 Heart rate 85 /min Dr. Estrellita Bear Work Phone: [facility] 05-08-2022 07:11-0400 Respiratory rate 14 /min Dr. Estrellita Bear Work Phone: [facility] 05-08-2022 07:11-0400 SaO2% (BldA) [Mass fraction] 98 % Dr. Estrellita Bear Work Phone: [facility] 05-08-2022 07:11-0400 Systolic blood pressure 110 mm[Hg] Dr. Estrellita Bear Work Phone: [facility] 02-12-2022 14:52-0500 Heart rate 82 /min Dr. Estrellita Bear Work Phone: [facility] Work Phone: 02-12-2022 14:52-0500 Respiratory rate 16 /min Dr. Estrellita Bear Work Phone: [facility] Work Phone: 02-12-2022 13:27-0500 Body temperature 98.2 [degF] Dr. Estrellita Bear Work Phone: [facility] Work Phone: 02-12-2022 13:27-0500 Diastolic blood pressure 74 mm[Hg] Dr. Estrellita Bear Work Phone: [facility] Work Phone: 02-12-2022 13:27-0500 Inhaled oxygen flow rate 2 L/min Dr. Estrellita Bear Work Phone: [facility] Work Phone: 02-12-2022 13:27-0500 SaO2% (BldA) [Mass fraction] 93 % Dr. Estrellita Bear Work Phone: [facility] Work Phone: 02-12-2022 13:27-0500 Systolic blood pressure 121 mm[Hg] Dr. Estrellita Bear Work Phone: [facility] Work Phone: 02-09-2022 13:53-0500 Body height 157.[address] Estrellita Bear Work Phone: [facility] Work Phone: 02-09-2022 13:53-0500 Body weight 58.[address] Estrellita Bear Work Phone: [facility] Work Phone: 02-08-2022 19:12-0500 Body mass index (BMI) [Ratio] 23.7 kg/m2 Dr. Estrellita Bear Work Phone: [facility] Work Phone: 02-08-2022 18:29-0500 Body temperature 98 [degF] Dr. Estrellita Bear Work Phone: [facility] Work Phone: 02-08-2022 18:29-0500 Diastolic blood pressure 65 mm[Hg] Dr. Esrtellita Bear Work Phone: [facility] Work Phone: 02-08-2022 18:29-0500 Heart rate 96 /min Dr. Estrellita Bear Work Phone: [facility] Work Phone: 02-08-2022 18:29-0500 Inhaled oxygen flow rate 4 L/min Dr. Estrellita Bear Work Phone: [facility] Work Phone: 02-08-2022 18:29-0500 Respiratory rate 16 /min Dr. Estrellita Bear Work Phone: [facility] Work Phone: 02-08-2022 18:29-0500 SaO2% (BldA) [Mass fraction] 92 % Dr. Estrellita Bear Work Phone: [facility] Work Phone: 02-08-2022 18:29-0500 Systolic blood pressure 114 mm[Hg] Dr. Estrellita Bear Work Phone: [facility] Work Phone: 02-08-2022 16:01-0500 Body height 157.[address] Estrellita Bear Work Phone: [facility] Work Phone: 02-08-2022 16:01-0500 Body mass index (BMI) [Ratio] 23.7 kg/m2 Dr. Estrellita Bear Work Phone: [facility] Work Phone: 02-08-2022 16:01-0500 Body weight 58.[address] Estrellita Bear Work Phone: [facility] Work Phone: 02-07-2022 14:40-0500 Body temperature 98.7 [degF] Dr. Estrellita Bear Work Phone: [facility] Work Phone: 02-07-2022 14:40-0500 Diastolic blood pressure 64 mm[Hg] Dr. Estrellita Bear Work Phone: [facility] Work Phone: 02-07-2022 14:40-0500 Heart rate 88 /min Dr. Estrellita Bear Work Phone: [facility] Work Phone: 02-07-2022 14:40-0500 Respiratory rate 16 /min Dr. Estrellita Bear Work Phone: [facility] Work Phone: 02-07-2022 14:40-0500 SaO2% (BldA) [Mass fraction] 92 % Dr. Estrellita Bear Work Phone: [facility] Work Phone: 02-07-2022 14:40-0500 Systolic blood pressure 104 mm[Hg] Dr. Estrellita Bear Work Phone: [facility] Work Phone: 11-21-2021 08:07-0400 Body height 157.[address] Estrellita Bear Work Phone: [facility] Work Phone: 11-05-2021 08:12-0400 Body mass index (BMI) [Ratio] 24.2 kg/m2 Dr. Estrellita Bear Work Phone: [facility] Work Phone: 11-05-2021 08:12-0400 Body temperature 98 [degF] Dr. Estrellita Bear Work Phone: [facility] Work Phone: 11-05-2021 08:12-0400 Body weight 60.[address] Estrellita Bear Work Phone: [facility] Work Phone: 11-05-2021 08:12-0400 Diastolic blood pressure 70 mm[Hg] Dr. Estrellita Bear Work Phone: [facility] Work Phone: 11-05-2021 08:12-0400 Heart rate 90 /min Dr. Estrellita Bear Work Phone: [facility] Work Phone: 11-05-2021 08:12-0400 Respiratory rate 16 /min Dr. Estrellita Bear Work Phone: [facility] Work Phone: 11-05-2021 08:12-0400 SaO2% (BldA) [Mass fraction] 97 % Dr. Estrellita Bear Work Phone: [facility] Work Phone: 11-05-2021 08:12-0400 Systolic blood pressure 99 mm[Hg] Dr. Estrellita Bear Work Phone: [facility] Work Phone: 08-02-2021 10:49-0400 Body mass index (BMI) [Ratio] 24.7 kg/m2 Dr. Estrellita Bear Work Phone: [facility] Work Phone: 08-02-2021 10:49-0400 Body temperature 98 [degF] Dr. Estrellita Bear Work Phone: [facility] Work Phone: 08-02-2021 10:49-0400 Body weight 61.[address] Estrellita Bear Work Phone: [facility] Work Phone: 08-02-2021 10:49-0400 Diastolic blood pressure 74 mm[Hg] Dr. Estrellita Bear Work Phone: [facility] Work Phone: 08-02-2021 10:49-0400 Heart rate 84 /min Dr. Estrellita Bear Work Phone: [facility] Work Phone: 08-02-2021 10:49-0400 Respiratory rate 16 /min Dr. Estrellita Bear Work Phone: [facility] Work Phone: 08-02-2021 10:49-0400 SaO2% (BldA) [Mass fraction] 97 % Dr. Estrellita Bear Work Phone: [facility] Work Phone: 08-02-2021 10:49-0400 Systolic blood pressure 117 mm[Hg] Dr. Estrellita Bear Work Phone: [facility] Work Phone: 05-14-2021 08:16-0400 Body height 157.[address] Estrellita Bear Work Phone: [facility] Work Phone: 05-14-2021 08:16-0400 Body mass index (BMI) [Ratio] 24.9 kg/m2 Dr. Estrellita Bear Work Phone: [facility] Work Phone: 05-14-2021 08:16-0400 Body temperature 99.8 [degF] Dr. Estrellita Bear Work Phone: [facility] Work Phone: 05-14-2021 08:16-0400 Body weight 61.[address] Estrellita Bear Work Phone: [facility] Work Phone: 05-14-2021 08:16-0400 Diastolic blood pressure 69 mm[Hg] Dr. Estrellita Bear Work Phone: [facility] Work Phone: 05-14-2021 08:16-0400 Heart rate 82 /min Dr. Estrellita Bear Work Phone: [facility] Work Phone: 05-14-2021 08:16-0400 Respiratory rate 15 /min Dr. Estrellita Bear Work Phone: [facility] Work Phone: 05-14-2021 08:16-0400 SaO2% (BldA) [Mass fraction] 95 % Dr. Estrellita Bear Work Phone: [facility] Work Phone: 05-14-2021 08:16-0400 Systolic blood pressure 103 mm[Hg] Dr. Estrellita Bear Work Phone: [facility] Work Phone: 05-17-2020 08:08-0400 Body mass index (BMI) [Ratio] 25 kg/m2 Dr. Estrellita Bear Work Phone: [facility] 05-17-2020 08:08-0400 Body temperature 98.5 [degF] Dr. Estrellita Bear Work Phone: [facility] 05-17-2020 08:08-0400 Body weight 62.[address] Estrellita Bear Work Phone: [facility] 05-17-2020 08:08-0400 Diastolic blood pressure 70 mm[Hg] Dr. Estrellita Bear Work Phone: [facility] 05-17-2020 08:08-0400 Heart rate 86 /min Dr. Estrellita Bear Work Phone: [facility] 05-17-2020 08:08-0400 Respiratory rate 14 /min Dr. Estrellita Bear Work Phone: [facility] 05-17-2020 08:08-0400 SaO2% (BldA) [Mass fraction] 97 % Dr. Estrellita Bear Work Phone: [facility] 05-17-2020 08:08-0400 Systolic blood pressure 98 mm[Hg] Dr. Estrellita Bear Work Phone: [facility] 11-21-2016 16:58-0400 BMI (Body Mass Index) 23.15 kg/m2 Chanel Tapia LPN [facility] Work Phone: 11-21-2016 16:58-0400 Body Temperature 98.6 [degF] Chanel Tapia LPN [facility] Work Phone: 11-21-2016 16:58-0400 BP Diastolic 74 mm[Hg] Chanel Tapia LPN [facility] Work Phone: 11-21-2016 16:58-0400 BP Systolic 118 mm[Hg] Chanel Tapia LPN [facility] Work Phone: 11-21-2016 16:58-0400 Height 157.48 cm Chanel Tapia LPN [facility] Work Phone: 11-21-2016 16:58-0400 Pulse (Heart Rate) 103 /min Chanel Tapia LPN [facility] Work Phone: 11-21-2016 16:58-0400 Respiratory Rate 16 /min Chanel Tapia LPN [facility] Work Phone: 11-21-2016 16:58-0400 Weight 57.43 kg Chanel Tapia EVELINE [facility] Work Phone: 11-06-2016 07:07-0400 Body surface area Derived from formula 109.29 mL/min Manoj Still MD [facility] Work Phone: 03-31-2010 11:28-0500 Body Temperature 98.8 [degF] Manoj Still MD [facility] Work Phone: 03-31-2010 11:28-0500 BP Diastolic 60 mm[Hg] Manoj Still MD [facility] Work Phone: 03-31-2010 11:28-0500 BP Systolic 100 mm[Hg] Manoj Still MD [facility] Work Phone: 03-31-2010 11:28-0500 Height 157.48 cm Manoj Still MD [facility] Work Phone: 03-31-2010 11:28-0500 Pulse (Heart Rate) 80 /min Manoj Sitll MD [facility] Work Phone: 03-31-2010 11:28-0500 Respiratory Rate 16 /min Manoj Still MD [facility] Work Phone: 03-31-2010 11:28-0500 Weight 66.54 kg Manoj Still MD [facility] Work Phone: Encounters Encounter Date Encounter Type Care Provider Facility Start: 07-20-2024 ambulatory Yamini Roberta Facility :[facility] Start: 06-30-2024 End: 06-30-2024 ambulatory Yamini Roberta Facility:[facility] Start: 06-27-[address] Pete Paez MD -[facility] Start: 06-27-2024 ambulatory Pete Paez Facility:[facility] Start: 06-24-2024 End: 06-24-[address] Estrellita Bear DO Work Phone: [facility] Work Phone: Start: 06-24-2024 End: 06-24-[address] Pete Paez MD -[facility] Work Phone: Start: 06-24-2024 End: 06-24-2024 ambulatory Estrellita Bear Facility:[facility] Start: 06-07-2024 End: 06-07-2024 Patient encounter procedure Rodriguez Kinney [facility] -[facility] Work Phone: Start: 06-07-2024 End: 06-07-2024 ambulatory Estrellita Bear Facility:[facility] Start: 05-16-2024 End: 05-16-[address] Estrellita Bear DO Work Phone: [facility] Work Phone: Start: 05-16-2024 End: 05-16-[address] Jay Isabel MD -[facility] Start: 05-16-2024 End: 05-16-2024 ambulatory Estrellita Bear Facility:[facility] Start: 01-28-2024 End: 01-28-[address] Pete Paez MD -[facility] Work Phone: Start: 01-28-2024 End: 01-28-2024 ambulatory Pete Paez Facility:[facility] Start: 01-25-2024 End: 01-25-[address] Jay Isabel MD -[facility] Start: 01-25-2024 End: 01-25-2024 ambulatory Jay Isabel Facility:[facility] Start: 08-28-2023 End: 08-28-2023 ambulatory Mark Guevara Facility:[facility] Start: 06-10-2023 End: 06-10-[address] Estrellita Bear Work Phone: [facility] Work Phone: Start: 06-10-2023 End: 06-10-[address] Estrellita Bear Work Phone: [facility] Start: 06-08-2023 End: 06-08-[address] Estrellita Bear Work Phone: [facility] Work Phone: Start: 06-08-2023 End: 06-08-[address] Estrellita Bear Work Phone: [facility]-Outpatient Breast Imaging Work Phone: Start: 06-04-[address] Estrellita Bear Work Phone: [facility] Start: 06-04-2023 End: 06-04-[address] Estrellita Bear Work Phone: [facility] Work Phone: Start: 05-29-2023 End: 05-29-[address] Estrellita Bear Work Phone: [facility] Work Phone: Start: 05-29-2023 End: 05-29-[address] Estrellita Bear Work Phone: [facility] Work Phone: Start: 05-13-2023 End: 05-13-2023 ambulatory [facility] Work Phone: Start: 05-13-2023 End: 05-13-2023 Patient encounter procedure [facility] Start: 01-30-2023 End: 01-30-[address] Estrellita Bear Work Phone: [facility] Work Phone: Start: 01-30-2023 End: 01-30-[address] Estrellita Bear Work Phone: [facility] Work Phone: Start: 12-29-2022 End: 12-29-[address] Estrellita Bear Work Phone: [facility] Work Phone: Start: 12-29-2022 End: 12-29-[address] Estrellita Bear Work Phone: [facility]-Cat Scan, [facility] Work Phone: Start: 12-05-2022 End: 12-05-[address] Estrellita Bear Work Phone: [facility] Work Phone: Start: 12-05-2022 End: 12-05-[address] Estrellita Bear Work Phone: [facility]-Laboratory, [facility] Start: 12-02-2022 End: 12-02-[address] Estrellita Bear Work Phone: [facility] Work Phone: Start: 11-07-2022 End: 11-07-[address] Estrellita Bear Work Phone: [facility]atory, [facility] Start: 07-18-2022 End: 07-18-[address] Estrellita Bear Work Phone: [facility] Work Phone: Start: 07-18-2022 End: 07-18-[address] Estrellita Bear Work Phone: [facility]-Outpatient Breast Imaging Start: 07-03-2022 End: 07-03-[address] Estrellita Bear Work Phone: [facility] Start: 06-27-2022 End: 06-27-[address] Estrellita Bear Work Phone: [facility] Start: 06-05-2022 End: 06-05-[address] Estrellita Bear Work Phone: [facility] Start: 05-23-[address] Estrellita Bear Work Phone: [facility] Start: 05-19-2022 End: 05-19-[address] Estrellita Bear Work Phone: [facility] Start: 05-19-2022 End: 05-19-[address] Estrellita Bear Work Phone: [facility] Start: 05-09-2022 End: 05-09-[address] Estrellita Bear Work Phone: [facility] Start: 05-08-2022 End: 05-08-[address] Estrellita Bear Work Phone: [facility] Start: 02-12-2022 Non-patient / Non-visit Dr. Estrellita Bear Work Phone: [facility] Start: 02-11-2022 Non-patient / Non-visit Dr. Estrellita Bear Work Phone: [facility] Start: 02-10-2022 Non-patient / Non-visit Dr. Estrellita Bear Work Phone: [facility] Start: 02-09-2022 Non-patient / Non-visit Dr. Estrellita Bear Work Phone: [facility] Start: 02-08-2022 Non-patient / Non-visit Dr. Estrellita Bear Work Phone: [facility] Start: 02-08-2022 End: 02-12-2022 Evaluation and management of inpatient [facility] Start: 02-07-2022 End: 02-07-[address] Estrellita Bear Work Phone: [facility] Start: 02-06-2022 End: 02-06-[address] Estrellita Bear Work Phone: [facility] Start: 12-16-2021 End: 12-16-[address] Estrellita Bear Work Phone: [facility] Work Phone: Start: 12-16-2021 End: 12-16-[address] Estrellita Bear Work Phone: [facility]-Laboratory, [facility] Start: 11-29-2021 End: 11-29-[address] Estrellita Bear Work Phone: [facility] Work Phone: Start: 11-29-2021 End: 11-29-[address] Estrellita Bear Work Phone: [facility]-Radiology, [facility] Start: 11-21-2021 End: 11-21-[address] Estrellita Bear Work Phone: [facility] Work Phone: Start: 11-21-2021 End: 11-21-[address] Estrellita Bear Work Phone: [facility]-Outpatient Bone Densitometry Start: 11-05-2021 End: 11-05-[address] Estrellita Bear Work Phone: [facility] Start: 11-04-[address] Estrellita Bear Work Phone: [facility] Start: 08-02-2021 End: 08-02-[address] Estrellita Bear Work Phone: [facility] Start: 07-12-2021 End: 07-12-[address] Estrellita Bear Work Phone: [facility]-Outpatient Breast Imaging Start: 06-20-2021 End: 06-20-[address] Estrellita Bear Work Phone: [facility]atory, [facility] Start: 05-14-2021 End: 05-14-[address] Estrellita Bear Work Phone: [facility] Start: 05-13-[address] Estrellita Bear Work Phone: [facility] Start: 01-19-2017 End: 01-28-2017 Evaluation and management of inpatient Sergio Reese Facility:[facility] Start: 01-06-2017 Ambulatory Sergio Reese Faci lity:[facility] Procedures Date Procedure Procedure Detail Performing Clinician Start: 06-27-[address] Estrellita Bear DO Work Phone: Start: 06-27-2024 Vitamin D, 25-hydrox y measurement Dr. Estrellita Bear DO Work Phone: Comment on above: Vitamin D StatusDefi ciency: <20 ng/mL (50nmol/L)Insufficiency: 20-30 ng/mL (50-75 nmol/L)Sufficiency: 30-100 ng/mL (75-250 nmol/L)Toxicity: >100 ng/mL (>250 nmol/L) Start: 06-24-2024 Screening mammography Merry Bear DO Work Phone: Start: 12-30-2023 Measurement of renal function Dr. Estrellita Bear DO Work Phone: Comment on above: GFR Calc Start: 06-08-2023 Bilateral mammography Merry Bear Work Phone: Start: 06-08-[address] Estrellita Bear Work Phone: Start: 12-29-2022 Computed tomography of abdomen and pelvis with contrast Dr. Estrellita Bear Work Phone: Start: 07-18-2022 Screening mammography Merry Bear Work Phone: Start: 06-27-2022 X-ray of both feet Dr. Estrellita Bear Work Phone: Start: 02-11-2022 Plain chest X-ray Dr. Reyes Bear Work Phone: Start: 02-08-2022 Plain chest X-ray Dr. Reyes Bear Work Phone: Start: 02-07-2022 Plain chest X-ray Dr. Reyes Bear Work Phone: Start: 11-29-[address] Estrellita Bear Work Phone: Start: 11-21-2021 Dual energy X-ray absorptiometry Dr. Estrellita Bear Work Phone: Start: 07-12-2021 Screening mammography Merry Bear Work Phone: Start: 01-19-2017 Resection of Cecum, Open Approach Sergio Reese Start: 01-19-2017 Resection of Ileum, Open Approach Sergio Reese Start: 11-05-2016 End: 11-05-2016 Urinalysis Manoj Still MD Investigation of tra nsfusion reaction Dr. Estrellita Bear Work Phone: SARS-CoV-2 & FLU Ant igen (Rapid) Dr. Estrellita Bear Work Phone: Urine culture Dr. Estrellita cleaning Work Phone: Plan of Treatment Date Care Activity Detail Author Start: 06-10-2023 Procedure [facility] Start: 07-03-2022 Patient referral [facility] Work Phone: Start: 06-27-2022 Patient referral [facility] Work Phone: Start: 02-12-2022 Patient discharge [facility] Work Phone: Start: 02-11-2022 [facility] Work Phone: Start: 02-09-2022 Respiratory secretion precautions [facility] Work Phone: Start: 02-08-2022 Ambulation without limitation [facility] Work Phone: Start: 02-08-2022 Assessment of risk of venous thromboembolism [facility] Work Phone: Start: 02-08-2022 Catheterization of vein [facility] Work Phone: Start: 02-08-2022 Incentive spirometry [facility] Work Phone: Start: 02-08-2022 Inhalation therapy procedure [facility] Work Phone: Start: 02-08-2022 Insertion of catheter into peripheral vein [facility] Work Phone: Start: 02-08-2022 Oxygen therapy [facility] Work Phone: Start: 02-08-2022 Physiotherapy of chest [facility] Work Phone: Start: 02-08-2022 Providing care according to standard [facility] Work Phone: Start: 02-08-2022 Referral to service [facility] Work Phone: Start: 02-08-2022 [facility] Work Phone: Start: 02-08-2022 Following clinical pathway protocol [facility] Work Phone: Start: 02-08-2022 [facility] Work Phone: Start: 02-08-2022 Verification routine [facility] Work Phone: Start: 02-08-2022 Admission procedure [facility] Work Phone: Start: 02-08-2022 End: 02-08-2022 Blood culture [facility] Work Phone: Start: 02-08-2022 End: 02-09-2022 [facility] Work Phone: Start: 02-08-2022 Patient referral to dietitian [facility] Work Phone: Start: 02-08-2022 [facility] Work Phone: Start: 11-29-2021 Procedure [facility] Work Phone: Start: 02-08-2018 [facility] Start: 08-24-2017 [facility] Start: 11-21-2016 End: 11-21-2016 Appointment Appointment [facility] Work Phone: Bacteria identified in Blood by Culture Blood Culture [facility] Work Phone: Bacteria identified in Urine by Culture Urine Culture [facility] Work Phone: Blood culture [place] Work Phone: CBC W Auto Different ial panel - Blood [facility] Work Phone: CBC W Auto Different ial panel - Blood [facility] DXA Bone [Mass/Area] Bone density [facility] Work Phone: DXA Bone [Mass/Area] Bone density [facility] Hemoglobin A1c/Hemoglobin.total in Blood [facility] Work Phone: MG Breast - bilatera l Diagnostic [facility] Patient referral [facility] Work Phone: Procedure [facility] Work Phone: Respiratory microbia l culture Respiratory Culture [facility] Work Phone: Respiratory pathogen s DNA and RNA 12b panel - Unspecified specimen by ROMANA with probe detection [facility] Work Phone: US Breast limited [facility] Work Phone: [facility] Immunizations Immunization Date Immunization Notes Care Provider Fa cili 11-30-2023 influenza, seasonal, injectable, preservative free Dr. Estrellita Bear DO Work Phone: [facility] 11-27-2022 influenza, injectabl e, quadrivalent, preservative free Dr. Estrellita Bear Work Phone: [facility] 01-17-2022 Covid Moderna Bivale nt Booster Dr. Estrellita Bear Work Phone: [facility] 11-27-2021 influenza, injectabl e, quadrivalent, preservative free Dr. Estrellita Bear Work Phone: [facility] 11-27-2021 influenza, seasonal, injectable Dr. Estrellita Bear Work Phone: [facility] 07-12-2021 Covid (Pfizer) Dr. Estrellita collado Work Phone: [facility] 12-12-2020 Covid (Moderna) Dr. Estrellita ontiveros Work Phone: [facility] 11-14-2020 influenza, injectabl e, quadrivalent, preservative free Dr. Estrellita Bear Work Phone: [facility] 11-14-2020 influenza, seasonal, injectable Dr. Estrellita Bear Work Phone: [facility] 03-14-2020 Covid (Moderna) Dr. Estrellita ontiveros Work Phone: [facility] 02-15-2020 Alanid (Moderna) Dr. Estrellita ontiveros Work Phone: [facility] 11-08-2019 influenza, injectabl e, quadrivalent, preservative free Dr. Estrellita Bear Work Phone: [facility] 11-08-2019 influenza, seasonal, injectable Dr. Estrellita Bear Work Phone: [facility] 11-07-2019 influenza, injectabl e, quadrivalent, preservative free Dr. Estrellita Bear Work Phone: [facility] 11-07-2019 influenza, seasonal, injectable Dr. Estrellita Bear Work Phone: [facility] 12-13-2018 influenza, injectabl e, quadrivalent, preservative free Dr. Estrellita Bear Work Phone: [facility] 12-13-2018 influenza, seasonal, injectable Dr. Estrellita Bear Work Phone: [facility] 11-06-2017 influenza, injectabl e, quadrivalent, preservative free Dr. Estrellita Bear Work Phone: [facility] 11-06-2017 influenza, seasonal, injectable Dr. Estrellita Bear Work Phone: [facility] 12-14-2016 influenza, injectabl e, quadrivalent, preservative free Dr. Estrellita Bear Work Phone: [facility] 12-14-2016 influenza, seasonal, injectable Dr. Estrellita Bear Work Phone: [facility] 11-08-2015 influenza, injectabl e, quadrivalent, preservative free Dr. Estrellita Bear Work Phone: [facility] 11-08-2015 influenza, seasonal, injectable Dr. Estrellita Bear Work Phone: [facility] 11-13-2014 influenza, injectabl e, quadrivalent, preservative free Dr. Estrellita Bear Work Phone: [facility] 11-13-2014 influenza, seasonal, injectable Dr. Estrellita Bear Work Phone: [facility] 11-09-2013 influenza, injectabl e, quadrivalent, preservative free Dr. Estrellita Bear Work Phone: [facility] 11-09-2013 influenza, seasonal, injectable Dr. Estrellita Bear Work Phone: [facility] Payers Date Payer Category Payer Self-pay [id number] 2017 Unknown [id number] 2012 Private Health Insurance [id number] Unknown [id number] Unknown [id number] 2.16.8 [id number] Unknown [id number] 2.16.8 [id number] Unknown [id number] 2.16.8 [id number] Unknown [id number] 2.16.8 [id number] Unknown [id number] 2.16.8 [id number] Unknown [id number] 2.16.8 [id number] Unknown [id number] 2.16.8 [id number] Unknown [id number] 2.16.8 [id number] Unknown [id number] 2.16.8 [id number] Unknown [id number] 2.16.8 [id number] Unknown [id number] 2.16.8 [id number] Social History Date Type Detail Facility Start: 12-31-2020 End: 07-03-2022 Tobacco smoking status [facility] Unknown if ever smoked [facility] Start: 05-17-2020 Non-smoker [facility] Start: 1960 Sex Assigned At Female [facility] Start: 11-06-2016 None [facility] Start: 11-06-2016 With [facility] Start: 07-03-2022 [facility] Start: 05-19-2024 Sex Female (finding) [facility] Medical Equipment Procedure Code Equipment Code Equipment Origin al Text Equipment Identifier Dates SEALANT,FLOSEAL HEMOSTATIC 5ML FDA Start: 07-22-2017 SUTURE,LIGA CLIP MED LT200 FDA Start: 07-22-2017 SUTURE,LIGA CLIP MED LT200 FDA Start: 07-22-2017 SUTURE,LIGA CLIP SM LT-100 FDA Start: 07-22-2017 SUTURE,LIGA CLIP SM LT-100 FDA Start: 07-22-2017 SUTURE,LIGA CLIP SM LT-100 FDA Start: 07-22-2017 SEALANT,FLOSEAL HEMOSTATIC 5ML FDA Start: 07-22-2017 SUTURE,LIGA CLIP MED LT200 FDA Start: 07-22-2017 SUTURE,LIGA CLIP MED LT200 FDA Start: 07-22-2017 SUTURE,LIGA CLIP SM LT-100 FDA Start: 07-22-2017 SUTURE,LIGA CLIP SM LT-100 FDA Start: 07-22-2017 SUTURE,LIGA CLIP SM LT-100 FDA Start: 07-22-2017 SEALANT,FLOSEAL HEMOSTATIC 5ML FDA Start: 07-22-2017 SUTURE,LIGA CLIP MED LT200 FDA Start: 07-22-2017 SUTURE,LIGA CLIP MED LT200 FDA Start: 07-22-2017 SUTURE,LIGA CLIP SM LT-100 FDA Start: 07-22-2017 SUTURE,LIGA CLIP SM LT-100 FDA Start: 07-22-2017 SUTURE,LIGA CLIP SM LT-100 FDA Start: 07-22-2017 SEALANT,FLOSEAL HEMOSTATIC 5ML FDA Start: 07-22-2017 SUTURE,LIGA CLIP MED LT200 FDA Start: 07-22-2017 SUTURE,LIGA CLIP MED LT200 FDA Start: 07-22-2017 SUTURE,LIGA CLIP SM LT-100 FDA Start: 07-22-2017 SUTURE,LIGA CLIP SM LT-100 FDA Start: 07-22-2017 SUTURE,LIGA CLIP SM LT-100 FDA Start: 07-22-2017 SEALANT,FLOSEAL HEMOSTATIC 5ML FDA Start: 07-22-2017 SUTURE,LIGA CLIP MED LT200 FDA Start: 07-22-2017 SUTURE,LIGA CLIP MED LT200 FDA Start: 07-22-2017 SUTURE,LIGA CLIP SM LT-100 FDA Start: 07-22-2017 SUTURE,LIGA CLIP SM LT-100 FDA Start: 07-22-2017 SUTURE,LIGA CLIP SM LT-100 FDA Start: 07-22-2017 SEALANT,FLOSEAL HEMOSTATIC 5ML FDA Start: 07-22-2017 SUTURE,LIGA CLIP MED LT200 FDA Start: 07-22-2017 SUTURE,LIGA CLIP MED LT200 FDA Start: 07-22-2017 SUTURE,LIGA CLIP SM LT-100 FDA Start: 07-22-2017 SUTURE,LIGA CLIP SM LT-100 FDA Start: 07-22-2017 SUTURE,LIGA CLIP SM LT-100 FDA Start: 07-22-2017 SEALANT,FLOSEAL HEMOSTATIC 5ML FDA Start: 07-22-2017 SUTURE,LIGA CLIP MED LT200 FDA Start: 07-22-2017 SUTURE,LIGA CLIP MED LT200 FDA Start: 07-22-2017 SUTURE,LIGA CLIP SM LT-100 FDA Start: 07-22-2017 SUTURE,LIGA CLIP SM LT-100 FDA Start: 07-22-2017 SUTURE,LIGA CLIP SM LT-100 FDA Start: 07-22-2017 SEALANT,FLOSEAL HEMOSTATIC 5ML FDA Start: 07-22-2017 SUTURE,LIGA CLIP MED LT200 FDA Start: 07-22-2017 SUTURE,LIGA CLIP MED LT200 FDA Start: 07-22-2017 SUTURE,LIGA CLIP SM LT-100 FDA Start: 07-22-2017 SUTURE,LIGA CLIP SM LT-100 FDA Start: 07-22-2017 SUTURE,LIGA CLIP SM LT-100 FDA Start: 07-22-2017 SEALANT,FLOSEAL HEMOSTATIC 5ML FDA Start: 07-22-2017 SUTURE,LIGA CLIP MED LT200 FDA Start: 07-22-2017 SUTURE,LIGA CLIP MED LT200 FDA Start: 07-22-2017 SUTURE,LIGA CLIP SM LT-100 FDA Start: 07-22-2017 SUTURE,LIGA CLIP SM LT-100 FDA Start: 07-22-2017 SUTURE,LIGA CLIP SM LT-100 FDA Start: 07-22-2017 SEALANT,FLOSEAL HEMOSTATIC 5ML FDA Start: 07-22-2017 SUTURE,LIGA CLIP MED LT200 FDA Start: 07-22-2017 SUTURE,LIGA CLIP MED LT200 FDA Start: 07-22-2017 SUTURE,LIGA CLIP SM LT-100 FDA Start: 07-22-2017 SUTURE,LIGA CLIP SM LT-100 FDA Start: 07-22-2017 SUTURE,LIGA CLIP SM LT-100 FDA Start: 07-22-2017 SEALANT,FLOSEAL HEMOSTATIC 5ML FDA Start: 07-22-2017 SUTURE,LIGA CLIP MED LT200 FDA Start: 07-22-2017 SUTURE,LIGA CLIP MED LT200 FDA Start: 07-22-2017 SUTURE,LIGA CLIP SM LT-100 FDA Start: 07-22-2017 SUTURE,LIGA CLIP SM LT-100 FDA Start: 07-22-2017 SUTURE,LIGA CLIP SM LT-100 FDA Start: 07-22-2017 SEALANT,FLOSEAL HEMOSTATIC 5ML FDA Start: 07-22-2017 SUTURE,LIGA CLIP MED LT200 FDA Start: 07-22-2017 SUTURE,LIGA CLIP MED LT200 FDA Start: 07-22-2017 SUTURE,LIGA CLIP SM LT-100 FDA Start: 07-22-2017 SUTURE,LIGA CLIP SM LT-100 FDA Start: 07-22-2017 SUTURE,LIGA CLIP SM LT-100 FDA Start: 07-22-2017 SEALANT,FLOSEAL HEMOSTATIC 5ML FDA Start: 07-22-2017 SUTURE,LIGA CLIP MED LT200 FDA Start: 07-22-2017 SUTURE,LIGA CLIP MED LT200 FDA Start: 07-22-2017 SUTURE,LIGA CLIP SM LT-100 FDA Start: 07-22-2017 SUTURE,LIGA CLIP SM LT-100 FDA Start: 07-22-2017 SUTURE,LIGA CLIP SM LT-100 FDA Start: 07-22-2017 SEALANT,FLOSEAL HEMOSTATIC 5ML FDA Start: 07-22-2017 SUTURE,LIGA CLIP MED LT200 FDA Start: 07-22-2017 SUTURE,LIGA CLIP MED LT200 FDA Start: 07-22-2017 SUTURE,LIGA CLIP SM LT-100 FDA Start: 07-22-2017 SUTURE,LIGA CLIP SM LT-100 FDA Start: 07-22-2017 SUTURE,LIGA CLIP SM LT-100 FDA Start: 07-22-2017 SEALANT,FLOSEAL HEMOSTATIC 5ML FDA Start: 07-22-2017 SUTURE,LIGA CLIP MED LT200 FDA Start: 07-22-2017 SUTURE,LIGA CLIP MED LT200 FDA Start: 07-22-2017 SUTURE,LIGA CLIP SM LT-100 FDA Start: 07-22-2017 SUTURE,LIGA CLIP SM LT-100 FDA Start: 07-22-2017 SUTURE,LIGA CLIP SM LT-100 FDA Start: 07-22-2017 SEALANT,FLOSEAL HEMOSTATIC 5ML FDA Start: 07-22-2017 SUTURE,LIGA CLIP MED LT200 FDA Start: 07-22-2017 SUTURE,LIGA CLIP MED LT200 FDA Start: 07-22-2017 SUTURE,LIGA CLIP SM LT-100 FDA Start: 07-22-2017 SUTURE,LIGA CLIP SM LT-100 FDA Start: 07-22-2017 SUTURE,LIGA CLIP SM LT-100 FDA Start: 07-22-2017 SEALANT,FLOSEAL HEMOSTATIC 5ML FDA Start: 07-22-2017 SUTURE,LIGA CLIP MED LT200 FDA Start: 07-22-2017 SUTURE,LIGA CLIP MED LT200 FDA Start: 07-22-2017 SUTURE,LIGA CLIP SM LT-100 FDA Start: 07-22-2017 SUTURE,LIGA CLIP SM LT-100 FDA Start: 07-22-2017 SUTURE,LIGA CLIP SM LT-100 FDA Start: 07-22-2017 Goals Date Patient Goal Desired Activity /State Functional Status Date Assessment Result Facility 02-12-2022 Functional status [facility] Work Phone: Mental Status Date Assessment Result Facility 02-12-2022 Cognitive function Voice/Name [facility] Work Phone: Clinical Notes 01-28-2024 to 06-27-2024 Note Date & Type Note Facility 06-27-2024 Evaluation note Diagnosis Onset Date Resolution Osteopenia acute June 27, 2024 7:40am Breast cancer, right chronic June 27, 2024 7:40am Lung nodules chronic June 27 7:40am [facility] Work Phone: 1(149) 766-510404-29-2025 Chief complaint+Reason for visit Narrative * Chief Complaint Admit Date COVID-19 June 07, 2024 11: 52am SCREENING June 24, 2024 7:25a m ONC/HEM June 27, 2024 7:40a m Reason for Visit Admit Date Osteopenia June 27, 2024 7:40a m Breast cancer, right June 27, 2024 7:40 am Lung nodules June 27, 2024 7:40a m [facility] Work Phone: 1(786) 890-675212-19-2024 Evaluation note* Diagnosis Onset Date Resolution Status Admit Date Breast cancer, right chronic Dece mber 2023 7:52am [facility] Work Phone: Chief complaint+Reason for visit Narrative* Chief Complaint ONC/HEM 6 MO - LABS OSTEO CROHNS DISEASE COVID-19 Cough CHEST X-RAY HYPOXIA Shortness of breath Reason for Visit Osteopenia Breast cancer, right Lung nodules Breast cancer, right Asthmatic bronchitis with exacerbation Acute bronchospasm Acute hyperglycemia Acute hypokalemia Acute respiratory failure with hypoxia Hx of Crohn's disease Hyperglycemia Hypokalemia Left lower lobe pneumonia [facility] Work Phone: Chief complaint+Reason for visit Narrative* Chief Complaint ONC/HEM 6 MO - LABS OSTEO CROHNS DISEASE COVID-19 Cough CHEST X-RAY HYPOXIA Shortness of breath HYPOXIA HYPOXIA HYPOXIA HYPOXIA Reason for Visit Osteopenia Breast cancer, right Lung nodules Breast cancer, right Asthmatic bronchitis with exacerbation Acute bronchospasm Acute hyperglycemia Acute hypokalemia Acute respiratory failure with hypoxia Hx of Crohn's disease Hyperglycemia Hypokalemia Left lower lobe pneumonia [facility] Work Phone: Evaluation note* Diagnosis Onset Date Resolution Status Osteopenia acute Breast cancer, right chronic Lung nodules chronic Breast cancer, right chronic [facility] Work Phone: Evaluation note* Diagnosis Onset Date Resolution Status Breast cancer, right chronic Osteopenia acute Breast cancer, right chronic Lung nodules chronic Breast cancer, right chronic [facility] Work Phone: Evaluation note* Diagnosis Onset Date Resolution Status Osteopenia acute Breast cancer, right chronic Lung nodules chronic Breast cancer, right chronic Asthmatic bronchitis with exacerbation acute Acute bronchospasm acute Acute hyperglycemia acute Acute hypokalemia acute Acute respiratory failure with hypoxia acute Hx of Crohn's disease acute Hyperglycemia acute Hypokalemia acute Left lower lobe pneumonia ac jennie [facility] Work Phone: Evaluation note* Diagnosis Onset Date Resolution Status Acute upper respiratory infection acute Contact with and (suspected) exposure to other viral communicable diseases acute Breast cancer, right chronic COVID-19 acute Osteopenia acute Breast cancer, right chronic Lung nodules chronic Breast cancer, right chronic Foot pain, right acute Rheumatoid arthritis of foot acute [facility] Work Phone: Evaluation note* Diagnosis Onset Date Resolution Status Cough acute LUE numbness acute Osteopenia acute Breast cancer, right chronic [facility] Work Phone: Evaluation noteNo assessment information available [facility] Work Phone: Evaluation note* Diagnosis Onset Date Resolution Status Osteopenia acute Breast cancer, right chronic Hypokalemia resolved Osteopenia acute Breast cancer, right chronic Lung nodules chronic [facility] Work [facility] Work Phone: Hospital Discharge instructionsAmbulatory Orders* Lymphedema Treatment - [facility] Location: None Selected * RAD ONC: CT Sim [RAD.ONC.WOC] Location: None Selected [facility] Work Phone: Reason for referral (narrative)No [facility] for [facility] Work Phone: Summary Purpose Family History No Family History Records Found Relationship Condition Age at Onset Recorded Date/T lopez mother Malignant neoplasm of breast Unknown Hypertension Unknown Congestive heart failure Unknown Advance Directives No Advanced Directives Records Found Advance Directive Response Recorded Date/ Time Advance Directives No December 8:49am Living Will No December 31 8:49am Power of Operations Research Director No December 31, 2020 8:49am Advance Directive Response Recorded Date/ Time Advance Directives No December 7:49am Living Will No December 31 7:49am Power of Operations Research Director No December 31, 2020 7:49am Advance Directive Response Recorded Date/ Time Advance Directives No December 7:49am Living Will No February 08 4:10pm Power of Operations Research Director No February 08, 2022 4:10pm Advance Directive Response Recorded Date/ Time Advance Directives No December 7:49am Living Will No February 08 7:12pm Power of Operations Research Director No February 08, 2022 7:12pm Advance Directive Response Recorded Date/ Time Advance Directives No December 8:49am Living Will No February 08 8:12pm Power of Operations Research Director No February 08, 2022 8:12pm Advance Directive Response Recorded Date/ Time Living Will No February 08 8:12pm Do you have a Healthcare Power of Operations Research Director? No February 08, 2022 8:12pm Advance Directives No December 8:49am Advance Directive Response Recorded Date/ Time Living Will No December 31 8:49am Do you have a Healthcare Power of Operations Research Director? No December 31, 2020 8:49am Advance Directives No December 8:49am Chief Complaint and Reason for Visit Chief Complaint ONC/HEM 6MO LABS SCREENING Reason for Visit Osteopenia Breast cancer, right Lung nodules Breast cancer, right Chief Complaint FOLLOWUP MAMMOGRAM ONC/HEM 6 MO - LABS OSTEO Reason for Visit Breast cancer, right Osteopenia Breast cancer, right Lung nodules Breast cancer, right Chief Complaint ONC/HEM 6 MO - LABS OSTEO CROHNS DISEASE Reason for Visit Osteopenia Breast cancer, right Lung nodules Breast cancer, right Chief Complaint HEADACHE, COUGH, FAT IGUE f/u COVID TEST/BMS EMPLOYEE POSITIVE COVID/REQUESTING MEDS ONC/HEM 6MO LABS PRIOR RT FOOT INJURY xray RIGHT FOOT SCREENING Reason for Visit Acute upper respirat ory infection Contact with and (suspected) exposure to other viral communicable diseases Breast cancer, right COVID-19 Osteopenia Breast cancer, right Lung nodules Breast cancer, right Foot pain, right Rheumatoid arthritis of foot Chief Complaint 6 MO - LABS PRIOR Reason for Visit Cough LUE numbness Osteopenia Breast cancer, right Chief Complaint 6 MO - LABS PRIOR Crohn's disease, unspecified, without complication Reason for Visit Cough LUE numbness Osteopenia Breast cancer, right Chief Complaint 2 DRS/ 2 ORDERS 6 MO - LABS PRIOR ONC/HEM Reason for Visit Osteopenia Breast cancer, right Hypokalemia Osteopenia Breast cancer, right Lung nodules Chief Complaint 2 DRS/ 2 ORDERS 6 MO - LABS PRIOR ONC/HEM RIGHT BREAST LUMP Reason for Visit Osteopenia Breast cancer, right Hypokalemia Osteopenia Breast cancer, right Lung nodules Chief Complaint Admit Date 6 MONTH-LABS PRIOR January 28, 2024 7:52am Reason for Visit Admit Date Breast cancer, right January 28, 2024 7:52am Additional Source Comments INFORMATION SOURCE (unrecogn ized section and content) DATE CREATED AUTHOR 08/04/2017 [facility] DATE CREATED AUTHOR AUTHOR'S ORGANIZ ATION 07/15/2024 [facility] Goals (unrecognized section and content) Goals may be documented in a n alternate sectionGoals may be documented in an alternate sectionGoals may be documented in an alternate sectionGoals may be documented in an alternate sectionGoals may be documented in an alternate sectionGoals may be documented in an alternate sectionGoals may be documented in an alternate sectionGoals may be documented in an alternate sectionGoals may be documented in an alternate sectionGoals may be documented in an alternate sectionGoals may be documented in an alternate sectionGoals may be documented in an alternate sectionGoals may be documented in an alternate sectionGoals may be documented in an alternate sectionGoals may be documented in an alternate sectionGoals may be documented in an alternate section Care Teams (unrecognized sec tion and content) Team Status: Active Member Role Status Dates Dr. Estrellita Bear , DO Family Provider Active Dr. Estrellita Bear , DO Primary Care Provider Activ e Team Status: Inactive Member Role Status Dates Dr. Estrellita Bear , DO Primary Care Provider Activ e Dr. Robb Rodriguez , DO Attending Provider Active Team Status: Inactive Member Role Status Dates Dr. Estrellita Bear , DO Primary Care Provider, Refe rring Provider Active Rodriguez WARREN, [place] Attending Provider Active Team Status: Inactive Member Role Status Dates Dr. Estrellita Bear , DO Primary Care Provider, Refe rring Provider Active Dr. Pete Paez MD Attending Provider Active Team Status: Inactive Member Role Status Dates Dr. Estrellita Bear , DO Primary Care Provider, Refe rring Provider Active Roman WARREN, [place] Attending Provider Active Team Status: Inactive Member Role Status Dates Dr. Estrellita Bear , DO Primary Care Provider, Refe rring Provider Active Ortiz Stacy GLYCERIN SUPERVISOR, GLYCERIN SUPERVISOR-C Attending Provider Active Team Status: Inactive Member Role Status Dates Dr. Estrellita Bear , DO Primary Care Provider Activ e Dr. Orestes Amezquita MD Attending Provider Active Team Status: Inactive Member Role Status Dates Dr. Estrellita Bear , DO Primary Care Provider, Refe rring Provider Active Danial Solano MD Attending Provider Active Team Status: Active Member Role Status Dates Dr. Estrellita Bear , DO Primary Care Provider, Fami ly Provider Active Dr. Pete Paez MD Attending Provider Active Dr. Brenden Webster MD Referring Provider Active Dr. Renato Stewart MD Other Provider Active Dr. Jay Isabel MD Other Provider Active Team Status: Inactive Member Role Status Dates Dr. Estrellita Bear , DO Primary Care Provider Activ e Dr. Pete Paez MD Attending Provider, Referring Pro vider Active Team Status: Inactive Member Role Status Dates Dr. Estrellita Bear , DO Primary Care Provider, Refe rring Provider Active Yamini Roberta GLYCERIN SUPERVISOR, GLYCERIN SUPERVISOR-C Attending Provider Active Team Status: Inactive Member Role Status Dates Dr. Estrellita Bear , DO Primary Care Provider Activ e DOROTHY MCGHEE Attending Provider, Referring Prov ider Active Dr. Pete Paez MD Other Provider Active Team Status: Inactive Member Role Status Dates Dr. Estrellita Bear , DO Primary Care Provider, Attending Provider, Referring Provider Active Dr. Jay Isabel MD Other Provider Active Team Status: Inactive Member Role Status Dates Dr. Estrellita Bear , DO Primary Care Provider Activ e Dr. Jay Isabel MD Attending Provider Active Team Status: Inactive Member Role Status Dates Dr. sEtrellita Bear , DO Primary Care Provider Activ e DOROTHY MCGHEE Attending Provider, Referring Prov ider Active Team Status: Inactive Member Role Status Dates Dr. Estrellita Bear , DO Primary Care Provider, Refe rring Provider Active Dr. Pete Paez MD Active Yamini Roberta GLYCERIN SUPERVISOR, GLYCERIN SUPERVISOR-C Attending Provider Active Team Status: Inactive Member Role Status Dates Dr. Estrellita Bear , DO Primary Care Provider Activ e Yamini Roberta GLYCERIN SUPERVISOR, GLYCERIN SUPERVISOR-C Attending Provider, Referring Provider Active Dr. Jay Isabel MD Other Provider Active Team Status: Inactive Member Role Status Dates Dr. Estrellita Bear , DO Primary Care Provider Activ e Yamini Roberta GLYCERIN SUPERVISOR, GLYCERIN SUPERVISOR-C Attending Provider, Referring Provider Active Team Status: Active Member Role Status Dates Dr. Estrellita Bear , DO Primary Care Provider Activ e Dr. Jay Isabel MD Attending Provider, Referring Provider Active Team Status: Inactive Member Role Status Dates Dr. Estrellita Bear , DO Primary Care Provider Activ e Dr. Jay Isabel MD Attending Provider, Referring Provider Active Team Status: Inactive Member Role Status Dates Dr. Estrellita Bear DO Primary Care Provider Activ e Start: January 25, 2024 End: January 25, 2024 Dr. Jay Isabel MD Attending Provider Active Start: January 25, 2024 End: January 25, 2024 Dr. Jay Isabel MD Referring Provider Active Start: January 25, 2024 End: January 25, 2024 Team Status: Inactive Member Role Status Dates Dr. Estrellita Bear DO Primary Care Provider Activ e Start: January 28, 2024 End: January 28, 2024 Dr. Estrellita Bear DO Referring Provider Active Start: January 28, 2024 End: January 28, 2024 Dr. Pete Paez MD Attending Provider Active S tart: January 28, 2024 End: January 28, 2024 Team Status: Inactive Member Role Status Dates Dr. Estrellita Bear DO Primary Care Provider Activ e Start: May 16, 2024 End: May 16, 2024 Dr. Jay Isabel MD Attending Provider Active Start: May 16, 2024 End: May 16, 2024 Dr. Jay Isabel MD Referring Provider Active Start: May 16, 2024 End: May 16, 2024 Team Status: Active Member Role Status Dates Dr. Estrellita Bear DO Primary Care Provider Activ e Team Status: Inactive Member Role Status Dates Dr. Estrellita Bear DO Primary Care Provider Activ e Start: June 07, 2024 End: June 07, 2024 Dr. Estrellita Bear DO Referring Provider Active Start: June 07, 2024 End: June 07, 2024 Rodriguez Kinney PA, PA Attending Provider Active Start: June 07, 2024 End: June 07, 2024 Team Status: Inactive Member Role Status Dates Dr. Estrellita Bear DO Primary Care Provider Activ e Start: June 24, 2024 End: June 24, 2024 Dr. Pete Paez MD Attending Provider Active S tart: June 24, 2024 End: June 24, 2024 Dr. Pete Paez MD Referring Provider Active S tart: June 24, 2024 End: June 24, 2024 Team Status: Active Member Role Status Dates Dr. Estrellita Bear DO Primary Care Provider Activ e Start: June 27, 2024 Dr. Estrellita Bear , Family Provider Active Start: June 27, 2024 Dr. Pete Paez MD Attending Provider Active S tart: June 27, 2024 Dr. Brenden Webster MD Referring Provider Active Start: June 27, 2024 Dr. Renato Stewart MD Other Provider Active Sta rt: June 27, 2024 Dr. Jay Isabel MD Other Provider Active St art: June 27, 2024 FOR RECORDS PERTAINING TO PATIENTS WHO ARE OR HAVE BEEN ENROLLED IN A CHEMICAL DEPENDENCY/SUBSTANCEABUSE PROGRAM, SOME INFORMATION MAY BE OMITTED. This clinical summary was aggregated from multiple sources. Caution should be exercised in using it in the provision of clinical care. This summary normalizes information from multiple sources, and as a consequence, information in this document may materially change the coding, format and clinical context of patient data. In addition, data may be omitted in some cases. CLINICAL DECISIONS SHOULD BE BASED ON THE PRIMARY CLINICAL RECORDS. [employer] [facility]. provides no warranty or guarantee of the accuracy or completeness of information in this document.
== END | disposition home or self-care (01) ==
LOC: OPBD 06:50
PROVIDERS: Referring Provider Nurse Practitioner Family; Visit Provider Nurse Practitioner Family
DX: M85.89 Other specified disorders of bone density and structure, multiple sites (principal); Z78.0 Asymptomatic menopausal state
CPT/HCPCS: 77080

== ENCOUNTER → 2024-11-09 | Outpatient (CLI) | payer OTHER, SELFPAY ==
[2020-12-31 07:49] VITALS: BMI 25.1
--- NOTE | 2024-11-09 08:50 | US_ITS ---
EXAM: DIAG MAMM W/CAD, UNILAT; BREAST LIMITED UNILATERAL 11/09/2024; N/A CLINICAL HISTORY: F, Age 64 y/o , RIGHT BREAST MASS, redness TECHNIQUE: Procedure Code: [id number]; USBRSTLIMIT Modality: MG; US Procedure: DIAG MAMM W/CAD, UNILAT; BREAST LIMITED UNILATERAL. COMPARISON: Prior exam(s) dated 06/24/2024. FINDINGS: Right breast mammogram: TISSUE DENSITY: There are scattered areas of fibroglandular density. Unilateral Right Breast Mammographic Findings: Stable architectural distortion in the right breast from previous lumpectomy. Stable postsurgical clips noted in the right axilla. There is no mammographic correlate to the patient's palpable lump so further evaluation of the area of concern with ultrasound was also performed. There is no suspicious mass, new architectural distortion or new suspicious calcifications Right breast ultrasound: Focal right breast ultrasound was performed in the lower inner quadrant from 4-5 o'clock. Within the area of concern there is normal dense fibroglandular tissue with some bands of dense tissue. There is no suspicious shadowing solid lesion architectural distortion or clustered shadowing calcifications. The mixed signal design engineer notes some redness and subcutaneous edema which I suspect may represent a focal inflammatory process. US/Breast Limited Unilateral IMPRESSION: The area of concern of the right breast likely represents a focal inflammatory process, there is no suspicious mammographic or sonographic abnormality. OVERALL FINAL ASSESSMENT BI-RADS 2: BENIGN RECOMMENDATION: Routine annual follow-up in 1 Year Additional Recommendation none A letter with findings and recommendations will be mailed to the patient. Reading Location: [id number]
--- NOTE | 2024-11-09 08:50 | US_ITS ---
EXAM: DIAG MAMM W/CAD, UNILAT; BREAST LIMITED UNILATERAL 11/09/2024; N/A CLINICAL HISTORY: F, Age 64 y/o , RIGHT BREAST MASS, redness TECHNIQUE: Procedure Code: [id number]; USBRSTLIMIT Modality: MG; US Procedure: DIAG MAMM W/CAD, UNILAT; BREAST LIMITED UNILATERAL. COMPARISON: Prior exam(s) dated 06/24/2024. FINDINGS: Right breast mammogram: TISSUE DENSITY: There are scattered areas of fibroglandular density. Unilateral Right Breast Mammographic Findings: Stable architectural distortion in the right breast from previous lumpectomy. Stable postsurgical clips noted in the right axilla. There is no mammographic correlate to the patient's palpable lump so further evaluation of the area of concern with ultrasound was also performed. There is no suspicious mass, new architectural distortion or new suspicious calcifications Right breast ultrasound: Focal right breast ultrasound was performed in the lower inner quadrant from 4-5 o'clock. Within the area of concern there is normal dense fibroglandular tissue with some bands of dense tissue. There is no suspicious shadowing solid lesion architectural distortion or clustered shadowing calcifications. The furniture polisher notes some redness and subcutaneous edema which I suspect may represent a focal inflammatory process. US/Breast Limited Unilateral IMPRESSION: The area of concern of the right breast likely represents a focal inflammatory process, there is no suspicious mammographic or sonographic abnormality. OVERALL FINAL ASSESSMENT BI-RADS 2: BENIGN RECOMMENDATION: Routine annual follow-up in 1 Year Additional Recommendation none A letter with findings and recommendations will be mailed to the patient. Reading Location: [id number]
--- NOTE | 2024-11-09 09:00 | BI_ITS ---
EXAM: DIAG MAMM W/CAD, UNILAT; BREAST LIMITED UNILATERAL 11/09/2024; N/A CLINICAL HISTORY: F, Age 64 y/o , RIGHT BREAST MASS, redness TECHNIQUE: Procedure Code: [id number]; USBRSTLIMIT Modality: MG; US Procedure: DIAG MAMM W/CAD, UNILAT; BREAST LIMITED UNILATERAL. COMPARISON: Prior exam(s) dated 06/24/2024. FINDINGS: Right breast mammogram: TISSUE DENSITY: There are scattered areas of fibroglandular density. Unilateral Right Breast Mammographic Findings: Stable architectural distortion in the right breast from previous lumpectomy. Stable postsurgical clips noted in the right axilla. There is no mammographic correlate to the patient's palpable lump so further evaluation of the area of concern with ultrasound was also performed. There is no suspicious mass, new architectural distortion or new suspicious calcifications Right breast ultrasound: Focal right breast ultrasound was performed in the lower inner quadrant from 4-5 o'clock. Within the area of concern there is normal dense fibroglandular tissue with some bands of dense tissue. There is no suspicious shadowing solid lesion architectural distortion or clustered shadowing calcifications. The liquor runner notes some redness and subcutaneous edema which I suspect may represent a focal inflammatory process. BI/DIAG MAMM W/CAD, UNILAT IMPRESSION: The area of concern of the right breast likely represents a focal inflammatory process, there is no suspicious mammographic or sonographic abnormality. OVERALL FINAL ASSESSMENT BI-RADS 2: BENIGN RECOMMENDATION: Routine annual follow-up in 1 Year Additional Recommendation none A letter with findings and recommendations will be mailed to the patient. Reading Location: [id number]
--- NOTE | 2024-11-09 09:00 | BI_ITS ---
EXAM: DIAG MAMM W/CAD, UNILAT; BREAST LIMITED UNILATERAL 11/09/2024; N/A CLINICAL HISTORY: F, Age 64 y/o , RIGHT BREAST MASS, redness TECHNIQUE: Procedure Code: [id number]; USBRSTLIMIT Modality: MG; US Procedure: DIAG MAMM W/CAD, UNILAT; BREAST LIMITED UNILATERAL. COMPARISON: Prior exam(s) dated 06/24/2024. FINDINGS: Right breast mammogram: TISSUE DENSITY: There are scattered areas of fibroglandular density. Unilateral Right Breast Mammographic Findings: Stable architectural distortion in the right breast from previous lumpectomy. Stable postsurgical clips noted in the right axilla. There is no mammographic correlate to the patient's palpable lump so further evaluation of the area of concern with ultrasound was also performed. There is no suspicious mass, new architectural distortion or new suspicious calcifications Right breast ultrasound: Focal right breast ultrasound was performed in the lower inner quadrant from 4-5 o'clock. Within the area of concern there is normal dense fibroglandular tissue with some bands of dense tissue. There is no suspicious shadowing solid lesion architectural distortion or clustered shadowing calcifications. The motorcycle fabricator notes some redness and subcutaneous edema which I suspect may represent a focal inflammatory process. BI/DIAG MAMM W/CAD, UNILAT IMPRESSION: The area of concern of the right breast likely represents a focal inflammatory process, there is no suspicious mammographic or sonographic abnormality. OVERALL FINAL ASSESSMENT BI-RADS 2: BENIGN RECOMMENDATION: Routine annual follow-up in 1 Year Additional Recommendation none A letter with findings and recommendations will be mailed to the patient. Reading Location: [id number]
== END | disposition home or self-care (01) ==
LOC: OPBI 08:49
PROVIDERS: Referring Provider Nurse Practitioner Family; Visit Provider Nurse Practitioner Family
DX: N63.10 Unspecified lump in the right breast, unspecified quadrant (principal)
CPT/HCPCS: 76642; 77062; 77065; G0279

== ENCOUNTER → 2024-12-26 | Outpatient (CLI) | payer OTHER, SELFPAY ==
[2020-12-31 07:49] VITALS: BMI 25.1
== END | disposition home or self-care (01) ==
PROVIDERS: Referring Provider Internal Medicine Gastroenterology; Visit Provider Internal Medicine Gastroenterology
DX: K50.90 Crohn's disease, unspecified, without complications (principal)

== ENCOUNTER → 2025-01-04 | Outpatient (CLI) | payer OTHER, SELFPAY ==
[2020-12-31 07:49] VITALS: BMI 25.1
--- NOTE | 2025-01-04 12:33 | RAD_ITS ---
PROCEDURE: CHEST PA AND LATERAL 01/04/2025 REASON FOR EXAM: COUGH TECHNIQUE: Procedure Code: RADCXR Modality: DX Procedure: CHEST PA AND LATERAL COMPARISON: June 30, 2024 FINDINGS: Hardware: None Heart: The heart size is normal. Mediastinum: Mild atherosclerosis of the aortic knob. Lungs: Some scarring is seen in the right middle lobe at the periphery better seen on prior CT. Otherwise, the lungs are clear. Bones: The bones are unremarkable. RAD/Chest PA and Lateral IMPRESSION: No acute abnormality. Mild scarring right middle lobe. Reading Location: [id number]
== END | disposition home or self-care (01) ==
LOC: MTRAD 12:33
PROVIDERS: Referring Provider Physician Assistant Surgical; Visit Provider Physician Assistant Surgical
DX: R05.9 Cough, unspecified (principal)
CPT/HCPCS: 71046